=== PATIENT | female | born 1990 | race Caucasian/White ===

== ENCOUNTER 2019-08-23 07:15 | Outpatient (CLI) | payer OTHER, SELFPAY ==
--- NOTE | 2019-08-23 | ECG_ITS ---
Measurements Intervals [place] Rate: 72 P: 32 WI: 118 QRS: 64 QRSD: 74 T: 44 QT: 363 QTc: 399 Interpretive Statements SINUS RHYTHM WITH SINUS ARRHYTHMIA WITH SHORT WI INTERVAL BORDERLINE ECG Electronically Signed On 08-23-2019 8:24:33 [employer] by Watson Schwab D.O.
[2019-08-23 09:27] LABS: Hematocrit 39.1 % (37.0-47.0); Hemoglobin 13.4 g/dL (12.0-15.0); Mean Corpuscular HGB Conc 34.3 g/dl (32-36); Mean Corpuscular Hemoglobin 29.9 pg (26-34); Mean Corpuscular Volume 87.3 fl (80-100); Mean Platelet Volume 10.1 fl (7.4-10.4); Platelet Count Result 205 k/mm3 (150-375); Red Blood Count 4.48 M/mm3 (4.2-5.4); Red Cell Distribution Width 12.8 % (11.5-14.5); White Blood Count 6.7 K/mm3 (4.5-10.0)
[2019-08-23 09:29] LABS: Add Urine Microscopic? NO; Appearance Urine Clear (Clear); Bilirubin Urine Negative (Negative); Blood Urine Negative (Negative); Color Urine Yellow (Yellow); Glucose Urine UA Negative (Negative); Ketones Urine Negative (Negative); Leukocyte Esterase Ur Negative LEU/UL (NEGATIVE); Nitrate Urine Negative (Negative); Protein Urine Negative (Negative); Specific Grav Ur 1.017 (1.001-1.035); Urobilinogen Urine Negative mg/dL (<2.0)
[2019-08-23 09:30] LABS: Alanine Aminotransferase 11 U/L (4-35); Albumin Level 4.1 g/dL (3.5-5.1); Alkaline Phosphatase 54 U/L (38-126); Aspartate Amino Transferase 18 U/L (14-36); Bilirubin,Total 0.4 mg/dL (0.2-1.3); Blood Urea Nitrogen 11 mg/dL (7-17); Calcium 8.9 mg/dL (8.4-10.2); Carbon Dioxide 25 mmol/L (22-30); Chloride 103 mmol/L (98-107); Estimated Glomerular Filt Rate > 60; Glucose 101 mg/dL (65-105); Magnesium 2.1 mg/dL (1.6-2.3); Potassium 3.9 mmol/L (3.4-5.0); Sodium 139 mmol/L (137-145)
[2019-08-25 17:06] LABS: Beta HCG Quantitative < 2.39 mIU/ML
== END 2019-08-23 07:16 | disposition home or self-care (01) ==
LOC: ANHCARD 07:27
PROVIDERS: PCP Emergency Medicine; Visit Provider Obstetrics & Gynecology Gynecology
DX: F50.9 Eating disorder, unspecified (principal)
CPT/HCPCS: 36415; 80053; 81003; 82248; 83735; 84311; 84702; 85027; 93005

== ENCOUNTER 2020-05-28 13:34 | Outpatient (CLI) | payer OTHER, SELFPAY ==
[2020-05-28 14:16] LABS: Basophils Percent Auto 0.1 % (0.2-1.2); Hematocrit 38.8 % (37.0-47.0); Hemoglobin 13.5 g/dL (12.0-15.0); Immature Granulocyte Absolute 0.03 K/mm3 (0.00-0.031); Immature Granulocyte Percent A 0.3 % (0-0.5); Lymphocytes Absolute Auto 3.13 K/mm3 (0.9-3.2); Lymphocytes Percent Auto 32.5 % (18.3-44.2); Mean Corpuscular HGB Conc 34.8 g/dl (32-36); Mean Corpuscular Hemoglobin 30.1 pg (26-34); Mean Corpuscular Volume 86.4 fl (80-100); Mean Platelet Volume 9.9 fl (7.4-10.4); Monocytes Absolute Auto 0.9 K/mm3 (0.1-0.6); Monocytes Percent Auto 8.8 % (2.6-8.5); Neutrophils Absolute Auto 5.6 K/mm3 (1.3-6.7); Neutrophils Percent Auto 58.3 % (45.5-73.1); Platelet Count Result 236 k/mm3 (150-375); Red Blood Count 4.49 M/mm3 (4.2-5.4); Red Cell Distribution Width 13.1 % (11.5-14.5); White Blood Count 9.6 K/mm3 (4.5-10.0)
[2020-05-28 14:23] LABS: Alanine Aminotransferase 10 U/L (4-35); Albumin Level 3.9 g/dL (3.5-5.1); Alkaline Phosphatase 58 U/L (38-126); Anion Gap 8 mmol/L (8-16); Aspartate Amino Transferase 21 U/L (14-36); Bilirubin,Total 0.5 mg/dL (0.2-1.3); Blood Urea Nitrogen 11 mg/dL (7-17); Calcium 9.1 mg/dL (8.4-10.2); Carbon Dioxide 26 mmol/L (22-30); Chloride 102 mmol/L (98-107); Cholesterol 157 mg/dL (0-200); Estimated Glomerular Filt Rate > 60; Glucose 87 mg/dL (65-105); HDL Direct 37 mg/dL; Magnesium 1.9 mg/dL (1.6-2.3); Potassium 3.9 mmol/L (3.4-5.0); Sodium 136 mmol/L (137-145); Triglycerides 55 mg/dL (<150)
[2020-05-28 14:34] LABS: LDL Cholesterol Direct 107 mg/dL
[2020-05-28 15:02] LABS: Vitamin D 25 Hydroxy 26.5 ng/mL
[2020-06-10 15:25] LABS: Reference Lab Test Name Leptin
== END 2020-05-28 13:35 | disposition home or self-care (01) ==
PROVIDERS: Visit Provider Obstetrics & Gynecology Gynecology
DX: F50.9 Eating disorder, unspecified (principal)
CPT/HCPCS: 36415; 80053; 80061; 82306; 82607; 83520; 83735; 84100; 85025; 85027

== ENCOUNTER 2021-05-06 14:20 | Emergency (ER) | payer OTHER, MEDICAID, SELFPAY ==
--- NOTE | ~2021-05-06 | XR_ITS ---
EXAMINATION: XR chest 2V DATE: 05/06/2021 15:06 INDICATION: Palpitations. Dizziness. TECHNIQUE: PA and lateral views of the chest were obtained. COMPARISON: Chest radiograph dated 01/12/2021 FINDINGS: The lungs remain clear with no focal airspace opacities, pulmonary edema, pleural effusion or pneumot horax. The cardiomediastinal silhouette is normal. Cholecystectomy clips in right upper quadrant. Bon es are unremarkable. IMPRESSION: 1. No acute cardiopulmonary disease. Reviewed, dictated and finalized at location A.
--- NOTE | 2021-05-06 14:22 | ECG_ITS ---
Measurements Intervals [place] Rate: 90 P: 31 [place]: 123 QRS: 66 QRSD: 73 T: 12 QT: 345 QTc: 423 Interpretive Statements SINUS RHYTHM POSSIBLE LEFT ATRIAL ENLARGEMENT LOW VOLTAGE- PRECORDIAL LEADS BORDERLINE ST-T WAVE ABNORMALITY- ANT/INF LEADS BORDERLINE ECG Electronically Signed On 05-06-2021 14:27:28 CDT by Watson Schwab D.O.
[2021-05-06 14:28] VITALS: BP 127/82; PULSE 91; RESP 16; TEMP 36.2; O2SAT 100
[2021-05-06 14:51] LABS: Basophils Percent Auto 0.2 % (0.2-1.2); Eosinophils Percent Auto 0.1 % (0-4.4); Hematocrit 37.8 % (37.0-47.0); Hemoglobin 13.2 g/dL (12.0-15.0); Immature Granulocyte Absolute 0.02 K/mm3 (0.00-0.031); Immature Granulocyte Percent A 0.2 % (0-0.5); Lymphocytes Absolute Auto 2.69 K/mm3 (0.9-3.2); Lymphocytes Percent Auto 33.3 % (18.3-44.2); Mean Corpuscular HGB Conc 34.9 g/dl (32-36); Mean Corpuscular Hemoglobin 30.1 pg (26-34); Mean Corpuscular Volume 86.1 fl (80-100); Mean Platelet Volume 10.1 fl (7.4-10.4); Monocytes Absolute Auto 0.9 K/mm3 (0.1-0.6); Monocytes Percent Auto 10.9 % (2.6-8.5); Neutrophils Absolute Auto 4.5 K/mm3 (1.3-6.7); Neutrophils Percent Auto 55.3 % (45.5-73.1); Platelet Count Result 231 k/mm3 (150-375); Red Blood Count 4.39 M/mm3 (4.2-5.4); Red Cell Distribution Width 13.2 % (11.5-14.5); White Blood Count 8.1 K/mm3 (4.5-10.0)
[2021-05-06 15:28] LABS: Anion Gap 6 mmol/L (8-16); Blood Urea Nitrogen 8 mg/dL (7-17); Calcium 8.8 mg/dL (8.4-10.2); Carbon Dioxide 27 mmol/L (22-30); Chloride 105 mmol/L (98-107); Estimated CRCL calculation 138 ml/min; Estimated Glomerular Filt Rate > 60; Glucose 94 mg/dL (65-110); Potassium 3.6 mmol/L (3.4-5.0); Sodium 138 mmol/L (137-145)
[2021-05-06 15:38] LABS: Troponin I < 0.012 ng/mL (0.000-0.034)
[2021-05-06 15:54] LABS: Partial Thromboplastin Time 31.7 SECONDS (22.3-36.8)
--- NOTE | 2021-05-06 16:20 | ED.ARRPALP ---
HPI - Arrhythmia/Palpitations General Chief Complaint: Arrhythmia/Palpitations Stated Complaint: DIZZINESS,HEART PALPATATIONS Time Seen by Provider: 05/06/21 15:57 Source: patient History of Present Illness HPI narrative: Patient presents with palpitations and dizziness. Patient ports intermittent symptoms for the past 3 weeks she contacted her primary care physician was referred to the ER for evaluation. Symptoms are worse today but on arrival to ER she is feeling much better. She denies palpitations at this time. Her symptoms are not associated with chest pain or shortness of breath she denies recent nausea vomiting diarrhea or fevers. Related Data Home Medications Medication Instructions Recorded Confirmed cholecalciferol (vitamin D3) 1,250 See Rx Instructions .ROUTE .COMPLEX 07/01/19 mcg (50,000 unit) tablet cholecalciferol (vitamin D3) 50 2,000 unit PO DAILY 07/01/19 mcg (2,000 unit) tablet escitalopram oxalate 20 mg tablet 20 mg PO DAILY 07/01/19 vitamin no.49-iron-FA See Rx Instructions PO .COMPLEX 07/01/19 6.75 mg iron-200 mcg tablet selenium sulfide 2.5 % lotion See Rx Instructions .ROUTE .COMPLEX 07/01/19 trazodone 100 mg tablet 100 mg PO DAILY tablet 07/02/19 Allergies Allergy/AdvReac Type Severity Reaction Status Date / Time sodium chloride Allergy Severe sodium Verified 05/06/21 15:57 chloride for inhalation - can't breathe Review of Systems Review of Systems: CONSTITUTIONAL: Denies fever, chills, or sweats. EYES: Denies visual changes, redness, or discharge. ENT: Denies rhinorrhea, congestion, sore throat, or otalgia. CARDIOVASCULAR: Denies chest pain, palpitations, or edema. RESPIRATORY: Denies cough or dyspnea. GASTROINTESTINAL: Denies abdominal pain, nausea, vomiting, or diarrhea. GENITOURINARY: Denies dysuria or hematuria. SKIN: Denies rash or itching. MUSCULOSKELETAL: Denies back pain, joint pain, or myalgia. NEUROLOGIC: Denies headache, numbness, or weakness. PSYCHIATRIC: Denies anxiety or depression. All systems reviewed & are unremarkable except as noted in HPI and below PMFSH Family History Family History Mother Family history of thyroid disease Family history of hypercholesterolemia Depression Family history of migraine headaches Hypertension Sibling Family history of hypercholesterolemia Hypertension Father Family history of cardiovascular disease Other Carcinoma of colon Diabetes mellitus Family history of elevated blood lipids Family history of malignant neoplasm Family history of malignant neoplasm of ovary Social History Social History Smoking status: Current every day smoker Alcohol intake: current Exam Narrative: GENERAL: Well-appearing, well-nourished, and in no acute distress. HEAD: Normocephalic, atraumatic. EYES: PERRLA and EOMI. ENT: Nares clear, no rhinorrhea or epistaxis. Mucous membranes moist. NECK: Supple. No masses. No JVD CHEST: Clear to auscultation. No respiratory distress. No wheezes rales or rhonchi HEART: Regular rate and rhythm. No murmur heard. Normal peripheral pulses. ABDOMEN: Soft, nontender, nondistended, normal active bowel sounds. EXTREMITIES: Normal range of motion. No edema. SKIN: Warm, dry, no rash. NEURO: No focal deficits. Alert and oriented x3. PSYCH: Normal mood and affect. Course Reevaluation(s) Reevaluation #1: Results and plan reviewed with patient. Patient comfortable with outpatient plan. She has follow-up with her primary care doctor next week Date: 05/06/21 Time: 16:22 Vital Signs Vital signs: Vital Signs Temperature 36.2 C L 05/06/21 14:28 Pulse Rate 91 05/06/21 14:28 Respiratory Rate 16 05/06/21 14:28 Blood Pressure 127/82 05/06/21 14:28 Pulse Oximetry 100 05/06/21 14:28 Temperature 36.2 C L 05/06/21 14:28 Pulse Rate
[2021-05-06 18:04] VITALS: BP 107/68; PULSE 76; RESP 18; O2SAT 100
== END 2021-05-06 18:08 | disposition home or self-care (01) ==
PROVIDERS: Emergency Medicine; Emergency Provider Emergency Medicine
DX: R42 Dizziness and giddiness (principal); R00.2 Palpitations; F17.200 Nicotine dependence, unspecified, uncomplicated; R94.31 Abnormal electrocardiogram [ECG] [EKG]
CPT/HCPCS: 36415; 71046; 80048; 84443; 84484; 85025; 85610; 85730; 93005; 99284

== ENCOUNTER 2021-06-02 11:27 | Outpatient (CLI) | payer OTHER, MEDICAID, SELFPAY ==
--- NOTE | 2021-06-22 17:42 | WPDSLEEPSTUD ---
Sleep Study Date of Study: 06/02/21 <Kylee Duong DO - Last Filed: 06/22/21 18:07> Ordering Provider: Abel MitchellMD <Kylee Duong DO - Last Filed: 06/22/21 18:07> Interpreting Physician: Kylee Duong DO <Kylee Duong, DO - Last Filed: 06/22/21 18:07> Sleep Study Type: Split Polysomnogram <Kylee Duong DO - Last Filed: 06/22/21 18:07> Height: 1.68 m <Kylee Duong DO - Last Filed: 06/22/21 18:07> Weight: 99.79 kg <Kylee Duong DO - Last Filed: 06/22/21 18:07> Body Mass Index: 35.5 <Kylee Duong DO - Last Filed: 06/22/21 18:07> Neck Circumference (inches): 15 <Kylee Duong DO - Last Filed: 06/22/21 18:07> [place]: 11 <Kylee Duong DO - Last Filed: 06/22/21 18:07> Reason for Sleep Study Unrefreshing sleep, daytime hypersomnia <Kylee Duong DO - Last Filed: 06/22/21 18:07> Sleep History The patient is a 31 y/o female with anxiety, depression, PTSD, and history of anorexia nervosa that had a sleep study ordered by her psychiatrist for unrefreshing sleep and daytime hypersomnia. The patient denies awakening from sleep short of breath. She occasionally awakens at night with heartburn, belching or cough. She constantly snores loud enough that others complain. He frequently has trouble sleeping when she has a cold. She rarely wakes up gasping for air throughout the night. She denies having breathing problems at night observed by others. She denies sweating excessively at night. She occasionally has heart palpitations or irregular heartbeats during the night. She occasionally falls asleep during the day but never while driving. She occasionally has trouble at work due to sleepiness. She denies sleep paralysis, cataplexy and hypnagogic / hypnopompic hallucinations. She frequently has nightmares. She constantly has thoughts racing through her mind. She constantly feels sad, depressed and anxious. She denies noticing parts of her body jerk. She rarely kicks during the night. She rarely experiences crawling and aching feelings in her legs as well as leg pain during the night. She rarely grinds her teeth during sleep and awakens with jaw pain in the morning. She is frequently bothered by pain during the day but is rarely awakened by pain during the night. She constantly wakes up feeling stiff in the morning. She goes to bed at 10:00 p.m. on both weekdays and weekends. On the days that she worked, she can fall asleep within 30 minutes. Otherwise it will take her between 1-2 hours. She wakes up between 1 and 3 times per night. When she awakens, she will adjust her position, use the restroom and lay there ruminating. It takes her between 5 and 30 minutes to fall back asleep. She wakes up at 5:00 a.m. on weekdays and 6:00 a.m. on the weekends. He typically gets between 6 and 8 hours of sleep per night. She will lay in bed for 15 minutes after awakening in the morning. She currently lives with her 3 children. Her work does require split shifts the rotating shifts. She does not consume any caffeinated beverages within 2 hours of bedtime. He does not engage in physical exercise before bedtime. She will read before falling asleep. She does not take naps in the afternoon or the evening. She currently smokes half a pack of cigarettes per day. She does consume caffeinated beverages during the day. She denies alcohol recreational drug use. <Kylee Duong DO - Last Filed: 06/22/21 18:07> [facility], [facility] Family History Family History: Family History Mother Family history of thyroid disease Family history of hypercholesterolemia Depression Family history of migraine headaches Hypertension Sibling Family history of hypercholesterolemia Hypertension Father Family history of cardiovascular disease Other Carcinoma of co
[2021-06-22 17:54] VITALS: BMI 35.5
== END 2021-06-03 07:32 | disposition home or self-care (01) ==
LOC: ANHCSM 11:27
PROVIDERS: Visit Provider Psychiatry & Neurology Psychiatry
DX: G47.33 Obstructive sleep apnea (adult) (pediatric) (principal)
CPT/HCPCS: 95811

== ENCOUNTER 2022-05-20 15:57 | Emergency (ER) | payer OTHER, SELFPAY ==
[2022-05-20] VITALS (8 sets, daily range): BP systolic 100–123; BP diastolic 62–85; PULSE 79–94; RESP 14–22; TEMP 36.9; O2SAT 96–100
--- NOTE | ~2022-05-20 | XR_ITS ---
EXAMINATION: XR chest 2V Exam Date/Time: 05/20/2022 17:20 CDT HISTORY: syncope, SEIZURE LIKE ACTIVITY TODAY, HX OF ARRYTHMIA Comparison: 05/06/2021. RESULT: Lines, tubes, and devices: Cholecystectomy clips. Lungs and pleura: Clear. Cardiomediastinal silhouette: Stable. Other: No acute osseous or upper abdominal finding. IMPRESSION: No acute cardiopulmonary process. Reviewed, dictated and finalized at location K.
--- NOTE | ~2022-05-20 | CT_ITS ---
EXAMINATION: CT brain wo con DATE: 05/20/2022 17:21 INDICATION: seizure like activity . TECHNIQUE: Computed tomography (CT) of the head was performed without intravenous contrast. The mA wa s adjusted according to patient size. Iterative reconstruction technique was employed. The dose-lengt h product was 605.33 mGy-cm. COMPARISON: 02/21/2018 FINDINGS: No acute intracranial hemorrhage or extra-axial fluid collection. No hydrocephalus, mass, or herniation. No acute ischemic infarct. Unremarkable dural venous sinus attenuation. No acute osseous abnormality. The aerated spaces are clear. IMPRESSION: No acute intracranial process. Reviewed, dictated and finalized at location K.
--- NOTE | 2022-05-20 16:19 | ECG_ITS ---
Measurements Intervals [place] Rate: 83 P: 17 [place]: 146 QRS: 56 QRSD: 89 T: 27 QT: 379 QTc: 447 Interpretive Statements SINUS RHYTHM NONSPECIFIC T-WAVE ABNORMALITY COMPARED TO ECG 05/06/2021 14:25:42 NO SIGNIFICANT CHANGE Electronically Signed On 05-22-2022 12:20:03 CDT by Walker James M.D.
[2022-05-20 16:40] LABS: Basophils Absolute Auto 0.1 K/mm3 (0.0-0.1); Basophils Percent Auto 0.5 % (0.2-1.2); Eosinophils Absolute Auto 0.1 K/mm3 (0-0.3); Eosinophils Percent Auto 0.4 % (0-4.4); Hematocrit 39.5 % (37.0-47.0); Hemoglobin 13.6 g/dL (12.0-15.0); Immature Granulocyte Percent A 0.6 % (0-0.5); Lymphocytes Absolute Auto 3.59 K/mm3 (0.9-3.2); Lymphocytes Percent Auto 21.9 % (18.3-44.2); Mean Corpuscular HGB Conc 34.4 g/dl (32-36); Mean Corpuscular Hemoglobin 29.2 pg (26-34); Mean Corpuscular Volume 84.9 fl (80-100); Mean Platelet Volume 10.1 fl (7.4-10.4); Monocytes Absolute Auto 1.1 K/mm3 (0.1-0.6); Neutrophils Absolute Auto 11.4 K/mm3 (1.3-6.7); Neutrophils Percent Auto 69.6 % (45.5-73.1); Platelet Count Result 300 k/mm3 (150-375); Red Blood Count 4.65 M/mm3 (4.2-5.4); Red Cell Distribution Width 13.3 % (11.5-14.5); White Blood Count 16.4 K/mm3 (4.5-10.0)
[2022-05-20 16:50] LABS: Alanine Aminotransferase 21 U/L (6-35); Albumin Level 4.2 g/dL (3.5-5.1); Alkaline Phosphatase 76 U/L (38-126); Anion Gap 10 mmol/L (8-16); Aspartate Amino Transferase 23 U/L (14-36); Bilirubin,Total 0.6 mg/dL (0.2-1.3); Blood Urea Nitrogen 10 mg/dL (7-17); Calcium 8.7 mg/dL (8.4-10.2); Carbon Dioxide 23 mmol/L (22-30); Chloride 106 mmol/L (98-107); Estimated CRCL calculation 120 ml/min; Estimated Glomerular Filt Rate > 60; Glucose 144 mg/dL (65-110); Potassium 3.3 mmol/L (3.4-5.0); Sodium 139 mmol/L (137-145)
[2022-05-20] MEDS: SODIUM CHLORIDE 0.9% IV 1,000 ML 999 ML IV CONT (17:07)
[2022-05-20 17:17] LABS: Appearance Urine Clear (Clear); Bilirubin Urine 2+ (Negative); Blood Urine Trace-intact (Negative); Color Urine Yellow (Yellow); Glucose Urine UA Negative (Negative); Ketones Urine 1+ mg/dL (Negative); Leukocyte Esterase Ur Negative LEU/UL (Negative); Nitrate Urine Negative (Negative); Protein Urine 2+ mg/dL (Negative); Specific Grav Ur >= 1.030 (1.001-1.035); pH Urine 5.5 (5.0-9.0)
[2022-05-20 17:23] LABS: Add Urine Microscopic? YES; Bacteria Urine Trace /hpf; Mucus Urine Moderate /lpf; Squamous Epithelial Cell Urine Many /hpf (Few)
[2022-05-20 17:39] LABS: Barbiturate Screen Urine Negative (Negative); Benzodiazepines Screen Urine Negative (Negative)
[2022-05-20 17:40] LABS: Amphetamine Screen Urine Negative (Negative); Cannabinoid Screen Urine Positive (Negative); Cocaine Screen Urine Negative (Negative); Opiate Screen Urine Negative (Negative); Phencyclidine Screen Urine Negative (Negative)
[2022-05-20 17:43] LABS: Ethanol < 10 mg/dL (<10)
[2022-05-20 18:01] LABS: Methadone Screen Urine Negative (Negative)
--- NOTE | 2022-05-20 19:05 | ED.SYNCOPE ---
HPI - Syncope General Chief Complaint: Syncope Stated Complaint: possible syncopal Time Seen by Provider: 05/20/22 16:05 History of Present Illness HPI narrative: Patient is a 32-year-old female who presents ER after losing consciousness. Patient reports she got up and was walking her living room when she got lightheaded. She sat down by the fireplace to catch her bearings when she stood back up she passed out. Mother witnessed that and reports there was some shaking and she is concerned that she may have had a seizure. No loss of bowel or bladder. No tongue biting. Entire episode lasted approximately 2 minutes and family feels patient was confused when she woke up. Patient reports she has been eating and drinking without issue. Has history of seeing me previously but that was when she had an eating disorder. No recent nausea or vomiting. Has not felt unwell. No palpitations Related Data Home Medications Medication Instructions Recorded Confirmed cholecalciferol (vitamin D3) 1,250 See Rx Instructions .Route .COMPLEX 07/01/19 mcg (50,000 unit) tablet (Dialyvite Vitamin D3 Max) cholecalciferol (vitamin D3) 50 2,000 unit PO DAILY 07/01/19 mcg (2,000 unit) tablet escitalopram oxalate 20 mg tablet 20 mg PO DAILY 07/01/19 vitamin no.49-iron-FA See Rx Instructions PO .COMPLEX 07/01/19 6.75 mg iron-200 mcg tablet (Mini ) selenium sulfide 2.5 % lotion See Rx Instructions .Route .COMPLEX 07/01/19 trazodone 100 mg tablet 100 mg PO DAILY 07/02/19 Allergies Allergy/AdvReac Type Severity Reaction Status Date / Time No Known Allergies Allergy Verified 05/20/22 16:17 Review of Systems Review of Systems: All systems reviewed & are unremarkable except as noted in HPI and below Constitutional: Constitutional: Denies chills, Denies fatigue and Denies fever(s) ENT: Denies nasal congestion and Denies sore throat Cardiovascular: Cardiovascular: Denies chest pain, Denies rapid heart rate and Denies radiating jaw, neck or arm pain Respiratory: Respiratory: Denies cough, Denies dyspnea and Denies wheezing Gastrointestinal: Gastrointestinal: Denies abdominal pain, Denies nausea and Denies vomiting Genitourinary: Genitourinary: Denies dysuria and Denies flank pain [facility] Past Medical History Medical History (Updated 05/20/22 @ 19:17 by Guzman Vaughn MD) Depression NATALIE (obstructive sleep apnea) Surgical History Surgical History (Updated 05/20/22 @ 19:17 by Guzman Vaughn MD) History of cholecystectomy Family History Family History Mother Family history of thyroid disease Family history of hypercholesterolemia Depression Family history of migraine headaches Hypertension Sibling Family history of hypercholesterolemia Hypertension Father Family history of cardiovascular disease Other Carcinoma of colon Diabetes mellitus Family history of elevated blood lipids Family history of malignant neoplasm Family history of malignant neoplasm of ovary Social History Social History Smoking status: Current every day smoker Alcohol intake: current Exam Narrative: GENERAL: Well-appearing, well-nourished, and in no acute distress. HEAD: Normocephalic, atraumatic. EYES: PERRL and EOMI. ENT: Mucous membranes moist. Normal-appearing tongue. NECK: Supple. CHEST: Clear to auscultation. No respiratory distress. HEART: Regular rate and rhythm. Normal peripheral pulses. ABDOMEN: Soft, nontender, nondistended. EXTREMITIES: Normal range of motion. No edema. SKIN: Warm, dry, no rash. NEURO: Alert and oriented x3. PSYCH: Normal mood and affect. Course Course Emergency Course: Patient resting comfortably. Informed of results. Positive orthostatics. Feels better after hydration. Vital Signs Vital signs: Vital Signs Temperature 98.4 F 05/20
== END 2022-05-20 19:22 | disposition home or self-care (01) ==
PROVIDERS: Emergency Provider Emergency Medicine; PCP Nurse Practitioner Family
DX: R55 Syncope and collapse (principal); F17.210 Nicotine dependence, cigarettes, uncomplicated
CPT/HCPCS: 36415; 70450; 71046; 80053; 80307; 81001; 81025; 85025; 93005; 96360; 99284; J7030

== ENCOUNTER 2022-05-23 14:38 | Outpatient (CLI) | payer OTHER, SELFPAY ==
--- NOTE | ~2022-05-23 | DEXA_ITS ---
Bone Density Report Name: ELIOT CARROLL Age: 32 Sex: Female Ethnicity: White Date of : 1990 Indication: postmenopausal; prior fracture; Referring Provider: AWILDA NOWAK Study: Bone densitometry was performed. Exam Date: May 23, 2022 Accession number: [id number] Bone Density: Region BMD T-score Z-score Classification AP Spine(L1-L4) 0.891 -1.4 Femoral Neck (Left) 0.710 -1.1 Total Hip (Left) 0.949 0.1 Femoral Neck (Right) 0.722 -1.0 Total Hip (Right) 0.924 -0.1 Total Hip Mean 0.937 0.0 World Health Organization criteria for BMD impression classify patients as: Normal (T-score at or above -1.0), Osteopenia (T-score between -1.0 and -2.5), or Osteoporosis (T-score at or below -2.5). 10-year Fracture Risk: FRAX not reported because: Prior hip or vertebral fracture Previous Exams: Region Exam Age BMD T-score BMD Change BMD Change Date g/cm2 vs Baseline vs Previous AP Spine (L1-L4) 05/23/2022 32 0.891 0.025 (2.9%)* 0.005 (0.5%) 07/18/2019 29 0.887 0.021 (2.4%) 0.021 (2.4%) 06/09/2017 27 0.866 Total Hip(Left) 05/23/2022 32 0.949 0.081 (9.3%)* 0.089 (10.3%)* 07/18/2019 29 0.861 -0.008 (-0.9%) -0.008 (-0.9%) 06/09/2017 27 0.868 Total Hip(Right) 05/23/2022 32 0.924 0.112 (13.8%)* 0.116 (14.4%)* 07/18/2019 29 0.807 -0.004 (-0.5%) -0.004 (-0.5%) 06/09/2017 27 0.812 *Denotes significance at 95% confidence level, LSC for AP Spine = 0.022 g/cm2, LSC for Total Hip = 0.027 g/cm2 Clinical Information Provided by Patient: Have had a previous hip or vertebral fracture Has had a low trauma fracture Smokes Patient maximum height was 66 No regular weight bearing exercise Does not regularly consume dairy products Drinks caffeinated beverages Onset of menses at age 16 Number of children 3 Impression: The patient has risk factors, including: smoking, previous fracture. No significant bone loss was observed. Discussion: INCREASED RISK OF FRACTURE DUE TO HISTORY OF FRACTURE. The patient's previous fracture puts the patient at high risk of a future fracture. In untreated patients, the risk of osteoporotic fracture increases approximately two-fold for each 1.0 SD decrease in T-score. Low bone density is not the only risk factor for fracture; also consider factors such as patient's age, frailty or poor health, risk of falling, risk
== END 2022-05-23 14:39 | disposition home or self-care (01) ==
PROVIDERS: PCP Nurse Practitioner Family; Visit Provider Obstetrics & Gynecology Gynecology
DX: M85.88 Other specified disorders of bone density and structure, other site (principal)
CPT/HCPCS: 77080

== ENCOUNTER 2022-06-27 13:25 | Outpatient (CLI) | payer OTHER, SELFPAY ==
--- NOTE | 2022-06-30 13:44 | WPDHOLTEREM ---
Holter/Event Monitor Holter/Event Monitor Date of procedure: 06/27/22 Holter/Event Procedure: 48 Hr Holter Monitor Indications: Tachycardia Conclusion: 1. 48 hour holter monitor on 06/27/22. 2. Underlying rhythm is sinus rhythm. HR range 47-152 bpm; average HR 82 bpm. 3. There are 14 premature supraventricular complexes and 1 supraventricular couplet. No supraventricular tachycardia. 4. No premature ventricular complexes. No ventricular tachycardia. 5. No sinoatrial or atrioventricular blocks. No significant pauses greater than 2 seconds. 6. Patient reports symptoms of dizziness/lightheadedness, chest pain, shortness of breath which demonstrate sinus rhythm, HR range 65-118 bpm.
== END 2022-06-27 13:26 | disposition home or self-care (01) ==
PROVIDERS: PCP Nurse Practitioner Family; Visit Provider Nurse Practitioner Family
DX: R00.0 Tachycardia, unspecified (principal)
CPT/HCPCS: 93225; 93226

== ENCOUNTER 2023-02-03 15:12 | Emergency (ER) | payer OTHER, SELFPAY ==
[2023-02-03] VITALS (36 sets, daily range): BP systolic 103–142; BP diastolic 61–89; PULSE 64–102; RESP 12–26; TEMP 36.6; O2SAT 97–100
--- NOTE | 2023-02-03 15:16 | ECG_ITS ---
Measurements Intervals [place] Rate: 96 P: 31 SD: 123 QRS: 61 QRSD: 71 T: 18 QT: 333 QTc: 421 Interpretive Statements SINUS RHYTHM LOW QRS VOLTAGE IN PRECORDIAL LEADS NONSPECIFIC ST & T-WAVE ABNORMALITY- ANTEROLAT/INF LEADS BORDERLINE ECG COMPARED TO ECG 05/20/2022 16:09:47 NO SIGNIFICANT CHANGES Electronically Signed On 02-03-2023 18:25:57 CDT by Watson Schwab D.O.
[2023-02-03 15:42] LABS: Basophils Absolute Auto 0.1 K/mm3 (0.0-0.1); Basophils Percent Auto 0.7 % (0.2-1.2); Eosinophils Absolute Auto 0.1 K/mm3 (0-0.3); Eosinophils Percent Auto 1.4 % (0-4.4); Hematocrit 41.7 % (37.0-47.0); Hemoglobin 14.4 g/dL (12.0-15.0); Immature Granulocyte Absolute 0.04 K/mm3 (0.00-0.031); Immature Granulocyte Percent A 0.5 % (0-0.5); Lymphocytes Absolute Auto 2.85 K/mm3 (0.9-3.2); Lymphocytes Percent Auto 33.1 % (18.3-44.2); Mean Corpuscular HGB Conc 34.5 g/dl (32-36); Mean Corpuscular Volume 83.9 fl (80-100); Mean Platelet Volume 10.1 fl (7.4-10.4); Monocytes Absolute Auto 0.8 K/mm3 (0.1-0.6); Monocytes Percent Auto 8.7 % (2.6-8.5); Neutrophils Absolute Auto 4.8 K/mm3 (1.3-6.7); Neutrophils Percent Auto 55.6 % (45.5-73.1); Platelet Count Result 305 k/mm3 (150-375); Red Blood Count 4.97 M/mm3 (4.2-5.4); Red Cell Distribution Width 13.2 % (11.5-14.5); White Blood Count 8.6 K/mm3 (4.5-10.0)
[2023-02-03 15:53] LABS: Alanine Aminotransferase 21 U/L (6-35); Albumin Level 4.3 g/dL (3.5-5.1); Alkaline Phosphatase 89 U/L (38-126); Anion Gap 7 mmol/L (8-16); Aspartate Amino Transferase 24 U/L (14-36); Bilirubin,Total 0.6 mg/dL (0.2-1.3); Blood Urea Nitrogen 6 mg/dL (7-17); Calcium 9.2 mg/dL (8.4-10.2); Carbon Dioxide 24 mmol/L (22-30); Chloride 106 mmol/L (98-107); Estimated CRCL calculation 116 ml/min; Estimated Glomerular Filt Rate > 60; Glucose 106 mg/dL (65-110); Lipase 58 U/L (23-300); Potassium 3.9 mmol/L (3.4-5.0); Sodium 137 mmol/L (137-145)
[2023-02-03 16:04] LABS: Troponin I < 0.012 ng/mL (0.000-0.034)
[2023-02-03 18:47] LABS: Troponin I < 0.012 ng/mL (0.000-0.034)
--- NOTE | 2023-02-03 19:06 | ED.GENADULT ---
HPI - General Adult General Chief complaint: Arrhythmia/Palpitations Stated complaint: dizzy spells/nausea/palpitations Time Seen by Provider: 02/03/23 18:11 History of Present Illness HPI narrative: 32-year-old female presented to the emergency department for evaluation of worsening dizzy spells and palpitations. Patient states that she was recently diagnosed with POTS. Patient reports today she did have some increased dizziness lightheadedness tinnitus and nausea. Patient denies any associated chest pain falls or injuries. Related Data Home Medications Medication Instructions Recorded Confirmed cholecalciferol (vitamin D3) 1,250 See Rx Instructions .Route .COMPLEX 07/01/19 mcg (50,000 unit) tablet (Dialyvite Vitamin D3 Max) cholecalciferol (vitamin D3) 50 2,000 unit PO DAILY 07/01/19 mcg (2,000 unit) tablet escitalopram oxalate 20 mg tablet 20 mg PO DAILY 07/01/19 vitamin no.49-iron See Rx Instructions PO .COMPLEX 07/01/19 fum-folic acid 6.75 mg iron-200 mcg tablet (Mini ) selenium sulfide 2.5 % lotion See Rx Instructions .Route .COMPLEX 07/01/19 trazodone 100 mg tablet 100 mg PO DAILY 07/02/19 Allergies Allergy/AdvReac Type Severity Reaction Status Date / Time No Known Allergies Allergy Verified 05/20/22 16:17 Review of Systems Review of Systems: All systems reviewed & are unremarkable except as noted in HPI and below PMFSH Past Medical History Medical History (Updated 02/04/23 @ 00:00 by Deonna Nieto) Depression NATALIE (obstructive sleep apnea) Surgical History Surgical History (Updated 05/20/22 @ 19:17 by Guzman Vaughn MD) History of cholecystectomy Family History Family History Mother Family history of thyroid disease Family history of hypercholesterolemia Depression Family history of migraine headaches Hypertension Sibling Family history of hypercholesterolemia Hypertension Father Family history of cardiovascular disease Other Carcinoma of colon Diabetes mellitus Family history of elevated blood lipids Family history of malignant neoplasm Family history of malignant neoplasm of ovary Social History Social History Smoking status: Current every day smoker Alcohol intake: current Exam Narrative: APPEARANCE: Well appearing, no pain, no distress, well-nourished. HEAD: normocephalic, atraumatic. EYES: PERRLA/EOMI, conjunctivae clear. NOSE: Normal no drainage NECK: Supple. No adenopathy, no masses. RESPIRATORY: Airway patent, respirations nonlabored. Clear to auscultation bilaterally, no rales, rhonchi, wheezing. CARDIOVASCULAR: Regular rate and rhythm without murmurs rubs or gallops. ABDOMINAL: Soft, nontender, nondistended, normal bowel sounds MUSCULOSKELETAL: Moves all extremities. Strength/ROM intact, No edema, No calf tenderness. NEURO: Alert. Cranial nerves II through XII intact. Grossly SKIN: Warm, dry. Normal Color PSYCHIATRIC: Normal affect/mood. Course Course Emergency Course: 32-year-old female with history of POTS presented the ED for evaluation of lightheadedness. Patient was also complaining of headaches and this was improved with Toradol. Patient was treated with meclizine and states that this did help with her dizziness sensation. Patient had a normal exam with no evidence of otitis media or fluid in the ears. Patient is afebrile with no leukocytosis and a stable hemoglobin. Patient had a normal CMP and negative serial troponins and a normal TSH. Patient and family were updated on the results of the work-up and patient reports she does feel improved. Patient was encouraged of close follow-up with her primary care physician. Patient was also provided meclizine for vertigo control. Vital Signs Vital signs: Vital Signs Temperature 97.8 F 02/03/23 15:13 Pulse Rate 102 H 02/03/23 15
[2023-02-03] MEDS: KETOROLAC 15 MG/ML VIAL (*BKC) IV PUSH (19:31)
[2023-02-03] MEDS: MECLIZINE HCL 25 MG TABLET PO (19:32)
[2023-02-03] MEDS: SODIUM CHLORIDE 0.9% IV 1,000 ML 999 ML IV CONT (19:32)
--- NOTE | 2023-02-03 19:41 | PC.NURSE ---
pt was asymptomatic with ortho
== END 2023-02-03 22:27 | disposition home or self-care (01) ==
PROVIDERS: Emergency Medicine; Emergency Provider Emergency Medicine; PCP Nurse Practitioner Family
DX: R42 Dizziness and giddiness (principal); R51.9 Headache, unspecified; F17.200 Nicotine dependence, unspecified, uncomplicated
CPT/HCPCS: 36415; 80053; 83690; 83735; 84443; 84484; 85025; 93005; 96361; 96374; 99284; A9270; J1885; J7030

== ENCOUNTER 2023-11-05 14:27 | Emergency (ER) | payer OTHER, MEDICAID, SELFPAY ==
--- NOTE | ~2023-11-05 | XR_ITS ---
EXAMINATION: XR chest 2V DATE: 11/05/2023 15:40 INDICATION: Chest pain. Palpitations. TECHNIQUE: Frontal and lateral views of the chest were obtained. COMPARISON: Chest 2 views 05/20/2022 FINDINGS: There is no pneumonia, pleural effusion, or pneumothorax. The heart size is normal. Surgica l clips in the right upper quadrant are likely from cholecystectomy. IMPRESSION: 1. No acute cardiopulmonary disease. Reviewed, dictated and finalized at location E.
--- NOTE | 2023-11-05 14:57 | ECG_ITS ---
SEE SCANNED COPY FOR CONFIRMED REPORT MTDD
[2023-11-05 15:00] VITALS: BP 120/83; PULSE 90; RESP 18; TEMP 36.3; O2SAT 99
--- NOTE | 2023-11-05 15:01 | ED.ARRPALP ---
HPI - Arrhythmia/Palpitations General Chief Complaint: Arrhythmia/Palpitations <LAINA Stanton Last Filed: 11/05/23 15:06> Stated Complaint: dizziness <LAINA Stanton Last Filed: 11/05/23 15:06> Time Seen by Provider: 11/05/23 14:50 <LAINA Stanton Last Filed: 11/05/23 15:06> Focused HPI: Patient is a 33 y/o female who presents to the ED with c/o dizziness and palpitations. Patient reports having worsening palpitations over the weekend. States she is usually fatigued on weekends after working all week, but this weekend was worse than usual. Denies any aggravating or alleviating factors to palpations. Also c/o intermittent dizziness and shortness of breath over the weekend. Denies any unusual activity. Reported having chest heaviness this morning which prompted her presentation. Denies CP currently. Patient states she is currently being worked up for POTS, has been unofficially diagnosed by her PCP, currently has an 30 day heart event monitor, placed on Sunday. GENERAL: Well-appearing, obese with BMI of 34.9, and in no acute distress. HEAD: Normocephalic, atraumatic. CHEST: Clear to auscultation. ?No respiratory distress. HEART: Regular rate and rhythm.? MSK: No lower extremity edema. No calf tenderness. NEURO: ?Alert and oriented x3. Patient screened in triage and initial orders placed.? ?Additional care and disposition to be based upon?diagnostic testing and treatment. <LAINA Stanton Last Filed: 11/05/23 15:06> History of Present Illness HPI narrative: 33-year-old female with reported history of depression and [place] presents to emergency department for lightheadedness and palpitations. Patient states she has had palpitations and dizziness since she was a teenager. She is currently wearing a 30-day cardiac event monitor ordered by her PCP. States 3 days ago she felt like her heart rate was increasing approximately 40-50 beats per minute when usually they only 35-40 beats per minute. She states the tachycardia can occur while she was sitting down or ambulating. She is reporting associated lightheadedness. States this morning when she woke up she felt a chest pressure that was central and intermittently radiated to her left neck. She reported associated dyspnea. Denies cough, congestion, hemoptysis, lower extremity edema, use of estrogen, recent surgery hospitalization. States that her maternal grandfather had cardiac disease, otherwise denies known family cardiac history. She does endorse that she smokes approximately 6-8 cigarettes per day. Denies alcohol or drug use. Per chart review, patient had a Holter monitor on 06/30/2022 for 48 hours. Results are as followed: Conclusion: 1. 48 hour holter monitor on 06/27/22. 2. Underlying rhythm is sinus rhythm. HR range 47-152 bpm; average HR 82 bpm. 3. There are 14 premature supraventricular complexes and 1 supraventricular couplet. No supraventricular tachycardia. 4. No premature ventricular complexes. No ventricular tachycardia. 5. No sinoatrial or atrioventricular blocks. No significant pauses greater than 2 seconds. 6. Patient reports symptoms of dizziness/lightheadedness, chest pain, shortness of breath which demonstrate sinus rhythm, HR range 65-118 bpm. <Yessi Anderson PA-C - Last Filed: 11/05/23 20:03> Related Data Home Medications: Home Medications Medication Instructions Recorded Confirmed cholecalciferol (vitamin D3) 1,250 See Rx Instructions .Route .COMPLEX 07/01/19 mcg (50,000 unit) tablet (Dialyvite Vitamin D3 Max) cholecalciferol (vitamin D3) 50 2,000 unit PO DAILY 07/01/19 mcg (2,000 unit) tablet escitalopram oxalate 20 mg tablet 20 mg PO DAILY 07/01/19 vitamin no.49-iron See Rx Instructions PO .COMPLEX 07/01/19 fum-folic acid 6.75 mg iron-200 mcg tablet (Mini ) selenium sulfide 2.5 % lotion See Rx Instructions .Route .COMPLEX 07/01/19 trazodone
[2023-11-05 15:24] LABS: Basophils Absolute Auto 0.1 K/mm3 (0.0-0.1); Basophils Percent Auto 0.6 % (0.2-1.2); Eosinophils Absolute Auto 0.1 K/mm3 (0-0.3); Eosinophils Percent Auto 1.5 % (0-4.4); Hematocrit 39.1 % (37.0-47.0); Hemoglobin 13.6 g/dL (12.0-15.0); Immature Granulocyte Absolute 0.02 K/mm3 (0.00-0.031); Immature Granulocyte Percent A 0.3 % (0-0.5); Lymphocytes Absolute Auto 2.19 K/mm3 (0.9-3.2); Lymphocytes Percent Auto 27.5 % (18.3-44.2); Mean Corpuscular HGB Conc 34.8 g/dl (32-36); Mean Corpuscular Hemoglobin 29.6 pg (26-34); Mean Platelet Volume 10.5 fl (7.4-10.4); Monocytes Absolute Auto 0.7 K/mm3 (0.1-0.6); Monocytes Percent Auto 8.3 % (2.6-8.5); Neutrophils Absolute Auto 4.9 K/mm3 (1.3-6.7); Neutrophils Percent Auto 61.8 % (45.5-73.1); Platelet Count Result 269 k/mm3 (150-375); Red Cell Distribution Width 13.4 % (11.5-14.5)
[2023-11-05 15:35] LABS: Prothrombin Time 13.3 Seconds (11.1-14.7)
[2023-11-05 15:36] LABS: Partial Thromboplastin Time 32.1 Seconds (22.3-36.8)
[2023-11-05 15:39] LABS: Alanine Aminotransferase 16 U/L (6-35); Albumin Level 4.5 g/dL (3.5-5.1); Alkaline Phosphatase 69 U/L (38-126); Anion Gap 5 mmol/L (4-12); Aspartate Amino Transferase 19 U/L (14-36); Bilirubin,Total 0.6 mg/dL (0.2-1.3); Blood Urea Nitrogen 7 mg/dL (7-17); Calcium 9.6 mg/dL (8.4-10.2); Carbon Dioxide 24 mmol/L (22-30); Chloride 108 mmol/L (98-107); Estimated CRCL calculation 115 ml/min; Estimated Glomerular Filt Rate > 60; Glucose 98 mg/dL (65-110); Lipase 40 U/L (23-300); Magnesium 2.1 mg/dL (1.6-2.3); Potassium 3.8 mmol/L (3.4-5.0); Sodium 137 mmol/L (137-145)
[2023-11-05 15:45] LABS: D Dimer 0.43 ug/mL (<0.48)
[2023-11-05 15:49] LABS: Troponin I < 0.012 ng/mL (0.000-0.034)
--- NOTE | 2023-11-05 18:28 | ECG_ITS ---
SEE SCANNED COPY FOR CONFIRMED REPORT MTDD
[2023-11-05 18:40] VITALS: BP 126/71; PULSE 76; PULSE 77; RESP 20; O2SAT 100; O2SAT 99
[2023-11-05 18:47] VITALS: BP 113/62; PULSE 72; RESP 17; O2SAT 99
[2023-11-05 19:05] LABS: Troponin I < 0.012 ng/mL (0.000-0.034)
[2023-11-05] MEDS: LACTATED RINGERS 1,000 ML 999 ML IV CONT (19:15)
[2023-11-05 19:16] VITALS: BP 125/75; PULSE 72; RESP 12; O2SAT 100
[2023-11-05 20:26] VITALS: BP 118/73; PULSE 68; RESP 15; TEMP 36.7; O2SAT 100
== END 2023-11-05 20:27 | disposition home or self-care (01) ==
PROVIDERS: Physician Assistant; Emergency Provider Physician Assistant; PCP Nurse Practitioner Family
DX: R42 Dizziness and giddiness (principal); R00.2 Palpitations; G47.33 Obstructive sleep apnea (adult) (pediatric); G90.A Postural orthostatic tachycardia syndrome [POTS]; F32.A Depression, unspecified; Z90.49 Acquired absence of other specified parts of digestive tract; F17.200 Nicotine dependence, unspecified, uncomplicated; R94.31 Abnormal electrocardiogram [ECG] [EKG]
CPT/HCPCS: 36415; 71046; 80053; 81025; 83690; 83735; 84484; 85025; 85380; 85610; 85730; 93005; 96360; 99284; J7120

== ENCOUNTER 2024-10-24 12:07 | Outpatient (CLI) | payer OTHER, SELFPAY ==
--- NOTE | ~2024-10-24 | US_ITS ---
EXAMINATION: US OB <=14 wk fetus w TV DATE: 10/24/2024 12:44 INDICATION: Spotting during first trimester TECHNIQUE: Real-time pelvic ultrasound utilizing both a transvaginal and transabdominal probe was pe rformed. The interpreting radiologist was not present for the study. COMPARISON: None. FINDINGS: The uterus measures 8.9 x 6.2 x 5.3 cm. There is an intrauterine gestational sac with double deciduo us sign but no discernible yolk sac or pole. The mean sac diameter measures 13 mm, which correl ates with an estimated gestational age of 6 weeks and 1 days. Small anechoic to hypoechoic subchorion ic hematoma measuring 2.0 x 1.0 x 0.7 cm. The right ovary measures 2.1 x 1.5 x 2.4 cm. The left ovary measures 2.3 x 1.4 x 1.3 cm. Basilar flow identified in both ovaries on color Doppler. There is no free fluid in the pelvis. IMPRESSION: 1. Single intrauterine gestational sac with no internal yolk sac or pole yet apparent likely du e to early stage of . 2. Gestational age by ultrasound of 6 weeks 1 day(s) +/- 4 day(s) with ultrasound estimated date of delivery (RAMANDEEP) of 06/18/2025. 2. Small subchorionic hematoma. Reviewed, dictated and finalized at location A. IMPRESSION: 1. Single intrauterine gestational sac with no internal yolk sac or pole yet apparent likely due to early stage of . 2. Gestational age by ultrasound of 6 weeks 1 day(s) +/- 4 day(s) with ultraso und estimated date of delivery (RAMANDEEP) of 06/18/2025. 2. Small subchorionic hematoma.
--- OUTSIDE RECORDS SUMMARY | 2024-10-24 12:11 | XMS_ITS | Clinical Summary ---
Author Organization [facility] Address [address] [place] [address] Care Team Providers Care Story Editor Name Role Phone Sameer Aggarwal MD Unavailable Stephanie Villagomez DO Primary Care Provider [phone] Source Comments [facility],non-owned Affiliates and Associated Physician Practices is amultiple site organization consisting of ambulatory clinics and hospital sitesin [place], [place], [place] and [place]. This disclosure is being madepursuant to the Care Everywhere program and may not contain all information available regarding this patient. Last updated 18.[facility] Allergies Active Allergy Reactions Criticality Noted Date Comments Adhesive Sensitivity Rash Medium 02/06/2020 Saline Dizziness,Palpitatio ns,Shortness of Breath,Wheezing High 05/14/2011 Medications * Be aware that medications may not be up to date on this document. Alwaysverify current medications with the patient. Medication Sig Dispensed Refills Start Date End Date Status vitamin D, ergocalciferol, (DRISDOL) 1.25 MG (90992 UT) capsule Take 1 capsule by mouth every 7 days 12 capsule 02/06/2020 Active ARIPiprazole (ABILIFY) 2 MG tablet 01/15/2020 Active desvenlafaxine succinate ER 24hr (PRISTIQ) 100 MG tablet TK 1 T PO QD 01/14/2020 Active guanFACINE (TENEX) 1 MG tablet 01/15/2020 Active hydrOXYzine hcl (ATARAX) 25 MG tablet TK 1 TO 2 TS PO QID PRF ANXIETY 09/27/2019 Active amoxicillin (AMOXIL) 875 MG tablet Take 1 tablet by mouth once daily 03/28/2020 Active zolpidem (AMBIEN) 5 MG tablet Take 1 tablet by mouth once daily 02/19/2020 Active Active Problems Problem Noted Date Diagnosed Date Anxiety disorder 05/16/2017 Abnormal results of thyroid function studies Major depressive disorder, single episode 2016 Family History Medical History Relation Name Comments Hyperlipidemia Maternal Grandfather Hypertension Maternal Grandfather Colitis Mother ischemic Hyperlipidemia Mother Other Mother metabolic syndr ome Relation Name Status Comments Father Alive Maternal Grandfather Alive Maternal Grandmother Alive Mother Alive Paternal Grandfather Alive Paternal Grandmother Social History Tobacco Use Types Packs/Day Years Used Date Smoking Tobacco: Light Smoker Smokeless Tobacco: Never Alcohol Use Standard Drinks/Week Comments No 0 (1 standard drink = 0.6 oz pur e alcohol) PHQ-2 Answer Date Recorded PHQ2 TOTAL SCORE 0 12/24/2020 Sex and Gender Information Value Date Recorded Sex Assigned at Female 09/16/2020 2:24 PM 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/ORDER 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 [employer] ORD[employer] Gender Identity Female 09/16/2020 2:24 PM MANIFEST/ORDER ORGANIZER [employer] ORDERS Sexual Orientation Straight 09/16/2020 2: 24 PM MANIFEST/ORDER [employer]GANIZER [employer] ORDERS Last Filed Vital Signs Vital Sign Reading Time Taken Comments Blood Pressure 110/84 12/24/2020 2:09 PM CDT Pulse 96 12/24/2020 2:09 PM CDT Temperature 36.9 C (98.5 F) 04/15/2020 8:43 AM CDT Respiratory Rate - - Oxygen Saturation 98% 12/24/2020 2:09 PM CDT Inhaled Oxygen Concentration - - Weight 101.7 kg (224 lb 3.2 oz) 12/24/2020 2:09 PM CDT Height 167.6 cm (5' 6 ) 12/24/2020 2:09 PM CDT Body Mass Index 36.19 12/24/2020 2:09 PM CDT Plan of Treatment Health Maintenance Due Date Last Done Comments HEPATITIS C SCREENING 02/03/2007 DTAP/TDAP/TD VACCINES (1 - Tdap) 02/08/2008 HEPATITIS B VACCINE (1 of 3 - 19+ 3-dose series) 02/08/2008 PNEUMOCOCCAL VACCINE (1 of 2 - PCV) 02/08/2008 PAP SMEAR 02/05/2023 02/06/2020 (Done Outside Per Patient) COVID-19 VACCINE ( - 2023-2 5 season) 2024 INFLUENZA VACCINE (#1) 2024 DEPRESSION SCREENING 07/23/2024 ZOSTER VACCINE (1 of 2) 2039 HIV SCREENING Completed 02/06/2020 HIB VACCINE Aged Out No longer eligi ble based on patient's age to complete this topic HPV VACCINE Aged Out No longer eligi ble based on patient's age to complete this topic MENINGOCOCCAL (Group B) VACCINE SHARED DECISION-MAKING Aged Out No longer eligible based on patient's age to complete this topic MENINGOCOCCAL GROUPS A/C/Y/W VACCINE Aged Out No longer eligible based on patient's age to complete this topic Procedures Procedure Name Priority Date/Time Associated Diagnosis Comments HIV-1 HIV-2 ANTIBODY + HIV P24 AG PANEL 02/06/2020 2:50 PM CDT from Last 3 Months or Most Recently Relevant to Health Maintenance Results * HIV-1 HIV-2 ANTIBODY + HIV P24 AG PANEL (02/06/2020 2:50 PM CDT) HIV Screen 4th Generation w Reflex NON-REACT ALDEN NON-REACT ALDEN [facility] Comment: HIV-1 antigen and HIV-1/HIV-2 antibodies were not detected. There is no laboratory evidence of HIV infection. PLEASE NOTE: This information has been disclosed to you from records whose confidentiality may be protected by state law. If your state requires such protection, then the state law prohibits you from making any further disclosure of the information without the specific written consent of the person to whom it pertains, or as otherwise permitted by law. A general authorization for the release of medical or other information is NOT sufficient for this purpose. For additional information please refer to http://education.OneMorePallet.Tradono/faq/VER303 (This link is being provided for informational/ educational purposes only.) The performance of this assay has not been clinically validated in patients less than 2 years old. Test Performed at: [facility] [id number] [place] [address] ASAD ZAPIEN DO,MPH 02/06/2020 2:50 PM CDT 02/06/2020 2:52 PM CDT Stephanie Villagomez DO LAB - CHEMISTRY [facility] [id number] [place] [address] from Last 3 Months or Most Recently Relevant to Health Maintenance Care Teams Story Editor Relationship Specialty Start Date End Date Stephanie Villagomez DO [address] OF [facility] [place] [id number] PCP - General 05/06/21 Sameer Aggarwal MD [address] [facility] [place] [address] Resident - PCP Student Resident 05/06/21
--- OUTSIDE RECORDS SUMMARY | 2024-10-24 12:11 | XMS_ITS | Data Portability ---
Author Organization [place] - [facility], Main Office Address [address] [place] [address] Assessment Encounter Date Assessment Date Assessment LastModified by Organization Details LastModified Time 05/11/2023 05/11/2023 Labs done 01/2023. Seeing cardiology- POTs. Seeing Rheum- EDS Not available 05/11/2023 09:02:07 Plan of Treatment Reminders Order Date Submit Date Provider Last Modified By Organization Details Last Modified Time Details Appointments None recorded. Lab None recorded. Referral bariatric surgery referral - Interested in bariatric procedure for weight loss. 2022 023 [email or web address] Not available 14:09:42 Procedures None recorded. Surgeries None recorded. Imaging None recorded. Medication Orders None recorded. Patient TargetsNo targets recorded. Patient Instructions Encounter Date Encounter Id Patient Instructions Last Modified By Organization Details Last Modified Time 11/29/2022 [id number] FU prn. [email or web address] Not available 11/29 16:18:57 05/11/2023 [id number] FU in 1 year for wellness. Not available 05/11/2023 08:10:55 Reason for Referral Bariatric Surgery Referral f or Obese Interested in bariatric procedure for weight loss. Referring Physician: Britney Colorado, Family Medicine, Encounter Date: 11/29/2022 Results Created Date Observation Date Name Description Value Unit Range Abnormal Flag Note LastModifiedBy Organization Detail LastModifiedTime 02/29/20 22 03/06/2022 HERED .HEMO CHROM ATOSI S, DNA hereditary hemochromato sis commen t Resul ts: c.845 G>A (p.Cy s282T yr) - Not Detec dana c.187 C>G (p.Hi s63As p) - Detec dana, heter ozygo us c.193 A>T (p.Se r65Cy s) - Not Detec dana Not assoc iated with incre ased risk to devel op clini rm sympt oms of Hered itary Hemoc hroma tosis . In sympt omati c indiv idual s, other cause s of iron overl oad shoul d be evalu ated. See Addit ional Infor matio n and Comme nts. . Addit ional Clini rm Infor matio n: Hered itary hemoc hroma tosis (HFE relat ed) is an autos omal reces sive iron stora ge disor hernán. Patie nts may have a dolores ic diagn osis of hered itary hemoc hroma tosis and never show clini rm sympt oms. Clini rm sympt oms typic ally appea r betwe en 40 to 60 years in males and after menop ause in femal es. Signs and sympt oms may inclu de organ damag e, prima rily in the liver , risk for hepat ocell ular carci noma, diabe gaetano, and heart disea se due to iron accum ulati on. Life expec tancy may be decre ased in indiv idual s who devel op cirrh osis. Treat ment for clini peter sympt omati c indiv idual s may inclu de thera peuti c phleb otomy . Liver trans plant may be used to treat end stage liver failu re. For preve ntive care, monit oring for iron overl oad is recom sena d for patie nts who are homoz ygous for c.845 G>A (p.Cy s282T yr) and have yet to exper ience clini rm sympt oms. . Comme nts: The most commo n HFE varia nts assoc iated with hered itary hemoc hroma tosis are c.845 G>A (p.Cy s282T yr), c.187 C>G (p.Hi s63As p), c.193 A>T (p.Se r65Cy s). While patie nts homoz ygous for c.845 G>A (p.Cy s282T yr) are the most likel y to prese nt clini rm sympt oms, less than 10% devel op clini peter signi fican t iron overl oad with tissu e and organ damag e. . Dolores ic couns bogdan is recom sena d to discu ss the poten tial clini rm impli catio ns of posit alden resul ts, as well as recom menda tions for testi ng famil y membe rs. Dolores ic Coord inato rs are avail able for healt h care provi ders to discu ss resul ts at [phone] . Test Detai ls: Three varia nts beryl zed: c.845 G>A (p.Cy s282T yr), commo nly refer red to as C282Y c.187 C>G (p.Hi s63As p), commo nly refer red to as H63D c.193 A>T (p.Se r65Cy s), commo nly refer red to as S65C . Metho ds/Li mitat ions: DNA Beryl sis of the HFE gene (NM_[id number]) was perfo rmed by PCR ampli ficat ion follo wed by restr ictio n enzym e diges tion beryl ses. Resul ts must be combi emile with clini rm infor matio n for the most accur ate inter preta tion. Molec ular- based testi ng is highl y accur ate, but as in any labor atory test, diagn ostic error s may occur . False posit alden or false negat alden resul ts may occur for reaso ns that inclu de dolores ic varia nts, blood trans fusio ns, bone marro w trans plant ation , somat ic or tissu e-spe cific mosai cism, misla beled sampl es, or raul eous repre senta tion of famil y relat ionsh ips. This test was devel oped and its perfo rmanc e jayde cteri stics deter mined by [facility]. It has not been clear ed or appro bre by the Food and Drug Admin istra tion. . Refer ences : Messi BR, Rex PC, Mananl ey KV, Darrius acevedo LW, Ilia acevedo ; Ameri can Assoc iatio n for the Study of Liver Disea ses. Diagn osis and manag ement of hemoc hroma tosis : 2010 pract ice guide line by the Ameri can Assoc iatio n for the Study of Liver Disea ses. Hepat ology . 2010;5 4(1): 328-4 3. doi: 10.10 / p.243 30. PMID: 15467 290; PMCID : PMC31 98466 . Demetrice G, Yang everett P, Emmie combs DW, Azucena r H, Rodger muhammad O, Kezia n S, Mckinley o I, Sara vargas M, Ivon pennington S. EMQN best pract ice guide lines for the molec ular dolores ic diagn osis of hered itary hemoc hroma tosis (HH). Eur J Hum Dolores . 2016 Oct;2 4(4): 479-9 5. doi: 10.10 / hg.20 15.12 8. Epub 2014Jan 27. PMID: 89289 218; PMCID : PMC49 28048 . . Ana Cristina Angela n, PhD, FACMG Tyler Phillips , PhD Alfonso de la cruz, PhD, FAC Ronaldo woods, PhD, [facility] Alli martines, PhD, FACMG ACMG W Garry Deshpande, PhD, FACMG Charmaine Crowley, PhD, [facility] MG Conner vargas, PhD, FACMG Perfo rmed at: [place] - [facility] [address] [facility] , [place] [address] Lab Direc tor: Laurel Andrews [facility] , Phone : [phone] Not Available [facility] (Lab) [address] [place], [address], 03/06/2022 19:08:13 02/29/20 22 02/28/2022 VITAM IN D 25-HY DROXY vd25oh 26.4 NG/mL 30-100 low Vitam in D Statu s: Defic ient: <20 ng/mL Insuf ficie nt: 20-29 ng/mL Suffi cient : 30-10 0 ng/mL Not Available [facility] (Lab) [address] [place], [address], 02/28/2022 22:46:38 02/29/20 22 02/28/2022 FOLAT E, SERUM /PLAS MA folate 10.2 NG/mL 2.76-2 0.0 Not Available [facility] (Lab) [address] [place], [address], 02/28/2022 20:33:17 02/29/20 22 02/28/2022 VITAM IN B12 (BRONSON MAITE ) vb12 264 pg/mL 239-93 1 Not Available [facility] (Lab) [address] [place], [address], 02/28/2022 20:33:14 02/29/20 22 02/28/2022 HEMOG LOBIN A1C HA1C 5.5 % 4.0-6. 0 Diabe gaetano Scree sandy Crite tammi: <5.7% Consi stent with absen ce of diabe gaetano 5.7-6 .4% Consi stent with incre ased risk for diabe gaetano (pred iabet es) >OR=6 .5% Consi stent with diabe gaetano REFER ENCE: Diabe gaetano Care 2016, 39(Kelley ppl.1 ):s13 -s22 Not Available [facility] (Lab) [address] [place], [address], 02/28/2022 20:20:24 02/29/20 22 02/28/2022 TSH thyroid-stim ulating hormone 3.790 uIU/m L 0.465- 4.680 Not Available [facility] (Lab) [address] [place], [address], 02/28/2022 20:02:14 02/29/20 22 02/28/2022 T4 FREE free T4 1.35 NG/dL 0.78-2 .19 Not Available [facility] (Lab) [address] [place], [address], 02/28/2022 19:42:29 02/29/20 22 02/28/2022 IRON/ TIBC PANEL total iron binding capacity 330 mcg/d L 265-47 5 Not Available [facility] (Lab) [address] [place], [address], 02/28/2022 19:30:37 02/29/20 22 02/28/2022 IRON/ TIBC PANEL % transferrin saturation 31 % 20-55 Not Available [facility] (Lab) [address] [place], [address], 02/28/2022 19:30:37 02/29/20 22 02/28/2022 IRON/ TIBC PANEL unsaturated iron bind capacity 229 mcg/d L 126-38 2 Not Available [facility] (Lab) [address] [place], [address], 02/28/2022 19:30:37 02/29/20 22 02/28/2022 IRON/ TIBC PANEL iron 101 mcg/d L 42-175 Not Available [facility] (Lab) [address] [place], [address], 02/28/2022 19:30:37 02/29/20 22 02/28/2022 LIPID PANEL cholesterol 171 mg/dL 140-19 9 NIH JI NSUS RECOM MENDA TION FOR ROSE STERO L: ADULT CHILD LOW RISK: <200 <170 BORDE RLINE : <200- 239 ----- HIGH RISK: >240 >200 Not Available [facility] (Lab) [address] [place], [address], 02/28/2022 19:23:38 02/29/20 22 02/28/2022 LIPID PANEL triglyceride s 137 mg/dL 0-150 NIH JI NSUS REPOR T RECOM MENDA TION FOR TRIGL YCERI DEEPAK: ADULT CHILD LOW RISK: <150 ----- BODER LINE: 150-1 99 ----- HIGH RISK: >200 ----- Not Available [facility] (Lab) [address] [place], [address], 02/28/2022 19:23:38 02/29/20 22 02/28/2022 LIPID PANEL HDL cholesterol 27 mg/dL 40- low Not Available [facility] (Lab) [address] [place], [address], 02/28/2022 19:23:38 02/29/20 22 02/28/2022 LIPID PANEL LDL cholesterol, calculated 117 mg/dL 0-130 NIH JI NSUS REPOR T RECOM MENDA TIONS FOR LDL: ADULT CHILD LOW RISK <130 <110 (OPTI MAL LDL) <100 ----- CECILIO RLINE : 130-1 59 ----- HIGH RISK: >160 >130 A TRIGL YCERI DE RESUL T >400 INVAL IDATE S THE CALCU LATIO N FOR LDL FRACT IONAT ION - THE LDL RESUL T WILL NOT BE REPOR DANA. Not Available [facility] (Lab) [address] [place], [address], 02/28/2022 19:23:38 02/29/20 22 02/28/2022 COMPR EHENS ALDEN METAB OLIC PANEL sodium 139 mmol/ L 137-14 5 Not Available [facility] (Lab) [address] [place], [address], 02/28/2022 19:23:34 02/29/20 22 02/28/2022 COMPR EHENS ALDEN METAB OLIC PANEL potassium 4.0 mmol/ L 3.5-5. 1 Not Available [facility] (Lab) [address] [place], [address], 02/28/2022 19:23:34 02/29/20 22 02/28/2022 COMPR EHENS ALDEN METAB OLIC PANEL chloride 105 mmol/ L 98-107 Not Available [facility] (Lab) [address] [place], [address], 02/28/2022 19:23:34 02/29/20 22 02/28/2022 COMPR EHENS ALDEN METAB OLIC PANEL carbon dioxide 24 mmol/ L 22-30 Not Available [facility] (Lab) [address] [place], [address], 02/28/2022 19:23:34 02/29/20 22 02/28/2022 COMPR EHENS ALDEN METAB OLIC PANEL anion gap 14.0 mmol/ L 14-22 Not Available [facility] (Lab) [address] [place], [address], 02/28/2022 19:23:34 02/29/20 22 02/28/2022 COMPR EHENS ALDEN METAB OLIC PANEL glucose 111 mg/dL 70-99 high Not Available [facility] (Lab) [address] [place], [address], 02/28/2022 19:23:34 02/29/20 22 02/28/2022 COMPR EHENS ALDEN METAB OLIC PANEL BUN 8 mg/dL 8-19 Not Available [facility] (Lab) [address] [place], [address], 02/28/2022 19:23:34 02/29/20 22 02/28/2022 COMPR EHENS ALDEN METAB OLIC PANEL creatinine 0.68 mg/dL 0.66-1 .25 Not Available [facility] (Lab) [address] [place], [address], 02/28/2022 19:23:34 02/29/20 22 02/28/2022 COMPR EHENS ALDEN METAB OLIC PANEL GFR >60 Refer ence Range : [facility] GFR Healt hy Adult : >60 mL/mi n/1.7 3 m2 Chron ic Kidne y Disea se: 15-60 mL/mi n/1.7 3 m2 Kidne y Failu re: <15/m L/min /1.73 m2 www.n iddk. nih.g ov The MDRD study equat ion has not been valid ated in child tracy <18 years of age; pregn ant women ; the elder ly >85 years of age; or in some racia l or ethni c subgr oups, such as Hisadam nics. Outsi de the valid ated stephenie eters , estim ated GFR is less accur ate, requi ring clini rm judgm ent on a case- by-ca se basis . Clini rm inter preta tion for other races and ages must be made by the clini preet. The MDRD study equat ion has not been valid ated for the evalu ation of serum creat inine relat ed to nutri maya l statu s or medic ation usage . For perso ns <18 years of age, a pedia tric GFR calcu lator is avail able on the [facility] websi te: https ://cindy barnes.omar bales.o rg/pr ofess ional s/kdo qi/gf r_cal culat or Not Available [facility] (Lab) [address] [place], [address], 02/28/2022 19:23:34 02/29/20 22 02/28/2022 COMPR EHENS ALDEN METAB OLIC PANEL alkaline phosphatase 72 U/L 38-126 Not Available [facility] (Lab) [address] [place], [address], 02/28/2022 19:23:34 02/29/20 22 02/28/2022 COMPR EHENS ALDEN METAB OLIC PANEL alanine aminotransfe rase 17 U/L 0-35 Not Available [facility] (Lab) [address] [place], [address], 02/28/2022 19:23:34 02/29/20 22 02/28/2022 COMPR EHENS ALDEN METAB OLIC PANEL aspartate aminotransfe rase 25 U/L 15-37 Not Available [facility] (Lab) [address] [place], [address], 02/28/2022 19:23:34 02/29/20 22 02/28/2022 COMPR EHENS ALDEN METAB OLIC PANEL bilirubin, total 0.70 mg/dL 0.20-1 .30 Not Available [facility] (Lab) [address] [place], [address], 02/28/2022 19:23:34 02/29/20 22 02/28/2022 COMPR EHENS ALDEN METAB OLIC PANEL calcium 9.2 mg/dL 8.4-10 .2 Not Available [facility] (Lab) [address] [place], [address], 02/28/2022 19:23:34 02/29/20 22 02/28/2022 COMPR EHENS ALDEN METAB OLIC PANEL total protein 7.1 g/dL 6.3-8. 2 Not Available [facility] (Lab) [address] [place], [address], 02/28/2022 19:23:34 02/29/20 22 02/28/2022 COMPR EHENS ALDEN METAB OLIC PANEL albumin 4.1 g/dL 3.4-5. 0 Not Available [facility] (Lab) [address] [place], [address], 02/28/2022 19:23:34 02/29/20 22 02/28/2022 COMPR EHENS ALDEN METAB OLIC PANEL globulin 3.0 g/dL 2.6-4. 2 Not Available [facility] (Lab) [address] [place], [address], 02/28/2022 19:23:34 02/29/20 22 02/28/2022 COMPR EHENS ALDEN METAB OLIC PANEL A/G ratio 1.4 ratio 1.0-2. 0 Not Available [facility] (Lab) [address] [place], [address], 02/28/2022 19:23:34 02/29/20 22 02/28/2022 CBC/C OMPLE TE BLD COUNT W/DIF F hematocrit 40.6 % 35.7-4 5.7 Not Available [facility] (Lab) [address] [place], [address], 02/28/2022 18:10:18 02/29/20 22 02/28/2022 CBC/C OMPLE TE BLD COUNT W/DIF F white blood cells 8.0 x10'3 /uL 4.2-10 .8 Not Available [facility] (Lab) [address] [place], [address], 02/28/2022 18:10:18 02/29/20 22 02/28/2022 CBC/C OMPLE TE BLD COUNT W/DIF F red blood cells 4.71 x10'6 /uL 3.80-5 .20 Not Available [facility] (Lab) [address] [place], [address], 02/28/2022 18:10:18 02/29/20 22 02/28/2022 CBC/C OMPLE TE BLD COUNT W/DIF F hemoglobin 13.6 g/dL 12.0-1 5.6 Not Available [facility] (Lab) [address] [place], [address], 02/28/2022 18:10:18 02/29/20 22 02/28/2022 CBC/C OMPLE TE BLD COUNT W/DIF F mean red cell volume 86.2 fL 82.0-9 9.0 Not Available [facility] (Lab) [address] [place], [address], 02/28/2022 18:10:18 02/29/20 22 02/28/2022 CBC/C OMPLE TE BLD COUNT W/DIF F mean red cell hemoglobin 28.9 pg 27.0-3 3.0 Not Available [facility] (Lab) [address] [place], [address], 02/28/2022 18:10:18 02/29/20 22 02/28/2022 CBC/C OMPLE TE BLD COUNT W/DIF F mean RBC HGB concentratio n 33.5 g/dL 31.0-3 6.0 Not Available [facility] (Lab) [address] [place], [address], 02/28/2022 18:10:18 02/29/20 22 02/28/2022 CBC/C OMPLE TE BLD COUNT W/DIF F red cell distribution width 13.5 % 11.8-1 5.5 Not Available [facility] (Lab) [address] [place], [address], 02/28/2022 18:10:18 02/29/20 22 02/28/2022 CBC/C OMPLE TE BLD COUNT W/DIF F platelets 279 x10'3 /uL 150-40 0 Not Available [facility] (Lab) [address] [place], [address], 02/28/2022 18:10:18 02/29/20 22 02/28/2022 CBC/C OMPLE TE BLD COUNT W/DIF F mean platelet volume 10.8 fL 9.0-12 .4 Not Available [facility] (Lab) [address] [place], [address], 02/28/2022 18:10:18 02/29/20 22 02/28/2022 CBC/C OMPLE TE BLD COUNT W/DIF F neutrophils 55.3 % 39.0-7 2.0 Not Available [facility] (Lab) [address] [place], [address], 02/28/2022 18:10:18 02/29/20 22 02/28/2022 CBC/C OMPLE TE BLD COUNT W/DIF F lymphocytes 33.3 % 16.0-4 7.0 Not Available [facility] (Lab) [address] [place], [address], 02/28/2022 18:10:18 02/29/20 22 02/28/2022 CBC/C OMPLE TE BLD COUNT W/DIF F monocytes 9.8 % 5.0-12 .0 Not Available [facility] (Lab) [address] [place], [address], 02/28/2022 18:10:18 02/29/20 22 02/28/2022 CBC/C OMPLE TE BLD COUNT W/DIF F eosinophils 0.8 % 1.0-7. 0 low Not Available [facility] (Lab) [address] [place], [address], 02/28/2022 18:10:18 02/29/20 22 02/28/2022 CBC/C OMPLE TE BLD COUNT W/DIF F basophils 0.5 % 0.0-2. 0 Not Available [facility] (Lab) [address] [place], [address], 02/28/2022 18:10:18 02/29/20 22 02/28/2022 CBC/C OMPLE TE BLD COUNT W/DIF F immature granulocytes 0.3 % 0.00-0 .50 Not Available [facility] (Lab) [address] [place], [address], 02/28/2022 18:10:18 02/29/20 22 02/28/2022 CBC/C OMPLE TE BLD COUNT W/DIF F neutrophils, absolute count 4.40 x10'3 /uL 1.5-8. 0 Not Available [facility] (Lab) [address] [place], [address], 02/28/2022 18:10:18 02/29/20 22 02/28/2022 CBC/C OMPLE TE BLD COUNT W/DIF F lymphocytes, absolute count 2.65 x10'3 /uL 1.07-3 .43 Not Available [facility] (Lab) [address] [place], [address], 02/28/2022 18:10:18 02/29/20 22 02/28/2022 CBC/C OMPLE TE BLD COUNT W/DIF F monocytes, absolute count 0.78 x10'3 /uL 0.29-0 .99 Not Available [facility] (Lab) [address] [facility] [place], [address], 02/28/2022 18:10:18 02/29/20 22 02/28/2022 CBC/C OMPLE TE BLD COUNT W/DIF F eosinophils, absolute count 0.06 x10'3 /uL 0.02-0 .53 Not Available [facility] (Lab) [address] [facility] [place], [address], 02/28/2022 18:10:18 02/29/20 22 02/28/2022 CBC/C OMPLE TE BLD COUNT W/DIF F basophils, absolute count 0.04 x10'3 /uL 0.01-0 .08 Not Available [facility] (Lab) [address] [place], [address], 02/28/2022 18:10:18 02/29/20 22 02/28/2022 CBC/C OMPLE TE BLD COUNT W/DIF F immature granulocytes ,absolute 0.02 x10'3 /uL 0.00-0 .05 Not Available [facility] (Lab) [address] [place], [address], 02/28/2022 18:10:18 02/29/20 22 02/28/2022 CBC/C OMPLE TE BLD COUNT W/DIF F nucleated red blood cells 0.0 % -0 Not Available [facility] (Lab) [address] [place], [address], 02/28/2022 18:10:18 02/29/20 22 02/28/2022 CBC/C OMPLE TE BLD COUNT W/DIF F NRBC# 0.00 x10'3 /uL Not Available [facility] (Lab) [address] [place], [address], 02/28/2022 18:10:18 05/16/2005/19/2022 BRANDON/A NTINU CLEAR ANTIB ODIES ,IFA antinuclear antibodies, ifa negati ve Negat alden <1:80 Borde rline 1:80 Posit alden >1:80 ICAP nomjessica gusman re: AC-0 For more infor tati n about Hep-2 cell patte rns use ANApa ttern s.org , the offic iacurtis hermosillo for the Inter natio nal Conse nsus on Antin uclea r Antib kilo (BRANDON) Patte rns (ICAP ). Perfo rmed at: [facility] [address] [place], [place] [id number] [facility] Lab Direc tor: Wood thorne PhD, Phone : [phone] Not Available [facility] (Lab) [address] [place], [address], 05/19/2022 15:09:32 05/16/2005/16/2022 URIC ACID SERUM uric acid 5.4 mg/dL 2.5-6. 2 Not Available [facility] (Lab) [address] [place], [address], 05/16/2022 20:54:22 05/16/2005/16/2022 RHEUM ATOID FACTO R rf <8.6 IU/mL 0.0-11 .9 Not Available [facility] (Lab) [address] [place], [address], 05/16/2022 20:47:38 05/16/2005/16/2022 C REACT ALDEN PROTE IN,UL TRA SENS C-reactive protein 1.27 mg/dL 0.0-0. 5 high Not Available [facility] (Lab) [address] [place], [address], 05/16/2022 20:46:51 05/16/20 22 05/16/2022 SEDIM ENTAT ION RATE erythrocyte sedimentatio n rate 21 mm/HR 0-20 high Not Available [facility] (Lab) [address] [place], [address], 05/16/2022 20:10:45 05/24/20 22 05/23/2022 bone densi ty No observ ation record ed. [id number] [facility], [place], [address], 09/21/2022 01:27:48 07/06/20 22 06/26/2022 tracey r monit or No observ ation record ed. [id number] [place] [address] (Cardiology & Emg) [address] [place] [address] [place] [address], [id number], 09/21/2022 01:27:48 Result Notes Documentation Provider Name and Address Organization Details Recorded Time Drug Screen, 5 Drugs, Urine : MJ Not Available [facility] 09/21/2022 01:27:48 Problems Name Problem SNOMED Code Status Onset Date Resolution Date Notes Provider Name and Address Organization Details Recorded Time Butterfly rash 17715599 Active 2021 Not Available [facility] 3 01:26:19 Tachycardi a 7992945 Active 2021 Not Available [facility] 3 01:26:19 Multiple joint pain 96143528 Active 2021 Not Available [facility] 3 01:26:19 Osteoarthr itis 997478813 Active 2021 Not Available [facility] 3 01:26:19 Family history of fibromyalg ia 6144876954649 02 Active 2021 Not Available [facility] 3 01:26:19 Pain of right knee joint 1772550984026 00 Active 2021 Not Available [facility] 3 01:26:19 Pain of left knee joint 7676708445465 07 Active 2021 Not Available [facility] 3 01:26:19 Swelling of bilateral lower limbs 430210051 Active 2021 Not Available [facility] 3 01:26:20 Hyperglyce adilene 36512532 Active 2021 Not Available [facility] 3 01:26:20 Fatigue 52064739 Active 2021 Not Available [facility] 3 01:26:20 Obese 445670040 Active 2022 Britney [place] NP [address] [facility], [facility] [address], [place], [address] , [facility] 3 16:11:46 Problem Notes None recorded. Procedures Surgical History Date Name Laterality Status Provider Name and Address Organization Details Recorded Time 01/21/20 22 Date of Last Pap Smear completed Britney Reeves RN [place] [email or web address] [facility] 11/29/2022 15:56:44 06/22/20 21 excision of bunion completed Not Available [facility] 09/21/2022 01:25:08 04/22/20 20 Most Recent Bone Density completed Not Available [facility] 09/21/2022 01:25:07 12/22/19 16 cholecystectomy completed Not Available [facility] 09/21/2022 01:25:08 11/21/19 16 section completed Not Available [facility] 09/21/2022 01:25:08 Imaging Results Imaging Date Name Status LastModified by Organiz ation Details LastModified Time 06/26/2022 holter monitor completed [id number] [address] [place] [address] (Cardiology & Emg) [address] [place] [address], [phone], 09/21/2022 01:27:48 05/23/2022 bone density completed [id number] [place] [address], [address], 09/21/2022 01:27:48 Procedure Notes None recorded. Medical Equipment None Reported. Allergies No known drug allergies Medications Name Sig Start Date Stop Date Status Note LastModified by Organization Details LastModified Time azithromyci n 250 mg tablet 11/29 completed Not Available Not Available Not Available hydrocodone 5 mg-acetamin ophen 325 mg tablet TAKE 1 TABLET BY MOUTH EVERY 4 HOURS NEEDED FOR PAIN 02/23 completed Not Available Not Available Not Available prazosin 1 mg capsule TAKE 2 CAPSULE BY MOUTH EVERY AT BEDTIME 02/23 completed Not Available Not Available Not Available metronidazo le 0.75 % (37.5 mg/5 gram) vaginal gel INSERT 1 APPLICATO RFUL VAGINALLY AT BEDTIME FOR 5 DAYS 05/11 completed Not Available Not Available Not Available amoxicillin 500 mg tablet TAKE 1 TABLET BY MOUTH EVERY 6 HOURS UNTIL GONE 11/29 completed Not Available Not Available Not Available zolpidem 5 mg tablet TAKE 1 TABLET BY MOUTH AT BEDTIME NEEDED FOR INSOMNIA 02/23 completed Not Available Not Available Not Available fludrocorti sone 0.1 mg tablet 05/11 completed Not Available Not Available Not Available bupropion HCl XL 150 mg 24 hr tablet, extended release TAKE 1 TABLET BY MOUTH EVERY DAY 02/23 completed Not Available Not Available Not Available escitalopra m 5 mg tablet TAKE 1 TABLET BY MOUTH EVERY DAY 02/23 completed Not Available Not Available Not Available aripiprazol e 2 mg tablet TAKE 1 TABLET BY MOUTH EVERY DAY 02/23 completed Not Available Not Available Not Available desvenlafax ine succinate ER 50 mg tablet,exte nded release 24 hr TAKE 1 TABLET BY MOUTH EVERY DAY WITH DESVENLAF AXINE 25MG FOR TOTAL DAILY DOSE OF 75MG 02/23 completed Not Available Not Available Not Available desvenlafax ine succinate ER 25 mg tablet,exte nded release 24 hr TAKE 1 TABLET BY MOUTH EVERY DAY WITH DESVENLAF AXINE 50MG FOR TOTAL DAILY DOSE OF 75MG 02/23 completed Not Available Not Available Not Available BinaxNOW COVID-19 Ag Self Test kit TEST DIRECTED TODAY 11/29 completed Not Available Not Available Not Available Vitals Date Recorded Body mass index (BMI) Body height Oxygen saturation Oxygen saturation in Arterial blood by Pulse oximetry Heart rate Body temperature Body weight Systolic blood pressure Diastolic blood pressure Provider Name and Address Organization Details Last Updated DateTime 2 38.4 kg/m2 167.64 cm 98 % 98 % 95 /min 98 [degF] 609164. 98 g 100 mm[Hg] 62 mm[Hg] Not Available [facility] 3 01:25:28 Date Recorded Body mass index (BMI) Body height Oxygen saturation Oxygen saturation in Arterial blood by Pulse oximetry Heart rate Body temperature Body weight Systolic blood pressure Diastolic blood pressure Provider Name and Address Organization Details Last Updated DateTime 2 38.5 kg/m2 167.64 cm 98 % 98 % 115 /min 98 [degF] 204683. 78 g 122 mm[Hg] 80 mm[Hg] Not Available [facility] 3 01:25:28 Date Recorded Body mass index (BMI) Body height Oxygen saturation Oxygen saturation in Arterial blood by Pulse oximetry Heart rate Respiratory rate Body temperature Body weight Systolic blood pressure Diastolic blood pressure Provider Name and Address Organization Details Last Updated DateTime 2 36.8 kg/m2 167.64 cm 99 % 99 % 110 /min 16 /min 98.1 [degF] 938579. 06 g 108 mm[Hg] 80 mm[Hg] Not Available [facility] 3 01:25:28 Date Recorded Body height Body mass index (BMI) Body weight Body temperature Heart rate Respiratory rate Oxygen saturation Oxygen saturation in Arterial blood by Pulse oximetry Pain severity - 0-10 verbal numeric rating [Score] - Reported Systolic blood pressure Diastolic blood pressure Provider Name and Address Organization Details Last Updated DateTime 3 167.64 cm 37.4 kg/m2 562270. 29 g 97.7 [degF] 87 /min 16 /min 97 % 97 % 0 140 mm[Hg] 82 mm[Hg] OUSMANE Garcia [facility] 3 15:54:30 Date Recorded Body height Body mass index (BMI) Body weight Body temperature Heart rate Respiratory rate Oxygen saturation Oxygen saturation in Arterial blood by Pulse oximetry Pain severity - 0-10 verbal numeric rating [Score] - Reported Systolic blood pressure Diastolic blood pressure Provider Name and Address Organization Details Last Updated DateTime 3 167.64 cm 36.8 kg/m2 386390. 41 g 96.4 [degF] 90 /min 20 /min 97 % 97 % 0 140 mm[Hg] 84 mm[Hg] OUSMANE Garcia [facility] [employer] 3 08:40:35 Social History Question Answer Notes LastModified by Organizat ion Details LastModified Time Tobacco Smoking Status Current Every Day Smoker Not Available [facility] 09/21/2022 01:24:53 Do You Have An Advance Directive? No Information not available 11/29/2022 What Is Your Level Of Alcohol Consumption? None [id number] Information not available 09/21/2022 Is Blood Transfusion Acceptable In An Emergency? Yes Information not available 11/29/2022 What Is Your Level Of Caffeine Consumption? Moderate [id number] Information not available 09/21/2022 What Is Your Code Status? Full Code Information not available 11/29/2022 In The 14 Days Before Symptom Onset, Have You Had Close Contact With A Laboratory-confir med COVID-19 While That Case Was Ill? No [id number] Information not available 09/21/2022 In The 14 Days Before Symptom Onset, Have You Had Close Contact With A Person Who Is Under Investigation For COVID-19 While That Person Was Ill? No [id number] Information not available 09/21/2022 What Type Of Diet Are You Following? REGULAR [id number].[id number] Information not available 09/21/2022 What Is The Highest Grade Or Level Of School You Have Completed Or The Highest Degree You Have Received? 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 No MIGRATION.[id number] 1679 Information not available 09/21/2022 Do You Use Insect Repellent Routinely? No Information not available 11/29/2022 Where Do You Live? [place] [id number].[id number] Information not available 09/21/2022 Do You Have A Medical Power Of Color Matcher? No Information not available 11/29/2022 How Many Children Do You Have? 3 Information not available 11/29/2022 What Is Your Relationship Status? [id number].[id number] 0386 Information not available 09/21/2022 Do You Use Your Seat Belt Or Car Seat Routinely? Yes [id number].[id number] Information not available 09/21/2022 Do You Have Smoke And Carbon Monoxide Detectors In Your Home? Yes MIGRATION.761341 7354 Information not available 09/21/2022 At What Age Did You Start Smoking Tobacco? 17 Information not available 11/29/2022 Are You Passively Exposed To Smoke? Yes [id number].[id number] Information not available 09/21/2022 Are There Any Smokers In Your House? No MIGRATION.[id number] 6302 Information not available 09/21/2022 How Much Tobacco Do You Smoke? 0.5 PPD Information not available 05/11/2023 Do You Participate In Social Media? Yes MIGRATION.[id number] 9478 Information not available 09/21/2022 Do You Feel Stressed (tense, Restless, Nervous, Or Anxious, Or Unable To Sleep At Night)? [id number] Information not available 11/29/2022 Do You Use Any Illicit Or Recreational Drugs? No MIGRATION.[id number] 4214 Information not available 09/21/2022 Do You Use Sunscreen Routinely? Yes Information not available 11/29/2022 How Many Years Have You Smoked Tobacco? 15 MIGRATION.924023 8065 Information not available 09/21/2022 Have You Recently Traveled Abroad? No MIGRATION.910840 3946 Information not available 09/21/2022 Are You Currently In School? Yes MIGRATION.213037 5702 Information not available 09/21/2022 Sex: Female Functional Status Question Answer Note LastModified by Organizat ion Details LastModified Time What is your exercise level? None [id number] Information not available 09/21/2022 Mental Status None recorded. Family History Relationship Description Onset Age of this Age Resolved Age Notes LastModified by Organization Details LastModified Time Mother Hemochromato sis [id number] Not available 09/21/2022 01:25:09 Mother Hypertensive disorder [id number] Not available 09/21/2022 01:25:09 Mother Diabetes mellitus [id number] Not available 09/21/2022 01:25:09 Mother Fibromyalgia MIGRATION.0 30 [id number] Not available 09/21/2022 01:25:09 Sister Diabetes mellitus [id number] [id number] Not available 09/21/2022 01:25:09 Sister Hyperlipidem ia MIGRATION.[id number] Not available 09/21/2022 01:25:09 Medical History Condition Response Other # 2 Y OTHER # 1 OBESITY Y HEART ARRHYTHMIA Y Gynecological History Statement/Question Response Abnormal Pap N Date of LMP 05/16/2022 STIs/STDs N Dislike of Light during Menstrual Headac he N Do your menstrual headaches get severe N Date of Last Pap 01/20/2022 Current Control Method IUD Most Recent Mammogram Breast Problems none Date of Last Colonoscopy Most Recent Bone Density 04/22/2020 Date of Last Pap Smear 01/20/2022 Discharge none Obstetrics History GPAL:G 3 P 3 0 0 3 Type Value Full Term 3 Living 3 Total 3 Immunizations Vaccine Type Date Status Note Provider Nam e and Address Organization Details Recorded Time COVID-19, mRNA, LNP-S, PF, 100 mcg/0.5mL dose or 50 mcg/0.25mL dose 09/20/2021 completed Not Available [facility] 3 01:27:34 COVID-19, mRNA, LNP-S, PF, 100 mcg/0.5mL dose or 50 mcg/0.25mL dose 08/23/2021 completed Not Available [facility] 3 01:27:34 Past Encounters Encounter ID Performer Location Encounter Start Date Encounter Closed Date Diagnosis/Indication Diagnosis SNOMED-CT Code Diagnosis ICD10 Code Diagnosis Note [id number] [address] [address] 02/23/2022 00:00:00 02/23/2022 16:46:36 [id number] [facility] [address] [address] 02/28/2022 00:00:00 02/28/2022 13:38:[id number] [address] 03/15/2022 00:00:00 03/15/2022 17:52:[id number] [address] 05/16/2022 00:00:00 05/16/2022 16:39:08 [id number] [facility] [address] [place] [id number] 06/02/2022 00:00:00 06/02/2022 12:52:05 [id number] Britney Colorado NP [facility] [address] [address] 11/29/2022 15:31:19 11/29/2022 16:22:25 Obese [id number] E66.9 No injectable s covered. Not able to be on phentermin e due to heart palpitatio ns.Referra l to bariatric surgery requested- pt will call back with location to send referral. Work on low carb, no dairy, no condiment diet. Portion control. 6 smaller meals, vs 1 large meal daily. [id number] Britney Colorado NP [facility] [address] 05/11/2023 08:29:36 05/11/2023 11:55:09 History and physical examination, pre-employment [id number] Z02.1 Encouraged well balanced meals, active lifestyle, and routine vision and dental appts.Form completed for [facility]. Health Concerns Section Related Observation LastModified by Organization Krystyna ross LastModified Time None Recorded Concern Status LastModified by Organization Details LastModified Time None Recorded Advance Directives Directive N: Payers Encounter Date Sequence Insurance Name Policy Number Policy Saenz Covered Member ID Saenz Member ID Guarantor Name 11/29/2022 1 [facility] ON OR AFTER 01/20/21 (MEDICAID REPLACEMENT - HMO) Gretchen Marcano [id number] Gretchen Marcano 05/11/2023 1 [facility] [id number] Gretchen Marcano [id number] Gretchen Marcano Notes Date Note Type Note Provider Name and Address Organization Details Recorded Time 11/29/2022 text/html Here for weight loss discussion. States she was on weight watchers at 7 yo. States she generally eats chicken with fruit and veggie.Using balasmic vinagarette on salads.Drinks mainly water throughout day.1 cup coffee daily, 1 tsp sugar.Doesn't eat much for snacks.Breakfast- coffeeLunch- frozen dinnerCarrots for snack occasionally. Can't have phentermine due to heart palpitations. Britney Colorado NP [address], [place], [address], [employer] 11/29/2022 16:19:40 05/11/2023 text/html Here for employm ent physical, [facility]. No real concerns. 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 Fatigue and pain often. Vision utdDental utd Britney Colorado NP [address], [facility] [address], [place], [address], [employer] 05/11/2023 09:03:05 OBGyn Episode No OBEpisode recorded.
--- OUTSIDE RECORDS SUMMARY | 2024-10-24 12:11 | XMS_ITS | Referral Summary ---
Author Organization [facility] Address [address] [place] [address] Care Team Providers Care Director Of Leadership Development Name Role Phone Camilla Coffman NP Primary Care Provider Le Claros MD Unavailable [phone] Encounters Date Type Department Care Team Description 10/22/2024 2:00 PM CDT Office Visit [facility] Primary Care at [address] [phone] Camilla Coffman NP Annual physical exam (Primary Dx); 8 weeks gestation of 10/21/2024 4:40 PM CDT - 10/21/2024 11:59 PM CDT Hospital Encounter [address] [address] Annual physical exam Discharge Disposition: Discharge to home or self care 10/21/2024 10:45 AM CDT Lab [facility] Outpatient Lab at [address] [phone] POTS (postural orthostatic tachycardia syndrome) (Primary Dx); Annual physical exam 10/17/2024 11:03 AM CDT - 10/17/2024 11:59 PM CDT Hospital Encounter [address] [phone] Annual physical exam Discharge Disposition: Discharge to home or self care 10/17/2024 11:00 AM CDT Lab [facility] Outpatient Lab at [address] [phone] Chronic fatigue (Primary Dx) 10/13/2024 10:15 AM CDT [facility] [id number] [place] [address] [address] [address] Oneal Resendez II, MD Chronic migraine without aura without status migrainosus, not intractable (Primary Dx); Chronic tension-type headache, not intractable 09/23/2024 Orders Only [facility] Primary Care at [address] [phone] Camilla Coffman NP 09/08/2024 Telephone [facility] Cardiology [facility] 8th [place] [address] [place] [address] Kate Ashley MD 08/05/2024 Telephone 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 Do not exceed 30 mg in 24 hours. 9 tablet 01/30/20 025 Active Additional Information Patient not taking.Reported on 10/22/2024 vit 28-trgl-bzaww-dha 27mg iron- 800 mcg-250 mg capsule Take by mouth Active topiramate (TOPAMAX) 25 mg tabletIndications: Essential Tremor,Migraine Prevention Take 1 tablet twice a day of one week then increase to 2 tablets twice a day. 120 tablet 01/30/20 24 025 Discontin ued(Thera py completed ) DULoxetine DR (CYMBALTA) 60 mg capsule Take 1 capsule (60 mg total) by mouth daily 30 capsule 11 07/24/19 025 Discontin ued(Thera py completed ) midodrine (PROAMATINE) 5 mg tabletIndications: Symptomatic Orthostatic Hypotension Take 1 tablet (5 mg total) by mouth 3 (three) times a day 90 tablet 1 07/24/19 25 025 Discontin ued(Thera py completed ) dilTIAZem SR (CARDIZEM SR) 60 mg 12 hr capsule Take 1 capsule (60 mg total) by mouth daily 30 capsule 3 07/24/19 25 025 Discontin ued(Thera py completed ) Active Problems Problem Noted Date Diagnosed Date Annual physical exam 01/19/2024 Assessment & Plan (01/19/2024 10:31 AM CDT): -Recommended: Healthy diet. Avoiding junk food/fast food. -30 minutes of exercise most days of the week. Increase to 45 minutes for weight loss. Health Maintenance reviewed - recommended tdap, pneumococcal vaccine, declined at this time. 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 Will refer to [facility] cardiology. For now will keep her on midodrine and diltiazem. Assessment & Plan (04/28/2024 7:33 AM CDT): -will increase midodrine to 5mg three times a day. After 2 weeks of increasing midodrine, then add diltiazem sr 60mg once daily to decrease heart rate and maintain blood pressure. F/u 3 months Assessment & Plan (01/19/2024 10:32 AM CDT): Trial midodrine 2.5mg tid. Refer to physical therapy. Refer to neurology. Assessment & Plan (11/06/2023 9:20 AM CDT): I would like to try propranolol 10 mg b.i.d. for indication of POTS. A higher dose would be indicated for migraine prophylaxis but I would like to start the lower dose to see how she tolerates it. She has a follow-up with me and with Cardiology in December. She can call or contact me in the interim if there are problems with the medications. Assessment & Plan (10/22/2023 8:51 PM CDT): Referral to neurologist of patient's request. Smoker 10/18/2023 Assessment & Plan (10/18/2023 2:33 PM CDT): 8 cigarettes/day NATALIE on CPAP 10/18/2023 Assessment & Plan (10/18/2023 2:34 PM CDT): Wears cpap Chronic fatigue 10/18/2023 Assessment & Plan (10/22/2023 8:49 PM CDT): Chronic, not controlled. Has had multiple workups in the past. Will ask for previous records. Labs as ordered. Class 2 severe obesity due t o excess calories with serious comorbidity and body mass index (BMI) of 35.0 to 35.9 in adult 10/18/2023 Assessment & Plan (10/22/2023 8:50 PM CDT): BMI Follow-up includes: nutrition counseling and exercise counseling. Osteoarthritis 03/15/2022 Anxiety disorder 05/16/2017 Assessment & Plan (04/28/2024 7:34 AM CDT): Hydroxyzine 25mg 1-2 tablets at bedtime for sleep. Major depressive disorder, single episode 2016 Overview (07/24/2024): Prozac - facial spasms Zoloft: felt weird Paxmarisa: worked for maybe 3 weeks. Citalopram: celexa: suicidal thoughts Lexapro: 6 months, thought it stopped working. 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 She believes duloxetine worked for a little while. Will re-try duloxetine 30mg daily, increasing to 60mg daily. Will have her f/u in 3 months for recheck Assessment & Plan (11/06/2023 9:21 AM CDT): PHQ score of 8. Patient is seeing therapist weekly. She is tried multiple medications in the past. She denies that she has at a point where she would like to try another medication. She feels she is doing okay right now. Assessment & Plan (10/22/2023 8:47 PM CDT): Admits to depression. States she has been on multiple antidepressants in the past and they would only work a few months. Has seen psychiatry in the past, but is not seeing anyone currently Resolved Problems Problem Noted Date Diagnosed Date Resolved Date Sprain of fifth toe of right foot 02/25/2018 01/18/2024 Immunizations Immunization Administration Dates Next Due Influenza, Unspecified 04/23/2024(Deferr ed: Patient Refused),10/18/2023(Deferred: Patient Refused),07/23/2022(Deferred: Patient Refused) Moderna SARS-CoV-2 Monovalen t Vaccination (12+ YRS) 09/20/2021,08/23/2021 Social History Tobacco Use Types Packs/Day Years Used Date Smoking Tobacco: Every Day Cigarettes Smokeless Tobacco: Never PHQ-2 Answer Date Recorded PHQ-2 Total Score (If total score is 3 or more points, staff should administer the PHQ-9) 0 10/22/2024 PHQ-9 Answer Date Recorded PHQ-9 Total Score 8 11/06/2023 Comments No Sex and Gender Information Value Date Recorded Sex Assigned at Not on file Legal Sex Female 10:32 PM CDT Gender Identity Not on file Sexual Orientation Not on file Last Filed Vital Signs Vital Sign Reading Time Taken Comments Blood Pressure 114/72 10/22/2024 2:06 PM CDT Pulse 83 10/22/2024 2:06 PM CDT Temperature 36.5 C (97.7 F) 10/22/2024 2:06 PM CDT Respiratory Rate 18 10/22/2024 2:06 PM CDT Oxygen Saturation 99% 10/22/2024 2:06 PM CDT Inhaled Oxygen Concentration - - Weight 102.3 kg (225 lb 9.6 oz) 10/22/2024 2:06 PM CDT Height 170.2 cm (5' 7 ) 10/22/2024 2:06 PM CDT Body Mass Index 35.33 10/22/2024 2:06 PM CDT Plan of Treatment Not on file Procedures Procedure Name Priority Date/Time Associated Diagnosis Comments DIFFERENTIAL AUTO Routine 10/21/2024 12: 00 PM CDT Annual physical exam CBC WITH AUTO DIFFERENTIAL Routine 10/21/2024 12:00 PM CDT Annual physical exam EGFR Routine 10/17/2024 11:03 AM CDT Annual physical exam THYROID FUNCTION CASCADE Routine 10/17/2024 11:03 AM CDT Annual physical exam LIPID PANEL Routine 10/17/2024 11:03 AM CDT Annual physical exam COMPREHENSIVE METABOLIC PANEL Routine 10/17/2024 11:03 AM CDT Annual physical exam HEMOGLOBIN A1C Routine 10/17/2024 11:03 AM CDT Annual physical exam HEPATITIS C ANTIBODY Routine 10/19/2023 11:14 AM CDT Encounter for hepatitis C screening test for low risk patient from Last 3 Months or Most Recently Relevant to Health Maintenance Results * Differential, auto (10/21/2024 12:00 PM CDT) Neutrophil abs 3.98 1.50 - 6.50 K/cumm Imm gran abs 0.01 0.00 - 0.10 K/cumm [facility] Lymphocyte abs 1.99 0.80 - 3.30 K/cumm [facility] Monocyte abs 0.66 0.20 - 0.80 K/cumm [facility] Eosinophil abs 0.11 0.00 - 0.50 K/cumm [facility] Basophil abs 0.04 0.00 - 0.10 K/cumm [facility] Neutrophil pct 58.7 % [facility] Comment: Interpretive Data Percent cell count reference ranges are not reported, since discordance with absolute values may lead to misinterpretation of CBC data. Current Interpretive Data was last revised on 2017. Imm gran pct 0.1 % [facility] Comment: Interpretive Data Percent cell count reference ranges are not reported, since discordance with absolute values may lead to misinterpretation of CBC data. Current Interpretive Data was last revised on 2017. Lymphocyte pct 29.3 % [facility] Comment: Interpretive Data Percent cell count reference ranges are not reported, since discordance with absolute values may lead to misinterpretation of CBC data. Current Interpretive Data was last revised on 2017. Monocyte pct 9.7 % [facility] Comment: Interpretive Data Percent cell count reference ranges are not reported, since discordance with absolute values may lead to misinterpretation of CBC data. Current Interpretive Data was last revised on 2017. Eosinophil pct 1.6 % [facility] Comment: Interpretive Data Percent cell count reference ranges are not reported, since discordance with absolute values may lead to misinterpretation of CBC data. Current Interpretive Data was last revised on 2017. Basophil pct 0.6 % [facility] Comment: Interpretive Data Percent cell count reference ranges are not reported, since discordance with absolute values may lead to misinterpretation of CBC data. Current Interpretive Data was last revised on 2017. Blood 10/21/2024 12:0 0 PM CDT 10/21/2024 6:41 PM CDT Camilla Coffman NP LAB BLOOD ORDERABLES Final Re sult Performing Organization Address City/[facility]/ZIP Co de Phone Number CARLOS WOO [address] [place] [address] * CBC with auto differential (10/21/2024 12:00 PM CDT) Pathologist [facility] WBC 6.79 3.80 - 9.90 K/cumm Hgb 13.9 11.9 - 15.5 g/dL [facility] Hct 42.8 35.6 - 45.5 % [facility] Plt 294 150 - 400 K/cumm [facility] MPV 10.7 9.1 - 12.3 fL [facility] RBC 4.68 3.90 - 5.20 M/cumm [facility] MCV 91.5 81.3 - 96.4 fL [facility] MCH 29.7 27.1 - 33.3 pg [facility] MCHC 32.5 32.3 - 35.7 g/dL [facility] RDW CV 13.6 11.1 - 14.9 % [facility] RDW SD 45.6 35.7 - 48.1 fL [facility] NRBC abs 0.00 0.00 - 0.01 K/cumm [facility] Blood 10/21/2024 12:0 0 PM CDT 10/21/2024 6:41 PM CDT Camilla Coffman NP LAB BLOOD ORDERABLES Final Re sult Performing Organization Address City/[facility] Co de Phone Number CARLOS WOO [address] [place] [address] * eGFR (10/17/2024 11:03 AM CDT) Pathologist [facility] eGFR >90 >=60 mL/min/1. 73 m2 Comment: Interpretive Data Reference Interval Normal >/= 90 mL/min/1.73m2 Mildly decreased* 60 - 89 mL/min/1.73m2 Mildly to moderately decreased 45 - 59 mL/min/1.73m2 Moderately to severely decreased 30 - 44 mL/min/1.73m2 Severely decreased 15 - 29 mL/min/1.73m2 Kidney Failure < 15 mL/min/1.73m2 *Relative to young adult level Estimated glomerular filtration rate is determined by the 2020 CKD-EPI equation recommended by the National Kidney Foundation (A Unifying Approach to GFR Estimation: Recommendations of the NKF-ASK Task Force on Reassessing the Inclusion of Race in Diagnosing Kidney Disease, JASN 2020). The CKD-EPI equation should not be used for patients with unstable renal function and has not been validated in children and those over 70. Current interpretive data was last reviewed 2021. Blood 10/17/2024 11:0 3 AM CDT 10/20/2024 12:05 PM CDT Camilla Coffman NP LAB BLOOD ORDERABLES Final Re sult Performing Organization Address City/[facility] Co de Phone Number CARLOS WOO [phone] [facility] [place], [place] [phone] * Thyroid Function [place] (10/17/2024 11:03 AM CDT) TSH 1.84 0.30 - 4.20 mcIUnit/mL Blood 10/17/2024 11:0 3 AM CDT 10/20/2024 12:05 PM CDT Camilla Coffman NP LAB BLOOD ORDERABLES Final Re sult Performing Organization Address [facility] Co de Phone Number CARLOS WOO [address] [facility] [place] [address] * Hemoglobin A1c (10/17/2024 11:03 AM CDT) Hgb A1C 5.5 4.0 - 5.6 % Estimated Average Glucose 111 mg/dL CARLOS WOO Comment: The ADA recommends reporting an estimated Average Glucose (eAG) with all Hemoglobin A1c results using the equation derived from a study of 507 normal and diabetic adults. Minority populations were underrepresented and children were not included. (Diabetes Care 31:1506-7434, 2008). The eAG is not equivalent to a fasting glucose. Blood 10/17/2024 11:0 3 AM CDT 10/20/2024 12:05 PM CDT us Camilla Coffman NP LAB BLOOD ORDERABLES Final Re sult [facility] WOO [address] [place] [address] * (ABNORMAL) Lipid panel (10/17/2024 11:03 AM CDT) Cholesterol 176 30 - 199 mg/dL Comment: Interpretive Data Ages < or = 19 years Acceptable: <170 mg/dL Borderline high: 170-199 mg/dL High: >or= 200 mg/dL Ages > or = 20 years Desirable: <200 mg/dL Borderline high: 200-239 mg/dL High: >or= 240 mg/dL Literature References: 1. Expert Panel on Integrated Guidelines for Cardiovascular Health and Risk Reduction in Children and Adolescents. Pediatrics 2011;128:S213 2. NCEP Expert Panel. Circulation 2004;110:227 Current Interpretive Data was last revised on 2018. Triglycerides 84 <=149 mg/dL CARLOS WOO Comment: Interpretive Data Ages < or = 9 years Acceptable: <75 mg/dL Borderline high: 75-99 mg/dL High: >or= 100 mg/dL Ages 10 to 20 years Acceptable: <90 mg/dL Borderline high: 90-129 mg/dL High: >or= 130 mg/dL Ages > or = 20 years Desirable: <150 mg/dL Borderline high: 150-199 mg/dL High: 200-499 mg/dL Very high: >or= 499 mg/dL Literature References: 1. Expert Panel on Integrated Guidelines for Cardiovascular Health and Risk Reduction in Children and Adolescents. Pediatrics 2011;128:S213 2. NCEP Expert Panel. Circulation 2004;110:227 Current Interpretive Data was last revised on 2018. HDL 34(L) >=40 mg/dL CARLOS WOO Comment: Interpretive Data Ages < or = 19 years Acceptable: >45 mg/dL Borderline low: 40-45 mg/dL Low: <40 mg/dL Ages > or = 20 years Desirable: >or= 60 mg/dL Low: <40 mg/dL Literature References: 1. Expert Panel on Integrated Guidelines for Cardiovascular Health and Risk Reduction in Children and Adolescents. Pediatrics 2011;128:S213 2. NCEP Expert Panel. Circulation 2004;110:227 Current Interpretive Data was last revised on 2018. LDL, calculated 126 <=129 mg/dL CARLOS WOO Comment: Interpretive Data Ages < or = 19 years Acceptable: <110 mg/dL Borderline high: 110-129 mg/dL High: >or= 130 mg/dL Ages > or = 20 years Optimal: <100 mg/dL Near optimal: 100-129 mg/dL Borderline high: 130-159 mg/dL High: >160 mg/dL Calculated using the Maxim LDL-C estimating equation. This equation was implemented on 2024. Prior to this date LDL-C was estimated using the Friedewald equation. Literature References: 1. Expert Panel on Integrated Guidelines for Cardiovascular Health and Risk Reduction in Children and Adolescents. Pediatrics 2011;128:S213 2. NCEP Expert Panel. Circulation 2004;110:227 3. Maxim Castillo et al. GINETTE Cardiol. 2019November 20;5(5):540-548. doi: 10.1001/jamacardio.2020.0013 Current Interpretive Data was last revised on 2024. Non-HDL Cholesterol 142 mg/dL CARLOS WOO Comment: Interpretive Data Ages < or = 19 years Acceptable: <120 mg/dL Borderline high: 120-144 mg/dL High: >145 mg/dL Ages > or = 20 years When triglycerides are >200 mg/dL, Non-HDL cholesterol is a secondary target of therapy with treatment goals that are 30 mg/dL greater than the LDL cholesterol target. Literature References: 1. Expert Panel on Integrated Guidelines for Cardiovascular Health and Risk Reduction in Children and Adolescents. Pediatrics 2011;128:S213 2. NCEP Expert Panel. Circulation 2004;110:227 Current Interpretive Data was last revised on 2018. Chol/HDL ratio 5 CARLOS WOO Blood 10/17/2024 11:0 3 AM CDT 10/20/2024 12:05 PM CDT Camilla Coffman NP LAB BLOOD ORDERABLES Final Re sult [facility] WOO [id number] [place] [address] * (ABNORMAL) Comprehensive metabolic panel (10/17/2024 11:03 AM CDT) Sodium 138 135 - 145 mmol/L Potassium, pl 5.2(H) 3.3 - 4.9 mmol/L [facility] Comment:Hemolysis present. R esults may be affected. Chloride 105 97 - 110 mmol/L [facility] CO2 19(L) 22 - 32 mmol/L [facility] Anion gap 14 2 - 15 mmol/L [facility] BUN 7 6 - 25 mg/dL [facility] Creatinine 0.70 0.60 - 1.10 mg/dL [facility] Glucose 86 70 - 199 mg/dL [facility] Comment: Interpretive Data Fasting glucose >/= 126 mg/dl is diagnostic for diabetes. Fasting is defined as no caloric intake for at least 8 hours. Fasting glucose between 100 mg/dl to 125 mg/dl is diagnostic of prediabetes. In a patient with classic symptoms of hyperglycemia or hyperglycemic crisis, a random glucose >/= 200 mg/dl is diagnostic for diabetes. In the absence of unequivocal hyperglycemia, results should be confirmed by repeat testing. The classification and Diagnosis of Diabetes Diabetes Care 2021; 46: S19-S40. Current interpretive data was last revised 2022. Calcium 9.3 8.5 - 10.3 mg/dL [facility] Bilirubin, total 0.4 0.1 - 1.2 mg/dL [facility] Protein, pl 7.0 6.5 - 8.5 g/dL [facility] Albumin 3.9 3.5 - 5.0 g/dL [facility] Alk phos 73 40 - 130 Units/L [facility] ALT 26 7 - 45 Units/L [facility] AST 45 10 - 45 Units/L [facility] Comment:Hemolysis present. R esults may be affected. Blood 10/17/2024 11:0 3 AM CDT 10/20/2024 12:05 PM CDT Camilla Coffman NP LAB BLOOD ORDERABLES Final Re sult [place] WOO [address] [place] [address] * Hepatitis C antibody Blood (10/19/2023 11:14 AM CDT) Hep C Ab Nonreactive Nonreactive Comment: Interpretive Data Nonreactive: Antibodies to HCV not detected. Does NOT exclude the possibility of recent exposure to HCV. Equivocal: Equivocal for HCV antibodies. Supplemental molecular testing will be automatically performed to determine infection status in accordance with current CDC screening recommendations. Reactive: Positive for HCV antibodies. This may represent current or past HCV infection. Supplemental molecular testing will be automatically performed to determine current infection status in accordance with current CDC screening recommendations. Interpretive data was last revised on 2019. Blood 10/19/2023 11:1 4 AM CDT 10/19/2023 3:19 PM CDT Camilla Coffman NP LAB MICROBIOLOGY - GENERAL OR DERABLES Final Result Performing Organization Address City/State/ZIP Co ut Phone Number CARLOS [phone] [place] [address] from Last 3 Months or Most Recently Relevant to Health Maintenance Insurance [facility] Care Teams Director Of Leadership Development Relationship Specialty Start Date End Date Camilla Coffman NP PCP - General Family Medicine 10/18/23 Le Claros MD 2022 [address] [address] Referring Physician Gynecology 10/22/24
--- OUTSIDE RECORDS SUMMARY | 2024-10-24 12:11 | XMS_ITS | Clinical Summary ---
Author Organization [facility] Address [address] [place] [address] Care Team Providers Care Community Development Aide Name Role Phone Camilla Coffman NP Primary Care Provider [phone] Le Claros MD Unavailable [phone] Allergies Active Allergy Reactions Criticality Noted Date Comments Adhesive Rash Medium 02/06/2020 Honey-Hydrocolloid Dressing Nausea & Vomiting Low 0 10/20/2022 Medications rizatriptan CHEMICAL TREATMENT OPERATOR (MAXALT-CHEMICAL TREATMENT OPERATOR) 10 mg disintegrating tabletIndications: Migraine Take 1 tablet (10 mg total) by mouth once as needed for migraine May repeat in 2 hours if unresolved. Do not exceed 30 mg in 24 hours. 9 tablet 01/30/20 24 025 Active Additional Information Patient not taking.Reported on 10/22/2024 vit 80-hfnk-fbzlx-dha 27mg iron- 800 mcg-250 mg capsule Take by mouth Active topiramate (TOPAMAX) 25 mg tabletIndications: Essential Tremor,Migraine Prevention Take 1 tablet twice a day of one week then increase to 2 tablets twice a day. 120 tablet 5 01/30/20 24 025 Discontin ued(Thera py completed ) DULoxetine DR (CYMBALTA) 60 mg capsule Take 1 capsule (60 mg total) by mouth daily 30 capsule 11 07/24/19 25 025 Discontin ued(Thera py completed ) midodrine [...] fludrocortisone Assessment & Plan (07/28/2024 9:13 PM SENIOR MEDIA BUYER): Symptoms are stable, remain debilitating for her. Will refer to [facility] cardiology. For now will keep her [...] Prozac - facial spasms Zoloft: felt weird Paxil: worked for maybe 3 weeks. Citalopram: celexa: suicidal thoughts Lexapro: 6 months, thought it stopped working. Duloxetine: worked for a little while Venlafaxine: remembers the name Ellen: doesn't recall trying it Trintellix: no Luvox: Abilify: was added on, seemed to work better, and then wasn't Vraylor: Radha: no Assessment & Plan (07/28/2024 9:12 PM SENIOR MEDIA BUYER): Did a review of previous medications patient [...] fifth toe of right foot 02/25/2018 01/18/2024 Encounters Date Type Department Care Team Description 10/22/2024 2:00 PM CDT Office Visit [facility] Primary Care at [address] [address] Camilla Coffman NP Annual physical exam (Primary Dx); 8 weeks gestation of 10/21/2024 4:40 PM CDT - 10/21/2024 11:59 PM CDT Hospital Encounter [address] [address] Annual physical exam Discharge Disposition: Discharge to home or self care 10/21/2024 10:45 AM CDT Lab [facility] Outpatient Lab at [address] [phone] POTS (postural orthostatic tachycardia syndrome) (Primary Dx); Annual physical exam 10/17/2024 11:03 AM CDT - 10/17/2024 11:59 PM CDT Hospital Encounter [address] [address] Annual physical exam Discharge Disposition: Discharge to home or self care 10/17/2024 11:00 AM CDT Lab [facility] Outpatient Lab at [address] [address] Chronic fatigue (Primary Dx) 10/13/2024 10:15 AM CDT Office Visit [facility] [address] [place] [phone] Oneal Resendez II, MD Chronic migraine without aura without status migrainosus, not intractable (Primary Dx); Chronic tension-type headache, not intractable 09/23/2024 Orders Only [facility] Primary Care at [address] [address] Camilla Coffman NP 09/08/2024 Telephone [facility] [address] [facility] Advanced Medicine 8th [place] [address] [place] [phone] Kate Ashley MD 08/05/2024 Telephone [facility] [address] [facility] [address] [facility] 8th [place] [address] [place] [phone] Zenia Forbes from Last 3 Months Immunizations Immunization Administration Dates Next Due Influenza, Unspecified 04/23/2024(Deferr ed: Patient Refused),10/18/2023(Deferred: Patient Refused),07/23/2022(Deferred: Patient Refused) Moderna SARS-CoV-2 Monovalen t Vaccination (12+ YRS) 09/20/2021,08/23/2021 Surgical History Surgery Date Site/Laterality Comments CHOLECYSTECTOMY 2016 SECTION 07/23/2015 - 07/22/2016 BUNIONECTOMY 07/23/2020 - 07/22/2021 Medical History Medical History Date Comments Osteopenia Anorexia nervosa with bulimia Depression Osteoarthritis Anxiety Sleep apnea Migraines Family History Medical History Relation Name Comments Asthma Daughter 1 Brinley Morrow Asthma Daughter 2 Lilmaryamn Krys Alcohol abuse Father Reji Suttongren Asthma Half-Sister 1 prediabetes Half-Sister 1 Early Maternal Grandfather Hai Wilkins Hypertension Maternal Grandfather Hai Wilkins Obesity Maternal Grandfather Hai Wilkins Arthritis Maternal Grandmother Yaquelin Bird Cancer Maternal Grandmother Yaquelin Bird Obesity Maternal Grandmother Yaquelin Bird Allergy (severe) Mother Genia Goodman Anemia Mother Genia Goodman Anxiety disorder Mother Genia Goodman Arthritis Mother Genia Goodman Asthma Mother Genia Goodman COPD Mother Genia Goodman Cancer Mother Genia Goodman Depression Mother Genia Goodman Hearing loss Mother Genia Goodman Hypertension Mother Genia Goodman Miscarriages / Stillbirths Mother Genia Goodman Osteoarthritis Mother Genia Goodman Rheum arthritis Mother Genia Goodman Stroke Mother Genia Goodman carrier of hemachromotosis Mother Genia Goodman Cancer Mother's Sister Idania Carty Obesity Mother's Sister Idania Carty Cancer Paternal Grandmother Diane [place] Asthma Sister eCe Goodman Depression Sister Cee Goodman Obesity Sister Cee Goodman Relation Name Status Comments Daughter 1 Kyle Marcano Alive Daughter 2 Ry Marcano Alive Father Reji [place] Half-Sister 1 Alive Half-Sister 2 Alive Half-Sister 3 Alive Maternal Grandfather Hai Wilkins Alive Maternal Grandmother Yaquelin Bird Alive Mother Genia Goodman Mother's Sister Idania Carty Alive Paternal Grandmother Diane Iyerhlgren Alive Sister Cee Goodman Alive Social History Tobacco Use Types Packs/Day Years [...] on file Sexual Orientation Not on file Obstetrics History Last Filed Vital Signs Vital Sign Reading [...] 10/22/2024 2:06 PM CDT Plan of Treatment Health Maintenance Due Date Last Done Comments Cervical Cancer Screening 1989 DTaP/Tdap/Td Vaccine (1 - Tdap) 02/08/2000 Varicella Vaccines (1 of 2 - 13+ 2-dose series) 2002 Hepatitis B Screening 2007 Pneumococcal vaccine <65 (1 of 2 - PCV) 02/08/2008 Covid-19 Vaccine ( season) 2024 09/20/2021, 08/23/2021, 10/09/2020, Additional history exists Regular Well Visit/Exam 18-64 01/17/2025 01/18/2024 Influenza Vaccine (Season Ended) 2025 Depression Screening 10/22/2025 10/22/2024, 04/23/2024, 01/18/2024, Additional history exists Hepatitis C Screening Completed 10/19/2023 HPV Vaccines Aged Out No longer eligi ble based [...] gran abs 0.01 0.00 - 0.10 K/cumm [facility] Lymphocyte abs 1.99 0.80 - 3.30 K/cumm [facility] Monocyte abs 0.66 0.20 - 0.80 K/cumm [facility] Eosinophil abs 0.11 0.00 - 0.50 K/cumm [facility] Basophil abs 0.04 0.00 - 0.10 K/cumm [facility] Neutrophil pct 58.7 % [facility] Comment: Interpretive Data Percent cell count reference ranges are not reported, since discordance with absolute values may lead to misinterpretation of CBC data. Current Interpretive Data was last revised on 2017. Imm gran pct 0.1 % [facility] Comment: Interpretive Data Percent cell count reference ranges are not reported, since discordance with absolute values may lead to misinterpretation of CBC data. Current Interpretive Data was last revised on 2017. Lymphocyte pct 29.3 % [facility] Comment: Interpretive Data Percent cell count reference ranges are not reported, since discordance with absolute values may lead to misinterpretation of CBC data. Current Interpretive Data was last revised on 2017. Monocyte pct 9.7 % [facility] Comment: Interpretive Data Percent cell count reference ranges are not reported, since discordance with absolute values may lead to misinterpretation of CBC data. Current Interpretive Data was last revised on 2017. Eosinophil pct 1.6 % [facility] Comment: Interpretive Data Percent cell count reference ranges are not reported, since discordance with absolute values may lead to misinterpretation of CBC data. Current Interpretive Data was last revised on 2017. Basophil pct 0.6 % [facility] Comment: Interpretive Data Percent cell count reference ranges are not reported, since discordance with absolute values may lead to misinterpretation of CBC data. Current Interpretive Data was last revised on 2017. Blood 10/21/2024 12:0 0 PM CDT 10/21/2024 6:41 PM CDT Camilla Coffman NP LAB BLOOD ORDERABLES Final Re sult Performing Organization Address City/[facility]/ZIP Co de Phone Number CARLOS [address] [employer] [place], [place] [id number] * CBC with auto differential (10/21/2024 12:00 PM CDT) WBC 6.79 3.80 - 9.90 K/cumm Hgb 13.9 11.9 - 15.5 g/dL [facility] Hct 42.8 35.6 - 45.5 % [facility] Plt 294 150 - 400 K/cumm [facility] MPV 10.7 9.1 - 12.3 fL [facility] RBC 4.68 3.90 - 5.20 M/cumm [facility] MCV 91.5 81.3 - 96.4 fL [facility] MCH 29.7 27.1 - 33.3 pg [facility] MCHC 32.5 32.3 - 35.7 g/dL [facility] RDW CV 13.6 11.1 - 14.9 % [facility] CH RDW SD 45.6 35.7 - 48.1 fL [facility] NRBC abs 0.00 0.00 - 0.01 K/cumm [facility] Blood 10/21/2024 12:0 0 PM CDT 10/21/2024 6:41 PM CDT Camilla Coffman NP LAB BLOOD ORDERABLES Final Re sult Performing Organization Address City/[facility]/ZIP Co de Phone Number CARLOS WOO [address] [address] [facility] [employer] [place], [place] [phone] * eGFR (10/17/2024 11:03 AM CDT) eGFR >90 >=60 mL/min/1. 73 m2 Comment: [...] ORDERABLES Final Re sult Performing Organization Address City/[facility] Co de Phone Number CARLOS [phone] [employer] [place] [address] * Thyroid Function [place] (10/17/2024 11:03 AM CDT) TSH 1.84 0.30 - 4.20 mcIUnit/mL Blood 10/17/2024 11:0 3 AM CDT 10/20/2024 12:05 PM CDT Camilla Coffman NP LAB BLOOD ORDERABLES Final Re sult CARLOS [id number] [address] [facility] [place] [address] * Hemoglobin A1c (10/17/2024 11:03 AM CDT) Hgb A1C 5.5 4.0 - 5.6 % Estimated Average Glucose 111 mg/dL CARLOS WOO Comment: The ADA recommends reporting an estimated Average Glucose (eAG) with all Hemoglobin A1c results using the equation derived from a study of 507 normal and diabetic adults. Minority populations were underrepresented and children were not included. (Diabetes Care 31:5387-1559, 2008). The eAG is not equivalent to a fasting glucose. Blood 10/17/2024 11:0 3 AM CDT 10/20/2024 12:05 PM CDT Camilla Coffman NP LAB BLOOD ORDERABLES Final Re sult CARLOS [address] [facility] [place], [place] [phone] * (ABNORMAL) Lipid panel (10/17/2024 11:03 AM [...] revised on 2018. Chol/HDL ratio 5 CARLOS Blood 10/17/2024 11:0 3 AM CDT 10/20/2024 12:05 PM CDT Camilla Coffman NP LAB [place]LOOD [place] [address] [address] [facility] [place] [address] * (ABNORMAL) Comprehensive metabolic panel (10/17/2024 11:03 [...] ORDERABLES Final Re sult Performing Organization Address [facility] Co de Phone Number CARLOS WOO [address] [address] Department [place] [address] * Hepatitis C antibody Blood (10/19/2023 11:14 [...] OR DERABLES Final Result Performing Organization Address [facility] Co de Phone Number CARLOS WOO [address] Department [place] [address] from Last 3 Months or Most Recently Relevant to Health Maintenance Insurance [facility] Care Teams Community Development Aide Relationship Specialty Start Date End Date Camilla Coffman NP PCP - General Family Medicine 10/18/23 Le Claros MD [address] [address] Referring Physician Gynecology 10/22/24
== END 2024-10-24 12:08 | disposition home or self-care (01) ==
PROVIDERS: PCP Nurse Practitioner Family; Visit Provider Obstetrics & Gynecology Gynecology
DX: O26.851 Spotting complicating pregnancy, first trimester (principal); Z3A.01 Less than 8 weeks gestation of pregnancy; O46.90 Antepartum hemorrhage, unspecified, unspecified trimester
CPT/HCPCS: 76801; 76817

== ENCOUNTER 2024-10-29 16:14 | Emergency (ER) | payer OTHER, SELFPAY ==
[2024-10-29] VITALS (8 sets, daily range): BP systolic 113–134; BP diastolic 70–89; PULSE 78–115; RESP 14–16; TEMP 36.6–37.1; O2SAT 100
--- NOTE | ~2024-10-29 | US_ITS ---
FIRST TRIMESTER ULTRASOUND 10/29/2024 18:00 CDT Ordering provider: Avis Armstrong APRN History: . vaginal bleeding, abdominal cramping . Comparison: October 24, 2024 FINDINGS: INTRAUTERINE GESTATIONAL SAC: Echogenicity area seen in the endometrium with vascularity involving the lower segment with slightly dilated cervix and with fluid which may indicate missed with retained products versus aborti on in progress. Early also cannot be excluded. Clinical correlation and follow-up advised. YOLK SAC: Not seen. POLE: Not seen. UTERUS: The uterus measures 11.1x 5x 5.3 in length which is within normal limits. No myometrial joe s. FREE FLUID: None. OVARIES: Normal in size with no definite abnormality.. ADNEXAL MASSES: None. IMPRESSION: Mixed echogenicity vascular area in the uterine cavity involving the lower segment with slightly dila dana cervix containing fluid. Differential include missed with retained products versus abort ion in progress versus early . Clinical correlation and follow-up advised. Reviewed, dictated and finalized at location A. IMPRESSION: Mixed echogenicity vascular area in the uterine cavity involving the lower segm ent with slightly dilated cervix containing fluid. Differential include missed with retained products versus in progress versus early pregna ncy. Clinical correlation and follow-up advised.
--- OUTSIDE RECORDS SUMMARY | 2024-10-29 17:06 | XMS_ITS | Encounter Summary ---
Author Organization [facility] Address [address] [place] [address] Care Team Providers Care Truck Sales Manager Name Role Phone Camilla Coffman NP Primary Care Provider [phone] Le Claros MD Unavailable [phone] Reason for Visit * Reason Onset Date Comments Additional Services Or Orders 10/27/2024 Encounter Details Date Type Department Care Team (Late st Contact Info) Description 10/27/2024 Telephone [facility] Primary Care at [address] [address] Camilla Coffman NP [address] [place] [address] [address] [place] [address] Additional Services Or Orders Social History Tobacco Use Types Packs/Day Years Used Date Smoking Tobacco: Every Day Cigarettes Smokeless Tobacco: Never PHQ-2 Answer Date Recorded PHQ-2 Total Score (If total score is 3 or more points, staff should administer the PHQ-9) 0 10/22/2024 PHQ-9 Answer Date Recorded PHQ-9 Total Score 8 11/06/2023 Comments Yes Sex and Gender Information Value Date Recorded Sex Assigned at Not on file Legal Sex Female 10:32 PM CDT Gender Identity Not on file Sexual Orientation Not on file documented as of this encounter Miscellaneous Notes * Telephone Encounter - Jayne Aguayo MA - 10/28/2024 4:59 PM CDT Faxed over to [place] with [facility] * Telephone Encounter - Camilla Coffman NP - 10/27/2024 3:02 PM CDT signed * Telephone Encounter - Jayne Aguayo MA - 10/27/2024 2:45 PM CDT Form on your desk * Telephone Encounter - Le Molina - 10/27/2024 11:17 AM CDT Additional Services or Orders Type of Service Requested:Equipment Reason for Request (e.g. condition/symptom, date of COVID exposure if applicable): Sleep apnea Details Regarding Additional Services (e.g. type of home health, type of equipment, type of test, etc.): Sleep Apnea Machine Supplies Where will services be performed? (if outside of the practice, facility name, address, phone/fax offacility): [facility] [phone] Additional Comments: [facility] is asking for an order for sleep apnea machine supplies for this patient, mask, filters, etc. [facility] is also faxing a request for the supplies to the office as well. Does message need to be routed? Yes-Action Needed documented in this encounter Plan of Treatment Not on file documented as of this encounter Visit Diagnoses Not on filedocumented in this encounter Care Teams Truck Sales Manager Relationship Specialty Start Date End Date Camilla Coffman NP PCP - General Family Medicine 10/18/23 Le Claros MD [address] [address] Referring Physician Gynecology 10/22/24 documented as of this encounter
--- OUTSIDE RECORDS SUMMARY | 2024-10-29 17:06 | XMS_ITS | Data Portability ---
Author Organization [place] - [facility] Main Office Address [address] [place] [address] Assessment Encounter Date Assessment Date Assessment LastModified [...] bariatric procedure for weight loss. 2022 023 Not available 14:09:42 Procedures None recorded. Surgeries None recorded. Imaging None recorded. Medication Orders None recorded. Patient TargetsNo targets recorded. Patient Instructions Encounter Date Encounter Id Patient Instructions Last Modified By Organization Details Last Modified Time 11/29/2022 [id number] FU prn. [email or web address] Not available 11/29 16:18:57 05/11/2023 [id number] FU in 1 year for wellness. Not [...] ders to discu ss resul ts at [phone] ([phone] ). . Test Detai ls: Three varia nts beryl zed: c.845 G>A (p.Cy s282T yr), commo nly refer red to as C282Y c.187 C>G (p.Hi s63As p), commo nly refer red to as H63D c.193 A>T (p.Se r65Cy s), commo nly refer red to as S65C . Metho ds/Li mitat ions: DNA Beryl sis of the HFE gene ([id number]) was perfo rmed by PCR ampli [...] 3. doi: 10.10 / p.243 30. PMID: 70519 290; PMCID : PMC31 96218 . Demetrice G, Yang everett P, Emmie [...] hg.20 15.12 8. Epub 2014Jan 27. PMID: 95745 218; PMCID : PMC49 87855 . . Ana Cristina Angela n, PhD, FACMG Tyler Phillips , PhD Alfonso de la cruz, PhD, FAC Ronaldo woods, PhD, [facility] [place] Alli martines, PhD, FACMG ACMG W Garry Deshpande, PhD, FACMG Charmaine Crowley, PhD, [facility] MG Conner vargas, PhD, FACMG Perfo rmed at: [facility] [address] [facility] , [place] [address] Lab Direc tor: [facility] , Phone : [phone] Not Available [facility] (Lab) [address] [place], [address], 03/06/2022 19:08:13 02/29/20 22 02/28/2022 VITAM IN D 25-HY DROXY vd25oh 26.4 NG/mL 30-100 low Vitam in D Statu s: Defic ient: <20 ng/mL Insuf ficie nt: 20-29 ng/mL Suffi cient : 30-10 0 ng/mL Not Available [facility] (Lab) [address] [place], [address], 02/28/2022 22:46:38 02/29/20 22 02/28/2022 FOLAT E, SERUM /PLAS MA folate 10.2 NG/mL 2.76-2 0.0 Not Available [facility] (Lab) [address] [place], [address], 02/28/2022 20:33:17 02/29/20 22 02/28/2022 VITAM IN B12 (BRONSON MAITE ) vb12 264 pg/mL 239-93 1 Not Available [facility] (Lab) [address] [place], [address], 02/28/2022 20:33:14 02/29/20 22 02/28/2022 HEMOG LOBIN A1C HA1C 5.5 % 4.0-6. 0 Diabe gaetano Scree sandy Crite tammi: <5.7% Consi stent with absen ce of diabe gaetano 5.7-6 .4% Consi stent with incre ased risk for diabe gaetano (pred iabet es) >OR=6 .5% Consi stent with diabe gaetano REFER ENCE: Diabe gaetano Care 2016, 39(Kelley ppl.1 ):s13 -s22 Not Available [facility] (Lab) [address] [place], [address], 02/28/2022 20:20:24 02/29/20 22 02/28/2022 TSH thyroid-stim ulating hormone 3.790 uIU/m L 0.465- 4.680 Not Available [facility] (Lab) [address] [place], [address], 02/28/2022 20:02:14 02/29/20 22 02/28/2022 T4 FREE free T4 1.35 NG/dL 0.78-2 .19 Not Available [facility] (Lab) [address] [place], [address], 02/28/2022 19:42:29 02/29/20 22 02/28/2022 IRON/ TIBC PANEL total iron binding capacity 330 mcg/d L 265-47 5 Not Available [facility] (Lab) [address] [place], [address], 02/28/2022 19:30:37 02/29/20 22 02/28/2022 IRON/ TIBC PANEL % transferrin saturation 31 % 20-55 Not Available [facility] (Lab) [address] [place], [address], 02/28/2022 19:30:37 02/29/20 22 02/28/2022 IRON/ TIBC PANEL unsaturated iron bind capacity 229 mcg/d L 126-38 2 Not Available [facility] (Lab) [address] [place], [address], 02/28/2022 19:30:37 02/29/20 22 02/28/2022 IRON/ TIBC PANEL iron 101 mcg/d L 42-175 Not Available [facility] (Lab) [address] [place], [address], 02/28/2022 19:30:37 02/29/20 22 02/28/2022 LIPID PANEL cholesterol 171 mg/dL 140-19 9 NIH JI NSUS RECOM MENDA TION FOR ROSE STERO L: ADULT CHILD LOW RISK: <200 <170 BORDE RLINE : <200- 239 ----- HIGH RISK: >240 >200 Not Available [facility] (Lab) [address] [place], [address], 02/28/2022 19:23:38 02/29/20 22 02/28/2022 LIPID PANEL triglyceride s 137 mg/dL 0-150 NIH JI NSUS REPOR T RECOM MENDA TION FOR TRIGL YCERI DEEPAK: ADULT CHILD LOW RISK: <150 ----- BODER LINE: 150-1 99 ----- HIGH RISK: >200 ----- Not Available [facility] (Lab) [address] [place], [address], 02/28/2022 19:23:38 02/29/20 22 02/28/2022 LIPID PANEL HDL cholesterol 27 mg/dL 40- low Not Available [facility] (Lab) [address] [place], [address], 02/28/2022 19:23:38 02/29/20 22 02/28/2022 LIPID PANEL [...] WILL NOT BE REPOR DANA. Not Available [facility] (Lab) [address] [place], [address], 02/28/2022 19:23:38 02/29/20 22 02/28/2022 COMPR EHENS ALDEN METAB OLIC PANEL sodium 139 mmol/ L 137-14 5 Not Available [facility] (Lab) [address] [place], [address], 02/28/2022 19:23:34 02/29/20 22 02/28/2022 COMPR EHENS ALDEN METAB OLIC PANEL potassium 4.0 mmol/ L 3.5-5. 1 Not Available [facility] (Lab) [address] [place], [address], 02/28/2022 19:23:34 02/29/20 22 02/28/2022 COMPR EHENS ALDEN METAB OLIC PANEL chloride 105 mmol/ L 98-107 Not Available [facility] (Lab) [address] [place], [address], 02/28/2022 19:23:34 02/29/20 22 02/28/2022 COMPR EHENS ALDEN METAB OLIC PANEL carbon dioxide 24 mmol/ L 22-30 Not Available [facility] (Lab) [address] [place], [address], 02/28/2022 19:23:34 02/29/20 22 02/28/2022 COMPR EHENS ALDEN METAB OLIC PANEL anion gap 14.0 mmol/ L 14-22 Not Available [facility] (Lab) [address] [place], [address], 02/28/2022 19:23:34 02/29/20 22 02/28/2022 COMPR EHENS ALDEN METAB OLIC PANEL glucose 111 mg/dL 70-99 high Not Available [facility] (Lab) [address] [place], [address], 02/28/2022 19:23:34 02/29/20 22 02/28/2022 COMPR EHENS ALDEN METAB OLIC PANEL BUN 8 mg/dL 8-19 Not Available [facility] (Lab) [address] [place], [address], 02/28/2022 19:23:34 02/29/20 22 02/28/2022 COMPR EHENS ALDEN METAB OLIC PANEL creatinine 0.68 mg/dL 0.66-1 .25 Not Available [facility] (Lab) [address] [place], [address], 02/28/2022 19:23:34 02/29/20 22 02/28/2022 COMPR EHENS ALDEN METAB OLIC PANEL GFR >60 Refer ence Range : [place] ge GFR Healt hy Adult : >60 [...] calcu lator is avail able on the [facility] websi te: [email or web address] :[email or web address] [email or web address] rg/pr ofess ional s/kdo qi/gf r_cal culat or Not Available [facility] (Lab) [address] [place], [address], 02/28/2022 19:23:34 02/29/20 22 02/28/2022 COMPR EHENS ALDEN METAB OLIC PANEL alkaline phosphatase 72 U/L 38-126 Not Available [facility] (Lab) [address] [place], [address], 02/28/2022 19:23:34 02/29/20 22 02/28/2022 COMPR EHENS ALDEN METAB OLIC PANEL alanine aminotransfe rase 17 U/L 0-35 Not Available [facility] (Lab) [address] [place], [address], 02/28/2022 19:23:34 02/29/20 22 02/28/2022 COMPR EHENS ALDEN METAB OLIC PANEL aspartate aminotransfe rase 25 U/L 15-37 Not Available [facility] (Lab) [address] [place], [address], 02/28/2022 19:23:34 02/29/20 22 02/28/2022 COMPR EHENS ALDEN METAB OLIC PANEL bilirubin, total 0.70 mg/dL 0.20-1 .30 Not Available [facility] (Lab) [address] [place], [address], 02/28/2022 19:23:34 02/29/20 22 02/28/2022 COMPR EHENS ALDEN METAB OLIC PANEL calcium 9.2 mg/dL 8.4-10 .2 Not Available [facility] (Lab) [address] [place], [address], 02/28/2022 19:23:34 02/29/20 22 02/28/2022 COMPR EHENS ALDEN METAB OLIC PANEL total protein 7.1 g/dL 6.3-8. 2 Not Available [facility] (Lab) [address] [place], [address], 02/28/2022 19:23:34 02/29/20 22 02/28/2022 COMPR EHENS ALDEN METAB OLIC PANEL albumin 4.1 g/dL 3.4-5. 0 Not Available [facility] (Lab) [address] [place], [address], 02/28/2022 19:23:34 02/29/20 22 02/28/2022 COMPR EHENS ALDEN METAB OLIC PANEL globulin 3.0 g/dL 2.6-4. 2 Not Available [facility] (Lab) [address] [place], [address], 02/28/2022 19:23:34 02/29/20 22 02/28/2022 COMPR EHENS ALDEN METAB OLIC PANEL A/G ratio 1.4 ratio 1.0-2. 0 Not Available [facility] (Lab) [address] [place], [address], 02/28/2022 19:23:34 02/29/20 22 02/28/2022 CBC/C OMPLE TE BLD COUNT W/DIF F hematocrit 40.6 % 35.7-4 5.7 Not Available [facility] (Lab) [address] [place], [address], 02/28/2022 18:10:18 02/29/20 22 02/28/2022 CBC/C OMPLE TE BLD COUNT W/DIF F white blood cells 8.0 x10'3 /uL 4.2-10 .8 Not Available [facility] (Lab) [address] [place], [address], 02/28/2022 18:10:18 02/29/20 22 02/28/2022 CBC/C OMPLE TE BLD COUNT W/DIF F red blood cells 4.71 x10'6 /uL 3.80-5 .20 Not Available [facility] (Lab) [address] [place], [address], 02/28/2022 18:10:18 02/29/20 22 02/28/2022 CBC/C OMPLE TE BLD COUNT W/DIF F hemoglobin 13.6 g/dL 12.0-1 5.6 Not Available [facility] (Lab) [address] [place], [address], 02/28/2022 18:10:18 02/29/20 22 02/28/2022 CBC/C OMPLE TE BLD COUNT W/DIF F mean red cell volume 86.2 fL 82.0-9 9.0 Not Available [facility] (Lab) [address] [place], [address], 02/28/2022 18:10:18 02/29/20 22 02/28/2022 CBC/C OMPLE TE BLD COUNT W/DIF F mean red cell hemoglobin 28.9 pg 27.0-3 3.0 Not Available [facility] (Lab) [address] [place], [address], 02/28/2022 18:10:18 02/29/20 22 02/28/2022 CBC/C OMPLE TE BLD COUNT W/DIF F mean RBC HGB concentratio n 33.5 g/dL 31.0-3 6.0 Not Available [facility] (Lab) [address] [place], [address], 02/28/2022 18:10:18 02/29/20 22 02/28/2022 CBC/C OMPLE TE BLD COUNT W/DIF F red cell distribution width 13.5 % 11.8-1 5.5 Not Available [facility] (Lab) [address] [place], [address], 02/28/2022 18:10:18 02/29/20 22 02/28/2022 CBC/C OMPLE TE BLD COUNT W/DIF F platelets 279 x10'3 /uL 150-40 0 Not Available [facility] (Lab) [address] [place], [address], 02/28/2022 18:10:18 02/29/20 22 02/28/2022 CBC/C OMPLE TE BLD COUNT W/DIF F mean platelet volume 10.8 fL 9.0-12 .4 Not Available [facility] (Lab) [address] [place], [address], 02/28/2022 18:10:18 02/29/20 22 02/28/2022 CBC/C OMPLE TE BLD COUNT W/DIF F neutrophils 55.3 % 39.0-7 2.0 Not Available [facility] (Lab) [address] [place], [address], 02/28/2022 18:10:18 02/29/20 22 02/28/2022 CBC/C OMPLE TE BLD COUNT W/DIF F lymphocytes 33.3 % 16.0-4 7.0 Not Available [facility] (Lab) [address] [place], [address], 02/28/2022 18:10:18 02/29/20 22 02/28/2022 CBC/C OMPLE TE BLD COUNT W/DIF F monocytes 9.8 % 5.0-12 .0 Not Available [facility] (Lab) [address] [place], [address], 02/28/2022 18:10:18 02/29/20 22 02/28/2022 CBC/C OMPLE TE BLD COUNT W/DIF F eosinophils 0.8 % 1.0-7. 0 low Not Available [facility] (Lab) [address] [place], [address], 02/28/2022 18:10:18 02/29/20 22 02/28/2022 CBC/C OMPLE TE BLD COUNT W/DIF F basophils 0.5 % 0.0-2. 0 Not Available [facility] (Lab) [address] [place], [address], 02/28/2022 18:10:18 02/29/20 22 02/28/2022 CBC/C OMPLE TE BLD COUNT W/DIF F immature granulocytes 0.3 % 0.00-0 .50 Not Available [facility] (Lab) [address] [place], [address], 02/28/2022 18:10:18 02/29/20 22 02/28/2022 CBC/C OMPLE TE BLD COUNT W/DIF F neutrophils, absolute count 4.40 x10'3 /uL 1.5-8. 0 Not Available [facility] (Lab) [address] [place], [address], 02/28/2022 18:10:18 02/29/20 22 02/28/2022 CBC/C OMPLE TE BLD COUNT W/DIF F lymphocytes, absolute count 2.65 x10'3 /uL 1.07-3 .43 Not Available [facility] (Lab) [address] [place], [address], 02/28/2022 18:10:18 02/29/20 22 02/28/2022 CBC/C OMPLE TE BLD COUNT W/DIF F monocytes, absolute count 0.78 x10'3 /uL 0.29-0 .99 Not Available [facility] (Lab) [address] [place], [address], 02/28/2022 18:10:18 02/29/20 22 02/28/2022 CBC/C OMPLE TE BLD COUNT W/DIF F eosinophils, absolute count 0.06 x10'3 /uL 0.02-0 .53 Not Available [facility] (Lab) [address] [place], [address], 02/28/2022 18:10:18 02/29/20 22 02/28/2022 CBC/C OMPLE TE BLD COUNT W/DIF F basophils, absolute count 0.04 x10'3 /uL 0.01-0 .08 Not Available [facility] (Lab) [address] [place], [address], 02/28/2022 18:10:18 02/29/20 22 02/28/2022 CBC/C OMPLE TE BLD COUNT W/DIF F immature granulocytes ,absolute 0.02 x10'3 /uL 0.00-0 .05 Not Available [facility] (Lab) [address] [place], [address], 02/28/2022 18:10:18 02/29/20 22 02/28/2022 CBC/C OMPLE TE BLD COUNT W/DIF F nucleated red blood cells 0.0 % -0 Not Available [facility] (Lab) [address] [place], [address], 02/28/2022 18:10:18 02/29/20 22 02/28/2022 CBC/C OMPLE TE BLD COUNT W/DIF F NRBC# 0.00 x10'3 /uL Not Available [facility] (Lab) [address] [place], [address], 02/28/2022 18:10:18 05/16/2005/19/2022 BRANDON/A NTINU CLEAR ANTIB [...] Patte rns (ICAP ). Perfo rmed at: [facility] [address] [place], [place] [address] [facility] Lab Direc tor: Wood thorne PhD, Phone : [phone] Not Available [facility] (Lab) [address] [place], [address], 05/19/2022 15:09:32 05/16/2005/16/2022 URIC ACID SERUM uric acid 5.4 mg/dL 2.5-6. 2 Not Available [facility] (Lab) [address] [place], [address], 05/16/2022 20:54:22 05/16/2005/16/2022 RHEUM ATOID FACTO R rf <8.6 IU/mL 0.0-11 .9 Not Available [facility] (Lab) [address] [place], [address], 05/16/2022 20:47:38 05/16/2005/16/2022 C REACT ALDEN PROTE IN,UL TRA SENS C-reactive protein 1.27 mg/dL 0.0-0. 5 high Not Available [facility] (Lab) [address] [place], [address], 05/16/2022 20:46:51 05/16/20 22 05/16/2022 SEDIM ENTAT ION RATE erythrocyte sedimentatio n rate 21 mm/HR 0-20 high Not Available [facility] (Lab) [address] [place], [address], 05/16/2022 20:10:45 05/24/20 22 05/23/2022 bone densi ty No observ ation record ed. [id number] [facility] [place], [address], 09/21/2022 01:27:48 07/06/20 22 06/26/2022 tracey r monit or No observ ation record ed. [id number] [place] [address] (Cardiology & Emg) [address] [place] [address] [place] [address], [phone], 09/21/2022 01:27:48 Result Notes Documentation Provider Name and Address Organization Details Recorded Time Drug Screen, 5 Drugs, Urine : MJ Not Available [facility] 09/21/2022 01:27:48 Problems Name Problem SNOMED Code Status Onset Date Resolution Date Notes Provider Name and Address Organization Details Recorded Time Butterfly rash 41105185 Active 2021 Not Available [facility] 01:26:19 Tachycardi a 1062386 Active 2021 Not Available [facility] 3 01:26:19 Multiple joint pain 47485065 Active 2021 Not Available [facility] 3 01:26:19 Osteoarthr itis 169743883 Active 2021 Not Available [facility] 3 01:26:19 Family history of fibromyalg ia 4691012418243 02 Active 2021 Not Available [facility] 3 01:26:19 Pain of right knee joint 8945153040434 00 Active 2021 Not Available [facility] 3 01:26:19 Pain of left knee joint 9232602299448 07 Active 2021 Not Available [facility] 3 01:26:19 Swelling of bilateral lower limbs 605571934 Active 2021 Not Available [facility] 3 01:26:20 Hyperglyce adilene 10953106 Active 2021 Not Available [facility] 3 01:26:20 Fatigue 36012961 Active 2021 Not Available [facility] 3 01:26:20 Obese 581478962 Active 2022 Britney Colorado NP [address], [facility] [address], [place], [address] , [facility] 3 16:11:46 Problem Notes None recorded. Procedures Surgical History Date Name Laterality Status Provider Name and Address Organization Details Recorded Time 01/21/20 22 Date of Last Pap Smear completed Britney Reeves RN [place] [address] [facility] 11/29/2022 15:56:44 06/22/20 21 excision of bunion completed Not Available [facility] 09/21/2022 01:25:08 04/22/20 20 Most Recent Bone Density completed Not Available [facility] 09/21/2022 01:25:07 12/22/19 16 cholecystectomy completed Not Available [facility] 09/21/2022 01:25:08 11/21/19 16 section completed Not Available [facility] 09/21/2022 01:25:08 Imaging Results Imaging Date Name Status LastModified by Organiz ation Details LastModified Time 06/26/2022 holter monitor completed [id number] [address] [place] [address] (Cardiology & Emg) [address] [place] [address], [phone], 09/21/2022 01:27:48 05/23/2022 bone density completed [id number] [place] [address], [address], 09/21/2022 01:27:48 Procedure Notes None recorded. Medical [...] % 98 % 95 /min 98 [degF] 252741. 98 g 100 mm[Hg] 62 mm[Hg] Not Available [facility] 3 01:25:28 Date Recorded Body mass index (BMI) Body height Oxygen saturation Oxygen saturation in Arterial blood by Pulse oximetry Heart rate Body temperature Body weight Systolic blood pressure Diastolic blood pressure Provider Name and Address Organization Details Last Updated DateTime 2 38.5 kg/m2 167.64 cm 98 % 98 % 115 /min 98 [degF] 525148. 78 g 122 mm[Hg] 80 mm[Hg] Not Available [facility] 3 01:25:28 Date Recorded Body mass index (BMI) Body height Oxygen saturation Oxygen saturation in Arterial blood by Pulse oximetry Heart rate Respiratory rate Body temperature Body weight Systolic blood pressure Diastolic blood pressure Provider Name and Address Organization Details Last Updated DateTime 2 36.8 kg/m2 167.64 cm 99 % 99 % 110 /min 16 /min 98.1 [degF] 578522. 06 g 108 mm[Hg] 80 mm[Hg] Not Available [facility] 3 01:25:28 Date Recorded Body height Body mass index (BMI) Body weight Body temperature Heart rate Respiratory rate Oxygen saturation Oxygen saturation in Arterial blood by Pulse oximetry Pain severity - 0-10 verbal numeric rating [Score] - Reported Systolic blood pressure Diastolic blood pressure Provider Name and Address Organization Details Last Updated DateTime 3 167.64 cm 37.4 kg/m2 118186. 29 g 97.7 [degF] 87 /min 16 /min 97 % 97 % 0 140 mm[Hg] 82 mm[Hg] OUSMANE [facility] 3 15:54:30 Date Recorded Body height Body mass index (BMI) Body weight Body temperature Heart rate Respiratory rate Oxygen saturation Oxygen saturation in Arterial blood by Pulse oximetry Pain severity - 0-10 verbal numeric rating [Score] - Reported Systolic blood pressure Diastolic blood pressure Provider Name and Address Organization Details Last Updated DateTime 3 167.64 cm 36.8 kg/m2 751684. 41 g 96.4 [degF] 90 /min 20 /min 97 % 97 % 0 140 mm[Hg] 84 mm[Hg] OUSMANE Garcia [facility] 3 08:40:35 Social History Question Answer Notes LastModified by Organizat ion Details LastModified Time Tobacco Smoking Status Current Every Day Smoker Not Available [facility] 09/21/2022 01:24:53 Do You Have An Advance Directive? No Information not available 11/29/2022 What Is Your Level Of Alcohol Consumption? None [id number] Information not available 09/21/2022 Is Blood Transfusion Acceptable In An Emergency? Yes Information not available 11/29/2022 What Is Your Level Of Caffeine Consumption? Moderate [id number] Information not available 09/21/2022 What Is Your Code Status? Full Code Information not available 11/29/2022 In The 14 Days Before Symptom Onset, Have You Had Close Contact With A Laboratory-confir med COVID-19 While That Case Was Ill? No [id number] Information not available 09/21/2022 In The 14 Days Before Symptom Onset, Have You Had Close Contact With A Person Who Is Under Investigation For COVID-19 While That Person Was Ill? No [id number] Information not available 09/21/2022 What Type Of Diet Are You Following? REGULAR [id number] Information not available 09/21/2022 What Is The Highest Grade Or Level Of School You Have Completed Or The Highest Degree You Have Received? 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 No [id number] 1809 Information not available 09/21/2022 Do You Use Insect Repellent Routinely? No Information not available 11/29/2022 Where Do You Live? [place] [id number] Information not available 09/21/2022 Do You Have A Medical Power Of Outcomes Specialist? No Information not available 11/29/2022 How Many Children Do You Have? 3 Information not available 11/29/2022 What Is Your Relationship Status? [id number] Information not available 09/21/2022 Do You Use Your Seat Belt Or Car Seat Routinely? Yes [id number] Information not available 09/21/2022 Do You Have Smoke And Carbon Monoxide Detectors In Your Home? Yes [id number].357689 5595 Information not available 09/21/2022 At What Age Did You Start Smoking Tobacco? 17 Information not available 11/29/2022 Are You Passively Exposed To Smoke? Yes [id number] 9437 Information not available 09/21/2022 Are There Any Smokers In Your House? No [id number] 9345 Information not available 09/21/2022 How Much Tobacco Do You Smoke? 0.5 PPD Information not available 05/11/2023 Do You Participate In Social Media? Yes [id number].[id number] 1502 Information not available 09/21/2022 Do You Feel Stressed (tense, Restless, Nervous, Or Anxious, Or Unable To Sleep At Night)? [id number] Information not available 11/29/2022 Do You Use Any Illicit Or Recreational Drugs? No MIGRATION.[id number] 0506 Information not available 09/21/2022 Do You Use Sunscreen Routinely? Yes Information not available 11/29/2022 How Many Years Have You Smoked Tobacco? 15 [id number].[id number] 2714 Information not available 09/21/2022 Have You Recently Traveled Abroad? No [id number].[id number] 1785 Information not available 09/21/2022 Are You Currently In School? Yes [id number].[id number] 4103 Information not available 09/21/2022 Sex: Female Functional Status Question Answer Note LastModified by Organizat ion Details LastModified Time What is your exercise level? None [id number] Information not available 09/21/2022 Mental Status None recorded. Family History Relationship Description Onset Age of this Age Resolved Age Notes LastModified by Organization Details LastModified Time Mother Hemochromato sis [id number] Not available 09/21/2022 01:25:09 Mother Hypertensive disorder [id number] Not available 09/21/2022 01:25:09 Mother Diabetes mellitus [id number] Not available 09/21/2022 01:25:09 Mother Fibromyalgia MIGRATION.0 30 [id number] Not available 09/21/2022 01:25:09 Sister Diabetes mellitus [id number] [id number] Not available 09/21/2022 01:25:09 Sister Hyperlipidem ia [id number] [id number] Not available 09/21/2022 01:25:09 Medical History Condition [...] 50 mcg/0.25mL dose 09/20/2021 completed Not Available [facility] 3 01:27:34 COVID-19, mRNA, LNP-S, PF, 100 mcg/0.5mL dose or 50 mcg/0.25mL dose 08/23/2021 completed Not Available [facility] 3 01:27:34 Past Encounters Encounter ID Performer Location Encounter Start Date Encounter Closed Date Diagnosis/Indication Diagnosis SNOMED-CT Code Diagnosis ICD10 Code Diagnosis Note [id number] [address] [address] 02/23/2022 00:00:00 02/23/2022 16:46:36 [id number] [facility] [address] [address] 02/28/2022 00:00:00 02/28/2022 13:38:[id number] [address] 03/15/2022 00:00:00 03/15/2022 17:52:[id number] [address] 05/16/2022 00:00:00 05/16/2022 16:39:08 [id number] [facility] [address] [place] [id number] 06/02/2022 00:00:00 06/02/2022 12:52:05 [id number] Britney Colorado NP [facility] [address] [address] 11/29/2022 15:31:19 11/29/2022 16:22:25 Obese [id number] E66.9 No injectable s covered. Not able to be on phentermin e due to heart palpitatio ns.Referra l to bariatric surgery requested- pt will call back with location to send referral. Work on low carb, no dairy, no condiment diet. Portion control. 6 smaller meals, vs 1 large meal daily. [id number] Britney Colorado NP [facility]_[address] [address] 05/11/2023 08:29:36 05/11/2023 11:55:09 History and physical examination, pre-employment [id number] Z02.1 Encouraged well balanced meals, active lifestyle, and routine vision and dental appts.Form completed for [facility]. Health Concerns Section Related Observation LastModified by Organization Krystyna ross LastModified Time None Recorded Concern Status LastModified by Organization Details LastModified Time None Recorded Advance Directives Directive N: Payers Encounter Date Sequence Insurance Name Policy Number Policy Saenz Covered Member ID Saenz Member ID Guarantor Name 11/29/2022 1 [facility] ON OR AFTER 01/20/21 (MEDICAID REPLACEMENT - HMO) Gretchen Marcano [id number] Gretchen Marcano 05/11/2023 1 [facility] [id number] Gretchen Marcano [id number] Gretchen Marcano Notes Date Note Type Note [...] Colorado NP [address], [address], [place], [address], [employer] 11/29/2022 16:19:40 05/11/2023 text/html Here for employm ent physical, [facility]. No real concerns. 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 Fatigue and pain often. Vision utdDental utd Britney Colorado NP [address], [facility] [address], [place], [address], [employer] 05/11/2023 09:03:05 OBGyn Episode No OBEpisode recorded.
--- OUTSIDE RECORDS SUMMARY | 2024-10-29 17:06 | XMS_ITS | Clinical Summary ---
Author Organization [facility] Address [address] [place] [address] Care Team Providers Care Conference Center Coordinator Name Role Phone Camilla Coffman NP Primary Care Provider [phone] Le Claros MD Unavailable [phone] Allergies Active Allergy Reactions Criticality Noted Date Comments Adhesive Rash Medium 02/06/2020 Honey-Hydrocolloid Dressing Nausea & Vomiting Low 0 10/20/2022 Medications rizatriptan REPAIRER MAINTENANCE BUILDING (MAXALT-REPAIRER MAINTENANCE BUILDING) 10 mg disintegrating tabletIndications: Migraine Take 1 tablet (10 mg total) by mouth once as needed for migraine May repeat in 2 hours if unresolved. Do not exceed 30 mg in 24 hours. 9 tablet 5 01/30/20 24 025 Active Additional Information Patient not taking.Reported on 10/22/2024 vit 31-ygru-ygbzt-dha 27mg iron- 800 mcg-250 mg capsule Take [...] Annual physical exam 01/19/2024 Assessment & Plan (10/26/2024 11:01 AM CDT): -Recommended: Healthy diet. Avoiding junk food/fast food. -30 minutes of exercise most days of the week. Increase to 45 minutes for weight loss. Health Maintenance reviewed - up to date - care follow up per GLAZE CARRIER. -Influenza vaccine every year Recommend: - Topic Date Due DTaP/Tdap/Td Vaccine (1 - Tdap) Never done Varicella Vaccines (1 of 2 - 13+ 2-dose series) Never done Pneumococcal vaccine <65 (1 of 2 - PCV) Never done -F/u in 1 year for Annual PE or sooner if needed Assessment & Plan (01/19/2024 10:31 AM CDT): [...] fludrocortisone Assessment & Plan (07/28/2024 9:13 PM INSTRUMENT ADJUSTER): Symptoms are stable, remain debilitating for her. Will refer to [facility] cardiology. For now will keep her on [...] a little while Venlafaxine: remembers the name Pristiq: doesn't recall trying it Trintellix: no Luvox: Abilify: was added on, seemed to work better, and then wasn't Vraylor: Latuda: no Assessment & Plan (07/28/2024 9:12 PM INSTRUMENT ADJUSTER): Did a review of previous medications patient [...] past, but is not seeing anyone currently Comments Yes Resolved Problems Problem Noted Date Diagnosed Date Resolved Date Sprain of fifth toe of right foot 02/25/2018 01/18/2024 Encounters Date Type Department Care Team Description 10/27/2024 Telephone [facility] Primary Care at [address] [address] Camilla Coffman NP Additional Services Or Orders 10/22/2024 2:00 PM CDT Office Visit [facility] Primary Care at [address] [address] Camilla Coffman NP Annual physical exam (Primary Dx); 8 weeks gestation of 10/21/2024 4:40 PM CDT - 10/21/2024 11:59 PM CDT Hospital Encounter [address] [address] Annual physical exam Discharge Disposition: Discharge to home or self care 10/21/2024 10:45 AM CDT Lab [facility] Outpatient Lab at [address] [address] POTS (postural orthostatic tachycardia syndrome) (Primary Dx); Annual physical exam 10/17/2024 11:03 AM CDT - 10/17/2024 11:59 PM CDT Hospital Encounter [address] [address] Annual physical exam Discharge Disposition: Discharge to home or self care 10/17/2024 11:00 AM CDT Lab [facility] Outpatient Lab at [address] [address] Chronic fatigue (Primary Dx) 10/13/2024 10:15 AM CDT Office Visit [facility] [id number] [place] [address] [address] [place] [address] Oneal Resendez II, MD Chronic migraine without aura without status migrainosus, not intractable (Primary Dx); Chronic tension-type headache, not intractable 09/23/2024 Orders Only [facility] Primary Care at [address] [address] Camilla Coffman NP 09/08/2024 Telephone [facility] Cardiology [address] [place] [address] 8th [place] [address] [place] [address] Kate Ashley MD 08/05/2024 Telephone [facility] Cardiology [address] [facility] 8th [place] [address] [place] [address] Zenia Forbes from Last 3 Months Immunizations [...] History Relation Name Comments Asthma Daughter 1 Kyle Marcano Asthma Daughter 2 Ry Marcano Alcohol abuse Father Reji Jang Asthma Half-Sister 1 prediabetes Half-Sister 1 Early [...] Sister Idania Carty Cancer Paternal Grandmother Diane Iyerhlgren Asthma Sister Cee Goodman Depression Sister Cee Goodman Obesity Sister Cee Goodman Relation Name Status Comments Daughter 1 Kyle Marcano Alive Daughter 2 Ry Marcano Alive Father Reji Suttongren Half-Sister 1 Alive Half-Sister 2 Alive Half-Sister 3 Alive Maternal Grandfather Hai Wilkins Alive Maternal Grandmother Yaquelin Marge Alive Mother Genia Goodman Mother's Sister Idania Carty Alive Paternal Grandmother Diane Jang Alive Sister Cee Goodman Alive Social History [...] Sexual Orientation Not on file Obstetrics History Para Term AB IAB SAB Ectopic Multiple Livin g Live Births 1 Date Outcome GA Total Labor Labor/2nd/3rd Weight Sex Type Anes PTL Fadia A1 A5 Name Clin Current Last Filed Vital Signs Vital Sign Reading [...] 2024 09/20/2021, 08/23/2021, 10/09/2020, Additional history exists Influenza Vaccine (Season Ended) 2025 Depression Screening 10/22/2025 10/22/2024, 04/23/2024, 01/18/2024, Additional history exists Regular Well Visit/Exam 18-64 10/22/2025 10/22/2024, 01/18/2024 Hepatitis C Screening Completed 10/19/2023 HPV Vaccines [...] abs 1.99 0.80 - 3.30 K/cumm [facility] Monocyte abs 0.66 0.20 - 0.80 K/cumm [facility] Eosinophil abs 0.11 0.00 - 0.50 K/cumm [facility] Basophil abs 0.04 0.00 - 0.10 K/cumm [facility] Neutrophil pct 58.7 % [facility] Comment: Interpretive Data Percent cell count reference ranges are not reported, since discordance with absolute values may lead to misinterpretation of CBC data. Current Interpretive Data was last revised on 2017. Imm gran pct 0.1 % [facility] Comment: Interpretive Data Percent cell count reference ranges are not reported, since discordance with absolute values may lead to misinterpretation of CBC data. Current Interpretive Data was last revised on 2017. Lymphocyte pct 29.3 % [facility] Comment: Interpretive Data Percent cell count reference ranges are not reported, since discordance with absolute values may lead to misinterpretation of CBC data. Current Interpretive Data was last revised on 2017. Monocyte pct 9.7 % [facility] Comment: Interpretive Data Percent cell count reference ranges are not reported, since discordance with absolute values may lead to misinterpretation of CBC data. Current Interpretive Data was last revised on 2017. Eosinophil pct 1.6 % [facility] Comment: Interpretive Data Percent cell count reference ranges are not reported, since discordance with absolute values may lead to misinterpretation of CBC data. Current Interpretive Data was last revised on 2017. Basophil pct 0.6 % [facility] Comment: Interpretive Data Percent cell count reference ranges are not reported, since discordance with absolute values may lead to misinterpretation of CBC data. Current Interpretive Data was last revised on 2017. Blood 10/21/2024 12:0 0 PM CDT 10/21/2024 6:41 PM CDT Camilla Coffman NP LAB BLOOD ORDERABLES Final Re sult [facility] [address] [place] [address] * CBC with auto differential (10/21/2024 12:00 PM CDT) WBC 6.79 3.80 - 9.90 K/cumm Hgb 13.9 11.9 - 15.5 g/dL [facility] Hct 42.8 35.6 - 45.5 % [facility] Plt 294 150 - 400 K/cumm [facility] MPV 10.7 9.1 - 12.3 fL [facility] RBC 4.68 3.90 - 5.20 M/cumm [facility] MCV 91.5 81.3 - 96.4 fL [facility] MCH 29.7 27.1 - 33.3 pg [facility] MCHC 32.5 32.3 - 35.7 g/dL [facility] RDW CV 13.6 11.1 - 14.9 % [facility] WOO RDW SD 45.6 35.7 - 48.1 fL [facility] NRBC abs 0.00 0.00 - 0.01 K/cumm [facility] Blood 10/21/2024 12:0 0 PM CDT 10/21/2024 6:41 PM CDT Camilla Coffman NP LAB BLOOD ORDERABLES Final Re sult Performing Organization Address City/State[facility] Co de Phone Number [facility] WOO [address] [address] [place] [address] * eGFR (10/17/2024 11:03 AM CDT) eGFR [...] of Race in Diagnosing Kidney Disease, JASN 202). The CKD-EPI equation should not be used for patients with unstable renal function and has not been validated in children and those over 70. Current interpretive data was last reviewed 2021. Blood 10/17/2024 11:0 3 AM CDT 10/20/2024 12:05 PM CDT us Camilla Coffman NP LAB BLOOD ORDERABLES Final Re sult Performing Organization Address City/State/[facility] Co de Phone Number [facility] WOO [address] [address] [place] [address] * Thyroid Function [place] (10/17/2024 11:03 AM CDT) [facility] TSH 1.84 0.30 - 4.20 mcIUnit/mL Blood 10/17/2024 11:0 3 AM CDT 10/20/2024 12:05 PM CDT Camilla Coffman NP LAB BLOOD ORDERABLES Final Re sult Performing Organization Address [facility] de Phone Number [facility] WOO [address] [address] [facility] [place] [address] * Hemoglobin A1c (10/17/2024 11:03 AM CDT) [facility] Hgb A1C 5.5 4.0 - 5.6 % Estimated Average Glucose 111 mg/dL [facility] Comment: The ADA recommends reporting an estimated Average Glucose (eAG) with all Hemoglobin A1c results using the equation derived from a study of 507 normal and diabetic adults. Minority populations were underrepresented and children were not included. (Diabetes Care 31:9340-5753, 2008). The eAG is not equivalent to a fasting glucose. Blood 10/17/2024 11:0 3 AM CDT 10/20/2024 12:05 PM CDT Camilla Coffman NP LAB BLOOD ORDERABLES Final Re sul Performing Organization Address [facility] Co de Phone Number CARLOS WOO [address] [address] [place] [address] * (ABNORMAL) Lipid panel (10/17/2024 11:03 AM CDT) [facility] Cholesterol 176 30 - 199 mg/dL Comment: [...] on 2018. Triglycerides 84 <=149 mg/dL [facility] Comment: Interpretive Data Ages < or = [...] on 2018. HDL 34(L) >=40 mg/dL [facility] Comment: Interpretive Data Ages < or = [...] 2018. LDL, calculated 126 <=129 mg/dL [facility] Comment: Interpretive Data Ages < or = 19 years Acceptable: <110 mg/dL Borderline high: 110-129 mg/dL High: >or= 130 mg/dL Ages > or = 20 years Optimal: <100 mg/dL Near optimal: 100-129 mg/dL Borderline high: 130-159 mg/dL High: >160 mg/dL Calculated using the Pan LDL-C estimating equation. This equation was implemented on 2024. Prior to this date LDL-C was estimated using the Friedewald equation. Literature References: 1. Expert Panel on Integrated Guidelines for Cardiovascular Health and Risk Reduction in Children and Adolescents. Pediatrics 2011;128:S213 2. NCEP Expert Panel. Circulation 2004;110:227 3. Maxim M et al. GINETTE Cardiol. 2019November 20;5(5):540-548. doi: 10.1001/jamacardio.2020.0013 Current Interpretive Data was last revised on 2024. Non-HDL Cholesterol 142 mg/dL [facility] Comment: Interpretive Data Ages < or = [...] last revised on 2018. Chol/HDL ratio 5 [facility] Blood 10/17/2024 11:0 3 AM CDT 10/20/2024 12:05 PM CDT Camilla Coffman NP LAB BLOOD ORDERABLES Final Re sult [facility] [address] [address] Department [place] [address] * (ABNORMAL) Comprehensive metabolic panel (10/17/2024 11:03 [...] BLOOD ORDERABLES Final Re sult [facility] [address] [address] Department of Laboratories [place] [phone] * Hepatitis C antibody Blood (10/19/2023 11:14 [...] MICROBIOLOGY - GENERAL [place] [address] [address] [place] [address] from Last 3 Months or Most Recently Relevant to Health Maintenance Insurance [facility] Member Subscriber Plan / Payer (Ef fective 2024-Present) Name:Gretchen Marcano Relation to Subscriber:Self Name:Gretchen Marcano Payer ID:[id number] (NAIC) Group ID:Not on file Type:MEDICAID RISK OTHER Address: ATTN: CLAIMS DEPT [address] [facility] [place] [address] Care Teams Conference Center Coordinator Relationship Specialty Start Date End Date Camilla Coffman NP PCP - General Family Medicine 10/18/23 Le Claros MD [address] [address] Referring Physician Gynecology 10/22/24
--- OUTSIDE RECORDS SUMMARY | 2024-10-29 17:06 | XMS_ITS | Referral Summary ---
Author Organization [facility] Address [address] [place] [address] Care Team Providers Care Jar Capper Name Role Phone Camilla Coffman NP Primary Care Provider [phone] Le Claros MD Unavailable [phone] Encounters Date Type Department Care Team Description 10/27/2024 Telephone [facility] Primary Care at [address] [address] Camilla Coffman NP Additional Services Or Orders 10/22/2024 2:00 PM CDT Office Visit [facility] Primary Care at [address] [address] Camilla Coffman NP Annual physical exam (Primary Dx); 8 weeks gestation of 10/21/2024 4:40 PM CDT - 10/21/2024 11:59 PM CDT Hospital Encounter [address] [address] Annual physical exam Discharge Disposition: Discharge to home or self care 10/21/2024 10:45 AM CDT Lab [facility] Outpatient Lab at [address] [address] POTS (postural orthostatic tachycardia syndrome) (Primary Dx); Annual physical exam 10/17/2024 11:03 AM CDT - 10/17/2024 11:59 PM CDT Hospital Encounter [address] [phone] Annual physical exam Discharge Disposition: Discharge to home or self care 10/17/2024 11:00 AM CDT Lab [facility] Outpatient Lab at [address] [address] Chronic fatigue (Primary Dx) 10/13/2024 10:15 AM CDT Office Visit [facility] [address] [phone] Oneal Resendez II, MD Chronic migraine without aura without status migrainosus, not intractable (Primary Dx); Chronic tension-type headache, not intractable 09/23/2024 Orders Only [facility] Primary Care at [address] [phone] Camilla Coffman NP 09/08/2024 Telephone [facility] Cardiology [facility] 8th [place] [address] [place] [address] Kate Ashley MD 08/05/2024 Telephone [facility] Cardiology [facility] 8th [place] [address] [place] [address] Zenia Forbes from Last 3 Months Allergies Active Allergy Reactions Criticality Noted Date Comments Adhesive Rash Medium 02/06/2020 Honey-Hydrocolloid Dressing Nausea & Vomiting Low 0 10/20/2022 Medications rizatriptan PROJECTION CAMERA OPERATOR (MAXALT-PROJECTION CAMERA OPERATOR) 10 mg disintegrating tabletIndications: Migraine Take 1 tablet (10 mg total) by mouth once as needed for migraine May repeat in 2 hours if unresolved. Do not exceed 30 mg in 24 hours. 9 tablet 5 01/30/20 24 025 Active Additional Information Patient not taking.Reported on 10/22/2024 vit 97-jioj-ccdjg-dha 27mg iron- 800 mcg-250 mg capsule Take [...] to date - care follow up per SHRIMP TRAWLER. -Influenza vaccine every year Recommend: - Topic [...] fludrocortisone Assessment & Plan (07/28/2024 9:13 PM DIRECTOR VETERINARY): Symptoms are stable, remain debilitating for her. Will refer to [facility] cardiology. For now will keep [...] no Assessment & Plan (07/28/2024 9:12 PM DIRECTOR VETERINARY): Did a review of previous medications patient [...] abs 0.04 0.00 - 0.10 K/cumm [facility]ER Neutrophil pct 58.7 % [facility] Comment: Interpretive Data Percent cell count reference ranges are not reported, since discordance with absolute values may lead to misinterpretation of CBC data. Current Interpretive Data was last revised on 2017. Imm gran pct 0.1 % [facility] Comment: Interpretive Data Percent cell count reference ranges are not reported, since discordance with absolute values may lead to misinterpretation of CBC data. Current Interpretive Data was last revised on 2017. Lymphocyte pct 29.3 % [facility] Comment: Interpretive Data Percent cell count reference ranges are not reported, since discordance with absolute values may lead to misinterpretation of CBC data. Current Interpretive Data was last revised on 2017. Monocyte pct 9.7 % [facility] Comment: Interpretive Data Percent cell count reference ranges are not reported, since discordance with absolute values may lead to misinterpretation of CBC data. Current Interpretive Data was last revised on 2017. Eosinophil pct 1.6 % [facility] Comment: Interpretive Data Percent cell count reference ranges are not reported, since discordance with absolute values may lead to misinterpretation of CBC data. Current Interpretive Data was last revised on 2017. Basophil pct 0.6 % [facility] Comment: Interpretive Data Percent cell count reference ranges are not reported, since discordance with absolute values may lead to misinterpretation of CBC data. Current Interpretive Data was last revised on 2017. Blood 10/21/2024 12:0 0 PM CDT 10/21/2024 6:41 PM CDT Camilla Coffman NP LAB BLOOD ORDERABLES Final Re sult [facility] [address] Department [place] [address] * CBC with auto differential (10/21/2024 12:00 PM CDT) WBC 6.79 3.80 - 9.90 K/cumm Hgb 13.9 11.9 - 15.5 g/dL [facility] Hct 42.8 35.6 - 45.5 % [facility] Plt 294 150 - 400 K/cumm [facility] MPV 10.7 9.1 - 12.3 fL [facility] RBC 4.68 3.90 - 5.20 M/cumm [facility] MCV 91.5 81.3 - 96.4 fL [facility] MCH 29.7 27.1 - 33.3 pg [facility] MCHC 32.5 32.3 - 35.7 g/dL [facility] RDW CV 13.6 11.1 - 14.9 % [facility] RDW SD 45.6 35.7 - 48.1 fL [facility] NRBC abs 0.00 0.00 - 0.01 K/cumm [facility] Blood 10/21/2024 12:0 0 PM CDT 10/21/2024 6:41 PM CDT Camilla Coffman NP LAB BLOOD ORDERABLES Final Re sult Performing Organization Address City/[facility] Co de Phone Number CARLOS WOO [address] [place] [place] [address] * eGFR (10/17/2024 11:03 AM CDT) eGFR [...] CDT 10/20/2024 12:05 PM CDT Camilla Coffman SCRAP DROP CRANE OPERATOR LAB BLOOD ORDERABLES Final Re sult Performing Organization Address City/[facility]/ZIP Co de Phone Number CARLOS WOO [address] [address] Department [place] [address] * Thyroid Function [employer] (10/17/2024 11:03 AM CDT) TSH 1.84 0.30 - 4.20 mcIUnit/mL Blood 10/17/2024 11:0 3 AM CDT 10/20/2024 12:05 PM CDT Camilla Coffman NP LAB BLOOD ORDERABLES Final Re sult Performing Organization Address [facility] Co de Phone Number CARLOS WOO [address] [address] [place] [address] * Hemoglobin A1c (10/17/2024 11:03 AM CDT) Hgb A1C 5.5 4.0 - 5.6 % Estimated Average Glucose 111 mg/dL [facility] Comment: The ADA recommends reporting an estimated Average Glucose (eAG) with all Hemoglobin A1c results using the equation derived from a study of 507 normal and diabetic adults. Minority populations were underrepresented and children were not included. (Diabetes Care 31:8262-9770, 2008). The eAG is not equivalent to a fasting glucose. Blood 10/17/2024 11:0 3 AM CDT 10/20/2024 12:05 PM CDT Camilla Coffman NP LAB BLOOD ORDERABLES Final Re sult Performing Organization Address [facility] de Phone Number CARLOS WOO [address] [address] [place] [address] * (ABNORMAL) Lipid panel (10/17/2024 11:03 AM [...] NCEP Expert Panel. Circulation 2004;110:227 3. Maxim Hilario al. GINETTE Cardiol. 2020 November 20;5(5):540-548. doi: 10.1001/jamacardio.2020.0013 Current Interpretive Data was last revised on 2024. Non-HDL Cholesterol 142 mg/dL [facility] Comment: Interpretive Data Ages < [...] revised on 2018. Chol/HDL ratio 5 [facility] Blood 10/17/2024 11:0 3 AM CDT 10/20/2024 12:05 PM CDT Camilla Coffman NP LAB BLOOD ORDERABLES Final Re sult [facility] [address] [address] Department [place] [address] * (ABNORMAL) Comprehensive metabolic panel (10/17/2024 11:03 AM CDT) Sodium 138 135 - 145 mmol/L Potassium, pl 5.2(H) 3.3 - 4.9 mmol/L [facility] Comment:Hemolysis present. R esults may be affected. Chloride 105 97 - 110 mmol/L [facility] CO2 19(L) 22 - 32 mmol/L [facility] Anion gap 14 2 - 15 mmol/L [facility] BUN 7 6 - 25 mg/dL [facility] Creatinine 0.70 0.60 - 1.10 mg/dL [facility] Glucose 86 70 - 199 mg/dL [facility] Comment: Interpretive Data Fasting glucose >/= 126 [...] ORDERABLES Final Re sult Performing Organization Address [facility] Co de Phone Number CARLOS WOO [address] [address] [place] [address] * Hepatitis C antibody Blood (10/19/2023 11:14 [...] OR DERABLES Final Result Performing Organization Address City/[facility]/ZIP Co de Phone Number CARLOS WOO [address] [address] [place] [address] from Last 3 Months or Most Recently Relevant to Health Maintenance Insurance [facility] Care Teams Jar Capper Relationship Specialty Start Date End Date Camilla Coffman NP PCP - General Family Medicine 10/18/23 Le Claros MD [address] [address] Referring Physician Gynecology 10/22/24
--- OUTSIDE RECORDS SUMMARY | 2024-10-29 17:06 | XMS_ITS | Clinical Summary ---
Author Organization [facility] Address [address] [place] [address] Care Team Providers Care Binder Sorter Name Role Phone Sameer Aggarwal MD Unavailable Stephanie Villagomez DO Primary Care Provider [phone] Source Comments [facility],non-owned Affiliates and Associated Physician Practices is amultiple site organization consisting of ambulatory clinics and hospital sitesin [place], [place], [place] and [place]. This disclosure is being madepursuant to the Care Everywhere program and may not contain all information available regarding this patient. Last updated 18.[facility] Allergies Active Allergy Reactions Criticality Noted Date Comments Adhesive Sensitivity Rash Medium 02/06/2020 Saline Dizziness,Palpitatio ns,Shortness of Breath,Wheezing High 05/14/2011 Medications * Be aware that medications may not be up to date on this document. Alwaysverify current medications with the patient. Medication Sig Dispensed Refills Start Date End Date Status vitamin D, ergocalciferol, (DRISDOL) 1.25 MG (07302 UT) capsule Take 1 capsule by mouth [...] Sex Assigned at Female 09/16/2020 2:24 PM RETAIL CONSULTANT Gender Identity Female 09/16/2020 2:24 PM RETAIL CONSULTANT Sexual Orientation Straight 09/16/2020 2: 24 PM RETAIL CONSULTANT Last Filed Vital Signs Vital Sign Reading [...] VACCINE ( - 2023-2 5 season) 2024 DEPRESSION SCREENING 07/23/2024 INFLUENZA VACCINE (Season Ended) 2025 ZOSTER VACCINE (1 of 2) 2039 HIV [...] purpose. For additional information please refer to http://education.ThirdSpaceLearning.LIKECHARITY/faq/LLU411 (This link is being provided for informational/ educational purposes only.) The performance of this assay has not been clinically validated in patients less than 2 years old. Test Performed at: [employer] [address] [place] [address] ASAD ZAPIEN DO,MPH 02/06/2020 2:50 PM CDT 02/06/2020 2:52 PM CDT Stephaine Villagomez DO LAB - CHEMISTRY SARAI [address] [place] [address] from Last 3 Months or Most Recently Relevant to Health Maintenance Care Teams Binder Sorter Relationship Specialty Start Date End Date Stephanie Villagomez DO [address] OF [facility] [place] [id number] PCP - General 05/06/21 Sameer Aggarwal MD [address] [facility] [place] [address] Resident - PCP Student Resident 05/06/21
--- NOTE | 2024-10-29 18:01 | ED_ITS ---
HPI - General Chief complaint: Vaginal Bleeding Stated complaint: vag bleed Time Seen by Provider: 10/29/24 17:55 Focused HPI: Patient is a 34-year-old female who presents to the ER with vaginal bleeding and abdominal cramping. She reports she is approximately 6 weeks . Her last period was August 23, 2024. She reports she thought she passed all products of conception yesterday, but then today the cramping and heavy vaginal bleeding came back. Patient reports she 1st started bleeding approximately 9 days ago. She also endorses dizziness, shakiness, and right flank pain. Patient denies any recent fevers, chest pain, shortness of breath, lower extremity pain GENERAL: Well-appearing, well-nourished, and in no acute distress. HEAD: Normocephalic, atraumatic. CHEST: Clear to auscultation. ?No respiratory distress. HEART: Regular rate and rhythm.? NEURO: ?Alert and oriented x3. Patient screened in triage and initial orders placed.? ?Additional care and disposition to be based upon?diagnostic testing and treatment. Related Data Home Medications ?Medication ?Instructions ?Recorded ?Confirmed ?Last Taken ?Type cholecalciferol (vitamin D3) 1,250 See Rx Instructions .Route .COMPLEX 07/01/19 Unknown History mcg (50,000 unit) tablet (Dialyvite Vitamin D3 Max) cholecalciferol (vitamin D3) 50 2,000 unit PO DAILY 07/01/19 Unknown History mcg (2,000 unit) tablet escitalopram oxalate 20 mg tablet 20 mg PO DAILY 07/01/19 Unknown History vitamin no.49-iron See Rx Instructions PO .COMPLEX 07/01/19 Unknown History fum-folic acid 6.75 mg iron-200 mcg tablet (Mini ) selenium sulfide 2.5 % lotion See Rx Instructions .Route .COMPLEX 07/01/19 Unknown History trazodone 100 mg tablet 100 mg PO DAILY 07/02/19 Unknown History Allergies Allergy/AdvReac Type Severity Reaction Status Date / Time No Known Allergies Allergy Verified 05/20/22 16:17 PMFSH Past Medical History Medical History POTS (postural orthostatic tachycardia syndrome) NATALIE (obstructive sleep apnea) Depression Surgical History Surgical History History of cholecystectomy Family History Family History Mother Family history of thyroid disease Family history of hypercholesterolemia Depression Family history of migraine headaches Hypertension Sibling Family history of hypercholesterolemia Hypertension Father Family history of cardiovascular disease Other Carcinoma of colon Diabetes mellitus Family history of elevated blood lipids Family history of malignant neoplasm Family history of malignant neoplasm of ovary Social History Social History Smoking status: Current every day smoker Alcohol intake: current Course Vital Signs Vital signs: Vital Signs Temperature 36.6 C 10/29/24 16:16 Pulse Rate 107 H 10/29/24 16:16 Respiratory Rate 16 10/29/24 16:16 Blood Pressure 127/80 10/29/24 16:16 Pulse Oximetry 100 10/29/24 16:16 Oxygen Delivery Room Air 10/29/24 16:16 Temperature 37.1 C 10/29/24 19:30 Pulse Rate 78 10/29/24 23:59 Respiratory Rate 15 10/29/24 23:59 Blood Pressure 113/70 10/29/24 23:59 Pulse Oximetry 100 10/29/24 23:59 Oxygen Delivery Room Air 10/29/24 19:30 MDM - OB/Uterine Contractions Lab Data 10/29/24 19:06 10/29/24 19:06 Labs: Lab Results 10/29/24 10/29/24 Range/Units 19:06 20:21 WBC 11.1 H (4.5-10.0) K/mm3 RBC 3.82 L (4.2-5.4) M/mm3 Hgb 11.2 L (12.0-15.0) g/dL Hct 33.3 L (37.0-47.0) % MCV 87.2 (80-100) fl MCH 29.3 (26-34) pg MCHC 33.6 (32-36) g/dl RDW 13.2 (11.5-14.5) % Plt Count 284 (150-375) k/mm3 MPV 10.0 (7.4-10.4) fl Immature Gran % (Auto) 0.5 (0-0.5) % Neut % (Auto) 71.2 (45.5-73.1) % Lymph % (Auto) 19.7 (18.3-44.2) % [place] % (Auto) 7.8 (2.6-8.5) % Eos % (Auto) 0.3 (0-4.4) % Baso % (Auto) 0.5 (0.2-1.2) % Lymph # (Auto) 2.19 (0.9-3.2) K/mm3 [place] # (Auto) 0.9 H (0.1-0.6) K/mm3 Eos # (Auto) 0.0 (0-0.3) K/mm3 Baso # (Auto) 0.1 (0.0-0.1) K/mm3 Abs Immat Gran (auto) 0.06 H (0.00-0.031) K/mm3 Absolute Neuts (auto) 7.9 H (1.3-6.7) K/mm3 Absolute Nucleated RBC 0.000 (0.0-0.012) K/mm3 Nucleated RBC % 0.0 (0.0-0.2) % PT 14.5 (11.1-14.7) Seconds INR 1.1 APTT 32.7 (22.3-36.8) Seconds Sodium 137 (137-145) mmol/L Potassium 3.8 (3.4-5.0) mmol/L Chloride 104 (98-107) mmol/L Carbon Dioxide 22 (22-30) mmol/L Anion Gap 11 (4-12) mmol/L BUN 11 (7-17) mg/dL Creatinine 0.70 (0.7-1.0) mg/dL Estim Creat Clear Calc 115 ml/min Estimated GFR > 60 (59 - ) Glucose 101 (65-110) mg/dL Calcium 8.9 (8.4-10.2) mg/dL Total Bilirubin 0.6 (0.2-1.3) mg/dL AST 25 (14-36) U/L ALT 24 (6-35) U/L Alkaline Phosphatase 71 (38-126) U/L Total Protein 7.0 (6.3-8.2) g/dL Albumin 4.1 (3.5-5.1) g/dL Beta HCG, Quant 7256.60 mIU/ML Urine Color Cee (Yellow) Urine Appearance Cloudy H (Clear) Urine pH 5.5 (5.0-9.0) Ur Specific [place] 1.035 (1.001-1.035) Urine Protein 2+ H (Negative) mg/dL Urine Glucose (UA) Negative (Negative) mg/dL Urine Ketones 2+ H (Negative) mg/dL Ur Blood (Man) 3+ H (Negative) Urine Nitrate Negative (Negative) Urine Bilirubin 1+ H (Negative) Urine Urobilinogen 1.0 (<2.0) mg/dL Add Ur Microanalysis Reviewed Leukocyte Esterase Rfl 1+ H (Negative) NICK/UL Urine RBC >100 H (0-2) /hpf Urine WBC 0-5 (0-3) /hpf Ur Squamous Epith Cells Occasional (Few) /hpf Urine Bacteria None seen /hpf Urine Casts 0-2 Blood Type O Positive Antibody Screen Negative Screen TNP Baby's Blood Type Not Reportable Baby's KIMMY Not Reportable Doses of RhIg Required 0 Discharge Plan Discharge Clinical Impression: Incomplete Patient Disposition: Home Condition: Stable Instructions: Antibiotic Form, Miscarriage (ED) Additional Instructions: Your evaluated in the emergency department for vaginal bleeding in . Your presentation is consistent with a miscarriage. Her beta hCG today is 7256.6. Please get this checked again with your OBGYN in 48 hours to ensure it is down trending. Return to the emergency department if your saturating over 1 pad or tampon per hour, you develop increasing lightheadedness or loss of consciousness, fever of 100.4 or greater, or other concerning symptoms. You can take Tylenol and ibuprofen as directed [id number] for cramping and pain. Patient Language: Danish Prescriptions: No Action Dialyvite Vitamin D3 Max 50,000 unit tablet See Rx Instructions .ROUTE .COMPLEX Rx Instructions: take one tablet oral route 2 times a week ; escitalopram oxalate 20 mg tablet 20 mg PO DAILY Mini 6.75 mg iron- 200 mcg tablet See Rx Instructions PO .COMPLEX Rx Instructions: take one tablet by oral route daily in morning PO ; cholecalciferol (vitamin D3) 2,000 unit tablet 2,000 unit PO DAILY selenium sulfide 2.5 % lotion See Rx Instructions .ROUTE .COMPLEX Rx Instructions: apply by topical route to the affected areas on the back 3 times daily for 1 week; leave on 15 mmins. then rinse off ; trazodone 100 mg tablet 100 mg PO DAILY meclizine 25 mg tablet 25 mg PO BID PRN (Reason: dizziness) Qty: 20 0RF naproxen 500 mg tablet 500 mg PO BID Qty: 20 0RF Follow-up/Referrals: Le Claros MD [Physician] - Chevak,MADELINE Landis [Primary Care Provider] -
--- OUTSIDE RECORDS SUMMARY | 2024-10-29 19:08 | XMS_ITS | Clinical Summary ---
Author Organization [facility] Address [address] [place] [address] Care Team Providers Care Parts Technician Name Role Phone Sameer Aggarwal MD Unavailable Stephanie Villagomez DO Primary Care Provider [phone] Source Comments [facility],non-owned Affiliates and Associated Physician Practices is amultiple site organization consisting of ambulatory clinics and hospital sitesin [place], [place], [place] and [place]. This disclosure is being madepursuant to the Care Everywhere program and may not contain all information available regarding this patient. Last updated 18.[facility] Allergies Active Allergy Reactions Criticality Noted Date Comments Adhesive Sensitivity Rash Medium 02/06/2020 Saline Dizziness,Palpitatio ns,Shortness of Breath,Wheezing High 05/14/2011 Medications * Be aware that medications may not be up to date on this document. Alwaysverify current medications with the patient. Medication Sig Dispensed Refills Start Date End Date Status vitamin D, ergocalciferol, (DRISDOL) 1.25 MG (57239 UT) capsule Take 1 capsule by mouth [...] Sex Assigned at Female 09/16/2020 2:24 PM PAINTER HELPER SIGN Gender Identity Female 09/16/2020 2:24 PM PAINTER HELPER SIGN Sexual Orientation Straight 09/16/2020 2: 24 PM PAINTER HELPER SIGN Last Filed Vital Signs Vital Sign Reading [...] purpose. For additional information please refer to http://education.Dashride.[employer] Music Network/faq/MGK721 (This link is being provided for informational/ educational purposes only.) The performance of this assay has not been clinically validated in patients less than 2 years old. Test Performed at: [employer] [address] [place] [address] ASAD ZAPIEN DO,MPH 02/06/2020 2:50 PM CDT 02/06/2020 2:52 PM CDT Stephanie Villagomez DO LAB - CHEMISTRY SARAI [address] [address] [place] [address] from Last 3 Months or Most Recently Relevant to Health Maintenance Care Teams Parts Technician Relationship Specialty Start Date End Date Stephanie Villagomez DO [address] OF [facility] [place] [id number] PCP - General 05/06/21 Sameer Aggarwal MD [address] [facility] [place] [address] Resident - PCP Student Resident 05/06/21
--- OUTSIDE RECORDS SUMMARY | 2024-10-29 19:08 | XMS_ITS | Clinical Summary ---
Author Organization [facility] Address [address] [place] [address] Care Team Providers Care Licensed Appraiser Name Role Phone Camilla Coffman NP Primary Care Provider [phone] Le Claros MD Unavailable [phone] Allergies Active Allergy Reactions Criticality Noted Date Comments Adhesive Rash Medium 02/06/2020 Honey-Hydrocolloid Dressing Nausea & Vomiting Low 0 10/20/2022 Medications rizatriptan TRAVELING PHLEBOTOMIST (MAXALT-TRAVELING PHLEBOTOMIST) 10 mg disintegrating tabletIndications: Migraine Take 1 tablet (10 mg total) by mouth once as needed for migraine May repeat in 2 hours if unresolved. Do not exceed 30 mg in 24 hours. 9 tablet 5 01/30/20 24 025 Active Additional Information Patient not taking.Reported on 10/22/2024 vit 06-wxxk-rfnmj-dha 27mg iron- 800 mcg-250 mg capsule Take [...] to date - care follow up per DECAY CONTROL OPERATOR. -Influenza vaccine every year Recommend: - Topic [...] fludrocortisone Assessment & Plan (07/28/2024 9:13 PM CERTIFIED ETHICAL HACKER): Symptoms are stable, remain debilitating for her. Will refer to [facility] cardiology. For now will keep her on [...] no Assessment & Plan (07/28/2024 9:12 PM CERTIFIED ETHICAL HACKER): Did a review of previous medications patient [...] Type Department Care Team Description 10/27/2024 Telephone [facility] Primary Care at [address] [address] Camilla Coffman NP Additional Services Or Orders 10/22/2024 2:00 PM CDT Office Visit [facility] Primary Care at [address] [address] Camilla Coffman NP Annual physical exam (Primary Dx); 8 weeks gestation of 10/21/2024 4:40 PM CDT - 10/21/2024 11:59 PM CDT Hospital Encounter [address] [address] Annual physical exam Discharge Disposition: Discharge to home or self care 10/21/2024 10:45 AM CDT Lab [facility] Outpatient Lab at [address] [address] POTS (postural orthostatic tachycardia syndrome) (Primary Dx); Annual physical exam 10/17/2024 11:03 AM CDT - 10/17/2024 11:59 PM CDT Hospital Encounter [address] [address] Annual physical exam Discharge Disposition: Discharge to home or self care 10/17/2024 11:00 AM CDT Lab [facility] Outpatient Lab at [address] [address] Chronic fatigue (Primary Dx) 10/13/2024 10:15 AM CDT Office Visit [facility] [id number] [place] [address] [address] [place] [address] Oneal Resendez II, MD Chronic migraine without aura without status migrainosus, not intractable (Primary Dx); Chronic tension-type headache, not intractable 09/23/2024 Orders Only [facility] Primary Care at [address] [address] Camilla Coffman NP 09/08/2024 Telephone [facility] [address] [place] [address] 8th [place] [address] [place] [address] Kate Ashley MD 08/05/2024 Telephone [facility] [address] [facility] 8th [place] [address] [place] [address] Zenia Forbes from Last 3 [...] on 2017. Imm gran pct 0.1 % [facility] Comment: Interpretive Data Percent cell count reference ranges are not reported, since discordance with absolute values may lead to misinterpretation of CBC data. Current Interpretive Data was last revised on 2017. Lymphocyte pct 29.3 % [facility] Comment: Interpretive Data Percent cell count reference ranges are not reported, since discordance with absolute values may lead to misinterpretation of CBC data. Current Interpretive Data was last revised on 2017. Monocyte pct 9.7 % [facility] Comment: Interpretive Data Percent cell count reference ranges are not reported, since discordance with absolute values may lead to misinterpretation of CBC data. Current Interpretive Data was last revised on 2017. Eosinophil pct 1.6 % [facility] Comment: Interpretive Data Percent cell count reference ranges are not reported, since discordance with absolute values may lead to misinterpretation of CBC data. Current Interpretive Data was last revised on 2017. Basophil pct 0.6 % [facility] Comment: Interpretive Data Percent cell count reference ranges are not reported, since discordance with absolute values may lead to misinterpretation of CBC data. Current Interpretive Data was last revised on 2017. Blood 10/21/2024 12:0 0 PM CDT 10/21/2024 6:41 PM CDT Camilla Coffman NP LAB BLOOD ORDERABLES Final Re sult [facility] [address] Department [place] [address] * CBC with auto differential (10/21/2024 12:00 PM CDT) WBC 6.79 3.80 - 9.90 K/cumm Hgb 13.9 11.9 - 15.5 g/dL [facility] Hct 42.8 35.6 - 45.5 % [facility] Plt 294 150 - 400 K/cumm [facility] MPV 10.7 9.1 - 12.3 fL [facility] RBC 4.68 3.90 - 5.20 M/cumm [facility] MCV 91.5 81.3 - 96.4 fL [facility] MCH 29.7 27.1 - 33.3 pg [facility] MCHC 32.5 32.3 - 35.7 g/dL [facility] RDW CV 13.6 11.1 - 14.9 % [facility] RDW SD 45.6 35.7 - 48.1 fL [facility] NRBC abs 0.00 0.00 - 0.01 K/cumm [facility] Blood 10/21/2024 12:0 0 PM CDT 10/21/2024 6:41 PM CDT Camilla Coffman NP LAB BLOOD ORDERABLES Final Re sult Performing Organization Address City/State/[facility] Co de Phone Number [facility] [address] Department [place] [address] * eGFR (10/17/2024 11:03 AM CDT) eGFR [...] ORDERABLES Final Re sult Performing Organization Address City/State/[facility] Co de Phone Number [facility] [address] [place] [address] * Thyroid Function Trigg (10/17/2024 11:03 AM CDT) [facility] TSH 1.84 0.30 - 4.20 mcIUnit/mL Blood 10/17/2024 11:0 3 AM CDT 10/20/2024 12:05 PM CDT Camilla Coffman NP LAB BLOOD ORDERABLES Final Re sult Performing Organization Address [facility] de Phone Number [facility] [address] [facility] [place] [address] * Hemoglobin A1c (10/17/2024 11:03 AM CDT) [facility] Hgb A1C 5.5 4.0 - 5.6 % Estimated Average Glucose 111 mg/dL [facility] Comment: The ADA recommends reporting an estimated Average Glucose (eAG) with all Hemoglobin A1c results using the equation derived from a study of 507 normal and diabetic adults. Minority populations were underrepresented and children were not included. (Diabetes Care 31:7578-2075, 2008). The eAG is not equivalent to a fasting glucose. Blood 10/17/2024 11:0 3 AM CDT 10/20/2024 12:05 PM CDT Camilla Coffman NP LAB BLOOD ORDERABLES Final Re sul Performing Organization Address [facility] Co de Phone Number [facility] [address] [place] [address] * (ABNORMAL) Lipid panel (10/17/2024 11:03 AM CDT) [facility] Cholesterol 176 30 - 199 mg/dL Comment: [...] LAB BLOOD ORDERABLES Final Re sult [facility] [address] Department [place] [address] * (ABNORMAL) Comprehensive metabolic panel (10/17/2024 11:03 [...] BLOOD ORDERABLES Final Re sult [facility] [address] Department of Laboratories [place] [id number] * Hepatitis C antibody Blood (10/19/2023 11:14 [...] GENERAL [place] [address] [address] Department [place] [address] from Last 3 Months or Most Recently Relevant to Health Maintenance Insurance [facility] Member Subscriber Plan / Payer (Ef fective 2024-Present) Name:Gretchen Marcano Relation to Subscriber:Self Name:Gretchen Marcano Payer ID:[id number] (NAIC) Group ID:Not on file Type:MEDICAID RISK OTHER Address: ATTN: CLAIMS DEPT [address] [facility] [place] [id number] Care Teams Licensed Appraiser Relationship Specialty Start Date End Date Camilla Coffman NP PCP - General Family Medicine 10/18/23 Le Claros MD [address] [address] Referring Physician Gynecology 10/22/24
--- OUTSIDE RECORDS SUMMARY | 2024-10-29 19:08 | XMS_ITS | Referral Summary ---
Author Organization [facility] Address [address] [place] [address] Care Team Providers Care Shift Stacker Name Role Phone Camilla Coffman NP Primary Care Provider [phone] Le Claros MD Unavailable [phone] Encounters Date Type Department Care Team Description 10/27/2024 Telephone [facility] Primary Care at [address] [address] Camilla Coffman NP Additional Services Or Orders 10/22/2024 2:00 PM CDT Office Visit [facility] Primary Care at [address] [address] Camilla Coffman NP Annual physical exam (Primary Dx); 8 weeks gestation of 10/21/2024 4:40 PM CDT - 10/21/2024 11:59 PM CDT Hospital Encounter [address] [address] Annual physical exam Discharge Disposition: Discharge to home or self care 10/21/2024 10:45 AM CDT Lab [facility] Outpatient Lab at [address] [address] POTS (postural orthostatic tachycardia syndrome) (Primary Dx); Annual physical exam 10/17/2024 11:03 AM CDT - 10/17/2024 11:59 PM CDT Hospital Encounter [address] [phone] Annual physical exam Discharge Disposition: Discharge to home or self care 10/17/2024 11:00 AM CDT Lab [facility] Medical [facility] Outpatient Lab at [address] [address] Chronic fatigue (Primary Dx) 10/13/2024 10:15 AM CDT Office Visit [facility] [address] [phone] Oneal Resendez II, MD Chronic migraine without aura without status migrainosus, not intractable (Primary Dx); Chronic tension-type headache, not intractable 09/23/2024 Orders Only [facility] Primary Care at [address] [phone] Camilla Coffman NP 09/08/2024 Telephone [facility] Cardiology [facility] 8th [place] [address] [place] [phone] Kate Ashley MD 08/05/2024 Telephone [facility] Cardiology [facility] 8th [place] [address] [place] [phone] Zenia Forbes from Last 3 Months Allergies Active Allergy Reactions Criticality Noted Date Comments Adhesive Rash Medium 02/06/2020 Honey-Hydrocolloid Dressing Nausea & Vomiting Low 0 10/20/2022 Medications rizatriptan SOUND CUTTER (MAXALT-SOUND CUTTER) 10 mg disintegrating tabletIndications: Migraine Take 1 tablet (10 mg total) by mouth once as needed for migraine May repeat in 2 hours if unresolved. Do not exceed 30 mg in 24 hours. 9 tablet 5 01/30/20 24 025 Active Additional Information Patient not taking.Reported on 10/22/2024 vit 23-qtje-jbwdl-dha 27mg iron- 800 mcg-250 mg capsule Take [...] to date - care follow up per COOKY PACKER. -Influenza vaccine every year Recommend: - Topic [...] fludrocortisone Assessment & Plan (07/28/2024 9:13 PM REFRIGERATOR GLAZIER): Symptoms are stable, remain debilitating for her. Will refer to [facility] cardiology. For now will keep [...] no Assessment & Plan (07/28/2024 9:12 PM REFRIGERATOR GLAZIER): Did a review of previous medications patient [...] 0.10 K/cumm CERNER Neutrophil pct 58.7 % [facility] Comment: Interpretive Data Percent cell count reference ranges are not reported, since discordance with absolute values may lead to misinterpretation of CBC data. Current Interpretive Data was last revised on 2017. Imm gran pct 0.1 % [facility] Comment: Interpretive Data Percent cell count reference ranges are not reported, since discordance with absolute values may lead to misinterpretation of CBC data. Current Interpretive Data was last revised on 2017. Lymphocyte pct 29.3 % [facility] Comment: Interpretive Data Percent cell count reference ranges are not reported, since discordance with absolute values may lead to misinterpretation of CBC data. Current Interpretive Data was last revised on 2017. Monocyte pct 9.7 % [facility] Comment: Interpretive Data Percent cell count reference ranges are not reported, since discordance with absolute values may lead to misinterpretation of CBC data. Current Interpretive Data was last revised on 2017. Eosinophil pct 1.6 % [facility] Comment: Interpretive Data Percent cell count reference ranges are not reported, since discordance with absolute values may lead to misinterpretation of CBC data. Current Interpretive Data was last revised on 2017. Basophil pct 0.6 % [facility] Comment: Interpretive Data Percent cell count reference ranges are not reported, since discordance with absolute values may lead to misinterpretation of CBC data. Current Interpretive Data was last revised on 2017. Blood 10/21/2024 12:0 0 PM CDT 10/21/2024 6:41 PM CDT Camilla Coffman NP LAB BLOOD ORDERABLES Final Re sult [facility] [address] Department [place] [address] * CBC with auto differential (10/21/2024 12:00 PM CDT) WBC 6.79 3.80 - 9.90 K/cumm Hgb 13.9 11.9 - 15.5 g/dL [facility] Hct 42.8 35.6 - 45.5 % [facility] Plt 294 150 - 400 K/cumm [facility] MPV 10.7 9.1 - 12.3 fL [facility] RBC 4.68 3.90 - 5.20 M/cumm [facility] MCV 91.5 81.3 - 96.4 fL [facility] MCH 29.7 27.1 - 33.3 pg [facility] MCHC 32.5 32.3 - 35.7 g/dL [facility] RDW CV 13.6 11.1 - 14.9 % [facility] RDW SD 45.6 35.7 - 48.1 fL [facility] NRBC abs 0.00 0.00 - 0.01 K/cumm [facility] Blood 10/21/2024 12:0 0 PM CDT 10/21/2024 6:41 PM CDT Camilla Coffman NP LAB BLOOD ORDERABLES Final Re sult Performing Organization Address City/[facility] Co de Phone Number CARLOS WOO [address] [address] [employer] [address] * eGFR (10/17/2024 11:03 AM CDT) eGFR [...] CDT 10/20/2024 12:05 PM CDT Camilla Coffman CONSERVATION ENGINEER LAB BLOOD ORDERABLES Final Re sult Performing Organization Address City/[facility]/ZIP Co de Phone Number CARLOS WOO [address] [place] [address] * Thyroid Function [place] (10/17/2024 11:03 AM CDT) TSH 1.84 0.30 - 4.20 mcIUnit/mL Blood 10/17/2024 11:0 3 AM CDT 10/20/2024 12:05 PM CDT Camilla Coffman NP LAB BLOOD ORDERABLES Final Re sult Performing Organization Address [facility] Co de Phone Number CARLOS WOO [address] [place] [address] * Hemoglobin A1c (10/17/2024 11:03 AM CDT) Hgb A1C 5.5 4.0 - 5.6 % Estimated Average Glucose 111 mg/dL CARLOS WOO Comment: The ADA recommends reporting an estimated Average Glucose (eAG) with all Hemoglobin A1c results using the equation derived from a study of 507 normal and diabetic adults. Minority populations were underrepresented and children were not included. (Diabetes Care 31:3951-1810, 2008). The eAG is not equivalent to a fasting glucose. Blood 10/17/2024 11:0 3 AM CDT 10/20/2024 12:05 PM CDT Camilla Coffman NP LAB BLOOD ORDERABLES Final Re sult Performing Organization Address [facility] de Phone Number CARLOS WOO [address] [place] [address] * (ABNORMAL) Lipid panel (10/17/2024 11:03 AM [...] NP LAB BLOOD ORDERABLES Final Re sult [facility] [address] [address] Department [place] [address] * (ABNORMAL) Comprehensive metabolic panel (10/17/2024 11:03 AM CDT) Sodium 138 135 - 145 mmol/L Potassium, pl 5.2(H) 3.3 - 4.9 mmol/L [facility] Comment:Hemolysis present. R esults may be affected. Chloride 105 97 - 110 mmol/L [facility] CO2 19(L) 22 - 32 mmol/L [facility] Anion gap 14 2 - 15 mmol/L [facility] BUN 7 6 - 25 mg/dL [facility] Creatinine 0.70 0.60 - 1.10 mg/dL [facility] Glucose 86 70 - 199 mg/dL [facility] Comment: Interpretive Data Fasting glucose >/= 126 [...] ORDERABLES Final Re sult Performing Organization Address [facility] Co de Phone Number CARLOS WOO [address] [employer] [place] [address] * Hepatitis C antibody Blood [...] OR DERABLES Final Result Performing Organization Address City/[facility]/ZIP Co de Phone Number CARLOS WOO [address] [address] [employer] [place] [address] from Last 3 Months or Most Recently Relevant to Health Maintenance Insurance [facility] Care Teams Shift Stacker Relationship Specialty Start Date End Date Camilla Coffman NP PCP - General Family Medicine 10/18/23 Le Claros MD [address] [address] Referring Physician Gynecology 10/22/24
--- OUTSIDE RECORDS SUMMARY | 2024-10-29 19:08 | XMS_ITS | Encounter Summary ---
Author Organization [facility] Address [address] [place] [address] Care Team Providers Care Hand Lacer Name Role Phone Camilla Coffman NP Primary Care Provider [phone] Le Claros MD Unavailable [phone] Reason for Visit * Reason Onset Date Comments Additional Services Or Orders 10/27/2024 Encounter Details Date Type Department Care Team (Late st Contact Info) Description 10/27/2024 Telephone [facility] Medical Group Primary Care at [address] [address] Camilla Coffman NP [address] [place] [address] [address] [place] [address] Additional Services Or Orders Social [...] 10/28/2024 4:59 PM CDT Faxed over to [place] with [facility] * Telephone Encounter - Camilla [...] the practice, facility name, address, phone/fax offacility): [facility] [phone] Additional Comments: Torsten is asking for an [...] on filedocumented in this encounter Care Teams Hand Lacer Relationship Specialty Start Date End Date Camilla Coffman NP PCP - General Family Medicine 10/18/23 Le Claros MD [address] [address] Referring Physician Gynecology 10/22/24 documented as of this encounter
[2024-10-29 19:12] LABS: Basophils Absolute Auto 0.1 K/mm3 (0.0-0.1); Basophils Percent Auto 0.5 % (0.2-1.2); Eosinophils Percent Auto 0.3 % (0-4.4); Hematocrit 33.3 % (37.0-47.0); Hemoglobin 11.2 g/dL (12.0-15.0); Immature Granulocyte Absolute 0.06 K/mm3 (0.00-0.031); Immature Granulocyte Percent A 0.5 % (0-0.5); Lymphocytes Absolute Auto 2.19 K/mm3 (0.9-3.2); Lymphocytes Percent Auto 19.7 % (18.3-44.2); Mean Corpuscular HGB Conc 33.6 g/dl (32-36); Mean Corpuscular Hemoglobin 29.3 pg (26-34); Mean Corpuscular Volume 87.2 fl (80-100); Monocytes Absolute Auto 0.9 K/mm3 (0.1-0.6); Monocytes Percent Auto 7.8 % (2.6-8.5); Neutrophils Absolute Auto 7.9 K/mm3 (1.3-6.7); Neutrophils Percent Auto 71.2 % (45.5-73.1); Platelet Count Result 284 k/mm3 (150-375); Red Blood Count 3.82 M/mm3 (4.2-5.4); Red Cell Distribution Width 13.2 % (11.5-14.5); White Blood Count 11.1 K/mm3 (4.5-10.0)
[2024-10-29 19:24] LABS: INR 1.1; Prothrombin Time 14.5 Seconds (11.1-14.7)
[2024-10-29 19:25] LABS: Alanine Aminotransferase 24 U/L (6-35); Albumin Level 4.1 g/dL (3.5-5.1); Alkaline Phosphatase 71 U/L (38-126); Anion Gap 11 mmol/L (4-12); Aspartate Amino Transferase 25 U/L (14-36); Bilirubin,Total 0.6 mg/dL (0.2-1.3); Blood Urea Nitrogen 11 mg/dL (7-17); Calcium 8.9 mg/dL (8.4-10.2); Carbon Dioxide 22 mmol/L (22-30); Chloride 104 mmol/L (98-107); Estimated CRCL calculation 115 ml/min; Estimated Glomerular Filt Rate > 60; Glucose 101 mg/dL (65-110); Partial Thromboplastin Time 32.7 Seconds (22.3-36.8); Potassium 3.8 mmol/L (3.4-5.0); Sodium 137 mmol/L (137-145)
--- NOTE | 2024-10-29 19:54 | ECG_ITS ---
Test Date: 2024-10-29 20:31:34 Measurements Intervals [place] Rate: 83 P: 34 AL: 124 QRS: 35 QRSD: 72 T: 24 QT: 357 QTc: 421 Interpretive Statements SINUS RHYTHM MODERATE T-WAVE ABNORMALITY, CONSIDER ANTERIOR ISCHEMIA BASELINE ARTIFACT- I, II, III, AVR, AVL, AVF, V1-V2, V4 ABNORMAL ECG No previous ECG available for comparison Electronically Signed On 10-30-2024 05:41:10 CDT by Watson Schwab D.O.
--- NOTE | 2024-10-29 19:54 | ED.FEMALEGU ---
HPI - Female Genitourinary General Chief complaint: Vaginal Bleeding Stated complaint: vag bleed Time Seen by Provider: 10/29/24 17:55 History of Present Illness HPI Narrative: 34-year-old female with history of POTS, NATALIE, anemia, currently approximately 6 weeks presents emergency department with concerns for miscarriage. Patient states she started having vaginal bleeding about 10 days ago. Yesterday she had increase in bleeding and states she passed several large clots and tissue. She saw her OBGYN, Dr. Claros, yesterday. She states she had a beta HCG on Sunday that was 13,000 and on Sunday that was 9,000. Around 12:00 p.m. today the patient states she had increased amount of bleeding. She was having to change a large pad every hour for 3 hours, then had to change her pad twice in the past 5 hours. She is reporting lower abdominal cramping. Denies known fever, dysuria. She contacted Dr. Mendez office and was advised to come to the ED to the amount of bleeding. She is endorsing lightheadedness. LMP 08/23/2024. She is . Denies vaginal discharge or concern for STDs. Related Data Home Medications ?Medication ?Instructions ?Recorded ?Confirmed ?Last Taken ?Type cholecalciferol (vitamin D3) 1,250 See Rx Instructions .Route .COMPLEX 07/01/19 Unknown History mcg (50,000 unit) tablet (Dialyvite Vitamin D3 Max) cholecalciferol (vitamin D3) 50 2,000 unit PO DAILY 07/01/19 Unknown History mcg (2,000 unit) tablet escitalopram oxalate 20 mg tablet 20 mg PO DAILY 07/01/19 Unknown History vitamin no.49-iron See Rx Instructions PO .COMPLEX 07/01/19 Unknown History fum-folic acid 6.75 mg iron-200 mcg tablet (Mini ) selenium sulfide 2.5 % lotion See Rx Instructions .Route .COMPLEX 07/01/19 Unknown History trazodone 100 mg tablet 100 mg PO DAILY 07/02/19 Unknown History Allergies Allergy/AdvReac Type Severity Reaction Status Date / Time No Known Allergies Allergy Verified 05/20/22 16:17 Review of Systems Review of Systems: All systems reviewed & are unremarkable except as noted in HPI and below PMFSH Past Medical History Medical History POTS (postural orthostatic tachycardia syndrome) NATALIE (obstructive sleep apnea) Depression Surgical History Surgical History History of cholecystectomy Family History Family History Mother Family history of thyroid disease Family history of hypercholesterolemia Depression Family history of migraine headaches Hypertension Sibling Family history of hypercholesterolemia Hypertension Father Family history of cardiovascular disease Other Carcinoma of colon Diabetes mellitus Family history of elevated blood lipids Family history of malignant neoplasm Family history of malignant neoplasm of ovary Social History Social History Smoking status: Current every day smoker Alcohol intake: current Exam Narrative: GENERAL: Well-appearing, well-nourished, and in no acute distress. HEAD: Normocephalic, atraumatic. EYES: EOMI. ENT: Nares clear, no rhinorrhea or epistaxis. Mucous membranes moist. NECK: Supple. CHEST: Clear to auscultation. No respiratory distress. HEART: Regular rate and rhythm. No murmur heard. Normal peripheral pulses. ABDOMEN: Soft, nontender, nondistended, normal active bowel sounds. No rebound, guarding rigidity. No CVA tenderness : Normal external genitalia. Moderate amount of blood in vaginal vault with moderate sized clots that were extracted. The cervical os open. No significant adnexal masses or tenderness EXTREMITIES: Normal range of motion. No edema. SKIN: Warm, dry, no rash. NEURO: No focal deficits. Alert and oriented x3 Course Vital Signs Vital signs: Vital Signs Temperature 97.8 F 10/29/24 16:16 Pulse Rate 107 H 10/29/24 16:16 Respiratory Rate 16 10/29/24 16:16 Blood Pressure 127/80 10/29/24 16:16 Pulse Oximetry 100 10/29/24 16:16 Oxygen Delivery Room Air 10/29/24 16:16 Temperature 98.8 F 10/29/24 19:30 Pulse Rate 115 H 10/29/24 22:48 Respiratory Rate 16 10/29/24 22:44 Blood Pressure 125/73 10/29/24 22:48 Pulse Oximetry 100 10/29/24 22:44 Oxygen Delivery Room Air 10/29/24 19:30 MDM - Female Genitourinary MDM Narrative Medical decision making narrative: 34-year-old female who is , currently 6 weeks presents to the emergency department with concerns for miscarriage. Patient has had down trending hCG use for the past 5 days, beta hCG 5 days ago was 13,000, 2 days ago was 9000. Triage vitals with tachycardia 107 which has since resolved. Patient is afebrile and nontoxic appearing. Exam significant for the above. Lab work with leukocytosis of 11.1 and hemoglobin of 11.2. Per chart review hemoglobin was 13.6 1 year ago. Chemistries are unremarkable. UA with 2+ ketonuria, 1+ leuk esterase, no wbc's or bacteria. No symptoms of UTI. Beta hCG today is 7256.6. Coags are normal. EKG shows normal sinus rhythm with rate of 83 ppm, normal CO interval, normal QRS duration, normal QTC, no ischemic changes. Pelvic ultrasound shows mixed echogenicity vascular area in the uterine cavity involving the lower segment was slightly dilated cervix containing fluid. Differential includes missed with retained products versus in progress versus early . Patient updated on results. She received Tylenol and IV fluids with some improvement but remained lightheaded. She was given another L of fluids with improvement. Heart rate is improved. She feels safe to be discharged home. Her bleeding has improved while in the ED and she has not had to change her pad in several hours while monitored in the ED. I advised her to follow-up with her OBGYN, discussed repeat beta-hCG in 48 hours, expected management and return precautions. She is agreeable with the plan verbalized understanding. Discharged in stable condition. Lab Data 10/29/24 19:06 10/29/24 19:06 Labs: Lab Results 10/29/24 10/29/24 Range/Units 19:06 20:21 WBC 11.1 H (4.5-10.0) K/mm3 RBC 3.82 L (4.2-5.4) M/mm3 Hgb 11.2 L (12.0-15.0) g/dL Hct 33.3 L (37.0-47.0) % MCV 87.2 (80-100) fl MCH 29.3 (26-34) pg MCHC 33.6 (32-36) g/dl RDW 13.2 (11.5-14.5) % Plt Count 284 (150-375) k/mm3 MPV 10.0 (7.4-10.4) fl Immature Gran % (Auto) 0.5 (0-0.5) % Neut % (Auto) 71.2 (45.5-73.1) % Lymph % (Auto) 19.7 (18.3-44.2) % [place] % (Auto) 7.8 (2.6-8.5) % Eos % (Auto) 0.3 (0-4.4) % Baso % (Auto) 0.5 (0.2-1.2) % Lymph # (Auto) 2.19 (0.9-3.2) K/mm3 [place] # (Auto) 0.9 H (0.1-0.6) K/mm3 Eos # (Auto) 0.0 (0-0.3) K/mm3 Baso # (Auto) 0.1 (0.0-0.1) K/mm3 Abs Immat Gran (auto) 0.06 H (0.00-0.031) K/mm3 Absolute Neuts (auto) 7.9 H (1.3-6.7) K/mm3 Absolute Nucleated RBC 0.000 (0.0-0.012) K/mm3 Nucleated RBC % 0.0 (0.0-0.2) % PT 14.5 (11.1-14.7) Seconds INR 1.1 APTT 32.7 (22.3-36.8) Seconds Sodium 137 (137-145) mmol/L Potassium 3.8 (3.4-5.0) mmol/L Chloride 104 (98-107) mmol/L Carbon Dioxide 22 (22-30) mmol/L Anion Gap 11 (4-12) mmol/L BUN 11 (7-17) mg/dL Creatinine 0.70 (0.7-1.0) mg/dL Estim Creat Clear Calc 115 ml/min Estimated GFR > 60 (59 - ) Glucose 101 (65-110) mg/dL Calcium 8.9 (8.4-10.2) mg/dL Total Bilirubin 0.6 (0.2-1.3) mg/dL AST 25 (14-36) U/L ALT 24 (6-35) U/L Alkaline Phosphatase 71 (38-126) U/L Total Protein 7.0 (6.3-8.2) g/dL Albumin 4.1 (3.5-5.1) g/dL Beta HCG, Quant 7256.60 mIU/ML Urine Color Cee (Yellow) Urine Appearance Cloudy H (Clear) Urine pH 5.5 (5.0-9.0) Ur Specific [place] 1.035 (1.001-1.035) Urine Protein 2+ H (Negative) mg/dL Urine Glucose (UA) Negative (Negative) mg/dL Urine Ketones 2+ H (Negative) mg/dL Ur Blood (Man) 3+ H (Negative) Urine Nitrate Negative (Negative) Urine Bilirubin 1+ H (Negative) Urine Urobilinogen 1.0 (<2.0) mg/dL Add Ur Microanalysis Reviewed Leukocyte Esterase Rfl 1+ H (Negative) NICK/UL Urine RBC >100 H (0-2) /hpf Urine WBC 0-5 (0-3) /hpf Ur Squamous Epith Cells Occasional (Few) /hpf Urine Bacteria None seen /hpf Urine Casts 0-2 Blood Type O Positive Antibody Screen Negative Screen TNP Baby's Blood Type Not Reportable Baby's KIMMY Not Reportable Doses of RhIg Required 0 Discharge Plan Discharge Clinical Impression: Incomplete Patient Disposition: Home Condition: Stable Instructions: Antibiotic Form, Miscarriage (ED) Additional Instructions: Your evaluated in the emergency department for vaginal bleeding in . Your presentation is consistent with a miscarriage. Her beta hCG today is 7256.6. Please get this checked again with your OBGYN in 48 hours to ensure it is down trending. Return to the emergency department if your saturating over 1 pad or tampon per hour, you develop increasing lightheadedness or loss of consciousness, fever of 100.4 or greater, or other concerning symptoms. You can take Tylenol and ibuprofen as directed [id number] for cramping and pain. Patient Language: Cuban Prescriptions: No Action Dialyvite Vitamin D3 Max 50,000 unit tablet See Rx Instructions .ROUTE .COMPLEX Rx Instructions: take one tablet oral route 2 times a week ; escitalopram oxalate 20 mg tablet 20 mg PO DAILY Mini 6.75 mg iron- 200 mcg tablet See Rx Instructions PO .COMPLEX Rx Instructions: take one tablet by oral route daily in morning PO ; cholecalciferol (vitamin D3) 2,000 unit tablet 2,000 unit PO DAILY selenium sulfide 2.5 % lotion See Rx Instructions .ROUTE .COMPLEX Rx Instructions: apply by topical route to the affected areas on the back 3 times daily for 1 week; leave on 15 mmins. then rinse off ; trazodone 100 mg tablet 100 mg PO DAILY meclizine 25 mg tablet 25 mg PO BID PRN (Reason: dizziness) Qty: 20 0RF naproxen 500 mg tablet 500 mg PO BID Qty: 20 0RF Follow-up/Referrals: Le Claros MD [Physician] - [place],MADELINE Landis [Primary Care Provider] -
[2024-10-29] MEDS: SODIUM CHLORIDE 0.9% IV 1,000 ML 999 ML IV CONT ×2 (20:17→23:11)
[2024-10-29] MEDS: ACETAMINOPHEN 500 MG TABLET 1000 MG PO (20:18)
[2024-10-29 20:55] LABS: Bacteria Urine None Seen /hpf; Need Manual Microscopic Reviewed; Non Pathogenic Casts 0-2; RBC Urine >100 /hpf (0-2); Squamous Epithelial Cell Urine Occasional /hpf (Few); WBC Urine 0-5 /hpf (0-3)
[2024-10-29 20:57] LABS: Add Urine Microscopic? YES; Appearance Urine Cloudy (Clear); Bilirubin Urine 1+ (Negative); Blood Urine 3+ (Negative); Color Urine Amber (Yellow); Glucose Urine UA Negative (Negative); Ketones Urine 2+ mg/dL (Negative); Leukocyte Esterase Ur 1+ LEU/UL (Negative); Nitrate Urine Negative (Negative); Protein Urine 2+ mg/dL (Negative); Specific Grav Ur 1.035 (1.001-1.035); pH Urine 5.5 (5.0-9.0)
== END 2024-10-30 00:06 | disposition home or self-care (01) ==
PROVIDERS: Registered Nurse; Emergency Provider Physician Assistant; PCP Nurse Practitioner Family
DX: O03.4 Incomplete spontaneous abortion without complication (principal); G47.30 Sleep apnea, unspecified; F32.A Depression, unspecified
CPT/HCPCS: 36415; 76801; 80053; 81001; 84702; 85025; 85461; 85610; 85730; 86850; 86900; 86901; 87086; 93005; 96360; 96361; 99284; A9270; J7030

== ENCOUNTER 2024-11-05 01:42 | Emergency (ER) | payer OTHER, SELFPAY ==
--- OUTSIDE RECORDS SUMMARY | 2024-11-05 01:43 | XMS_ITS | Encounter Summary ---
Author Organization [facility] Address [address] [place] [address] Phone Care Team Providers Care Hostel Manager Name Role Phone Camilla Coffman NP Primary Care Provider [phone] Le Claros MD Unavailable [phone] Encounter Details Date Type Department Care Team (Late st Contact Info) Description 10/31/2024 Results Follow-Up [facility] Cardiology [address] [facility] 8th [place] [address] [place] [phone] Kate Ashley MD [address] [facility] [address] [place] [address] Social History Tobacco Use Types Packs/Day Years [...] on file documented as of this encounter Plan of Treatment Not on file documented as of this encounter Visit Diagnoses Not on filedocumented in this encounter Care Teams Hostel Manager Relationship Specialty Start Date End Date Camilla Coffman NP PCP - General Family Medicine 10/18/23 Le Claros MD [address] [address] Referring Physician Gynecology 10/22/24 documented as of this encounter
--- OUTSIDE RECORDS SUMMARY | 2024-11-05 01:43 | XMS_ITS | Clinical Summary ---
Author Organization [facility] Address [address] [place] [address] Care Team Providers Care [employer]er Name Role Phone Sameer Aggarwal MD Unavailable Stephanie Villagomez DO Primary Care Provider [phone] Source Comments [facility],non-owned Affiliates and Associated Physician Practices is amultiple site organization consisting of ambulatory clinics and hospital sitesin [place], [place], [place] and [place]. This disclosure is being madepursuant to the Care Everywhere program and may not contain all information available regarding this patient. Last updated 18.[facility] Allergies Active Allergy Reactions Criticality Noted Date Comments Adhesive Sensitivity Rash Medium 02/06/2020 Saline Dizziness,Palpitatio ns,Shortness of Breath,Wheezing High 05/14/2011 Medications * Be aware that medications may not be up to date on this document. Alwaysverify current medications with the patient. vitamin D, ergocalciferol, (DRISDOL) 1.25 MG (99489 UT) capsule Take 1 capsule by mouth every 7 days 12 capsule 02/06/2020 Active ARIPiprazole (ABILIFY) 2 MG tablet 01/15/2020 Active desvenlafaxine succinate ER 24hr (PRISTIQ) 100 MG tablet TK 1 T PO QD 01/14/2020 Ac tive guanFACINE (TENEX) 1 MG tablet 01/15/2020 Active [...] Date Recorded PHQ2 TOTAL SCORE 0 12/24/2020 Comments Unknown Sex and Gender Information Value Date Recorded Sex Assigned at Female 09/16/2020 2:24 PM PAYROLL REPRESENTATIVE Legal Sex Female 5:19 PM PAYROLL REPRESENTATIVE Gender Identity Female 09/16/2020 2:24 PM PAYROLL REPRESENTATIVE Sexual Orientation Straight 09/16/2020 2: 24 PM PAYROLL REPRESENTATIVE Last Filed Vital Signs Vital Sign Reading [...] purpose. For additional information please refer to http://education.Trusight.Sequent/faq/YTT917 (This link is being provided for informational/ educational purposes only.) The performance of this assay has not been clinically validated in patients less than 2 years old. Test Performed at: [facility] [id number] [facility] [address] ASAD ZAPIEN DO,MPH 02/06/2020 2:50 PM CDT 02/06/2020 2:52 PM CDT us Stephanie Villagomez DO LAB - CHEMISTRY ORDERABLES Elena acevedo Result [facility] [id number] [address] from Last 3 Months or Most Recently Relevant to Health Maintenance Insurance MEDICAID - OUT OF STATE Care Teams [employer] Ironer Relationship Specialty Start Date End Date Stephanie Villagomez DO [address] [facility] [place] [id number] PCP - General 05/06/21 Sameer Aggarwal MD [address] [facility] [place] [place] [id number] Resident - PCP Student Resident 05/06/21
--- OUTSIDE RECORDS SUMMARY | 2024-11-05 01:43 | XMS_ITS | Data Portability ---
Author Organization [place] [facility] [employer], Main Office Address [address] [place] [address] Assessment Encounter Date Assessment Date Assessment LastModified [...] bariatric procedure for weight loss. 2022 023 [email or web address] Not available 14:09:42 Procedures None recorded. Surgeries None recorded. Imaging None recorded. Medication Orders None recorded. Patient TargetsNo targets recorded. Patient Instructions Encounter Date Encounter Id Patient Instructions Last Modified By Organization Details Last Modified Time 11/29/2022 [id number] FU prn. [email or web address] Not available 11/29 16:18:57 05/11/2023 [id number] FU in 1 year for wellness. Not [...] ders to discu ss resul ts at [phone] ([phone] ). . Test Detai ls: Three varia nts beryl zed: c.845 G>A (p.Cy s282T yr), commo nly refer red to as C282Y c.187 C>G (p.Hi s63As p), commo nly refer red to as H63D c.193 A>T (p.Se r65Cy s), commo nly refer red to as S65C . Metho ds/Li mitat ions: DNA Beryl sis of the HFE gene ([id number]) was perfo rmed by PCR ampli [...] tion. . Refer ences : Messi BR, Rxe PC, Mananl ey KV, Darrius acevedo LW, [...] 3. doi: 10.10 / p.243 30. PMID: 28437 290; PMCID : PMC31 04720 . Demetrice G, Yang everett P, Emmie [...] hg.20 15.12 8. Epub 2014Jan 27. PMID: 09003 218; PMCID : PMC49 98614 . . Ana Cristina Angela n, PhD, FACMG Tyler Phillips , PhD Alfonso de la cruz, PhD, FAC Ronaldo woods, PhD, FACAMG [facility] Alli martines, PhD, FACMG ACMG W Garry Deshpande, PhD, FACMG Charmaine Crowley, PhD, FACMG MG Conner vargas, PhD, FACMG Perfo rmed at: [facility] [address] [facility] [place] , [place] [address] Lab Direc tor: [facility], located [facility] , Phone : [phone] Not Available [facility] (Lab) [address] [place], [address], 03/06/2022 19:08:13 02/29/20 22 02/28/2022 VITAM IN D 25-HY DROXY vd25oh 26.4 NG/mL 30-100 low Vitam in D Statu s: Defic ient: <20 ng/mL Insuf ficie nt: 20-29 ng/mL Suffi cient : 30-10 0 ng/mL Not Available [facility] (Lab) [address] [place], [address], 02/28/2022 22:46:38 02/29/20 22 02/28/2022 FOLAT E, SERUM /PLAS MA folate 10.2 NG/mL 2.76-2 0.0 Not Available [facility] (Lab) [address] [place], [address], 02/28/2022 20:33:17 02/29/20 22 02/28/2022 VITAM IN B12 (BRONSON MAITE ) vb12 264 pg/mL 239-93 1 Not Available [facility] (Lab) [address] [place], [address], 02/28/2022 20:33:14 02/29/20 22 02/28/2022 HEMOG LOBIN A1C HA1C 5.5 % 4.0-6. 0 Diabe gaetano Scree sandy Crite tammi: <5.7% Consi stent with absen ce of diabe gaetano 5.7-6 .4% Consi stent with incre ased risk for diabe gaetano (pred iabet es) >OR=6 .5% Consi stent with diabe gaetano REFER ENCE: Diabe gaetano Care 2016, 39(Kelley ppl.1 ):s13 -s22 Not Available [facility] (Lab) [address] [place], [address], 02/28/2022 20:20:24 02/29/20 22 02/28/2022 TSH thyroid-stim ulating hormone 3.790 uIU/m L 0.465- 4.680 Not Available [facility] (Lab) [address] [place], [address], 02/28/2022 20:02:14 02/29/20 22 02/28/2022 T4 FREE free T4 1.35 NG/dL 0.78-2 .19 Not Available [facility] (Lab) [address] [place], [address], 02/28/2022 19:42:29 02/29/20 22 02/28/2022 IRON/ TIBC PANEL total iron binding capacity 330 mcg/d L 265-47 5 Not Available [facility] (Lab) [address] [place], [address], 02/28/2022 19:30:37 02/29/20 22 02/28/2022 IRON/ TIBC PANEL % transferrin saturation 31 % 20-55 Not Available [facility] (Lab) [address] [place], [address], 02/28/2022 19:30:37 02/29/20 22 02/28/2022 IRON/ TIBC PANEL unsaturated iron bind capacity 229 mcg/d L 126-38 2 Not Available [facility] (Lab) [address] [place], [address], 02/28/2022 19:30:37 02/29/20 22 02/28/2022 IRON/ TIBC PANEL iron 101 mcg/d L 42-175 Not Available [facility] (Lab) [address] [place], [address], 02/28/2022 19:30:37 02/29/20 22 02/28/2022 LIPID PANEL cholesterol 171 mg/dL 140-19 9 NIH JI NSUS RECOM MENDA TION FOR ROSE STERO L: ADULT CHILD LOW RISK: <200 <170 BORDE RLINE : <200- 239 ----- HIGH RISK: >240 >200 Not Available [facility] (Lab) [address] [place], [address], 02/28/2022 19:23:38 02/29/20 22 02/28/2022 LIPID PANEL triglyceride s 137 mg/dL 0-150 NIH JI NSUS REPOR T RECOM MENDA TION FOR TRIGL YCERI DEEPAK: ADULT CHILD LOW RISK: <150 ----- BODER LINE: 150-1 99 ----- HIGH RISK: >200 ----- Not Available [facility] (Lab) [address] [place], [address], 02/28/2022 19:23:38 02/29/20 22 02/28/2022 LIPID PANEL HDL cholesterol 27 mg/dL 40- low Not Available [facility] (Lab) [address] [place], [address], 02/28/2022 19:23:38 02/29/20 22 02/28/2022 LIPID PANEL [...] WILL NOT BE REPOR DANA. Not Available [facility] (Lab) [address] [place], [address], 02/28/2022 19:23:38 02/29/20 22 02/28/2022 COMPR EHENS ALDEN METAB OLIC PANEL sodium 139 mmol/ L 137-14 5 Not Available [facility] (Lab) [address] [place], [address], 02/28/2022 19:23:34 02/29/20 22 02/28/2022 COMPR EHENS ALDEN METAB OLIC PANEL potassium 4.0 mmol/ L 3.5-5. 1 Not Available [facility] (Lab) [address] [place], [address], 02/28/2022 19:23:34 02/29/20 22 02/28/2022 COMPR EHENS ALDEN METAB OLIC PANEL chloride 105 mmol/ L 98-107 Not Available [facility] (Lab) [address] [place], [address], 02/28/2022 19:23:34 02/29/20 22 02/28/2022 COMPR EHENS ALDEN METAB OLIC PANEL carbon dioxide 24 mmol/ L 22-30 Not Available [facility] (Lab) [address] [place], [address], 02/28/2022 19:23:34 02/29/20 22 02/28/2022 COMPR EHENS ALDEN METAB OLIC PANEL anion gap 14.0 mmol/ L 14-22 Not Available [facility] (Lab) [address] [place], [address], 02/28/2022 19:23:34 02/29/20 22 02/28/2022 COMPR EHENS ALDEN METAB OLIC PANEL glucose 111 mg/dL 70-99 high Not Available [facility] (Lab) [address] [place], [address], 02/28/2022 19:23:34 02/29/20 22 02/28/2022 COMPR EHENS ALDEN METAB OLIC PANEL BUN 8 mg/dL 8-19 Not Available [facility] (Lab) [address] [place], [address], 02/28/2022 19:23:34 02/29/20 22 02/28/2022 COMPR EHENS ALDEN METAB OLIC PANEL creatinine 0.68 mg/dL 0.66-1 .25 Not Available [facility] (Lab) [address] [place], [address], 02/28/2022 19:23:34 02/29/20 22 02/28/2022 COMPR EHENS ALDEN METAB OLIC PANEL GFR >60 Refer ence Range : [place] ge GFR Healt hy Adult : >60 [...] calcu lator is avail able on the [facility] websi te: [email or web address] :[email or web address] ional s/kdo qi/gf r_cal culat or Not Available [facility] (Lab) [address] [place], [address], 02/28/2022 19:23:34 02/29/20 22 02/28/2022 COMPR EHENS ALDEN METAB OLIC PANEL alkaline phosphatase 72 U/L 38-126 Not Available [facility] (Lab) [address] [place], [address], 02/28/2022 19:23:34 02/29/20 22 02/28/2022 COMPR EHENS ALDEN METAB OLIC PANEL alanine aminotransfe rase 17 U/L 0-35 Not Available [facility] (Lab) [address] [place], [address], 02/28/2022 19:23:34 02/29/20 22 02/28/2022 COMPR EHENS ALDEN METAB OLIC PANEL aspartate aminotransfe rase 25 U/L 15-37 Not Available [facility] (Lab) [address] [place], [address], 02/28/2022 19:23:34 02/29/20 22 02/28/2022 COMPR EHENS ALDEN METAB OLIC PANEL bilirubin, total 0.70 mg/dL 0.20-1 .30 Not Available [facility] (Lab) [address] [place], [address], 02/28/2022 19:23:34 02/29/20 22 02/28/2022 COMPR EHENS ALDEN METAB OLIC PANEL calcium 9.2 mg/dL 8.4-10 .2 Not Available [facility] (Lab) [address] [place], [address], 02/28/2022 19:23:34 02/29/20 22 02/28/2022 COMPR EHENS ALDEN METAB OLIC PANEL total protein 7.1 g/dL 6.3-8. 2 Not Available [facility] (Lab) [address] [place], [address], 02/28/2022 19:23:34 02/29/20 22 02/28/2022 COMPR EHENS ALDEN METAB OLIC PANEL albumin 4.1 g/dL 3.4-5. 0 Not Available [facility] (Lab) [address] [place], [address], 02/28/2022 19:23:34 02/29/20 22 02/28/2022 COMPR EHENS ALDEN METAB OLIC PANEL globulin 3.0 g/dL 2.6-4. 2 Not Available [facility] (Lab) [address] [place], [address], 02/28/2022 19:23:34 02/29/20 22 02/28/2022 COMPR EHENS ALDEN METAB OLIC PANEL A/G ratio 1.4 ratio 1.0-2. 0 Not Available [facility] (Lab) [address] [place], [address], 02/28/2022 19:23:34 02/29/20 22 02/28/2022 CBC/C OMPLE TE BLD COUNT W/DIF F hematocrit 40.6 % 35.7-4 5.7 Not Available [facility] (Lab) [address] [place], [address], 02/28/2022 18:10:18 02/29/20 22 02/28/2022 CBC/C OMPLE TE BLD COUNT W/DIF F white blood cells 8.0 x10'3 /uL 4.2-10 .8 Not Available [facility] (Lab) [address] [place], [address], 02/28/2022 18:10:18 02/29/20 22 02/28/2022 CBC/C OMPLE TE BLD COUNT W/DIF F red blood cells 4.71 x10'6 /uL 3.80-5 .20 Not Available [facility] (Lab) [address] [place], [address], 02/28/2022 18:10:18 02/29/20 22 02/28/2022 CBC/C OMPLE TE BLD COUNT W/DIF F hemoglobin 13.6 g/dL 12.0-1 5.6 Not Available [facility] (Lab) [address] [place], [address], 02/28/2022 18:10:18 02/29/20 22 02/28/2022 CBC/C OMPLE TE BLD COUNT W/DIF F mean red cell volume 86.2 fL 82.0-9 9.0 Not Available [facility] (Lab) [address] [place], [address], 02/28/2022 18:10:18 02/29/20 22 02/28/2022 CBC/C OMPLE TE BLD COUNT W/DIF F mean red cell hemoglobin 28.9 pg 27.0-3 3.0 Not Available [facility] (Lab) [address] [place], [address], 02/28/2022 18:10:18 02/29/20 22 02/28/2022 CBC/C OMPLE TE BLD COUNT W/DIF F mean RBC HGB concentratio n 33.5 g/dL 31.0-3 6.0 Not Available [facility] (Lab) [address] [place], [address], 02/28/2022 18:10:18 02/29/20 22 02/28/2022 CBC/C OMPLE TE BLD COUNT W/DIF F red cell distribution width 13.5 % 11.8-1 5.5 Not Available [facility] (Lab) [address] [place], [address], 02/28/2022 18:10:18 02/29/20 22 02/28/2022 CBC/C OMPLE TE BLD COUNT W/DIF F platelets 279 x10'3 /uL 150-40 0 Not Available [facility] (Lab) [address] [place], [address], 02/28/2022 18:10:18 02/29/20 22 02/28/2022 CBC/C OMPLE TE BLD COUNT W/DIF F mean platelet volume 10.8 fL 9.0-12 .4 Not Available [facility] (Lab) [address] [place], [address], 02/28/2022 18:10:18 02/29/20 22 02/28/2022 CBC/C OMPLE TE BLD COUNT W/DIF F neutrophils 55.3 % 39.0-7 2.0 Not Available [facility] (Lab) [address] [place], [address], 02/28/2022 18:10:18 02/29/20 22 02/28/2022 CBC/C OMPLE TE BLD COUNT W/DIF F lymphocytes 33.3 % 16.0-4 7.0 Not Available [facility] (Lab) [address] [place], [address], 02/28/2022 18:10:18 02/29/20 22 02/28/2022 CBC/C OMPLE TE BLD COUNT W/DIF F monocytes 9.8 % 5.0-12 .0 Not Available [facility] (Lab) [address] [place], [address], 02/28/2022 18:10:18 02/29/20 22 02/28/2022 CBC/C OMPLE TE BLD COUNT W/DIF F eosinophils 0.8 % 1.0-7. 0 low Not Available [facility] (Lab) [address] [place], [address], 02/28/2022 18:10:18 02/29/20 22 02/28/2022 CBC/C OMPLE TE BLD COUNT W/DIF F basophils 0.5 % 0.0-2. 0 Not Available [facility] (Lab) [address] [place], [address], 02/28/2022 18:10:18 02/29/20 22 02/28/2022 CBC/C OMPLE TE BLD COUNT W/DIF F immature granulocytes 0.3 % 0.00-0 .50 Not Available [facility] (Lab) [address] [place], [address], 02/28/2022 18:10:18 02/29/20 22 02/28/2022 CBC/C OMPLE TE BLD COUNT W/DIF F neutrophils, absolute count 4.40 x10'3 /uL 1.5-8. 0 Not Available [facility] (Lab) [address] [place], [address], 02/28/2022 18:10:18 02/29/20 22 02/28/2022 CBC/C OMPLE TE BLD COUNT W/DIF F lymphocytes, absolute count 2.65 x10'3 /uL 1.07-3 .43 Not Available [facility] (Lab) [address] [place], [address], 02/28/2022 18:10:18 02/29/20 22 02/28/2022 CBC/C OMPLE TE BLD COUNT W/DIF F monocytes, absolute count 0.78 x10'3 /uL 0.29-0 .99 Not Available [facility] (Lab) [address] [place], [address], 02/28/2022 18:10:18 02/29/20 22 02/28/2022 CBC/C OMPLE TE BLD COUNT W/DIF F eosinophils, absolute count 0.06 x10'3 /uL 0.02-0 .53 Not Available [facility] (Lab) [address] [place], [address], 02/28/2022 18:10:18 02/29/20 22 02/28/2022 CBC/C OMPLE TE BLD COUNT W/DIF F basophils, absolute count 0.04 x10'3 /uL 0.01-0 .08 Not Available [facility] (Lab) [address] [place], [address], 02/28/2022 18:10:18 02/29/20 22 02/28/2022 CBC/C OMPLE TE BLD COUNT W/DIF F immature granulocytes ,absolute 0.02 x10'3 /uL 0.00-0 .05 Not Available [facility] (Lab) [address] [place], [address], 02/28/2022 18:10:18 02/29/20 22 02/28/2022 CBC/C OMPLE TE BLD COUNT W/DIF F nucleated red blood cells 0.0 % -0 Not Available [facility] (Lab) [address] [place], [address], 02/28/2022 18:10:18 02/29/20 22 02/28/2022 CBC/C OMPLE TE BLD COUNT W/DIF F NRBC# 0.00 x10'3 /uL Not Available [facility] (Lab) [address] [place], [address], 02/28/2022 18:10:18 05/16/2005/19/2022 BRANDON/A NTINU CLEAR ANTIB [...] Patte rns (ICAP ). [facility]fo rmed at: [facility] [address] [place], [place] [id number] [facility] Lab Direc tor: Wood thorne PhD, Phone : [phone] Not Available [facility] (Lab) [address] [place], [address], 05/19/2022 15:09:32 05/16/2005/16/2022 URIC ACID SERUM uric acid 5.4 mg/dL 2.5-6. 2 Not Available [facility] (Lab) [address] [place], [address], 05/16/2022 20:54:22 05/16/2005/16/2022 RHEUM ATOID FACTO R rf <8.6 IU/mL 0.0-11 .9 Not Available [facility] (Lab) [address] [place], [address], 05/16/2022 20:47:38 05/16/2005/16/2022 C REACT ALDEN PROTE IN,UL TRA SENS C-reactive protein 1.27 mg/dL 0.0-0. 5 high Not Available [facility] (Lab) [address] [place], [address], 05/16/2022 20:46:51 05/16/20 22 05/16/2022 SEDIM ENTAT ION RATE erythrocyte sedimentatio n rate 21 mm/HR 0-20 high Not Available [facility] (Lab) [address] [place], [address], 05/16/2022 20:10:45 05/24/20 22 05/23/2022 bone densi ty No observ ation record ed. [id number] [facility], [place], [address], 09/21/2022 01:27:48 07/06/20 22 06/26/2022 tracey r monit or No observ ation record ed. [id number] [place] [address] (Cardiology & Emg) [address] [place] [address] [place] [address], [id number], 09/21/2022 01:27:48 Result Notes Documentation Provider Name and Address Organization Details Recorded Time Drug Screen, 5 Drugs, Urine : MJ Not Available [facility] 09/21/2022 01:27:48 Problems Name Problem SNOMED Code Status Onset Date Resolution Date Notes Provider Name and Address Organization Details Recorded Time Butterfly rash 07606066 Active 2021 [facility] Available [facility] 3 01:26:19 Tachycardi a 4553147 Active 2021 Not Available [facility] 3 01:26:19 Multiple joint pain 12570917 Active 2021 Not Available [facility] 3 01:26:19 Osteoarthr itis 544037419 Active 2021 Not Available [facility] 3 01:26:19 Family history of fibromyalg ia 3748765979102 02 Active 2021 Not Available [facility] 3 01:26:19 Pain of right knee joint 1680029429094 00 Active 2021 Not Available [facility] 3 01:26:19 Pain of left knee joint 8125620298831 07 Active 2021 Not Available [facility] 3 01:26:19 Swelling of bilateral lower limbs 199340195 Active 2021 Not Available [facility] 3 01:26:20 Hyperglyce adilene 92787315 Active 2021 Not Available [facility] 3 01:26:20 Fatigue 59045615 Active 2021 Not Available [facility] 3 01:26:20 Obese 920840904 Active 2022 Britney [place] NP [address] [facility] [address], [place], [address] , [facility] 3 16:11:46 Problem Notes None recorded. Procedures Surgical History Date Name Laterality Status Provider Name and Address Organization Details Recorded Time 01/21/20 22 Date of Last Pap Smear completed Britney Reeves RN [place] [employer] [facility] [employer] 11/29/2022 15:56:44 06/22/20 21 excision of bunion completed Not Available [facility] 09/21/2022 01:25:08 04/22/20 20 Most Recent Bone Density completed Not Available [facility] 09/21/2022 01:25:07 12/22/19 16 cholecystectomy completed Not Available [facility] 09/21/2022 01:25:08 11/21/19 16 section completed Not Available [facility] 09/21/2022 01:25:08 Imaging Results Imaging Date Name Status LastModified by Organiz ation Details LastModified Time 06/26/2022 holter monitor completed [id number] [address] [place] [address] (Cardiology & Emg) [address] [place] [address], [phone], 09/21/2022 01:27:48 05/23/2022 bone density completed [id number] [place] [address], [address], 09/21/2022 01:27:48 Procedure Notes None recorded. Medical [...] % 98 % 95 /min 98 [degF] 605546. 98 g 100 mm[Hg] 62 mm[Hg] Not Available [facility] 3 01:25:28 Date Recorded Body mass index (BMI) Body height Oxygen saturation Oxygen saturation in Arterial blood by Pulse oximetry Heart rate Body temperature Body weight Systolic blood pressure Diastolic blood pressure Provider Name and Address Organization Details Last Updated DateTime 2 38.5 kg/m2 167.64 cm 98 % 98 % 115 /min 98 [degF] 989842. 78 g 122 mm[Hg] 80 mm[Hg] Not Available [facility] 3 01:25:28 Date Recorded Body mass index (BMI) Body height Oxygen saturation Oxygen saturation in Arterial blood by Pulse oximetry Heart rate Respiratory rate Body temperature Body weight Systolic blood pressure Diastolic blood pressure Provider Name and Address Organization Details Last Updated DateTime 2 36.8 kg/m2 167.64 cm 99 % 99 % 110 /min 16 /min 98.1 [degF] 113423. 06 g 108 mm[Hg] 80 mm[Hg] Not Available [facility] 3 01:25:28 Date Recorded Body height Body mass index (BMI) Body weight Body temperature Heart rate Respiratory rate Oxygen saturation Oxygen saturation in Arterial blood by Pulse oximetry Pain severity - 0-10 verbal numeric rating [Score] - Reported Systolic blood pressure Diastolic blood pressure Provider Name and Address Organization Details Last Updated DateTime 3 167.64 cm 37.4 kg/m2 165084. 29 g 97.7 [degF] 87 /min 16 /min 97 % 97 % 0 140 mm[Hg] 82 mm[Hg] OUSMANE Garcia Sherly [employer] [facility] 3 15:54:30 Date Recorded Body height Body mass index (BMI) Body weight Body temperature Heart rate Respiratory rate Oxygen saturation Oxygen saturation in Arterial blood by Pulse oximetry Pain severity - 0-10 verbal numeric rating [Score] - Reported Systolic blood pressure Diastolic blood pressure Provider Name and Address Organization Details Last Updated DateTime 3 167.64 cm 36.8 kg/m2 265238. 41 g 96.4 [degF] 90 /min 20 /min 97 % 97 % 0 140 mm[Hg] 84 mm[Hg] OUSMANE Garcia Sherly [employer] 3 08:40:35 Social History Question Answer Notes LastModified by Organizat ion Details LastModified Time Tobacco Smoking Status Current Every Day Smoker Not Available [facility] 09/21/2022 01:24:53 Do You Have An Advance Directive? No Information not available 11/29/2022 What Is Your Level Of Alcohol Consumption? None [id number] Information not available 09/21/2022 Is Blood Transfusion Acceptable In An Emergency? Yes Information not available 11/29/2022 What Is Your Level Of Caffeine Consumption? Moderate [id number] Information not available 09/21/2022 What Is Your Code Status? Full Code Information not available 11/29/2022 In The 14 Days Before Symptom Onset, Have You Had Close Contact With A Laboratory-confir med COVID-19 While That Case Was Ill? No [id number] Information not available 09/21/2022 In The 14 Days Before Symptom Onset, Have You Had Close Contact With A Person Who Is Under Investigation For COVID-19 While That Person Was Ill? No [id number] Information not available 09/21/2022 What Type Of Diet Are You Following? REGULAR [id number] Information not available 09/21/2022 What Is The Highest Grade Or Level Of School You Have Completed Or The Highest Degree You Have Received? 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 No [id number] Information not available 09/21/2022 Do You Use Insect Repellent Routinely? No Information not available 11/29/2022 Where Do You Live? [place] [id number] 6183 Information not available 09/21/2022 Do You Have A Medical Power Of Pct? No Information not available 11/29/2022 How Many Children Do You Have? 3 Information not available 11/29/2022 What Is Your Relationship Status? [id number] 8415 Information not available 09/21/2022 Do You Use Your Seat Belt Or Car Seat Routinely? Yes [id number] 2658 Information not available 09/21/2022 Do You Have Smoke And Carbon Monoxide Detectors In Your Home? Yes [id number].[id number] 9114 Information not available 09/21/2022 At What Age Did You Start Smoking Tobacco? 17 Information not available 11/29/2022 Are You Passively Exposed To Smoke? Yes [id number] Information not available 09/21/2022 Are There Any Smokers In Your House? No [id number].765425 4999 Information not available 09/21/2022 How Much Tobacco Do You Smoke? 0.5 PPD Information not available 05/11/2023 Do You Participate In Social Media? Yes [id number] 1238 Information not available 09/21/2022 Do You Feel Stressed (tense, Restless, Nervous, Or Anxious, Or Unable To Sleep At Night)? IS5036-6 Information not available 11/29/2022 Do You Use Any Illicit Or Recreational Drugs? No [id number].[id number] 2395 Information not available 09/21/2022 Do You Use Sunscreen Routinely? Yes Information not available 11/29/2022 How Many Years Have You Smoked Tobacco? 15 [id number].[id number] 7855 Information not available 09/21/2022 Have You Recently Traveled Abroad? No [id number].[id number] 8412 Information not available 09/21/2022 Are You Currently In School? Yes [id number].[id number] 9196 Information not available 09/21/2022 Sex: Female Functional Status Question Answer Note LastModified by Organizat ion Details LastModified Time What is your exercise level? None [id number] Information not available 09/21/2022 Mental Status None recorded. Family History Relationship Description Onset Age of this Age Resolved Age Notes LastModified by Organization Details LastModified Time Mother Hemochromato sis [id number] Not available 09/21/2022 01:25:09 Mother Hypertensive disorder [id number] Not available 09/21/2022 01:25:09 Mother Diabetes mellitus [id number] Not available 09/21/2022 01:25:09 Mother Fibromyalgia MIGRATION.0 30 [id number] Not available 09/21/2022 01:25:09 Sister Diabetes mellitus [id number] [id number] Not available 09/21/2022 01:25:09 Sister Hyperlipidem ia [id number] [id number] Not available 09/21/2022 01:25:09 Medical History Condition Response OTHER # 1 HEART ARRHYTHMIA Y Other # 2 Y OBESITY Y Gynecological History Statement/Question Response Abnormal Pap [...] 50 mcg/0.25mL dose 09/20/2021 completed Not Available [facility] [facility] 3 01:27:34 COVID-19, mRNA, LNP-S, PF, 100 mcg/0.5mL dose or 50 mcg/0.25mL dose 08/23/2021 completed Not Available [facility] 01:[facility] Past Encounters Encounter ID Performer Location Encounter Start Date Encounter Closed Date Diagnosis/Indication Diagnosis SNOMED-CT Code Diagnosis ICD10 Code Diagnosis Note [id number] [address] [address] 02/23/2022 00:00:00 02/23/2022 16:46:[id number] [address] 1 02/28/2022 00:00:00 02/28/2022 13:38:[id number] [address] 1 03/15/2022 00:00:00 03/15/2022 17:52:[id number] [address] 1 05/16/2022 00:00:00 05/16/2022 16:39:08 [id number] [facility] Philippe [address] [place] [address] 1 06/02/2022 00:00:00 06/02/2022 12:52:05 [id number] Britney Colorado NP [facility]G [address] [address] 11/29/2022 15:31:19 11/29/2022 16:22:25 Obese [id number] E66.9 No injectable s covered. Not able to be on phentermin e due to heart palpitatio ns.Referra l to bariatric surgery requested- pt will call back with location to send referral. Work on low carb, no dairy, no condiment diet. Portion control. 6 smaller meals, vs 1 large meal daily. [id number] Britney Colorado NP [facility]_[address] [address] 05/11/2023 08:29:36 05/11/2023 11:55:09 History and physical examination, pre-employment [id number] Z02.1 Encouraged well balanced meals, active lifestyle, and routine vision and dental appts.Form completed for [facility]. Health Concerns Section Related Observation LastModified by Organization Krystyna ross LastModified Time None Recorded Concern Status LastModified by Organization Details LastModified Time None Recorded Advance Directives Directive N: Payers Encounter Date Sequence Insurance Name Policy Number Policy Saenz Covered Member ID Saenz Member ID Guarantor Name 11/29/2022 1 [facility] ON OR AFTER 01/20/21 (MEDICAID REPLACEMENT - HMO) Gretchen Marcano [id number] Gretchen Marcano 05/11/2023 1 [facility] [id number] Gretchen Marcano [id number] Gretchen Marcano Notes Date Note Type Note [...] palpitations. Britney Colorado NP [address], [facility] [address], [place], [address], [facility] 11/29/2022 16:19:40 05/11/2023 text/html Here for employm ent physical, [facility]. No real concerns. 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 Fatigue and pain often. Vision utdDental utd Britney Colorado NP [address], [facility] [address], [place], [address], [facility] 05/11/2023 09:03:05 OBGyn Episode No OBEpisode recorded.
--- OUTSIDE RECORDS SUMMARY | 2024-11-05 01:43 | XMS_ITS | Clinical Summary ---
Author Organization [facility] Address [address] [place] [address] Care Team Providers Care Bench Worker Hollow Handle Name Role Phone Camilla Coffman NP Primary Care Provider [phone] Le Claros MD Unavailable [phone] Allergies Active Allergy Reactions Criticality Noted Date Comments Adhesive Rash Medium 02/06/2020 Honey-Hydrocolloid Dressing Nausea & Vomiting Low 0 10/20/2022 Medications rizatriptan SHUCKER (MAXALT-SHUCKER) 10 mg disintegrating tabletIndications: Migraine Take 1 tablet (10 mg total) by mouth once as needed for migraine May repeat in 2 hours if unresolved. Do not exceed 30 mg in 24 hours. 9 tablet 01/30/20 24 025 Active Additional Information Patient not taking.Reported on 10/31/2024 vit 41-sasq-tkmvj-dha 27mg iron- 800 mcg-250 mg capsule Take by mouth Active topiramate (TOPAMAX) 25 mg tabletIndications: Essential Tremor,Migraine Prevention Take 1 tablet twice a day of one week then increase to 2 tablets twice a day. 120 tablet 01/30/20 24 025 Discontin ued(Thera py completed ) DULoxetine DR (CYMBALTA) 60 mg capsule Take 1 capsule (60 mg total) by mouth daily 30 capsule 07/24/19 25 025 Discontin ued(Thera py completed [...] to date - care follow up per [employer] SERVICE TECHNICIAN. -Influenza vaccine every year Recommend: - Topic [...] fludrocortisone Assessment & Plan (07/28/2024 9:13 PM CASING MATERIAL WEIGHER): Symptoms are stable, remain debilitating for her. Will refer to [facility] cardiology. For now will keep her on [...] no Assessment & Plan (07/28/2024 9:12 PM CASING MATERIAL WEIGHER): Did a review of previous medications patient [...] Encounters Date Type Department Care Team Description 10/31/2024 8:00 AM CDT Office Visit [facility] Cardiology [address] [facility] 8th [place] [address] [place] [address] Kate Ashley MD Postural dizziness with presyncope (Primary Dx); POTS (postural orthostatic tachycardia syndrome); Palpitations 10/31/2024 Results Follow-Up [facility] [address] [facility] 8th [place] [address] [place] [address] Kate Ashley MD 10/30/2024 Orders Only [facility] Primary Care at [address] [address] ProviderShimon MD 10/27/2024 Telephone [facility] Primary Care at [address] [phone] Camilla Coffman NP Additional Services Or Orders; Medical Records Request 10/22/2024 2:00 PM CDT Office Visit [facility] Primary Care at [address] [phone] Camilla Coffman NP Annual physical exam (Primary Dx); 8 weeks gestation of 10/21/2024 4:40 PM CDT - 10/21/2024 11:59 PM CDT Hospital Encounter [address] [address] Annual physical exam Discharge Disposition: Discharge to home or self care 10/21/2024 10:45 AM CDT Lab [facility] Outpatient Lab at [address] [phone] POTS (postural orthostatic tachycardia syndrome) (Primary Dx); Annual physical exam 10/17/2024 11:03 AM CDT - 10/17/2024 11:59 PM CDT Hospital Encounter [address] [address] Annual physical exam Discharge Disposition: Discharge to home or self care 10/17/2024 11:00 AM CDT Lab [facility] Outpatient Lab at [address] [phone] Chronic fatigue (Primary Dx) 10/13/2024 10:15 AM CDT Office Visit [facility] [address] [facility] [address] [place] [address] Oneal Resendez II, MD Chronic migraine without aura without status migrainosus, not intractable (Primary Dx); Chronic tension-type headache, not intractable 09/23/2024 Orders Only [facility] Primary Care at [address] [address] Camilla Coffman NP 09/08/2024 Telephone [facility] [address] [facility] 8th [place] [address] [place] [address] Kate Ashley MD from Last 3 Months Immunizations Immunization Administration [...] prediabetes Half-Sister 1 Early Maternal Grandfather Hai Claudette Hypertension Maternal Grandfather Hai Claudette Obesity Maternal Grandfather Hai Wilkins Arthritis Maternal Grandmother Yaquelin Marge Cancer Maternal Grandmother Yaquelin Marge Obesity Maternal Grandmother Yaquelin Marge Allergy (severe) Mother Genia Goodman Anemia Mother [...] Sister Idania Carty Cancer Paternal Grandmother Diane Jang Asthma Sister Cee Goodman Depression Sister Cee Goodman Obesity Sister Cee Goodmna Relation Name Status Comments Daughter 1 Kyle Marcano Alive Daughter 2 Ry Marcano Alive Father Reji Jang Half-Sister 1 Alive Half-Sister 2 Alive Half-Sister [...] Sign Reading Time Taken Comments Blood Pressure 125/86 10/31/2024 7:59 AM CDT Pulse 109 10/31/2024 7:59 AM CDT Temperature 36.5 C (97.7 F) 10/22/2024 2:06 PM CDT Respiratory Rate 18 10/22/2024 2:06 PM CDT Oxygen Saturation 100% 10/31/2024 7:59 AM CDT Inhaled Oxygen Concentration - - Weight 103 kg (227 lb) 10/31/2024 7:59 AM CDT Height 170.2 cm (5' 7 ) 10/31/2024 7:59 AM CDT Body Mass Index 35.55 10/31/2024 7:59 AM CDT Plan of Treatment Health Maintenance Due [...] Procedure Name Priority Date/Time Associated Diagnosis Comments ECG 12-LEAD Routine 10/31/2024 8:09 AM CDT POTS (postural orthostatic tachycardia syndrome) US OB HEART WITH US FOLLOW UP (C) Schedule Routine, Read Routine (OP Routine) 10/30/2024 2:58 PM CDT DIFFERENTIAL AUTO Routine 10/21/2024 12: 00 PM [...] Recently Relevant to Health Maintenance Results * ECG 12 lead (10/31/2024 8:09 AM CDT) Kate Ashley MD ECG ORDERABLES Edited Result - Final * US OB Heart with US Follow up (C) (10/30/2024 2:58 PM CDT) Anatomical Region Laterality Modality Body N/A Ultrasound us Historical Provider IMG OB US PROCEDURES Elena l Result * Differential, auto (10/21/2024 12:00 PM CDT) [...] C[facility]ER CH Neutrophil pct 58.7 % CERNER Comment: Interpretive Data Percent cell count reference ranges are not reported, since discordance with absolute values may lead to misinterpretation of CBC data. Current Interpretive Data was last revised on 2017. Imm gran pct 0.1 % CERNER Comment: Interpretive Data Percent cell count reference ranges are not reported, since discordance with absolute values may lead to misinterpretation of CBC data. Current Interpretive Data was last revised on 2017. Lymphocyte pct 29.3 % CERNER Comment: Interpretive Data Percent cell count reference ranges are not reported, since discordance with absolute values may lead to misinterpretation of CBC data. Current Interpretive Data was last revised on 2017. Monocyte pct 9.7 % CERNER Comment: Interpretive Data Percent cell count reference ranges are not reported, since discordance with absolute values may lead to misinterpretation of CBC data. Current Interpretive Data was last revised on 2017. Eosinophil pct 1.6 % CERNER Comment: Interpretive Data Percent cell count reference ranges are not reported, since discordance with absolute values may lead to misinterpretation of CBC data. Current Interpretive Data was last revised on 2017. Basophil pct 0.6 % [facility] Comment: Interpretive Data Percent cell count reference ranges are not reported, since discordance with absolute values may lead to misinterpretation of CBC data. Current Interpretive Data was last revised on 2017. Blood 10/21/2024 12:0 0 PM CDT 10/21/2024 6:41 PM CDT Caimlla Coffman NP LAB BLOOD ORDERABLES Final Re sult Performing Organization Address City/[facility]/ZIP Co de Phone Number CARLOS WOO [address] [address] [facility] [place] [address] * CBC with auto differential (10/21/2024 12:00 PM CDT) WBC 6.79 3.80 - 9.90 K/cumm Hgb 13.9 11.9 - 15.5 g/dL [facility] Hct 42.8 35.6 - 45.5 % [facility] Plt 294 150 - 400 K/cumm [facility] MPV 10.7 9.1 - 12.3 fL [facility] RBC 4.68 3.90 - 5.20 M/cumm [facility] MCV 91.5 81.3 - 96.4 fL [facility] MCH 29.7 27.1 - 33.3 pg [facility] MCHC 32.5 32.3 - 35.7 g/dL [facility] RDW CV 13.6 11.1 - 14.9 % [facility] RDW SD 45.6 35.7 - 48.1 fL [facility] NRBC abs 0.00 0.00 - 0.01 K/cumm [facility] Blood 10/21/2024 12:0 0 PM CDT 10/21/2024 6:41 PM CDT Camilla Coffman NP LAB BLOOD ORDERABLES Final Re sult CARLOS WOO [address] [address] [place] [address] * eGFR (10/17/2024 11:03 AM CDT) eGFR [...] ORDERABLES Final Re sult Performing Organization Address [facility] Co de Phone Number CARLOS [address] [address] [facility] [place] [place] [address] * Thyroid Function [place] (10/17/2024 11:03 AM CDT) TSH 1.84 0.30 - 4.20 mcIUnit/mL Blood 10/17/2024 11:0 3 AM CDT 10/20/2024 12:05 PM CDT Camilla Coffman NP LAB BLOOD ORDERABLES Final Re sult CARLOS [address] [address] [facility] [place] [address] * Hemoglobin A1c (10/17/2024 11:03 AM CDT) Hgb A1C 5.5 4.0 - 5.6 % Estimated Average Glucose 111 mg/dL CARLOS WOO Comment: The ADA recommends reporting an estimated Average Glucose (eAG) with all Hemoglobin A1c results using the equation derived from a study of 507 normal and diabetic adults. Minority populations were underrepresented and children were not included. (Diabetes Care 31:4890-2403, 2008). The eAG is not equivalent to a fasting glucose. Blood 10/17/2024 11:0 3 AM CDT 10/20/2024 12:05 PM CDT Camilla Coffman NP LAB BLOOD ORDERABLES Final Re sult CARLOS [address] [address] Department [place] [address] * (ABNORMAL) Lipid panel (10/17/2024 11:03 AM [...] 3. Maxim Castillo et al. GINETTE Cardiol. 2020 November 20;5(5):540-548. doi: [...] [place]LO[place] [address] Department [place] [address] * (ABNORMAL) Comprehensive metabolic panel (10/17/2024 11:03 [...] classification and Diagnosis of Diabetes Diabetes Care 202; 46: S19-S40. Current interpretive data was last [...] ORDERABLES Final Re sult Performing Organization Address [facility] de Phone Number CARLOS [address] [address] [place] [address] * Hepatitis C antibody Blood [...] OR DERABLES Final Result Performing Organization Address [facility] Co de Phone Number CARLOS WOO [address] [address] [place] [address] from Last 3 Months or Most Recently Relevant to Health Maintenance Insurance [facility] Care Teams Bench Worker Hollow Handle Relationship Specialty Start Date End Date Camilla Coffman NP PCP - General Family Medicine 10/18/23 Le Claros MD [address] [address] Referring Physician Gynecology 10/22/24
--- OUTSIDE RECORDS SUMMARY | 2024-11-05 01:44 | XMS_ITS | Referral Summary ---
Author Organization [facility] Address [address] [place] [address] Care Team Providers Care Survey Researcher Name Role Phone Camilla Coffman NP Primary Care Provider [phone] Le Claros MD Unavailable [phone] Encounters Date Type Department Care Team Description 10/31/2024 Results Follow-Up [facility] Cardiology [address] [facility] 8th [place] [address] [place] [address] Kate Ashley MD 10/31/2024 8:00 AM CDT Office Visit [facility] Cardiology [address] [facility] 8th [place] [address] [place] [address] Kate Ashley MD Postural dizziness with presyncope (Primary Dx); POTS (postural orthostatic tachycardia syndrome); Palpitations 10/30/2024 Orders Only [facility] Primary Care at [address] [address] ProviderShimon MD 10/27/2024 Telephone [facility] Primary Care at [address] [address] Camilla Coffman NP Additional Services Or Orders; Medical Records Request 10/22/2024 2:00 PM CDT Office Visit [facility] Primary Care at [address] [address] Camilla Coffman NP Annual physical exam (Primary Dx); 8 weeks gestation of 10/21/2024 4:40 PM CDT - 10/21/2024 11:59 PM CDT Hospital Encounter [address] [address] Annual physical exam Discharge Disposition: Discharge to home or self care 10/21/2024 10:45 AM CDT Lab [facility] Outpatient Lab at [address] [address] POTS (postural orthostatic tachycardia syndrome) (Primary Dx); Annual physical exam 10/17/2024 11:03 AM CDT - 10/17/2024 11:59 PM CDT Hospital Encounter [address] [address] Annual physical exam Discharge Disposition: Discharge to home or self care 10/17/2024 11:00 AM CDT Lab [facility] Outpatient Lab at [address] [address] Chronic fatigue (Primary Dx) 10/13/2024 10:15 AM CDT Office Visit [facility] [address] [phone] Oneal Resendez II, MD Chronic migraine without aura without status migrainosus, not intractable (Primary Dx); Chronic tension-type headache, not intractable 09/23/2024 Orders Only [facility] Primary Care at [address] [address] Camilla Coffman NP 09/08/2024 Telephone [facility] Cardiology [address] [place] [address] 8th [place] [address] [place] [phone] Kate Ashley MD from Last 3 Months Allergies Active Allergy Reactions Criticality Noted Date Comments Adhesive Rash Medium 02/06/2020 Honey-Hydrocolloid Dressing Nausea & Vomiting Low 0 10/20/2022 Medications rizatriptan PROGRAM CONTROL ANALYST (MAXALT-PROGRAM CONTROL ANALYST) 10 mg disintegrating tabletIndications: Migraine Take 1 tablet (10 mg total) by mouth once as needed for migraine May repeat in 2 hours if unresolved. Do not exceed 30 mg in 24 hours. 9 tablet 5 01/30/20 24 025 Active Additional Information Patient not taking.Reported on 10/31/2024 vit 85-swcp-yjadi-dha 27mg iron- 800 mcg-250 mg capsule Take [...] to date - care follow up per HAND SPRING REPAIRER. -Influenza vaccine every year Recommend: - Topic [...] fludrocortisone Assessment & Plan (07/28/2024 9:13 PM HEEL BUFFER): Symptoms are stable, remain debilitating for her. Will refer to [facility] cardiology. For now will keep her on [...] no Assessment & Plan (07/28/2024 9:12 PM HEEL BUFFER): Did a review of previous medications patient [...] 10/31/2024 7:59 AM CDT Plan of Treatment Not on file [...] Anatomical Region Laterality Modality Body N/A Ultrasound Historical Provider MD ROGER OB US PROCEDURES Elena l Result * [...] revised on 2017. Basophil pct 0.6 % CERNER Comment: Interpretive Data Percent cell count reference ranges are not reported, since discordance with absolute values may lead to misinterpretation of CBC data. Current Interpretive Data was last revised on 2017. Blood 10/21/2024 12:0 0 PM CDT 10/21/2024 6:41 PM CDT Camilla Coffman INSTRUCTION ASSISTANT PRINCIPAL LAB BLOOD ORDERABLES Final Re sult Performing Organization Address City/[facility] Co de Phone Number CARLOS WOO [address] [address] [facility] [employer] [place], [place] [id number] * CBC with auto differential (10/21/2024 12:00 PM CDT) WBC 6.79 3.80 - 9.90 K/cumm Hgb 13.9 11.9 - 15.5 g/dL [facility] Hct 42.8 35.6 - 45.5 % [facility] Plt 294 150 - 400 K/cumm [facility] MPV 10.7 9.1 - 12.3 fL [facility] CH RBC 4.68 3.90 - 5.20 M/cumm [facility] CH MCV 91.5 81.3 - 96.4 fL [facility] MCH 29.7 27.1 - 33.3 pg [facility] MCHC 32.5 32.3 - 35.7 g/dL [facility] RDW CV 13.6 11.1 - 14.9 % [facility] RDW SD 45.6 35.7 - 48.1 fL [facility] CH NRBC abs 0.00 0.00 - 0.01 K/cumm [facility] CH Blood 10/21/2024 12:0 0 PM CDT 10/21/2024 6:41 PM CDT Camilla Coffman INSTRUCTION ASSISTANT PRINCIPAL LAB BLOOD ORDERABLES Final Re sult Performing Organization Address [facility] Co de Phone Number CARLOS WOO [address] [address] Department of [employer] [place], [place] [phone] * eGFR (10/17/2024 11:03 AM CDT) Pathologist [facility] eGFR >90 >=60 mL/min/1. 73 m2 Comment: [...] ORDERABLES Final Re sult Performing Organization Address [facility] Co de Phone Number CARLOS WOO [address] [place] [address] * Thyroid Function [place] (10/17/2024 11:03 AM CDT) TSH 1.84 0.30 - 4.20 mcIUnit/mL Blood 10/17/2024 11:0 3 AM CDT 10/20/2024 12:05 PM CDT Camilla Coffman NP LAB BLOOD ORDERABLES Final Re sult Performing Organization Address [facility] Co de Phone Number CARLOS WOO [address] [address] Department [place] [address] * Hemoglobin A1c (10/17/2024 11:03 AM CDT) Hgb A1C 5.5 4.0 - 5.6 % Estimated Average Glucose 111 mg/dL CARLOS WOO Comment: The ADA recommends reporting an estimated Average Glucose (eAG) with all Hemoglobin A1c results using the equation derived from a study of 507 normal and diabetic adults. Minority populations were underrepresented and children were not included. (Diabetes Care 31:1953-2534, 2008). The eAG is not equivalent to a fasting glucose. Blood 10/17/2024 11:0 3 AM CDT 10/20/2024 12:05 PM CDT Camilla Coffman NP LAB BLOOD ORDERABLES Final Re sult CARLOS [address] [address] Department [place] [address] * (ABNORMAL) Lipid panel (10/17/2024 11:03 AM [...] 2004;110:227 3. Maxim Hilario al. GINETTE Cardiol. 2019November 20;5(5):540-548. doi: 10.1001/jamacardio.2020.0013 [...] AM CDT 10/20/2024 12:05 PM CDT Camilla A. Coffman INSTRUCTION ASSISTANT PRINCIPAL LAB BLOOD ORDERABLES Final Re sult [facility] [address] Department [place] [address] * (ABNORMAL) Comprehensive metabolic panel (10/17/2024 11:03 [...] CDT 10/20/2024 12:05 PM CDT Camilla Coffman INSTRUCTION ASSISTANT PRINCIPAL LAB BLOOD ORDERABLES Final Re sult Performing Organization Address [facility] [place] [address] [address] Department [place] [address] * Hepatitis C antibody Blood (10/19/2023 11:14 [...] OR DERABLES Final Result Performing Organization Address [facility] [place] Number [place] [address] [address] Department [place] [address] from Last 3 Months or Most Recently Relevant to Health Maintenance Insurance [facility] Care Teams Survey Researcher Relationship Specialty Start Date End Date Camilla Coffman NP PCP - General Family Medicine 10/18/23 Le Claros MD [address] [address] Referring Physician Gynecology 10/22/24
[2024-11-05 01:48] VITALS: BP 129/94; PULSE 97; RESP 18; TEMP 36.8; O2SAT 98
[2024-11-05 02:01] VITALS: BP 115/85; O2SAT 98
[2024-11-05 02:06] LABS: Basophils Absolute Auto 0.1 K/mm3 (0.0-0.1); Basophils Percent Auto 0.7 % (0.2-1.2); Eosinophils Absolute Auto 0.2 K/mm3 (0-0.3); Hematocrit 30.2 % (37.0-47.0); Hemoglobin 9.9 g/dL (12.0-15.0); Immature Granulocyte Absolute 0.03 K/mm3 (0.00-0.031); Immature Granulocyte Percent A 0.3 % (0-0.5); Lymphocytes Absolute Auto 3.44 K/mm3 (0.9-3.2); Lymphocytes Percent Auto 37.4 % (18.3-44.2); Mean Corpuscular HGB Conc 32.8 g/dl (32-36); Mean Corpuscular Hemoglobin 29.1 pg (26-34); Mean Corpuscular Volume 88.8 fl (80-100); Mean Platelet Volume 9.9 fl (7.4-10.4); Monocytes Absolute Auto 0.7 K/mm3 (0.1-0.6); Monocytes Percent Auto 7.5 % (2.6-8.5); Neutrophils Absolute Auto 4.8 K/mm3 (1.3-6.7); Neutrophils Percent Auto 52.1 % (45.5-73.1); Platelet Count Result 332 k/mm3 (150-375); Red Cell Distribution Width 13.8 % (11.5-14.5); White Blood Count 9.2 K/mm3 (4.5-10.0)
--- OUTSIDE RECORDS SUMMARY | 2024-11-05 02:08 | XMS_ITS | Clinical Summary ---
Author Organization [facility] Address [address] [place] [address] Care Team Providers Care Registered Phlebotomist Part Time Name Role Phone Camilla Coffman NP Primary Care Provider [phone] eL Claros MD Unavailable Allergies Active Allergy Reactions Criticality Noted Date Comments Adhesive Rash Medium 02/06/2020 Honey-Hydrocolloid Dressing Nausea & Vomiting Low 0 10/20/2022 Medications rizatriptan I&C TECH (MAXALT-I&C TECH) 10 mg disintegrating tabletIndications: Migraine Take 1 tablet (10 mg total) by mouth once as needed for migraine May repeat in 2 hours if unresolved. Do not exceed 30 mg in 24 hours. 9 tablet 01/30/20 24 025 Active Additional Information Patient not taking.Reported on 10/31/2024 vit 99-idhd-osgdc-dha 27mg iron- 800 mcg-250 mg capsule Take [...] to date - care follow up per TAKE UP SUPERVISOR. -Influenza vaccine every year Recommend: - Topic [...] fludrocortisone Assessment & Plan (07/28/2024 9:13 PM DIESEL ENGINE MECHANIC APPRENTICE): Symptoms are stable, remain debilitating for her. Will refer to [facility] cardiology. For now will keep [...] no Assessment & Plan (07/28/2024 9:12 PM DIESEL ENGINE MECHANIC APPRENTICE): Did a review of previous medications patient [...] Description 10/31/2024 8:00 AM CDT Office Visit [facility] Cardiology [address] 8th [place] [address] [place] [address] Kate Ashley MD Postural dizziness with presyncope (Primary Dx); POTS (postural orthostatic tachycardia syndrome); Palpitations 10/31/2024 Results Follow-Up [facility] Cardiology [address]th [place] [address] [place] [address] Kate Ashley MD 10/30/2024 Orders Only [facility] Primary Care at [address] [address] ProviderShimon MD 10/27/2024 Telephone [facility] Medical [facility] Primary Care at [address] [phone] Camilla Coffman NP Additional Services Or Orders; Medical Records Request 10/22/2024 2:00 PM CDT Office Visit [facility] Medical [facility] Primary Care at [address] [phone] Camilla Coffman NP Annual physical exam (Primary Dx); 8 weeks gestation of 10/21/2024 4:40 PM CDT - 10/21/2024 11:59 PM CDT Hospital Encounter [address] [address] Annual physical exam Discharge Disposition: Discharge to home or self care 10/21/2024 10:45 AM CDT Lab [facility] Medical Group Outpatient Lab at [address] [phone] POTS (postural orthostatic tachycardia syndrome) (Primary Dx); Annual physical exam 10/17/2024 11:03 AM CDT - 10/17/2024 11:59 PM CDT Hospital Encounter [address] [address] Annual physical exam Discharge Disposition: Discharge to home or self care 10/17/2024 11:00 AM CDT Lab [facility] Medical [facility] Outpatient Lab at [address] [phone] Chronic fatigue (Primary Dx) 10/13/2024 10:15 AM CDT Office Visit [facility] [address] [place] [address] Oneal Resendez II, MD Chronic migraine without aura without status migrainosus, not intractable (Primary Dx); Chronic tension-type headache, not intractable 09/23/2024 Orders Only [facility] Primary Care at [address] [address] Camilla Coffman NP 09/08/2024 Telephone [facility] Cardiology [address] 8th [place] [address] [place] [address] Kate Ashley MD from Last [...] Stillbirths Mother Genia Goodman Osteoarthritis Mother Genia oGodman Rheum arthritis Mother Genia Goodman Stroke Mother [...] revised on 2017. Basophil pct 0.6 % [facility] Comment: Interpretive Data Percent cell count reference ranges are not reported, since discordance with absolute values may lead to misinterpretation of CBC data. Current Interpretive Data was last revised on 2017. Blood 10/21/2024 12:0 0 PM CDT 10/21/2024 6:41 PM CDT Camilla Coffman NP LAB BLOOD ORDERABLES Final Re sult Performing Organization Address City/[facility] [address] [facility]/ZIP Co de Phone Number CARLOS WOO [address] [address] [facility] [place] [employer] [place] [address] * CBC with auto differential (10/21/2024 12:00 PM CDT) WBC 6.79 3.80 - 9.90 K/cumm Hgb 13.9 11.9 - 15.5 g/dL [facility] Hct 42.8 35.6 - 45.5 % [facility] Plt 294 150 - 400 K/cumm [facility] MPV 10.7 9.1 - 12.3 fL [facility] RBC 4.68 3.90 - 5.20 M/cumm [facility] MCV 91.5 81.3 - 96.4 fL [facility] MCH 29.7 27.1 - 33.3 pg [facility] MCHC 32.5 32.3 - 35.7 g/dL [facility] RDW CV 13.6 11.1 - 14.9 % [facility] RDW SD 45.6 35.7 - 48.1 fL [facility] NRBC abs 0.00 0.00 - 0.01 K/cumm [facility] Blood 10/21/2024 12:0 0 PM CDT 10/21/2024 6:41 PM CDT Camilla Coffman NP LAB BLOOD ORDERABLES Final Re sult CARLOS WOO [address] [address] Department [place] [employer] [place] [address] * eGFR (10/17/2024 11:03 AM CDT) eGFR [...] ORDERABLES Final Re sult Performing Organization Address [facility] [address] [facility] Co de Phone Number CARLOS [address] [address] [facility] [employer] [place] [address] * Thyroid Function [place] (10/17/2024 11:03 AM CDT) TSH 1.84 0.30 - 4.20 mcIUnit/mL Blood 10/17/2024 11:0 3 AM CDT 10/20/2024 12:05 PM CDT Camilla Coffman NP LAB BLOOD ORDERABLES Final Re sult CARLOS [address] [address] [facility] [employer] [place] [address] * Hemoglobin A1c (10/17/2024 11:03 AM CDT) Hgb A1C 5.5 4.0 - 5.6 % Estimated Average Glucose 111 mg/dL CARLOS WOO Comment: The ADA recommends reporting an estimated Average Glucose (eAG) with all Hemoglobin A1c results using the equation derived from a study of 507 normal and diabetic adults. Minority populations were underrepresented and children were not included. (Diabetes Care 31:5899-8722, 2008). The eAG is not equivalent to a fasting glucose. Blood 10/17/2024 11:0 3 AM CDT 10/20/2024 12:05 PM CDT Camilla Coffman NP LAB BLOOD ORDERABLES Final Re sult CARLOS [address] [address] [place] [address] * (ABNORMAL) Lipid panel (10/17/2024 11:03 AM [...] [place]LOOD [place] [address] [place] [address] * (ABNORMAL) Comprehensive metabolic panel [...] ORDERABLES Final Re sult Performing Organization Address [facility] de Phone Number CARLOS [address] [address] [place] [employer] [place] [address] * Hepatitis C antibody Blood [...] OR DERABLES Final Result Performing Organization Address [facility] [address]/[facility] Co de Phone Number CARLOS WOO [address] [address] [place] [place] [address] from Last 3 Months or Most Recently Relevant to Health Maintenance Insurance [facility] Care Teams Registered Phlebotomist Part Time Relationship Specialty Start Date End Date Camilla Coffman NP PCP - General Family Medicine 10/18/23 Le Claros MD [address] [address] Referring Physician Gynecology 10/22/24
--- OUTSIDE RECORDS SUMMARY | 2024-11-05 02:08 | XMS_ITS | Referral Summary ---
Author Organization [facility] Address [address] [place] [address] Care Team Providers Care Stabilizing Machine Operator Name Role Phone Camilla Coffman NP Primary Care Provider [phone] Le Claros MD Unavailable [phone] Encounters Date Type Department Care Team Description 10/31/2024 Results Follow-Up [facility] Cardiology [address] 8th [place] [address] [place] [address] Kate Ashley MD 10/31/2024 8:00 AM CDT Office Visit [facility] Cardiology [address] [facility] 8th [place] [address] [place] [address] Kate Ashley MD Postural dizziness with presyncope (Primary Dx); POTS (postural orthostatic tachycardia syndrome); Palpitations 10/30/2024 Orders Only [facility] Medical Group Primary Care at [address] [address] ProviderShimon MD 10/27/2024 Telephone [facility] Medical Group Primary Care at [address] [address] Camilla Coffman NP Additional Services Or Orders; Medical Records Request 10/22/2024 2:00 PM CDT Office Visit [facility] Medical Group Primary Care at [address] [address] Camilla Coffman NP Annual physical exam (Primary Dx); 8 weeks gestation of 10/21/2024 4:40 PM CDT - 10/21/2024 11:59 PM CDT Hospital Encounter [address] [address] Annual physical exam Discharge Disposition: Discharge to home or self care 10/21/2024 10:45 AM CDT Lab [facility] Medical Group Outpatient Lab at [address] [address] POTS (postural orthostatic tachycardia syndrome) (Primary Dx); Annual physical exam 10/17/2024 11:03 AM CDT - 10/17/2024 11:59 PM CDT Hospital Encounter [address] [address] Annual physical exam Discharge Disposition: Discharge to home or self care 10/17/2024 11:00 AM CDT Lab [facility] Outpatient Lab at [address] [address] Chronic fatigue (Primary Dx) 10/13/2024 10:15 AM CDT Office Visit [facility] [address], [place] [phone] Oneal Resendez II, MD Chronic migraine without aura without status migrainosus, not intractable (Primary Dx); Chronic tension-type headache, not intractable 09/23/2024 Orders Only [facility] Medical Group Primary Care at [address] [address] Camilla Coffman NP 09/08/2024 Telephone [facility] Cardiology [address] [place] [address] 8th [place] [address] [place] [phone] Kate Ashley MD from Last 3 Months Allergies Active Allergy Reactions Criticality Noted Date Comments Adhesive Rash Medium 02/06/2020 Honey-Hydrocolloid Dressing Nausea & Vomiting Low 0 10/20/2022 Medications rizatriptan COVERAGE ANALYST (MAXALT-COVERAGE ANALYST) 10 mg disintegrating tabletIndications: Migraine Take 1 tablet (10 mg total) by mouth once as needed for migraine May repeat in 2 hours if unresolved. Do not exceed 30 mg in 24 hours. 9 tablet 5 01/30/20 24 025 Active Additional Information Patient not taking.Reported on 10/31/2024 vit 32-rciq-erars-dha 27mg iron- 800 mcg-250 mg capsule Take [...] to date - care follow up per [facility] GOLD ATTENDANT. -Influenza vaccine every year Recommend: - Topic [...] fludrocortisone Assessment & Plan (07/28/2024 9:13 PM RN INTERNAL MEDICINE): Symptoms are stable, remain debilitating for her. Will refer to [facility] cardiology. For now will keep [...] no Assessment & Plan (07/28/2024 9:12 PM RN INTERNAL MEDICINE): Did a review of previous medications patient [...] CDT 10/21/2024 6:41 PM CDT Camilla Coffman HELMINTHOLOGY TEACHER LAB BLOOD ORDERABLES Final Re sult Performing Organization Address City/[facility] Co de Phone Number CARLOS WOO [address] [address] [facility] [employer] [place], [place] [id number] * CBC with auto differential (10/21/2024 12:00 PM CDT) WBC 6.79 3.80 - 9.90 K/cumm Hgb 13.9 11.9 - 15.5 g/dL [facility] Hct 42.8 35.6 - 45.5 % [facility] Plt 294 150 - 400 K/cumm [facility] MPV 10.7 9.1 - 12.3 fL [facility] RBC 4.68 3.90 - 5.20 M/cumm [facility] MCV 91.5 81.3 - 96.4 fL [facility] MCH 29.7 27.1 - 33.3 pg [facility] MCHC 32.5 32.3 - 35.7 g/dL [facility] RDW CV 13.6 11.1 - 14.9 % [facility] RDW SD 45.6 35.7 - 48.1 fL [facility] CH NRBC abs 0.00 0.00 - 0.01 K/cumm [facility] CH Blood 10/21/2024 12:0 0 PM CDT 10/21/2024 6:41 PM CDT Camilla Coffman HELMINTHOLOGY TEACHER LAB BLOOD ORDERABLES Final Re sult Performing Organization Address [facility] Co de Phone Number CARLOS WOO [address] Department of [employer] [place], [place] [id number] * eGFR (10/17/2024 11:03 AM CDT) Pathologist [facility] eGFR >90 >=60 mL/min/1. 73 m2 Comment: [...] ORDERABLES Final Re sult Performing Organization Address [facility] Co de Phone Number CARLOS WOO [address] [address] [place] [address] * Thyroid Function [place] (10/17/2024 11:03 AM CDT) TSH 1.84 0.30 - 4.20 mcIUnit/mL Blood 10/17/2024 11:0 3 AM CDT 10/20/2024 12:05 PM CDT Camilla Coffman NP LAB BLOOD ORDERABLES Final Re sult Performing Organization Address [facility] Co de Phone Number CARLOS WOO [address] [address] [place] [address] * Hemoglobin A1c (10/17/2024 11:03 AM CDT) Hgb A1C 5.5 4.0 - 5.6 % Estimated Average Glucose 111 mg/dL CARLOS WOO Comment: The ADA recommends reporting an estimated Average Glucose (eAG) with all Hemoglobin A1c results using the equation derived from a study of 507 normal and diabetic adults. Minority populations were underrepresented and children were not included. (Diabetes Care 31:2510-2131, 2008). The eAG is not equivalent to a fasting glucose. Blood 10/17/2024 11:0 3 AM CDT 10/20/2024 12:05 PM CDT Camilla Coffman NP LAB BLOOD ORDERABLES Final Re sult CARLOS [address] [address] [place] [address] * (ABNORMAL) Lipid panel (10/17/2024 11:03 AM [...] 10/20/2024 12:05 PM CDT Camilla A. Coffman HELMINTHOLOGY TEACHER LAB BLOOD ORDERABLES Final Re sult [facility] [address] Department [place] [address] * (ABNORMAL) Comprehensive metabolic panel (10/17/2024 11:03 [...] CDT 10/20/2024 12:05 PM CDT Camilla Coffman HELMINTHOLOGY TEACHER LAB BLOOD ORDERABLES Final Re sult Performing Organization Address [facility] [place] Number [place] [address] [address] Department [place] [address] * Hepatitis C antibody Blood (10/19/2023 11:14 [...] OR DERABLES Final Result Performing Organization Address [facility] [place] Number [place] [address] [address] Department [place] [address] from Last 3 Months or Most Recently Relevant to Health Maintenance Insurance [facility] Care Teams Stabilizing Machine Operator Relationship Specialty Start Date End Date Camilla Coffman NP PCP - General Family Medicine 10/18/23 Le Claros MD [address] [address] Referring Physician Gynecology 10/22/24
--- OUTSIDE RECORDS SUMMARY | 2024-11-05 02:08 | XMS_ITS | Clinical Summary ---
Author Organization [facility] Address [address] [facility] [place] [address] Care Team Providers Care Enrollment Processor Name Role Phone Sameer Aggarwal MD Unavailable Stephanie Villagomez DO Primary Care Provider [phone] Source Comments [facility],non-owned Affiliates and Associated Physician Practices is amultiple site organization consisting of ambulatory clinics and hospital sitesin [place], [place], [place] and [place]. This disclosure is being madepursuant to the Care Everywhere program and may not contain all information available regarding this patient. Last updated 18.[facility] Allergies Active Allergy Reactions Criticality Noted Date Comments Adhesive Sensitivity Rash Medium 02/06/2020 Saline Dizziness,Palpitatio ns,Shortness of Breath,Wheezing High 05/14/2011 Medications * Be aware that medications may not be up to date on this document. Alwaysverify current medications with the patient. vitamin D, ergocalciferol, (DRISDOL) 1.25 MG (83654 UT) capsule Take 1 capsule by mouth [...] Sex Assigned at Female 09/16/2020 2:24 PM THERMAL CUTTING TRACER MACHINE OPERATOR Legal Sex Female 5:19 PM THERMAL CUTTING TRACER MACHINE OPERATOR Gender Identity Female 09/16/2020 2:24 PM THERMAL CUTTING TRACER MACHINE OPERATOR Sexual Orientation Straight 09/16/2020 2: 24 PM THERMAL CUTTING TRACER MACHINE OPERATOR Last Filed Vital Signs Vital Sign Reading [...] purpose. For additional information please refer to http://education.Instamour.Easiaid/faq/PAU549 (This link is being provided for informational/ educational purposes only.) The performance of this assay has not been clinically validated in patients less than 2 years old. Test Performed at: [facility] [address] [address] [place] [address] ASAD ZAPIEN DO,MPH 02/06/2020 2:50 PM CDT 02/06/2020 2:52 PM CDT us Stephanie Villagomez DO LAB - CHEMISTRY ORDERABLES Elena acevedo Result [facility] [id number] [place] [address] from Last 3 Months or Most Recently Relevant to Health Maintenance Insurance MEDICAID - OUT OF STATE Care Teams Enrollment Processor Relationship Specialty Start Date End Date Stephanie Villagomez DO [address] OF [facility] [place] [phone] PCP - General 05/06/21 Sameer Aggarwal MD [address] [facility] [place] [phone] Resident - PCP Student Resident 05/06/21
--- OUTSIDE RECORDS SUMMARY | 2024-11-05 02:08 | XMS_ITS | Encounter Summary ---
Author Organization [facility] Address [address] [place] [address] Phone Care Team Providers Care Cost Estimator Name Role Phone Camilla Coffman NP Primary Care Provider [phone] Le Claros MD Unavailable [phone] Encounter Details Date Type Department Care Team (Late st Contact Info) Description 10/31/2024 Results Follow-Up [facility] Cardiology [address] [facility] 8th [place] [address] [place] [address] Kate Ashley MD [address] [facility] [address] [place] [address] Social History Tobacco Use Types Packs/Day Years [...] on filedocumented in this encounter Care Teams Cost Estimator Relationship Specialty Start Date End Date Camilla Coffman NP PCP - General Family Medicine 10/18/23 Le Claros MD [address] [address] Referring Physician Gynecology 10/22/24 documented as of this encounter
[2024-11-05 02:15] LABS: Alanine Aminotransferase 39 U/L (6-35); Albumin Level 4.3 g/dL (3.5-5.1); Alkaline Phosphatase 78 U/L (38-126); Anion Gap 11 mmol/L (4-12); Aspartate Amino Transferase 31 U/L (14-36); Bilirubin,Total 0.3 mg/dL (0.2-1.3); Blood Urea Nitrogen 10 mg/dL (7-17); Calcium 9.3 mg/dL (8.4-10.2); Carbon Dioxide 21 mmol/L (22-30); Chloride 106 mmol/L (98-107); Estimated CRCL calculation 117 ml/min; Estimated Glomerular Filt Rate > 60; Glucose 119 mg/dL (65-110); Potassium 3.6 mmol/L (3.4-5.0); Sodium 138 mmol/L (137-145)
--- NOTE | 2024-11-05 02:15 | ED_ITS ---
HPI - Female Genitourinary General Chief complaint: Vaginal Bleeding Stated complaint: vaginal bleeding Time Seen by Provider: 11/05/24 01:57 History of Present Illness HPI Narrative: Patient is a 34-year-old female who presents the emergency department this evening complaining of vaginal bleeding which charted at 10:30 p.m.. Patient states that last week on October 29 she was seen our facility for a miscarriage. At that time her beta-hCG was 7000. Patient states that at that time she did pass large amounts of a tissue including a sac. Since then, patient has been having light vaginal bleeding throughout the past week until last night with the bleeding increase. Patient states that she has gone through 2 pads every hour for the past 3 hours. Admits to mild cramping. Since her last ED visit, patient has seen her doctor and had a repeat beta-hCG which was noted to be in the for thousands. Currently denies any additional symptoms or concerns at this time. Related Data Home Medications ?Medication ?Instructions ?Recorded ?Confirmed ?Last Taken ?Type cholecalciferol (vitamin D3) 1,250 See Rx Instructions .Route .COMPLEX 07/01/19 Unknown History mcg (50,000 unit) tablet (Dialyvite Vitamin D3 Max) cholecalciferol (vitamin D3) 50 2,000 unit PO DAILY 07/01/19 Unknown History mcg (2,000 unit) tablet escitalopram oxalate 20 mg tablet 20 mg PO DAILY 07/01/19 Unknown History vitamin no.49-iron See Rx Instructions PO .COMPLEX 07/01/19 Unknown History fum-folic acid 6.75 mg iron-200 mcg tablet (Mini ) selenium sulfide 2.5 % lotion See Rx Instructions .Route .COMPLEX 07/01/19 Unknown History trazodone 100 mg tablet 100 mg PO DAILY 07/02/19 Unknown History Allergies Allergy/AdvReac Type Severity Reaction Status Date / Time No Known Allergies Allergy Verified 11/05/24 01:54 Review of Systems 2 Review of Systems: All systems are reviewed and are negative unless stated otherwise in the HPI. [facility] Past Medical History Medical History POTS (postural orthostatic tachycardia syndrome) NATALIE (obstructive sleep apnea) Depression Surgical History Surgical History History of cholecystectomy Family History Family History Mother Family history of thyroid disease Family history of hypercholesterolemia Depression Family history of migraine headaches Hypertension Sibling Family history of hypercholesterolemia Hypertension Father Family history of cardiovascular disease Other Carcinoma of colon Diabetes mellitus Family history of elevated blood lipids Family history of malignant neoplasm Family history of malignant neoplasm of ovary Social History Social History Smoking status: Current every day smoker Alcohol intake: current Exam 2 Narrative: General: Alert, awake, afebrile, in no acute distress. HEENT: PERRL, no rhinorrhea, no post nasal drip, oropharynx clear. Neck: Trachea midline, no JVD, no lymphadenopathy. Cardiovascular: Regular rate and rhythm, no murmurs, rubs or gallops, no peripheral edema. Respiratory: Clear to auscultation bilaterally, no tachypnea, no wheezing, no rhonchi, no rubs, no respiratory distress. Abdomen: Soft, nontender, nondistended, no rebound, no guarding, no peritoneal signs. Pelvic: Exam was performed with the presence of female nurse grocery carrier revealing small amount of blood in the vaginal canal, there is a moderate size blood clot/ tissue trying to pass through the cervix. Musculoskeletal: No joint swelling or deformity, normal muscle tone. Skin: No rashes or petechia, no signs of infection. Psychiatric: Alert and oriented, normal behavior and judgment for situation. Neurological: Alert and oriented to person, place, and time. Follows all commands. No focal deficits, speech is clear and fluent. Course Vital Signs Vital signs: Vital Signs Temperature 98.3 F 11/05/24 01:48 Pulse Rate 97 11/05/24 01:48 Respiratory Rate 18 11/05/24 01:48 Blood Pressure 129/94 H 11/05/24 01:48 Pulse Oximetry 98 11/05/24 01:48 Oxygen Delivery Room Air 11/05/24 01:48 Temperature 98.3 F 11/05/24 01:48 Pulse Rate 97 11/05/24 01:48 Respiratory Rate 18 11/05/24 01:48 Blood Pressure 115/85 11/05/24 02:01 Pulse Oximetry 98 11/05/24 02:01 Oxygen Delivery Room Air 11/05/24 01:48 MDM - Female Genitourinary MDM Narrative Medical decision making narrative: The patient was evaluated by myself in the emergency department. History is obtained from patient who is an independent historian and physical exam was performed. External medical records were reviewed at this time. IV was established and pertinent tests were ordered. Laboratory results obtained revealing a hemoglobin of 9.9. Patient's last documented hemoglobin from a October 29 of this month was 11.2. Patient's blood type is O positive. Differential diagnosis considerations include threatened miscarriage, incomplete miscarriage, retained products of conception. Based on patient's clinical presentation, vital signs, physical examination including pelvic examination, I do not feel as though an emergent D & C is indicated at this time. This was discussed with the patient at bedside who is in agreement. While in the emergency department, patient soaked through one pad in 1 hour. Comorbidities impacting this visit include none. I have evaluated and discussed social determinants of health with the patient that could potentially impact subsequent diagnosis and treatment plans. On repeat assessment of the patient, reevaluation revealed that the patient is doing well and is in no acute distress. Patient symptoms have improved since she arrived to our emergency department. Repeat vital signs were all reviewed and noted to be stable. Differential diagnosis and treatment plan were discussed with the patient at bedside. Patient agrees with discussion and after shared medical decision making agrees with discharge. All questions were answered to the patient's satisfaction. Patient will follow up with her OBGYN Dr. Claros within the next 2 days. She was scheduled for pelvic ultrasound to be performed at this morning at 7:30 a.m. to evaluate for retained products of conception. Patient was also instructed return to the emergency department immediately if she starts to stroke greater than 2 pads per hour, starts to feel dizzy or lightheaded. Patient was provided with strict return precautions and instructed to return to the emergency department if any new or worsening symptoms develop. The patient was discharged in stable condition. Lab Data 11/05/24 01:59 11/05/24 01:59 Labs: Lab Results 11/05/24 Range/Units 01:59 WBC 9.2 (4.5-10.0) K/mm3 RBC 3.40 L (4.2-5.4) M/mm3 Hgb 9.9 L (12.0-15.0) g/dL Hct 30.2 L (37.0-47.0) % MCV 88.8 (80-100) fl MCH 29.1 (26-34) pg MCHC 32.8 (32-36) g/dl RDW 13.8 (11.5-14.5) % Plt Count 332 (150-375) k/mm3 MPV 9.9 (7.4-10.4) fl Immature Gran % (Auto) 0.3 (0-0.5) % Neut % (Auto) 52.1 (45.5-73.1) % Lymph % (Auto) 37.4 (18.3-44.2) % [place] % (Auto) 7.5 (2.6-8.5) % Eos % (Auto) 2.0 (0-4.4) % Baso % (Auto) 0.7 (0.2-1.2) % Lymph # (Auto) 3.44 H (0.9-3.2) K/mm3 [place] # (Auto) 0.7 H (0.1-0.6) K/mm3 Eos # (Auto) 0.2 (0-0.3) K/mm3 Baso # (Auto) 0.1 (0.0-0.1) K/mm3 Abs Immat Gran (auto) 0.03 (0.00-0.031) K/mm3 Absolute Neuts (auto) 4.8 (1.3-6.7) K/mm3 Absolute Nucleated RBC 0.000 (0.0-0.012) K/mm3 Nucleated RBC % 0.0 (0.0-0.2) % Sodium 138 (137-145) mmol/L Potassium 3.6 (3.4-5.0) mmol/L Chloride 106 (98-107) mmol/L Carbon Dioxide 21 L (22-30) mmol/L Anion Gap 11 (4-12) mmol/L BUN 10 (7-17) mg/dL Creatinine 0.69 L (0.7-1.0) mg/dL Estim Creat Clear Calc 117 ml/min Estimated GFR > 60 (59 - ) Glucose 119 H (65-110) mg/dL Calcium 9.3 (8.4-10.2) mg/dL Total Bilirubin 0.3 (0.2-1.3) mg/dL AST 31 (14-36) U/L ALT 39 H (6-35) U/L Alkaline Phosphatase 78 (38-126) U/L Total Protein 7.0 (6.3-8.2) g/dL Albumin 4.3 (3.5-5.1) g/dL Beta HCG, Quant 2509.20 mIU/ML Discharge Plan Discharge Clinical Impression: Incomplete miscarriage Patient Disposition: Home Condition: Improved Instructions: Antibiotic Form, Miscarriage (ED) Additional Instructions: Please return back to the hospital at 7:30 a.m. for your scheduled pelvic ultrasound to evaluate for retained products of conception. Your beta hCG today was noted to be 2500. You will need to follow-up with your OBGYN within the next 24-48 hours. Return to the emergency department if you are having heavy vaginal bleeding and soaking through more than pads per hour, if you feel any dizziness or lightheadedness. Patient Language: [place] Prescriptions: No Action Dialyvite Vitamin D3 Max 50,000 unit tablet See Rx Instructions .ROUTE .COMPLEX Rx Instructions: take one tablet oral route 2 times a week ; escitalopram oxalate 20 mg tablet 20 mg PO DAILY Mini 6.75 mg iron- 200 mcg tablet See Rx Instructions PO .COMPLEX Rx Instructions: take one tablet by oral route daily in morning PO ; cholecalciferol (vitamin D3) 2,000 unit tablet 2,000 unit PO DAILY selenium sulfide 2.5 % lotion See Rx Instructions .ROUTE .COMPLEX Rx Instructions: apply by topical route to the affected areas on the back 3 times daily for 1 week; leave on 15 mmins. then rinse off ; trazodone 100 mg tablet 100 mg PO DAILY meclizine 25 mg tablet 25 mg PO BID PRN (Reason: dizziness) Qty: 20 0RF naproxen 500 mg tablet 500 mg PO BID Qty: 20 0RF Other Ambulatory Orders: US pelvic complete w TV (Routine) Timeframe: 20241105 Location: Determined by Patient Ordered By: Chele Pelaez Follow-up/Referrals: Le Claros MD [Physician] - 2 Days Coffman,MADELINE Landis [Primary Care Provider] - Time of Disposition: 02:44
== END 2024-11-05 02:56 | disposition home or self-care (01) ==
PROVIDERS: Emergency Provider Emergency Medicine; PCP Nurse Practitioner Family
DX: O03.4 Incomplete spontaneous abortion without complication (principal); F17.210 Nicotine dependence, cigarettes, uncomplicated; G47.30 Sleep apnea, unspecified; F32.A Depression, unspecified
CPT/HCPCS: 36415; 80053; 84702; 85025; 99284

== ENCOUNTER 2024-11-05 08:08 | Outpatient (CLI) | payer OTHER, SELFPAY ==
--- NOTE | ~2024-11-05 | US_ITS ---
EXAMINATION: US pelvic complete w TV DATE: 11/05/2024 09:06 INDICATION: Incomplete spontaneous without complication. TECHNIQUE: Multiple transabdominal and endovaginal sonographic images of the pelvis were obtained. COMPARISON: 10/24/2024 and 11/08/2024 FINDINGS: The uterus measures 10.4 x 5.4 x 6.3 cm. The endometrial complex measures 8 mm in thickness at the f undus. 1 cm anechoic cystic lesion with irregular margins centered within a 4.7 x 3.7 x 4.1 cm echoge barbra mass within the lower uterine segment and endocervical canal. There are foci of echogenic gas at the periphery of the mass which demonstrates no internal vascular flow on color Doppler. Appearance m ost suggestive of the gestational sac and surrounding products of conception in the setting of a pers istent in progress. No evident yolk sac or pole within the cystic region. The right an d left ovaries are not visualized. There is no free fluid in the pelvis. IMPRESSION: 1. 4.7 cm centrally cystic mass within the endocervical canal and endometrial canal of the lower uter ine segment consistent with a likely gestational sac and surrounding product of conception in the set ting of missed versus persistent in progress. Reviewed, dictated and finalized at location A. IMPRESSION: 1. 4.7 cm centrally cystic mass within the endocervical canal and endometrial c anal of the lower uterine segment consistent with a likely gestational sac and surrounding product of conception in the setting of missed versus pers istent in progress.
--- OUTSIDE RECORDS SUMMARY | 2024-11-05 08:18 | XMS_ITS | Encounter Summary ---
Author Organization [facility] Address [address] [place] [address] Phone Care Team Providers Care Cigar Inspector Name Role Phone Camilla Coffman NP Primary Care Provider [phone] Le Claros MD Unavailable [phone] Encounter Details Date Type Department Care Team (Late st Contact Info) Description 10/31/2024 Results Follow-Up [facility] Cardiology [address] [facility] 8th [place] [address] [place] [phone] Kate Ashley MD [address] [place] [address] Social History Tobacco Use Types Packs/Day Years [...] on filedocumented in this encounter Care Teams Cigar Inspector Relationship Specialty Start Date End Date Camilla Coffman NP PCP - General Family Medicine 10/18/23 Le Claros MD [address] [address] Referring Physician Gynecology 10/22/24 documented as of this encounter
--- OUTSIDE RECORDS SUMMARY | 2024-11-05 08:19 | XMS_ITS | Clinical Summary ---
Author Organization [facility] Address [address] [place] [address] Care Team Providers Care White Shoe Ragger Name Role Phone Sameer Aggarwal MD Unavailable Stephanie Villagomez DO Primary Care Provider [phone] Source Comments [facility],non-owned Affiliates and Associated Physician Practices is amultiple site organization consisting of ambulatory clinics and hospital sitesin [place], [place], [place] and [place]. This disclosure is being madepursuant to the Care Everywhere program and may not contain all information available regarding this patient. Last updated 18.[facility] Allergies Active Allergy Reactions Criticality Noted Date Comments Adhesive Sensitivity Rash Medium 02/06/2020 Saline Dizziness,Palpitatio ns,Shortness of Breath,Wheezing High 05/14/2011 Medications * Be aware that medications may not be up to date on this document. Alwaysverify current medications with the patient. vitamin D, ergocalciferol, (DRISDOL) 1.25 MG (47842 UT) capsule Take 1 capsule by mouth [...] Sex Assigned at Female 09/16/2020 2:24 PM PRINCIPAL SYSTEMS ARCHITECT Legal Sex Female 5:19 PM PRINCIPAL SYSTEMS ARCHITECT Gender Identity Female 09/16/2020 2:24 PM PRINCIPAL SYSTEMS ARCHITECT Sexual Orientation Straight 09/16/2020 2: 24 PM PRINCIPAL SYSTEMS ARCHITECT Last Filed Vital Signs Vital Sign Reading Time Taken Comments Blood Pressure 110/84 12/24/2020 2:09 PM CDT Pulse 96 12/24/2020 2:09 PM CDT Temperature 36.9 C (98.5 F) 04/15/2020 8:43 AM CDT Respiratory Rate - - Oxygen Saturation 98% 12/24/2020 2:09 PM CDT Inhaled Oxygen Concentration - - Weight 101.7 kg (224 lb 3.2 oz) 12/24/2020 2:09 PM CDT Height 167.6 cm (5' 6) 12/24/2020 2:09 PM CDT Body Mass Index [...] purpose. For additional information please refer to http://education.[employer].TextPayMe/faq/DMT271 (This link is being provided for informational/ educational purposes only.) The performance of this assay has not been clinically validated in patients less than 2 years old. Test Performed at: [facility] [employer] [address] [address] [facility] [place] [address] ASAD ZAPIEN DO,MPH 02/06/2020 2:50 PM CDT 02/06/2020 2:52 PM CDT us Stepahnie Villagomez DO LAB - CHEMISTRY ORDERABLES Elena acevedo Result [facility] [address] [place] [address] from Last 3 Months or Most Recently Relevant to Health Maintenance Insurance MEDICAID - OUT OF STATE Care Teams White Shoe Ragger Relationship Specialty Start Date End Date Stephanie Villagomez DO [address] OF [facility] [place] [id number] PCP - General 05/06/21 Sameer Aggarwal MD [address] [facility] [place] [phone] Resident - PCP Student Resident 05/06/21
--- OUTSIDE RECORDS SUMMARY | 2024-11-05 08:19 | XMS_ITS | Clinical Summary ---
Author Organization [facility] Address [address] [place] [address] Care Team Providers Care Interior Design Professional Name Role Phone Camilla Coffman NP Primary Care Provider [phone] Le Claros MD Unavailable [phone] Allergies Active Allergy Reactions Criticality Noted Date Comments Adhesive Rash Medium 02/06/2020 Honey-Hydrocolloid Dressing Nausea & Vomiting Low 0 10/20/2022 Medications rizatriptan PROTEIN SPECIALIST (MAXALT-PROTEIN SPECIALIST) 10 mg disintegrating tabletIndications: Migraine Take 1 tablet (10 mg total) by mouth once as needed for migraine May repeat in 2 hours if unresolved. Do not exceed 30 mg in 24 hours. 9 tablet 01/30/20 24 025 Active Additional Information Patient not taking.Reported on 10/31/2024 vit 65-qgdc-fektb-dha 27mg iron- 800 mcg-250 mg capsule Take [...] to date - care follow up per SHELL MOLDER. 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 Will refer to [facility] cardiology. 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 8th [place] [address] [place] [address] Kate Ashley MD Postural dizziness with presyncope (Primary Dx); POTS (postural orthostatic tachycardia syndrome); Palpitations 10/31/2024 Results Follow-Up [facility] Cardiology [address] [facility] 8th [place] [address] [place] [address] Kate Ashley MD 10/30/2024 Orders Only [facility] Primary Care at [address] [address] ProviderShimon MD 10/27/2024 Telephone [facility] Medical [facility] Primary Care at [address] [phone] Camilla Coffman NP Additional Services Or Orders; Medical Records Request 10/22/2024 2:00 PM CDT Office Visit [facility] Medical [facility] Primary Care at [address] [phone] Camilla Coffman NP Annual physical exam (Primary Dx); 8 weeks gestation of 10/21/2024 4:40 PM CDT - 10/21/2024 11:59 PM CDT Hospital Encounter [address] [address] Annual physical exam Discharge Disposition: Discharge to home or self care 10/21/2024 10:45 AM CDT Lab [facility] Outpatient Lab at [address] [phone] POTS (postural orthostatic tachycardia syndrome) (Primary Dx); Annual physical exam 10/17/2024 11:03 AM CDT - 10/17/2024 11:59 PM CDT Hospital Encounter [address] [address] Annual physical exam Discharge Disposition: Discharge to home or self care 10/17/2024 11:00 AM CDT Lab [facility] Medical [facility] Outpatient Lab at [address] [phone] Chronic fatigue (Primary Dx) 10/13/2024 10:15 AM CDT Office Visit [facility] [address] [facility] [address] [place] [address] Oneal Resendez II, MD Chronic migraine without aura without status migrainosus, not intractable (Primary Dx); Chronic tension-type headache, not intractable 09/23/2024 Orders Only [facility] Primary Care at [address] [phone] Camilla Coffman NP 09/08/2024 Telephone [facility] Cardiology [address] [facility] 8th [place] [address] [place] [address] Kate Ashley MD from Last [...] 7:59 AM CDT Height 170.2 cm (5' 7) 10/31/2024 7:59 AM CDT Body Mass Index [...] revised on 2017. Basophil pct 0.6 % [facility] Comment: Interpretive Data Percent cell count reference ranges are not reported, since discordance with absolute values may lead to misinterpretation of CBC data. Current Interpretive Data was last revised on 2017. Blood 10/21/2024 12:0 0 PM CDT 10/21/2024 6:41 PM CDT Camilla Coffman NP LAB BLOOD ORDERABLES Final Re sult Performing Organization Address City/[facility]/ZIP Co de Phone Number [facility] [address] [facility] [employer] [place] [address] * CBC with auto differential (10/21/2024 12:00 PM CDT) WBC 6.79 3.80 - 9.90 K/cumm Hgb 13.9 11.9 - 15.5 g/dL [facility] Hct 42.8 35.6 - 45.5 % [facility] Plt 294 150 - 400 K/cumm [facility] MPV 10.7 9.1 - 12.3 fL [facility] RBC 4.68 3.90 - 5.20 M/cumm [facility] MCV 91.5 81.3 - 96.4 fL [facility] MCH 29.7 27.1 - 33.3 pg [facility] MCHC 32.5 32.3 - 35.7 g/dL [facility] RDW CV 13.6 11.1 - 14.9 % [facility] RDW SD 45.6 35.7 - 48.1 fL [facility] NRBC abs 0.00 0.00 - 0.01 K/cumm [facility] Blood 10/21/2024 12:0 0 PM CDT 10/21/2024 6:41 PM CDT Camilla Coffman NP LAB BLOOD ORDERABLES Final Re sult [facility] [address] [place] [address] * eGFR (10/17/2024 11:03 AM CDT) eGFR [...] ORDERABLES Final Re sult Performing Organization Address [facility] Co de Phone Number CARLOS [address] [facility] [place] [address] * Thyroid Function I[place] (10/17/2024 11:03 AM CDT) TSH 1.84 0.30 - 4.20 mcIUnit/mL Blood 10/17/2024 11:0 3 AM CDT 10/20/2024 12:05 PM CDT Camilla Coffman NP LAB BLOOD ORDERABLES Final Re sult [facility] [address] [facility] [place] [address] * Hemoglobin A1c (10/17/2024 11:03 AM CDT) Hgb A1C 5.5 4.0 - 5.6 % Estimated Average Glucose 111 mg/dL [facility] Comment: The ADA recommends reporting an estimated Average Glucose (eAG) with all Hemoglobin A1c results using the equation derived from a study of 507 normal and diabetic adults. Minority populations were underrepresented and children were not included. (Diabetes Care 31:5822-2268, 2008). The eAG is not equivalent to a fasting glucose. Blood 10/17/2024 11:0 3 AM CDT 10/20/2024 12:05 PM CDT Camilla Coffman NP LAB BLOOD ORDERABLES Final Re sult [facility] [address] Department [place] [address] * (ABNORMAL) Lipid panel (10/17/2024 11:03 AM [...] BLOOD [place] [address] [place] [address] * (ABNORMAL) Comprehensive metabolic panel [...] ORDERABLES Final Re sult Performing Organization Address [facility] de Phone Number CARLOS [address] [place] [address] * Hepatitis C antibody Blood [...] OR DERABLES Final Result Performing Organization Address [facility] Co de Phone Number CARLOS WOO [address] [place] [place] [address] from Last 3 Months or Most Recently Relevant to Health Maintenance Insurance [facility] Care Teams Interior Design Professional Relationship Specialty Start Date End Date Camilla Coffman NP PCP - General Family Medicine 10/18/23 Le Claros MD [address] [address] Referring Physician Gynecology 10/22/24
--- OUTSIDE RECORDS SUMMARY | 2024-11-05 08:19 | XMS_ITS | Referral Summary ---
Author Organization [facility] Address [address] [place] [address] Care Team Providers Care Partition Assembly Machine Operator Name Role Phone Camilla Coffman NP Primary Care Provider [phone] Le Claros MD Unavailable [phone] Encounters Date Type Department Care Team Description 10/31/2024 Results Follow-Up [facility] Cardiology [address] [facility] [facility] Medicine 8th [place] [address] [place] [address] Kate Ashley MD 10/31/2024 8:00 AM CDT Office Visit [facility] Cardiology [address] [facility] 8th [place] [address] [place] [address] Kate Ashley MD Postural dizziness with presyncope (Primary Dx); POTS (postural orthostatic tachycardia syndrome); Palpitations 10/30/2024 Orders Only [facility] Medical Group Primary Care at [address] [address] ProviderShimon MD 10/27/2024 Telephone [facility] Primary Care at [address] [address] Camilla Coffman NP Additional Services Or Orders; Medical Records Request 10/22/2024 2:00 PM CDT Office Visit [facility] Primary Care at [address] [address] Camilla Coffman NP Annual physical exam (Primary Dx); 8 weeks gestation of 10/21/2024 4:40 PM CDT - 10/21/2024 11:59 PM CDT Hospital Encounter [address] [address] Annual physical exam Discharge Disposition: Discharge to home or self care 10/21/2024 10:45 AM CDT Lab [facility] Outpatient Lab at [address] [address] POTS (postural orthostatic tachycardia syndrome) (Primary Dx); Annual physical exam 10/17/2024 11:03 AM CDT - 10/17/2024 11:59 PM CDT Hospital Encounter [address] [address] Annual physical exam Discharge Disposition: Discharge to home or self care 10/17/2024 11:00 AM CDT Lab [facility] Medical [facility] Outpatient Lab at [address] [address] Chronic fatigue (Primary Dx) 10/13/2024 10:15 AM CDT Office Visit [facility] [address], [place] [phone] Oneal Resendez II, MD Chronic migraine without aura without status migrainosus, not intractable (Primary Dx); Chronic tension-type headache, not intractable 09/23/2024 Orders Only [facility] Primary Care at [address] [address] Camilla Coffman NP 09/08/2024 Telephone [facility] Cardiology [address] [place] [address] 8th [place] [address] [place] [phone] Kate Ashley MD from Last 3 Months Allergies Active Allergy Reactions Criticality Noted Date Comments Adhesive Rash Medium 02/06/2020 Honey-Hydrocolloid Dressing Nausea & Vomiting Low 0 10/20/2022 Medications rizatriptan AUDIOLOGIST (MAXALT-AUDIOLOGIST) 10 mg disintegrating tabletIndications: Migraine Take 1 tablet (10 mg total) by mouth once as needed for migraine May repeat in 2 hours if unresolved. Do not exceed 30 mg in 24 hours. 9 tablet 5 01/30/20 24 025 Active Additional Information Patient not taking.Reported on 10/31/2024 vit 17-ejjo-rxhlz-dha 27mg iron- 800 mcg-250 mg capsule Take [...] to date - care follow up per [employer]. 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 Will refer to [facility] cardiology. For now will keep [...] no Assessment & Plan (07/28/2024 9:12 PM CUSTOM TAILOR): Did a review of previous medications patient [...] CDT 10/21/2024 6:41 PM CDT Camilla Coffman MARINE ENGINE MACHINIST LAB BLOOD ORDERABLES Final Re sult Performing Organization Address City/[facility] Co de Phone Number CARLOS WOO [address] [address] [facility] [place], [place] [id number] * CBC with auto differential (10/21/2024 12:00 PM CDT) WBC 6.79 3.80 - 9.90 K/cumm Hgb 13.9 11.9 - 15.5 g/dL [facility] Hct 42.8 35.6 - 45.5 % [facility] Plt 294 150 - 400 K/cumm [facility] MPV 10.7 9.1 - 12.3 fL [facility] RBC 4.68 3.90 - 5.20 M/cumm [facility] MCV 91.5 81.3 - 96.4 fL [facility] MCH 29.7 27.1 - 33.3 pg [facility] MCHC 32.5 32.3 - 35.7 g/dL [facility] RDW CV 13.6 11.1 - 14.9 % [facility] RDW SD 45.6 35.7 - 48.1 fL [facility] NRBC abs 0.00 0.00 - 0.01 K/cumm [facility] Blood 10/21/2024 12:0 0 PM CDT 10/21/2024 6:41 PM CDT Camilla Coffman MARINE ENGINE MACHINIST LAB BLOOD ORDERABLES Final Re sult Performing Organization Address [facility] Co de Phone Number CARLOS WOO [address] [address] Department of [place], [place] [phone] * eGFR (10/17/2024 11:03 AM CDT) Pathologist [facility] eGFR >90 >=60 mL/min/1. 73 m2 Comment: [...] Final Re sult Performing Organization Address [facility] Co de Phone Number CARLOS WOO [address] [place] [address] * Thyroid Function [place] (10/17/2024 11:03 AM CDT) TSH 1.84 0.30 - 4.20 mcIUnit/mL Blood 10/17/2024 11:0 3 AM CDT 10/20/2024 12:05 PM CDT Camilla Coffman NP LAB BLOOD ORDERABLES Final Re sult Performing Organization Address [facility] Co de Phone Number CARLOS WOO [address] [address] [place] [address] * Hemoglobin A1c (10/17/2024 11:03 AM CDT) Hgb A1C 5.5 4.0 - 5.6 % Estimated Average Glucose 111 mg/dL CARLOS WOO Comment: The ADA recommends reporting an estimated Average Glucose (eAG) with all Hemoglobin A1c results using the equation derived from a study of 507 normal and diabetic adults. Minority populations were underrepresented and children were not included. (Diabetes Care 31:0894-5215, 2008). The eAG is not equivalent to a fasting glucose. Blood 10/17/2024 11:0 3 AM CDT 10/20/2024 12:05 PM CDT Camilla Coffman NP LAB BLOOD ORDERABLES Final Re sult CARLOS [phone] [address] [place] [address] * (ABNORMAL) Lipid panel (10/17/2024 11:03 AM [...] revised on 2018. Triglycerides 84 <=149 mg/dL CARLSO WOO Comment: Interpretive Data Ages < or [...] 10/20/2024 12:05 PM CDT Camilla A. Coffman MARINE ENGINE MACHINIST LAB BLOOD ORDERABLES Final Re sult [facility] [address] [place] [address] * (ABNORMAL) Comprehensive metabolic panel (10/17/2024 11:03 [...] CDT 10/20/2024 12:05 PM CDT Camilla Coffman MARINE ENGINE MACHINIST LAB BLOOD ORDERABLES Final Re sult Performing Organization Address [facility] [place] [address] [address] Department [place] [address] * Hepatitis C antibody Blood (10/19/2023 11:14 [...] OR DERABLES Final Result Performing Organization Address [facility] [place] Number [place] [address] [address] [place] [address] from Last 3 Months or Most Recently Relevant to Health Maintenance Insurance [facility] Care Teams Partition Assembly Machine Operator Relationship Specialty Start Date End Date Camilla Coffman NP PCP - General Family Medicine 10/18/23 Le Claros MD [address] [address] Referring Physician Gynecology 10/22/24
--- OUTSIDE RECORDS SUMMARY | 2024-11-05 11:48 | XMS_ITS | Clinical Summary ---
Author Organization [facility] Address [address] [place] [address] Care Team Providers Care Manager Of Learning Name Role Phone Camilla Coffman NP Primary Care Provider [phone] Le Claros MD Unavailable [phone] Allergies Active Allergy Reactions Criticality Noted Date Comments Adhesive Rash Medium 02/06/2020 Honey-Hydrocolloid Dressing Nausea & Vomiting Low 0 10/20/2022 Medications rizatriptan DESK OFFICER (MAXALT-DESK OFFICER) 10 mg disintegrating tabletIndications: Migraine Take 1 tablet (10 mg total) by mouth once as needed for migraine May repeat in 2 hours if unresolved. Do not exceed 30 mg in 24 hours. 9 tablet 01/30/20 24 025 Active Additional Information Patient not taking.Reported on 10/31/2024 vit 94-wbtb-mhfft-dha 27mg iron- 800 mcg-250 mg capsule Take [...] to date - care follow up per [employer]. -Influenza vaccine every year Recommend: - Topic [...] fludrocortisone Assessment & Plan (07/28/2024 9:13 PM GREEN MARKETER): Symptoms are stable, remain debilitating for her. Will refer to [facility] cardiology. For now will [...] no Assessment & Plan (07/28/2024 9:12 PM GREEN MARKETER): Did a review of previous medications patient [...] Description 10/31/2024 8:00 AM CDT Office Visit [facility] Cardiology [address] [facility] 8th [place] [address] [place] [address] Kate Ashley MD Postural dizziness with presyncope (Primary Dx); POTS (postural orthostatic tachycardia syndrome); Palpitations 10/31/2024 Results Follow-Up [facility] Cardiology [address] [facility] 8th [place] [address] [place] [address] Kate Ashley MD 10/30/2024 Orders Only [facility] Primary Care at [address] [address] ProviderShimon MD 10/27/2024 Telephone [facility] Medical [facility] Primary Care at [address] [phone] Camilla Coffman NP Additional Services Or Orders; Medical Records Request 10/22/2024 2:00 PM CDT Office Visit [facility] Medical [facility] Primary Care at [address] [phone] Camilla Coffman NP Annual physical exam (Primary Dx); 8 weeks gestation of 10/21/2024 4:40 PM CDT - 10/21/2024 11:59 PM CDT Hospital Encounter [address] [address] Annual physical exam Discharge Disposition: Discharge to home or self care 10/21/2024 10:45 AM CDT Lab [facility] Outpatient Lab at [address] [phone] POTS (postural orthostatic tachycardia syndrome) (Primary Dx); Annual physical exam 10/17/2024 11:03 AM CDT - 10/17/2024 11:59 PM CDT Hospital Encounter [address] [address] Annual physical exam Discharge Disposition: Discharge to home or self care 10/17/2024 11:00 AM CDT Lab [facility] Medical [facility] Outpatient Lab at [address] [phone] Chronic fatigue (Primary Dx) 10/13/2024 10:15 AM CDT Office Visit [facility] [address] [facility] [address] [place] [address] Oneal Resendez II, MD Chronic migraine without aura without status migrainosus, not intractable (Primary Dx); Chronic tension-type headache, not intractable 09/23/2024 Orders Only [facility] Primary Care at [address] [address] Camilla Coffman NP 09/08/2024 Telephone [facility] Cardiology [address] [facility] 8th [place] [address] [place] [address] Kate Ashley MD from Last [...] Basophil pct 0.6 % [facility] Comment: Interpretive Data Percent cell count reference ranges are not reported, since discordance with absolute values may lead to misinterpretation of CBC data. Current Interpretive Data was last revised on 2017. Blood 10/21/2024 12:0 0 PM CDT 10/21/2024 6:41 PM CDT Camilla Coffman NP LAB BLOOD ORDERABLES Final Re sult Performing Organization Address City/[facility]/ZIP Co de Phone Number CARLOS WOO [address] [address] [facility] [place] [address] * CBC with auto differential (10/21/2024 12:00 PM CDT) WBC 6.79 3.80 - 9.90 K/cumm Hgb 13.9 11.9 - 15.5 g/dL [facility] Hct 42.8 35.6 - 45.5 % [facility] Plt 294 150 - 400 K/cumm [facility] MPV 10.7 9.1 - 12.3 fL [facility] RBC 4.68 3.90 - 5.20 M/cumm [facility] MCV 91.5 81.3 - 96.4 fL [facility] MCH 29.7 27.1 - 33.3 pg [facility] MCHC 32.5 32.3 - 35.7 g/dL [facility] RDW CV 13.6 11.1 - 14.9 % [facility] RDW SD 45.6 35.7 - 48.1 fL [facility] NRBC abs 0.00 0.00 - 0.01 K/cumm [facility] Blood 10/21/2024 12:0 0 PM CDT 10/21/2024 6:41 PM CDT Camilla Coffman NP LAB BLOOD ORDERABLES Final Re sult CARLOS WOO [address] [address] Department [place] [address] * eGFR (10/17/2024 11:03 AM CDT) eGFR [...] ORDERABLES Final Re sult Performing Organization Address [facility] Co de Phone Number CARLOS [address] [address] [facility] [place] [address] * Thyroid Function [place] (10/17/2024 11:03 AM CDT) TSH 1.84 0.30 - 4.20 mcIUnit/mL Blood 10/17/2024 11:0 3 AM CDT 10/20/2024 12:05 PM CDT Camilla Coffman NP LAB BLOOD ORDERABLES Final Re sult CARLOS [address] [address] [facility] [place] [address] * Hemoglobin A1c (10/17/2024 11:03 AM CDT) Hgb A1C 5.5 4.0 - 5.6 % Estimated Average Glucose 111 mg/dL CARLOS WOO Comment: The ADA recommends reporting an estimated Average Glucose (eAG) with all Hemoglobin A1c results using the equation derived from a study of 507 normal and diabetic adults. Minority populations were underrepresented and children were not included. (Diabetes Care 31:8057-1417, 2008). The eAG is not equivalent to a fasting glucose. Blood 10/17/2024 11:0 3 AM CDT 10/20/2024 12:05 PM CDT Camilla Coffman NP LAB BLOOD ORDERABLES Final Re sult CARLOS [address] [address] Department [place] [address] * (ABNORMAL) Lipid panel (10/17/2024 11:03 AM [...] [place]LOOD [place] [address] Department [place] [address] * (ABNORMAL) Comprehensive metabolic panel [...] ORDERABLES Final Re sult Performing Organization Address [facility] de Phone Number CARLOS [address] [address] [place] [address] * Hepatitis C antibody Blood [...] OR DERABLES Final Result Performing Organization Address [facility] Co de Phone Number CARLOS WOO [address] [address] [place] [address] from Last 3 Months or Most Recently Relevant to Health Maintenance Insurance [facility] Care Teams Manager Of Learning Relationship Specialty Start Date End Date Camilla Coffman NP PCP - General Family Medicine 10/18/23 Le Claros MD [address] [address] Referring Physician Gynecology 10/22/24
--- OUTSIDE RECORDS SUMMARY | 2024-11-05 11:48 | XMS_ITS | Clinical Summary ---
Author Organization [facility] Address [address] [place] [address] Care Team Providers Care Customer Service Analyst Name Role Phone Sameer Aggarwal MD Unavailable Stephanie Villagomez DO Primary Care Provider [phone] Source Comments [facility],non-owned Affiliates and Associated Physician Practices is amultiple site organization consisting of ambulatory clinics and hospital sitesin [place], [place], [place] and [place]. This disclosure is being madepursuant to the Care Everywhere program and may not contain all information available regarding this patient. Last updated 18.[facility] Allergies Active Allergy Reactions Criticality Noted Date Comments Adhesive Sensitivity Rash Medium 02/06/2020 Saline Dizziness,Palpitatio ns,Shortness of Breath,Wheezing High 05/14/2011 Medications * Be aware that medications may not be up to date on this document. Alwaysverify current medications with the patient. vitamin D, ergocalciferol, (DRISDOL) 1.25 MG (02807 UT) capsule Take 1 capsule by mouth [...] Sex Assigned at Female 09/16/2020 2:24 PM MATERIAL SPREADER Legal Sex Female 5:19 PM MATERIAL SPREADER Gender Identity Female 09/16/2020 2:24 PM MATERIAL SPREADER Sexual Orientation Straight 09/16/2020 2: 24 PM MATERIAL SPREADER Last Filed Vital Signs Vital Sign Reading [...] purpose. For additional information please refer to http://education.[employer].VNG/faq/LOH992 (This link is being provided for informational/ educational purposes only.) The performance of this assay has not been clinically validated in patients less than 2 years old. Test Performed at: [facility] [id number] [address] [facility] [place] [address] ASAD ZAPIEN DO,MPH 02/06/2020 2:50 PM CDT 02/06/2020 2:52 PM CDT us Stephanie Villagomez DO LAB - CHEMISTRY ORDERABLES Elena acevedo Result [facility] [address] [place] [address] from Last 3 Months or Most Recently Relevant to Health Maintenance Insurance MEDICAID - OUT OF STATE Care Teams Customer Service Analyst Relationship Specialty Start Date End Date Stephanie Villagomez DO [address] OF [facility] [place] [id number] PCP - General 05/06/21 Sameer Aggarwal MD [address] [facility] [place] [place] [phone] Resident - PCP Student Resident 05/06/21
--- OUTSIDE RECORDS SUMMARY | 2024-11-05 11:48 | XMS_ITS | Referral Summary ---
Author Organization [facility] Address [address] [place] [address] Care Team Providers Care New Car Driver Name Role Phone Camilla Coffman NP Primary Care Provider [phone] Le Claros MD Unavailable [phone] Encounters Date Type Department Care Team Description 10/31/2024 Results Follow-Up [facility] Cardiology [address] [facility] Medicine 8th [place] [address] [place] [address] Kate Ashley MD 10/31/2024 8:00 AM CDT Office Visit [facility] Cardiology [address] [facility] 8th [place] [address] [place] [address] Kate Ashley MD Postural dizziness with presyncope (Primary Dx); POTS (postural orthostatic tachycardia syndrome); Palpitations 10/30/2024 Orders Only [facility] Primary Care at [address] [address] ProviderShimon MD 10/27/2024 Telephone [facility] Primary Care at [address] [address] Camilla Coffman NP Additional Services Or Orders; Medical Records Request 10/22/2024 2:00 PM CDT Office Visit [facility] Primary Care at [address] [address] Camilla Coffman NP Annual physical exam (Primary Dx); 8 weeks gestation of 10/21/2024 4:40 PM CDT - 10/21/2024 11:59 PM CDT Hospital Encounter [address] [address] Annual physical exam Discharge Disposition: Discharge to home or self care 10/21/2024 10:45 AM CDT Lab [facility] Outpatient Lab at [address] [address] POTS (postural orthostatic tachycardia syndrome) (Primary Dx); Annual physical exam 10/17/2024 11:03 AM CDT - 10/17/2024 11:59 PM CDT Hospital Encounter [address] [address] Annual physical exam Discharge Disposition: Discharge to home or self care 10/17/2024 11:00 AM CDT Lab [facility] Outpatient Lab at [address] [address] Chronic fatigue (Primary Dx) 10/13/2024 10:15 AM CDT Office Visit [facility] [address], [place] [address] Oneal Resendez II, MD Chronic migraine without aura without status migrainosus, not intractable (Primary Dx); Chronic tension-type headache, not intractable 09/23/2024 Orders Only [facility] Primary Care at [address] [address] Camilla Coffman NP 09/08/2024 Telephone [facility] Cardiology [address] [place] [address] 8th [address] [place] [phone] Kate Ashley MD from Last 3 Months Allergies Active Allergy Reactions Criticality Noted Date Comments Adhesive Rash Medium 02/06/2020 Honey-Hydrocolloid Dressing Nausea & Vomiting Low 0 10/20/2022 Medications rizatriptan CHEMIST INORGANIC (MAXALT-CHEMIST INORGANIC) 10 mg disintegrating tabletIndications: Migraine Take 1 tablet (10 mg total) by mouth once as needed for migraine May repeat in 2 hours if unresolved. Do not exceed 30 mg in 24 hours. 9 tablet 5 01/30/20 24 025 Active Additional Information Patient not taking.Reported on 10/31/2024 vit 75-jxcp-qqavq-dha 27mg iron- 800 mcg-250 mg capsule Take [...] to date - care follow up per CRATING AND MOVING ESTIMATOR. -Influenza vaccine every year Recommend: - Topic [...] fludrocortisone Assessment & Plan (07/28/2024 9:13 PM POSITION CLASSIFICATION MANAGER): Symptoms are stable, remain debilitating for her. Will refer to [facility] cardiology. For now will keep her [...] no Assessment & Plan (07/28/2024 9:12 PM POSITION CLASSIFICATION MANAGER): Did a review of previous medications patient [...] CDT 10/21/2024 6:41 PM CDT Camilla Coffman PATIENT PORTAL CONCIERGE LAB BLOOD ORDERABLES Final Re sult Performing Organization Address City/[facility] Co de Phone Number CARLOS WOO [address] [address] [facility] [place], [place] [phone] * CBC with auto differential (10/21/2024 12:00 PM CDT) WBC 6.79 3.80 - 9.90 K/cumm Hgb 13.9 11.9 - 15.5 g/dL CERNER CH Hct 42.8 35.6 - 45.5 % [facility] Plt 294 150 - 400 K/cumm [facility] MPV 10.7 9.1 - 12.3 fL [facility] CH RBC 4.68 3.90 - 5.20 M/cumm [facility] CH MCV 91.5 81.3 - 96.4 fL [facility] MCH 29.7 27.1 - 33.3 pg [facility] MCHC 32.5 32.3 - 35.7 g/dL [facility] CH RDW CV 13.6 11.1 - 14.9 % [facility] RDW SD 45.6 35.7 - 48.1 fL [facility] CH NRBC abs 0.00 0.00 - 0.01 K/cumm [facility] CH Blood 10/21/2024 12:0 0 PM CDT 10/21/2024 6:41 PM CDT Camilla Coffman PATIENT PORTAL CONCIERGE LAB BLOOD ORDERABLES Final Re sult Performing Organization Address [facility] Co de Phone Number CARLOS WOO [address] [address] Department of [place], [place] [id number] * eGFR (10/17/2024 11:03 AM CDT) Pathologist [facility] eGFR >90 >=60 mL/min/1. 73 m2 Comment: [...] ORDERABLES Final Re sult Performing Organization Address [facility] Co de Phone Number CARLOS WOO [address] [place] [address] * Thyroid Function Camas (10/17/2024 11:03 AM CDT) TSH 1.84 0.30 - 4.20 mcIUnit/mL Blood 10/17/2024 11:0 3 AM CDT 10/20/2024 12:05 PM CDT Camilla Coffman NP LAB BLOOD ORDERABLES Final Re sult Performing Organization Address [facility] Co de Phone Number CARLOS WOO [address] [place] [address] * Hemoglobin A1c (10/17/2024 11:03 AM CDT) Hgb A1C 5.5 4.0 - 5.6 % Estimated Average Glucose 111 mg/dL CARLOS WOO Comment: The ADA recommends reporting an estimated Average Glucose (eAG) with all Hemoglobin A1c results using the equation derived from a study of 507 normal and diabetic adults. Minority populations were underrepresented and children were not included. (Diabetes Care 31:2207-7306, 2008). The eAG is not equivalent to a fasting glucose. Blood 10/17/2024 11:0 3 AM CDT 10/20/2024 12:05 PM CDT Camilla Coffman NP LAB BLOOD ORDERABLES Final Re sult CARLOS [address] [place] [address] * (ABNORMAL) Lipid panel (10/17/2024 11:03 AM [...] 10/20/2024 12:05 PM CDT Camilla A. Coffman PATIENT PORTAL CONCIERGE LAB BLOOD ORDERABLES Final Re sult [facility] [address] [place] [address] * (ABNORMAL) Comprehensive metabolic panel (10/17/2024 11:03 [...] CDT 10/20/2024 12:05 PM CDT Camilla Coffman PATIENT PORTAL CONCIERGE LAB BLOOD ORDERABLES Final Re sult Performing Organization Address [facility] [place] [address] [address] Department [place] [address] * Hepatitis C antibody Blood (10/19/2023 11:14 [...] OR DERABLES Final Result Performing Organization Address [facility] [place] Number [place] [address] [address] [place] [address] from Last 3 Months or Most Recently Relevant to Health Maintenance Insurance [facility] Care Teams New Car Driver Relationship Specialty Start Date End Date Camilla Coffman NP PCP - General Family Medicine 10/18/23 Le Claros MD [address] [address] Referring Physician Gynecology 10/22/24
--- OUTSIDE RECORDS SUMMARY | 2024-11-05 11:48 | XMS_ITS | Encounter Summary ---
Author Organization [facility] Address [address] [place] [address] Phone Care Team Providers Care Kindergarten Paraprofessional Name Role Phone Camilla Coffman NP Primary Care Provider [phone] Le Claros MD Unavailable [phone] Encounter Details Date Type Department Care Team (Late st Contact Info) Description 10/31/2024 Results Follow-Up [facility] Cardiology [address] [facility] 8th [place] [address] [place] [phone] Kate Ashley MD [address] [facility] [address] [place] [address] Social History Tobacco Use Types Packs/Day Years [...] on filedocumented in this encounter Care Teams Kindergarten Paraprofessional Relationship Specialty Start Date End Date Camilla Coffman NP PCP - General Family Medicine 10/18/23 Le Claros MD [address] [address] Referring Physician Gynecology 10/22/24 documented as of this encounter
--- OUTSIDE RECORDS SUMMARY | 2025-01-22 07:44 | XMS_ITS | Data Portability ---
Author Organization [facility], Main Office Address [address] [place] [address] Assessment Encounter Date Assessment Date Assessment LastModified [...] bariatric procedure for weight loss. 2022 023 [email or web address] Not available 14:09:42 Procedures None recorded. Surgeries None recorded. Imaging None recorded. Medication Orders None recorded. Patient TargetsNo targets recorded. Patient Instructions Encounter Date Encounter Id Patient Instructions Last Modified By Organization Details Last Modified Time 11/29/2022 [id number] FU prn. [email or web address] Not available 11/29 16:18:57 05/11/2023 [id number] FU in 1 year for wellness. Not [...] G>A (p.Cy s282T yr) - Not Detec shankar c.187 C>G (p.Hi s63As p) - Detec shankar, heter ozygo us c.193 A>T (p.Se r65Cy s) - Not Detec shankar Not assoc iated with incre ased risk [...] ders to discu ss resul ts at [phone] [phone] ([phone] ). . Test Detai ls: Three varia nts beryl zed: c.845 G>A (p.Cy s282T yr), commo nly refer red to as C282Y c.187 C>G (p.Hi s63As p), commo nly refer red to as H63D c.193 A>T (p.Se r65Cy s), commo nly refer red to as S65C . Metho ds/Li mitat ions: DNA Beryl sis of the HFE gene ([id number]) was perfo rmed by PCR ampli [...] e jayde cteri stics deter mined by [employer] rp. It has not been clear ed or appro bre by the Food and Drug Admin istra tion. . Refer ences : Messi BR, Rex PC, Koalvinal ey KV, Darrius acevedo LW, Ilia acevedo ; Ameri can Assoc iatio n for the Study of Liver Disea ses. Diagn osis and manag ement of hemoc hroma tosis : 2010 pract ice guide line by the Ameri can Assoc iatio n for the Study of Liver Disea ses. Hepat ology . 2010; 4(1): 328-4 3. doi: 10.10 /gianni p.243 30. PMID: 23266 290; PMCID : PMC31 61989 . Demetrice G, Yang ot P, Emmie combs DW, Azucena r H, Rodger muhammad O, Kezia n S, Mckinley o I, Sara vargas M, Ivon pennington S. EMQN best pract ice guide lines for the molec ular dolores ic diagn osis of hered itary hemoc hroma tosis (HH). Eur J Hum Dolores . 2016 Oct;2 4(4): 479-9 5. doi: 10.10 / hg.20 15.12 8. Epub 2014 8. PMID: 94744 218; PMCID : PMC49 19844 . . Ana Cristina pichardo, PhD, FACMG Tyler Phillips , PhD Alfonso de la cruz, PhD, FAC Ronaldo woods, PhD, [facility] Alli martines, PhD, FACMG ACMG W Garry Deshpande, PhD, FACMG Charmaine Crowley, PhD, FACMG MG Conner vargas, PhD, FACMG Perfo rmed at: [facility] [address] [facility] , [place] [address] Lab Direc tor: Laurel Andrews [facility] , Phone : [phone] Not Available [facility] (Lab) [address] [place], [address], 03/06/2022 19:08:13 02/29/20 22 02/28/2022 VITAM IN D 25-HY DROXY vd25oh 26.4 NG/mL 30-100 low Vitam in D Statu s: Defic ient: <20 ng/mL Insuf ficie nt: 20-29 ng/mL Suffi cient : 30-10 0 ng/mL Not Available [facility] (Lab) [address] [place], [address], 02/28/2022 22:46:38 02/29/20 22 02/28/2022 FOLAT E, SERUM /PLAS MA folate 10.2 NG/mL 2.76-2 0.0 Not Available [facility] (Lab) [address] [place], [address], 02/28/2022 20:33:17 02/29/20 22 02/28/2022 VITAM IN B12 (BRONSON MAITE ) vb12 264 pg/mL 239-93 1 Not Available [facility] (Lab) [address] [place], [address], 02/28/2022 20:33:14 02/29/20 22 02/28/2022 HEMOG LOBIN A1C HA1C 5.5 % 4.0-6. 0 Diabe gaetano Scree sandy Crite tammi: <5.7% Consi stent with absen ce of diabe gaetano 5.7-6 .4% Consi stent with incre ased risk for diabe gaetano (pred iabet es) >OR=6 .5% Consi stent with diabe gaetano REFER ENCE: Diabe gaetano Care 2016, 39(Kelley ppl.1 ):s13 -s22 Not Available [facility] (Lab) [address] [place], [address], 02/28/2022 20:20:24 02/29/20 22 02/28/2022 TSH thyroid-stim ulating hormone 3.790 uIU/m L 0.465- 4.680 Not Available [facility] (Lab) [address] [place], [address], 02/28/2022 20:02:14 02/29/20 22 02/28/2022 T4 FREE free T4 1.35 NG/dL 0.78-2 .19 Not Available [facility] (Lab) [address] [place], [address], 02/28/2022 19:42:29 02/29/20 22 02/28/2022 IRON/ TIBC PANEL total iron binding capacity 330 mcg/d L 265-47 5 Not Available [facility] (Lab) [address] [place], [address], 02/28/2022 19:30:37 02/29/20 22 02/28/2022 IRON/ TIBC PANEL % transferrin saturation 31 % 20-55 Not Available [facility] (Lab) [address] [place], [address], 02/28/2022 19:30:37 02/29/20 22 02/28/2022 IRON/ TIBC PANEL unsaturated iron bind capacity 229 mcg/d L 126-38 2 Not Available [facility] (Lab) [address] [place], [address], 02/28/2022 19:30:37 02/29/20 22 02/28/2022 IRON/ TIBC PANEL iron 101 mcg/d L 42-175 Not Available [facility] (Lab) [address] [place], [address], 02/28/2022 19:30:37 02/29/20 22 02/28/2022 LIPID PANEL cholesterol 171 mg/dL 140-19 9 NIH JI NSUS RECOM MENDA TION FOR ROSE STERO L: ADULT CHILD LOW RISK: <200 <170 BORDE RLINE : <200- 239 ----- HIGH RISK: >240 >200 Not Available [facility] (Lab) [address] [place], [address], 02/28/2022 19:23:38 02/29/20 22 02/28/2022 LIPID PANEL triglyceride s 137 mg/dL 0-150 NIH JI NSUS REPOR T RECOM MENDA TION FOR TRIGL YCERI DEEPAK: ADULT CHILD LOW RISK: <150 ----- BODER LINE: 150-1 99 ----- HIGH RISK: >200 ----- Not Available [facility] (Lab) [address] [place], [address], 02/28/2022 19:23:38 02/29/20 22 02/28/2022 LIPID PANEL HDL cholesterol 27 mg/dL 40- low Not Available [facility] (Lab) [address] [place], [address], 02/28/2022 19:23:38 02/29/20 22 02/28/2022 LIPID PANEL LDL cholesterol, calculated 117 mg/dL 0-130 NIH JI NSUS REPOR T RECOM MENDA TIONS FOR LDL: ADULT CHILD LOW RISK <130 <110 (OPTI MAL LDL) <100 ----- BORDE RLINE : 130-1 59 ----- HIGH RISK: >160 >130 A TRIGL YCERI DE RESUL T >400 INVAL IDATE S THE CALCU LATIO N FOR LDL FRACT IONAT ION - THE LDL RESUL T WILL NOT BE REPOR SHANKAR. Not Available [facility] (Lab) [address] [place], [address], 02/28/2022 19:23:38 02/29/20 22 02/28/2022 COMPR EHENS ALDEN METAB OLIC PANEL sodium 139 mmol/ L 137-14 5 Not Available [facility] (Lab) [address] [place], [address], 02/28/2022 19:23:34 02/29/20 22 02/28/2022 COMPR EHENS ALDEN METAB OLIC PANEL potassium 4.0 mmol/ L 3.5-5. 1 Not Available [facility] (Lab) [address] [place], [address], 02/28/2022 19:23:34 02/29/20 22 02/28/2022 COMPR EHENS ALDEN METAB OLIC PANEL chloride 105 mmol/ L 98-107 Not Available [facility] (Lab) [address] [place], [address], 02/28/2022 19:23:34 02/29/20 22 02/28/2022 COMPR EHENS ALDEN METAB OLIC PANEL carbon dioxide 24 mmol/ L 22-30 Not Available [facility] (Lab) [address] [place], [address], 02/28/2022 19:23:34 02/29/20 22 02/28/2022 COMPR EHENS ALDEN METAB OLIC PANEL anion gap 14.0 mmol/ L 14-22 Not Available [facility] (Lab) [address] [place], [address], 02/28/2022 19:23:34 02/29/20 22 02/28/2022 COMPR EHENS ALDEN METAB OLIC PANEL glucose 111 mg/dL 70-99 high Not Available [facility] (Lab) [address] [place], [address], 02/28/2022 19:23:34 02/29/20 22 02/28/2022 COMPR EHENS ALDEN METAB OLIC PANEL BUN 8 mg/dL 8-19 Not Available [facility] (Lab) [address] [place], [address], 02/28/2022 19:23:34 02/29/20 22 02/28/2022 COMPR EHENS ALDEN METAB OLIC PANEL creatinine 0.68 mg/dL 0.66-1 .25 Not Available [facility] (Lab) [address] [place], [address], 02/28/2022 19:23:34 02/29/20 22 02/28/2022 COMPR EHENS ALDEN METAB OLIC PANEL GFR >60 Refer ence Range : [place] ge GFR Healt hy Adult : >60 [...] calcu lator is avail able on the [facility] websi te: [email or web address] :[email or web address] rg/[email or web address] ional [email or web address] [email or web address]/gf r_cal culat or Not Available [facility] (Lab) [address] [place], [address], 02/28/2022 19:23:34 02/29/20 22 02/28/2022 COMPR EHENS ALDEN METAB OLIC PANEL alkaline phosphatase 72 U/L 38-126 Not Available [facility] (Lab) [address] [place], [address], 02/28/2022 19:23:34 02/29/20 22 02/28/2022 COMPR EHENS ALDEN METAB OLIC PANEL alanine aminotransfe rase 17 U/L 0-35 Not Available [facility] (Lab) [address] [place], [address], 02/28/2022 19:23:34 02/29/20 22 02/28/2022 COMPR EHENS ALDEN METAB OLIC PANEL aspartate aminotransfe rase 25 U/L 15-37 Not Available [facility] (Lab) [address] [place], [address], 02/28/2022 19:23:34 02/29/20 22 02/28/2022 COMPR EHENS ALDEN METAB OLIC PANEL bilirubin, total 0.70 mg/dL 0.20-1 .30 Not Available [facility] (Lab) [address] [place], [address], 02/28/2022 19:23:34 02/29/20 22 02/28/2022 COMPR EHENS ALDEN METAB OLIC PANEL calcium 9.2 mg/dL 8.4-10 .2 Not Available [facility] (Lab) [address] [place], [address], 02/28/2022 19:23:34 02/29/20 22 02/28/2022 COMPR EHENS ALDEN METAB OLIC PANEL total protein 7.1 g/dL 6.3-8. 2 Not Available [facility] (Lab) [address] [place], [address], 02/28/2022 19:23:34 02/29/20 22 02/28/2022 COMPR EHENS ALDEN METAB OLIC PANEL albumin 4.1 g/dL 3.4-5. 0 Not Available [facility] (Lab) [address] [place], [address], 02/28/2022 19:23:34 02/29/20 22 02/28/2022 COMPR EHENS ALDEN METAB OLIC PANEL globulin 3.0 g/dL 2.6-4. 2 Not Available [facility] (Lab) [address] [place], [address], 02/28/2022 19:23:34 02/29/20 22 02/28/2022 COMPR EHENS ALDEN METAB OLIC PANEL A/G ratio 1.4 ratio 1.0-2. 0 Not Available [facility] (Lab) [address] [place], [address], 02/28/2022 19:23:34 02/29/20 22 02/28/2022 CBC/C OMPLE TE BLD COUNT W/DIF F hematocrit 40.6 % 35.7-4 5.7 Not Available [facility] (Lab) [address] [place], [address], 02/28/2022 18:10:18 02/29/20 22 02/28/2022 CBC/C OMPLE TE BLD COUNT W/DIF F white blood cells 8.0 x10'3 /uL 4.2-10 .8 Not Available [facility] (Lab) [address] [place], [address], 02/28/2022 18:10:18 02/29/20 22 02/28/2022 CBC/C OMPLE TE BLD COUNT W/DIF F red blood cells 4.71 x10'6 /uL 3.80-5 .20 Not Available [facility] (Lab) [address] [place], [address], 02/28/2022 18:10:18 02/29/20 22 02/28/2022 CBC/C OMPLE TE BLD COUNT W/DIF F hemoglobin 13.6 g/dL 12.0-1 5.6 Not Available [facility] (Lab) [address] [place], [address], 02/28/2022 18:10:18 02/29/20 22 02/28/2022 CBC/C OMPLE TE BLD COUNT W/DIF F mean red cell volume 86.2 fL 82.0-9 9.0 Not Available [facility] (Lab) [address] [place], [address], 02/28/2022 18:10:18 02/29/20 22 02/28/2022 CBC/C OMPLE TE BLD COUNT W/DIF F mean red cell hemoglobin 28.9 pg 27.0-3 3.0 Not Available [facility] (Lab) [address] [place], [address], 02/28/2022 18:10:18 02/29/20 22 02/28/2022 CBC/C OMPLE TE BLD COUNT W/DIF F mean RBC HGB concentratio n 33.5 g/dL 31.0-3 6.0 Not Available [facility] (Lab) [address] [place], [address], 02/28/2022 18:10:18 02/29/20 22 02/28/2022 CBC/C OMPLE TE BLD COUNT W/DIF F red cell distribution width 13.5 % 11.8-1 5.5 Not Available [facility] (Lab) [address] [place], [address], 02/28/2022 18:10:18 02/29/20 22 02/28/2022 CBC/C OMPLE TE BLD COUNT W/DIF F platelets 279 x10'3 /uL 150-40 0 Not Available [facility] (Lab) [address] [place], [address], 02/28/2022 18:10:18 02/29/20 22 02/28/2022 CBC/C OMPLE TE BLD COUNT W/DIF F mean platelet volume 10.8 fL 9.0-12 .4 Not Available [facility] (Lab) [address] [place], [address], 02/28/2022 18:10:18 02/29/20 22 02/28/2022 CBC/C OMPLE TE BLD COUNT W/DIF F neutrophils 55.3 % 39.0-7 2.0 Not Available [facility] (Lab) [address] [place], [address], 02/28/2022 18:10:18 02/29/20 22 02/28/2022 CBC/C OMPLE TE BLD COUNT W/DIF F lymphocytes 33.3 % 16.0-4 7.0 Not Available [facility] (Lab) [address] [place], [address], 02/28/2022 18:10:18 02/29/20 22 02/28/2022 CBC/C OMPLE TE BLD COUNT W/DIF F monocytes 9.8 % 5.0-12 .0 Not Available [facility] (Lab) [address] [place], [address], 02/28/2022 18:10:18 02/29/20 22 02/28/2022 CBC/C OMPLE TE BLD COUNT W/DIF F eosinophils 0.8 % 1.0-7. 0 low Not Available [facility] (Lab) [address] [place], [address], 02/28/2022 18:10:18 02/29/20 22 02/28/2022 CBC/C OMPLE TE BLD COUNT W/DIF F basophils 0.5 % 0.0-2. 0 Not Available [facility] (Lab) [address] [place], [address], 02/28/2022 18:10:18 02/29/20 22 02/28/2022 CBC/C OMPLE TE BLD COUNT W/DIF F immature granulocytes 0.3 % 0.00-0 .50 Not Available [facility] (Lab) [address] [place], [address], 02/28/2022 18:10:18 02/29/20 22 02/28/2022 CBC/C OMPLE TE BLD COUNT W/DIF F neutrophils, absolute count 4.40 x10'3 /uL 1.5-8. 0 Not Available [facility] (Lab) [address] [place], [address], 02/28/2022 18:10:18 02/29/20 22 02/28/2022 CBC/C OMPLE TE BLD COUNT W/DIF F lymphocytes, absolute count 2.65 x10'3 /uL 1.07-3 .43 Not Available [facility] (Lab) [address] [place], [address], 02/28/2022 18:10:18 02/29/20 22 02/28/2022 CBC/C OMPLE TE BLD COUNT W/DIF F monocytes, absolute count 0.78 x10'3 /uL 0.29-0 .99 Not Available [facility] (Lab) [address] [place], [address], 02/28/2022 18:10:18 02/29/20 22 02/28/2022 CBC/C OMPLE TE BLD COUNT W/DIF F eosinophils, absolute count 0.06 x10'3 /uL 0.02-0 .53 Not Available [facility] (Lab) [address] [place], [address], 02/28/2022 18:10:18 02/29/20 22 02/28/2022 CBC/C OMPLE TE BLD COUNT W/DIF F basophils, absolute count 0.04 x10'3 /uL 0.01-0 .08 Not Available [facility] (Lab) [address] [place], [address], 02/28/2022 18:10:18 02/29/20 22 02/28/2022 CBC/C OMPLE TE BLD COUNT W/DIF F immature granulocytes ,absolute 0.02 x10'3 /uL 0.00-0 .05 Not Available [facility] (Lab) [address] [place], [address], 02/28/2022 18:10:18 02/29/20 22 02/28/2022 CBC/C OMPLE TE BLD COUNT W/DIF F nucleated red blood cells 0.0 % -0 Not Available [facility] (Lab) [address] [place], [address], 02/28/2022 18:10:18 02/29/20 22 02/28/2022 CBC/C OMPLE TE BLD COUNT W/DIF F NRBC# 0.00 x10'3 /uL Not Available [facility] (Lab) [address] [place], [address], 02/28/2022 18:10:18 05/16/20 22 05/19/2022 BRANDON/A NTINU CLEAR ANTIB ODIES ,IFA antinuclear antibodies, ifa negati ve Negat alden <1:80 Borde rline 1:80 Posit alden >1:80 ICAP nomen uzma re: AC-0 For more infor matio n about Hep-2 cell patte rns use ANApa ttern s.org , the offic ial michaela te for the Inter natio nal Conse nsus on Antin uclea r Antib kilo (BRANDON) Patte rns (ICAP ). Perfo rmed at: [address], [place] [address] Lab Direc tor: Wood thorne PhD, Phone : [phone] Not Available [facility] (Lab) [address] [place], [address], 05/19/2022 15:09:32 05/16/20 22 05/16/2022 URIC ACID SERUM uric acid 5.4 mg/dL 2.5-6. 2 Not Available [facility] (Lab) [address] [place], [address], 05/16/2022 20:54:22 05/16/20 22 05/16/2022 RHEUM ATOID FACTO R rf <8.6 IU/mL 0.0-11 .9 Not Available [facility] (Lab) [address] [place], [address], 05/16/2022 20:47:38 05/16/20 22 05/16/2022 C REACT ALDEN PROTE IN,UL TRA SENS C-reactive protein 1.27 mg/dL 0.0-0. 5 high Not Available [facility] (Lab) [address] [place], [address], 05/16/2022 20:46:51 05/16/20 22 05/16/2022 SEDIM ENTAT ION RATE erythrocyte sedimentatio n rate 21 mm/HR 0-20 high Not Available [facility] (Lab) [address] [place], [address], 05/16/2022 20:10:45 05/24/20 22 05/23/2022 bone densi ty No observ ation record ed. [id number] [place] [address], [address], 09/21/2022 01:27:48 07/06/20 22 06/26/2022 tracey r monit or No observ ation record ed. [id number] [place] [address] (Cardiology & Emg) [address] [place] [address] [place] [address], [id number], 09/21/2022 01:27:48 Result Notes Documentation Provider Name and Address Organization Details Recorded Time Drug Screen, 5 Drugs, Urine : MJ Not Available [facility] 09/21/2022 01:27:48 Problems Name Problem SNOMED Code Status Onset Date Resolution Date Notes Provider Name and Address Organization Details Recorded Time Butterfly rash 05907731 Active 2021 Not Available [facility] 3 01:26:19 Tachycardi a 4197480 Active 2021 [facility] Available [facility] 3 01:26:19 Pain of multiple joints 34068392 Active 2021 Not Available [facility] 3 01:26:19 Osteoarthr itis 748006246 Active 2021 [facility] 3 01:26:19 Family history of fibromyalg ia 9446158249615 02 Active 2021 Not Available [facility] 3 01:26:19 Pain of right knee joint 1483047495769 00 Active 2021 Not Available [facility] 3 01:26:19 Pain of left knee joint 6795545428615 07 Active 2021 Not Available [facility] 3 01:26:19 Swelling of bilateral lower limbs 313259839 Active 2021 Not Available [facility] 3 01:26:20 Hyperglyce adilene 36995280 Active 2021 Not Available [facility] 3 01:26:20 Fatigue 89852968 Active 2021 Not Available [facility] 3 01:26:20 Obese 734619292 Active 2022 Britney Colorado NP [address] [facility], [facility] [address], [place], [address] , [facility] 3 16:11:46 Problem Notes None recorded. Procedures Surgical History Date Name Laterality Status Provider Name and Address Organization Details Recorded Time 01/21/20 22 Date of Last Pap Smear completed Britney Reeves RN [facility] 11/29/2022 15:56:44 06/22/20 21 excision of bunion completed Not Available [facility] 09/21/2022 01:25:08 04/22/20 20 Most Recent Bone Density completed Not Available [facility] 09/21/2022 01:25:07 12/22/19 16 cholecystectomy completed Not Available [facility] 09/21/2022 01:25:08 11/21/19 16 section completed Not Available [facility] 09/21/2022 01:25:08 Imaging Results None recorded. Procedure Notes None recorded. Medical Equipment None [...] Available Not Available Vitals Date Recorded Body height Body mass index (BMI) Body weight Body temperature Heart rate Respiratory rate Oxygen saturation Oxygen saturation in Arterial blood by Pulse oximetry Systolic And Diastolic Provider Name and Address Organization Details Last Updated DateTime 3 167.64 cm 37.4 kg/m2 691209. 29 g 97.7 [degF] 87 /min 16 /min 97 % 97 % 140/82 mm[Hg] Britney Reeves RN [place] - [facility] [employer] [facility] 3 15:54:30 Date Recorded Body mass index (BMI) Body height Oxygen saturation Oxygen saturation in Arterial blood by Pulse oximetry Heart rate Body temperature Body weight Systolic And Diastolic Provider Name and Address Organization Details Last Updated DateTime 2 38.4 kg/m2 167.64 cm 98 % 98 % 95 /min 98 [degF] 321824. 98 g 100/62 mm[Hg] Not Available [facility] 3 01:25:28 Date Recorded Body height Body mass index (BMI) Body weight Body temperature Heart rate Respiratory rate Oxygen saturation Oxygen saturation in Arterial blood by Pulse oximetry Systolic And Diastolic Provider Name and Address Organization Details Last Updated DateTime 3 167.64 cm 36.8 kg/m2 271120. 41 g 96.4 [degF] 90 /min 20 /min 97 % 97 % 140/84 mm[Hg] Britney Reeves RN [place] - [facility] 3 08:40:35 Date Recorded Body mass index (BMI) Body height Oxygen saturation Oxygen saturation in Arterial blood by Pulse oximetry Heart rate Body temperature Body weight Systolic And Diastolic Provider Name and Address Organization Details Last Updated DateTime 2 38.5 kg/m2 167.64 cm 98 % 98 % 115 /min 98 [degF] 570722. 78 g 122/80 mm[Hg] Not Available [facility] 3 01:25:28 Date Recorded Body mass index (BMI) Body height Oxygen saturation Oxygen saturation in Arterial blood by Pulse oximetry Heart rate Respiratory rate Body temperature Body weight Systolic And Diastolic Provider Name and Address Organization Details Last Updated DateTime 2 36.8 kg/m2 167.64 cm 99 % 99 % 110 /min 16 /min 98.1 [degF] 890955. 06 g 108/80 mm[Hg] Not Available [facility] 3 01:25:28 Social History Question Answer Notes LastModified by Organizat ion Details LastModified Time Tobacco Smoking Status Current Every Day Smoker Not Available [facility] 09/21/2022 01:24:53 Do You Have An Advance Directive? No Information n ot available 11/29/2022 Is Blood Transfusion Acceptable In An Emergency? Yes Information not available 11/29/2022 What Is Your Level Of Caffeine Consumption? Moderate [id number] Information not available 09/21/2022 What Is Your Code Status? Full Code Information not available 11/29/2022 In The 14 Days Before Symptom Onset, Have You Had Close Contact With A Laboratory-confirm ed COVID-19 While That Case Was Ill? No [id number] Information not available 09/21/2022 In The 14 Days Before Symptom Onset, Have You Had Close Contact With A Person Who Is Under Investigation For COVID-19 While That Person Was Ill? No [id number] Information not available 09/21/2022 What Type Of Diet Are You Following? REGULAR [id number] Information not available 09/21/2022 What Is The Highest Grade Or Level Of School You Have Completed Or The Highest Degree You Have Received? [id number] Information not available 09/21/2022 Have There Been Any Changes To Your Family Or Social Situation? No [id number] Information not available 09/21/2022 Do You Use Insect Repellent Routinely? No Information not available 11/29/2022 Where Do You Live? [place] [id number] [id number] Information not available 09/21/2022 Do You Have A Medical Power Of File Keeper? No Information not available 11/29/2022 How Many Children Do You Have? 3 Information not available 11/29/2022 What Is Your Relationship Status? [id number] Information not available 09/21/2022 Do You Use Your Seat Belt Or Car Seat Routinely? Yes [id number] Information not available 09/21/2022 Do You Have Smoke And Carbon Monoxide Detectors In Your Home? Yes [id number] Information not available 09/21/2022 At What Age Did You Start Smoking Tobacco? 17 Information not available 11/29/2022 Are You Passively Exposed To Smoke? Yes [id number] Information not available 09/21/2022 Are There Any Smokers In Your House? No [id number] Information not available 09/21/2022 How Much Tobacco Do You Smoke? 0.5 PPD Information not available 05/11/2023 Do You Participate In Social Media? Yes [id number] Information not available 09/21/2022 Do You Use Sunscreen Routinely? Yes Information not available 11/29/2022 How Many Years Have You Smoked Tobacco? 15 [id number].[id number] 5849 Information not available 09/21/2022 Have You Recently Traveled Abroad? No [id number] Information not available 09/21/2022 Are You Currently In School? Yes [id number] Information not available 09/21/2022 Sex: Female Functional Status Question Answer Note LastModified by Organizat ion Details LastModified Time Do you use any illicit or recreational drugs? No [id number] Information not available 09/21/2022 What is your level of alcohol consumption? 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 None [id number].[id number] 2984 Information not available 09/21/2022 Mental Status Question Answer Note LastModified by Organization D etails LastModified Time Do you feel stressed (tense, restless, nervous, or anxious, or unable to sleep at night)? [id number] Information not available 11/29/2022 Family History Relationship Description Onset Age of this Age Resolved Age Notes LastModified by Organization Details LastModified Time Mother Hemochromato sis [id number] Not available 09/21/2022 01:25:09 Mother Hypertensive disorder [id number] [id number] Not available 09/21/2022 01:25:09 Mother Diabetes mellitus [id number] [id number] Not available 09/21/2022 01:25:09 Mother Fibromyalgia [id number].0 30 [id number] Not available 09/21/2022 01:25:09 Sister Diabetes mellitus [id number].057 [id number] Not available 09/21/2022 01:25:09 Sister Hyperlipidem ia [id number].846 [id number] Not available 09/21/2022 01:25:09 Medical History Condition [...] 50 mcg/0.25mL dose 09/20/2021 completed Not Available [facility] 3 01:27:34 COVID-19, mRNA, LNP-S, PF, 100 mcg/0.5mL dose or 50 mcg/0.25mL dose 08/23/2021 completed Not Available [facility] 3 01:27:34 Past Encounters Encounter ID Performer Location Encounter Start Date Encounter Closed Date Diagnosis/Indication Diagnosis SNOMED-CT Code Diagnosis ICD10 Code Diagnosis Note [id number] Britney Colorado NP [address] [address] 02/23/2022 00:00:00 02/23/2022 16:46:36 [id number] Britney Colorado NP [address] [address] 1 02/28/2022 00:00:00 02/28/2022 13:38:47 [id number] Britney Colorado NP [address] [address] 1 03/15/2022 00:00:00 03/15/2022 17:52:04 [id number] Regulo Tsai MD [address] [address] 1 05/16/2022 00:00:00 05/16/2022 16:39:08 [id number] Regulo Tsai MD [address] [address] 1 06/02/2022 00:00:00 06/02/2022 12:52:05 [id number] Britney Colorado NP [address] [address] 11/29/2022 15:31:19 11/29/2022 16:22:25 Obese [id number] E66.9 No injectable s covered. Not able to be on phentermin e due to heart palpitatio ns.Referra l to bariatric surgery requested- pt will call back with location to send referral. Work on low carb, no dairy, no condiment diet. Portion control. 6 smaller meals, vs 1 large meal daily. [id number] Britney Colorado NP [facility] [address] [place] [address] 05/11/2023 08:29:36 05/11/2023 11:55:09 History and physical examination, pre-employment [id number] Z02.1 Encouraged well balanced meals, active lifestyle, and routine vision and dental appts.Form completed for [facility] Health Concerns Section Related Observation LastModified by Organization Detai ls LastModified Time None Recorded Concern Status LastModified by Organization Details LastModified Time None Recorded Advance Directives Directive N: Payers Insurance Date Sequence Insurance Name Policy Number Policy Saenz Covered Member ID Saenz Member ID Guarantor Name 05/11/2023 1 [facility] ON OR AFTER 01/20/21 (MEDICAID REPLACEMENT - HMO) Gretchen Marcano [id number] Gretchen Marcano 05/11/2023 1 [facility] [id number] Gretchen Marcano [id number] Gretchen Marcano Notes Date Note Type Note [...] to heart palpitations. Britney Colorado NP [address] [facility], [place] [address], [place], [address], [facility] [employer] 11/29/2022 16:19:40 05/11/2023 text/html Here for employm ent physical, [facility]. No real concerns. 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 Fatigue and pain often. Vision utdDental utd Britney Colorado ALEX [address] [facility], [facility] [address], [place], [address], [place] [facility] 05/11/2023 09:03:05 OBGyn Episode No OBEpisode recorded.
--- OUTSIDE RECORDS SUMMARY | 2025-01-22 07:44 | XMS_ITS | Referral Summary ---
Author Organization [facility] Address [address] [place] [address] Care Team Providers Care Manager Brand Name Role Phone Le Claros MD Unavailable [phone] Camilla Coffman NP Primary Care Provider Encounters Date Type Department Care Team Description 01/14/2025 Results Follow-Up [facility] Primary Care at [address] [address] Camilla Coffman NP XR Ankle Right 3+ Vw, CBC with auto differential, CRP (acute phase), Additional followed-up results: 6 01/13/2025 9:42 AM CDT - 01/13/2025 11:59 PM CDT Hospital Encounter [address] [id number] Myalgia Discharge Disposition: Discharge to home or self care 01/13/2025 10:45 AM CDT Ancillary Procedure [facility] Imaging at [address] [address] Myalgia 01/13/2025 9:45 AM CDT Lab [facility] Outpatient Lab at [address] [address] 01/13/2025 9:00 AM CDT Office Visit [facility] Primary Care at [address] [address] Camilla Coffman NP Myalgia (Primary Dx) 01/12/2025 Nurse Triage [facility] Primary Care at [address] [phone] Camilla Coffman NP 10/31/2024 Results Follow-Up [facility] Cardiology [address] [facility] [address] [place] [address] [place] [address] Kate Ashley MD ECG 12 lead 10/31/2024 8:00 AM CDT Office Visit [facility] Cardiology [address] [facility] [address] [place] [address] [place] [address] Kate Ashley MD Postural dizziness with presyncope (Primary Dx); POTS (postural orthostatic tachycardia syndrome); Palpitations 10/30/2024 Orders Only [facility] Primary Care at [address] [address] ProviderShimon MD 10/27/2024 Telephone [facility] Primary Care at [address] [address] Camilla Coffman NP Additional Services Or Orders; Medical Records Request from Last 3 Months Allergies Active Allergy Reactions Criticality Noted Date Comments Adhesive Rash Medium 02/06/2020 Honey-Hydrocolloid Dressing Nausea & Vomiting Low 0 10/20/2022 Medications rizatriptan LIFT OPERATOR (MAXALT-LIFT OPERATOR) 10 mg disintegrating tabletIndications:M igraine Take 1 tablet (10 mg total) by mouth once as needed for migraine May repeat in 2 hours if unresolved. Do not exceed 30 mg in 24 hours. 9 tablet 5 4 01/30/20 25 Active vit 75-bcnz-eotjp-dha 27mg iron- 800 mcg-250 mg capsule Take by mouth Active predniSONE (DELTASONE) 20 mg tablet Take 2 tablets (40 mg) by mouth daily for 5 days, THEN 1 tablet (20 mg) daily for 5 days. 15 tablet 5 01/24/20 25 Active Active Problems Problem Noted Date Diagnosed Date Annual physical exam 01/19/2024 Assessment & Plan (10/26/2024 11:01 AM CDT): -Recommended: Healthy diet. Avoiding junk food/fast food. -30 minutes of exercise most days of the week. Increase to 45 minutes for weight loss. Health Maintenance reviewed - up to date - care follow up per CIVIL ENGINEERING PROFESSIONAL. 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 Will refer to [facility] cardiology. For now will keep her [...] no Assessment & Plan (07/28/2024 9:12 PM SAFETY CLOTHING AND EQUIPMENT DEVELOPER): Did a review of previous medications patient [...] Tobacco: Every Day Cigarettes Smokeless Tobacco: Never AUDIT-C Answer Date Recorded Q1: How often do you have a drink containing alcohol? Never 01/13/2025 Q2: How many drinks containi ng alcohol do you have on a typical day when you are drinking? Patient does not drink Q3: How often do you have si x or more drinks on one occasion? Never 01/13/2025 PHQ-2 Answer Date Recorded PHQ-2 Total Score (If total score is 3 or more points, staff should administer the PHQ-9) 0 01/13/2025 PHQ-9 Answer Date Recorded PHQ-9 Total Score 8 11/06/2023 Comments Yes Sex and Gender Information Value Date Recorded Sex Assigned at Not on file Legal Sex Female 10:32 PM CDT Gender Identity Not on file Sexual Orientation Not on file Last Filed Vital Signs Vital Sign Reading Time Taken Comments Blood Pressure 98/66 01/13/2025 9:16 AM CDT Pulse 91 01/13/2025 9:16 AM CDT Temperature 36.4 C (97.6 F) 01/13/2025 9:16 AM CDT Respiratory Rate 16 01/13/2025 9:16 AM CDT Oxygen Saturation 97% 01/13/2025 9:16 AM CDT Inhaled Oxygen Concentration - - Weight 100.7 kg (222 lb) 01/13/2025 9:16 AM CDT Height 170.2 cm (5' 7) 01/13/2025 9:16 AM CDT Body Mass Index 34.77 01/13/2025 9:16 AM CDT Plan of Treatment Not on file Procedures Procedure Name Priority Date/Time Associated Diagnosis Comments XR ANKLE RIGHT 3 OR MORE VIEWS Schedule Routine, Read Routine (OP Routine) 01/13/2025 10:04 AM CDT Myalgia EGFR Routine 01/13/2025 9:42 AM CDT Myalgia URIC ACID Routine 01/13/2025 9:42 AM CDT Myalgia DIFFERENTIAL AUTO Routine 01/13/2025 9:4 2 AM CDT Myalgia RHEUMATOID FACTOR Routine 01/13/2025 9:4 2 AM CDT Myalgia ERYTHROCYTE SEDIMENTATION RATE Routine 01/13/2025 9:42 AM CDT Myalgia COMPREHENSIVE METABOLIC PANEL Routine 01/13/2025 9:42 AM CDT Myalgia BRANDON SCREEN W/REFLEX NIKKI+DSDNA Routine 01/13/2025 9:42 AM CDT Myalgia CRP (ACUTE PHASE) Routine 01/13/2025 9:4 2 AM CDT Myalgia CBC WITH AUTO DIFFERENTIAL Routine 01/13/2025 9:42 AM CDT Myalgia ECG 12-LEAD Routine 10/31/2024 8:09 AM CDT POTS (postural orthostatic tachycardia syndrome) US OB HEART WITH US FOLLOW UP (C) Schedule Routine, Read Routine (OP Routine) 10/30/2024 2:58 PM CDT HEPATITIS C ANTIBODY Routine 10/19/2023 11:14 AM CDT Encounter for hepatitis C screening test for low risk patient from Last 3 Months or Most Recently Relevant to Health Maintenance Results * XR Ankle Right 3+ Vw (01/13/2025 10:04 AM CDT) Anatomical Region Laterality Modality Lower Extremities, Ankle Right Digital Radiography 01/13/2025 1:28 PM CDT Narrative 01/13/2025 1:31 PM CDT EXAM DESCRIPTION: XR ANKLE RIGHT 3 OR MORE VIEWS REASON FOR STUDY: right ankle pain Pt complains of medial ankle pain for a couple of months. No known injury or prior surgery TECHNIQUE: 2 radiographic view(s) of the right ankle . COMPARISON: No prior studies are available for comparison at time of this dictation. FINDINGS: BONES/JOINTS: There is no acute fracture, malalignment or osseous abnormality. The joint spaces are normal. SOFT TISSUES: Within normal limits. IMPRESSION: No acute osseous abnormality. THIS IS AN ELECTRONICALLY VERIFIED FINAL REPORT 01/13/2025 1:31 PM - Electronically signed by Gregorio Puente M.D. MM T: Report ID: [id number] Reading Location: [id number] Procedure Note Gregorio Puente MD - 01/13/2025 EXAM DESCRIPTION: XR ANKLE RIGHT 3 OR MORE VIEWS REASON FOR STUDY: right ankle pain Pt complains of medial ankle pain for a couple of months. No known injuryor prior surgery TECHNIQUE: 2 radiographic view(s) of the right ankle . COMPARISON: No prior studies are available for comparison at time of this dictation. FINDINGS: BONES/JOINTS: There is no acute fracture, malalignment orosseous abnormality. The joint spaces are normal. SOFT TISSUES: Within normal limits. IMPRESSION: No acute osseous abnormality. THIS IS AN ELECTRONICALLY VERIFIED FINAL REPORT 01/13/2025 1:31 PM - Electronically signed by Gregorio Puente M.D., MM T: Report ID: [id number] Reading Location: [place] [address] Camilla Coffman ADMINISTRATIVE ASSOCIATE IMG XR PROCEDURES Final Resul t * BRANDON screen w/rflx NIKKI+dsDNA (01/13/2025 9:42 AM CDT) BRANDON Negative Comment: Interpretive Data Normal range for BRANDON Qualitative Antibody = Negative. 1. BRANDON is performed using indirect immunofluorescence against HEp-2 cells 2. BRANDON titers are performed on all positive qualitative results. 3. A significantly positive BRANDON result is defined as a positive nuclear fluorescence at a titer of 1:80 or greater. 4. 15% of normal people above age 65 have significantly positive BRANDON results. 5% or less of normal people age 65 or under have significantly positive BRANDON results. Current interpretive data was last revised on 2020. Testing performed by: [facility], [address] [facility], [place]., [address] Blood 01/13/2025 9:42 AM CDT 01/14/2025 9:51 AM CDT us Camilla Coffman NP LAB BLOOD ORDERABLES Final Re sult Performing Organization Address [facility] Co de Phone Number CARLOS WOO [address] Department [place] [address] * eGFR (01/13/2025 9:42 AM CDT) eGFR >90 >=60 mL/min/1. 73 [...] interpretive data was last reviewed 2021. Blood 01/13/2025 9:42 AM CDT 01/13/2025 7:39 PM CDT Camilla Coffman NP LAB BLOOD ORDERABLES Final Re sult Performing Organization Address [facility] Co de Phone Number CARLOS WOO [address] Department [place] [address] * Differential, auto (01/13/2025 9:42 AM CDT) Neutrophil abs 4.26 1.50 - 6.50 K/cumm Imm gran abs 0.02 0.00 - 0.10 K/cumm [facility] Lymphocyte abs 2.25 0.80 - 3.30 K/cumm [facility] Monocyte abs 0.68 0.20 - 0.80 K/cumm [facility] Eosinophil abs 0.19 0.00 - 0.50 K/cumm [facility] Basophil abs 0.07 0.00 - 0.10 K/cumm [facility] Neutrophil pct 57.1 % [facility] Comment: Interpretive Data Percent cell count reference ranges are not reported, since discordance with absolute values may lead to misinterpretation of CBC data. Current Interpretive Data was last revised on 2017. Imm gran pct 0.3 % CARLOS Comment: Interpretive Data Percent cell count reference ranges are not reported, since discordance with absolute values may lead to misinterpretation of CBC data. Current Interpretive Data was last revised on 2017. Lymphocyte pct 30.1 % CARLOS Comment: Interpretive Data Percent cell count reference ranges are not reported, since discordance with absolute values may lead to misinterpretation of CBC data. Current Interpretive Data was last revised on 2017. Monocyte pct 9.1 % CARLOS Comment: Interpretive Data Percent cell count reference ranges are not reported, since discordance with absolute values may lead to misinterpretation of CBC data. Current Interpretive Data was last revised on 2017. Eosinophil pct 2.5 % CARLOS Comment: Interpretive Data Percent cell count reference ranges are not reported, since discordance with absolute values may lead to misinterpretation of CBC data. Current Interpretive Data was last revised on 2017. Basophil pct 0.9 % CARLOS Comment: Interpretive Data Percent cell count reference ranges are not reported, since discordance with absolute values may lead to misinterpretation of CBC data. Current Interpretive Data was last revised on 2017. Blood 01/13/2025 9:42 AM CDT 01/13/2025 6:27 PM CDT us Camilla Coffman NP LAB BLOOD ORDERABLES Final Re sult CARLOS [address] Department [place] [address] * (ABNORMAL) CBC with auto differential (01/13/2025 9:42 AM CDT) WBC 7.47 3.80 - 9.90 K/cumm Hgb 12.2 11.9 - 15.5 g/dL [facility] Hct 39.8 35.6 - 45.5 % [facility] Plt 294 150 - 400 K/cumm [facility] MPV 10.9 9.1 - 12.3 fL [facility] RBC 4.65 3.90 - 5.20 M/cumm [facility] MCV 85.6 81.3 - 96.4 fL [facility] MCH 26.2(L) 27.1 - 33.3 pg [facility] MCHC 30.7(L) 32.3 - 35.7 g/dL [facility] CH RDW CV 14.2 11.1 - 14.9 % [facility] RDW SD 44.6 35.7 - 48.1 fL [facility] NRBC abs 0.00 0.00 - 0.01 K/cumm [facility] Blood 01/13/2025 9:42 AM CDT 01/13/2025 6:27 PM CDT Camilla Coffman NP LAB BLOOD ORDERABLES Final Re sult Performing Organization Address [facility] de Phone Number CARLOS [address] [facility] [address] [place], [place] [id number] * (ABNORMAL) Erythrocyte sedimentation rate (01/13/2025 9:42 AM CDT) [facility] Erythrocyte sedimentation rate 23(H) 1 - 20 mm/hr Blood 01/13/2025 9:42 AM CDT 01/13/2025 6:27 PM CDT Camilla Coffman NP LAB BLOOD ORDERABLES Final Re sult Performing Organization Address [facility] de Phone Number [facility] [address] [address] [facility] [address] [place], [place] [id number] * Rheumatoid factor (01/13/2025 9:42 AM CDT) [facility] Rheumatoid factor, quant <10 <=15 IUnits/mL Blood 01/13/2025 9:42 AM CDT 01/13/2025 6:27 PM CDT Camilla Coffman ADMINISTRATIVE ASSOCIATE LAB BLOOD ORDERABLES Final Re sult Performing Organization Address [facility] Co de Phone Number CARLOS WOO [address] [address] [facility] [address] [address] * (ABNORMAL) CRP (acute phase) (01/13/2025 9:42 AM CDT) Pathologist [facility] CRP 10.3(H) <=10.0 mg/L Blood 01/13/2025 9:42 AM CDT 01/13/2025 6:27 PM CDT Camilla Coffman ADMINISTRATIVE ASSOCIATE LAB BLOOD ORDERABLES Final Re sult Performing Organization Address [facility] Co de Phone Number CARLOS WOO [address] [address] [facility] [facility] [address] [address] * Uric acid (01/13/2025 9:42 AM CDT) Pathologist [facility] Uric acid 5.0 2.5 - 7.0 mg/dL Blood 01/13/2025 9:42 AM CDT 01/13/2025 6:40 PM CDT Camilla Coffman ADMINISTRATIVE ASSOCIATE LAB BLOOD ORDERABLES Final Re sult Performing Organization Address [facility] Co de Phone Number CARLOS WOO [address] [address] [facility] [facility] [address] [address] * (ABNORMAL) Comprehensive metabolic panel (01/13/2025 9:42 AM CDT) Sodium 138 135 - 145 mmol/L Potassium, pl 4.1 3.3 - 4.9 mmol/L [facility] Chloride 105 97 - 110 mmol/L [facility] CH CO2 21(L) 22 - 32 mmol/L [facility] Anion gap 12 2 - 15 mmol/L [facility] BUN 7 6 - 25 mg/dL [facility] Creatinine 0.67 0.60 - 1.10 mg/dL [facility] Glucose 103 70 - 199 mg/dL [facility] Comment: Interpretive Data Fasting glucose >/= 126 [...] interpretive data was last revised 2022. Calcium 9.6 8.5 - 10.3 mg/dL [facility] Bilirubin, total 0.3 0.1 - 1.2 mg/dL [facility] Protein, pl 7.0 6.5 - 8.5 g/dL [facility] Albumin 3.9 3.5 - 5.0 g/dL [facility] Alk phos 83 40 - 130 Units/L [facility] ALT 13 7 - 45 Units/L [facility] AST 23 10 - 45 Units/L [facility] Blood 01/13/2025 9:42 AM CDT 01/13/2025 6:27 PM CDT Camilla Coffman NP LAB BLOOD ORDERABLES Final Re sult CARLOS WOO [address] [facility] Department [place] [address] * ECG 12 lead (10/31/2024 8:09 AM CDT) Kate Ashley MD ECG ORDERABLES Edited Result - Final * US OB Heart with US Follow up (C) (10/30/2024 2:58 PM CDT) Anatomical Region Laterality Modality Body N/A Ultrasound Historical Provider IMG OB US PROCEDURES Elena l Result * Hepatitis C antibody Blood (10/19/2023 11:14 [...] - GENERAL OR DERABLES Final Result CARLOS [address] Department [place] [address] from Last 3 Months or Most Recently Relevant to Health Maintenance Insurance [facility] Care Teams Manager Brand Relationship Specialty Start Date End Date Camilla Coffman NP [address] [place] [address] PCP - General Family Medicine 01/01/25 Le Claros MD [address] [place] [address] Referring Physician Gynecology 10/22/24
--- OUTSIDE RECORDS SUMMARY | 2025-01-22 07:44 | XMS_ITS | Clinical Summary ---
Author Organization [facility] Address [address] [place] [address] Care Team Providers Care Process Control Programmer Name Role Phone Sameer Aggarwal MD Unavailable Stephanie Villagomez DO Primary Care Provider [phone] Source Comments [facility],non-owned Affiliates and Associated Physician Practices is amultiple site organization consisting of ambulatory clinics and hospital sitesin [place], [place], [place] and [place]. This disclosure is being madepursuant to the Care Everywhere program and may not contain all information available regarding this patient. Last updated 18.[facility] Allergies Active Allergy Reactions Criticality Noted Date Comments Adhesive Sensitivity Rash Medium 02/06/2020 Saline Dizziness,Palpitatio ns,Shortness of Breath,Wheezing High 05/14/2011 Medications * Be aware that medications may not be up to date on this document. Alwaysverify current medications with the patient. vitamin D, ergocalciferol, (DRISDOL) 1.25 MG (38798 UT) capsule Take 1 capsule by mouth [...] Sex Assigned at Female 09/16/2020 2:24 PM WHEEL BORER Legal Sex Female 5:19 PM WHEEL BORER Gender Identity Female 09/16/2020 2:24 PM WHEEL BORER Sexual Orientation Straight 09/16/2020 2: 24 PM WHEEL BORER Last Filed Vital Signs Vital Sign Reading [...] 02/06/2020 (Done Outside Per Patient) COVID-19 VACCINE (1 - 2023-2 5 season) 2024 DEPRESSION SCREENING [...] P24 AG PANEL (02/06/2020 2:50 PM CDT) [facility] HIV Screen 4th Generation w Reflex NON-REACT [...] purpose. For additional information please refer to http://education.Physitrack.Ideapod/faq/GXF874 (This link is being provided for informational/ educational purposes only.) The performance of this assay has not been clinically validated in patients less than 2 years old. Test Performed at: [facility] [address] [place] [address] ASAD ZAPIEN DO,MPH 02/06/2020 2:50 PM CDT 02/06/2020 2:52 PM CDT us Stephanie Villagomez DO LAB - CHEMISTRY ORDERABLES Elena acevedo Result [facility] [address] [place] [address] from Last 3 Months or Most Recently Relevant to Health Maintenance Insurance MEDICAID - OUT OF STATE [facility] SELF PAY NO INSURANCE Member Subscriber Plan / Payer (Ef fective for All Dates) Name:Gretchen Carroll Member ID:Not on file Relation to Subscriber:Not on file Name:GRETCHEN CARROLL Subscriber ID:Not on file (Home) Address: [address] [place] [address] Payer ID:Not on file Group ID:Not on file Type:Self Pay Address: [place], [place] Care Teams Process Control Programmer Relationship Specialty Start Date End Date DahliaJorge coburnsilvia Castillo DO [address] [place] [address] PCP - General 05/06/21 Sameer Aggarwal MD [address] [place] [address] Resident - PCP Student Resident 05/06/21
--- OUTSIDE RECORDS SUMMARY | 2025-01-22 07:44 | XMS_ITS | Clinical Summary ---
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 Do not exceed 30 mg in 24 hours. 9 tablet 5 4 01/30/20 25 Active vit 91-eafi-kqgqk-dha 27mg iron- 800 mcg-250 mg capsule Take [...] to date - care follow up per ELECTRICAL MANAGER. 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 Will refer to [facility] cardiology. 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): Did a review of previous medications patient [...] Department Care Team Description 01/14/2025 Results Follow-Up [facility] Primary Care at [address] [phone] Camilla Coffman, DATA LEAD XR Ankle Right 3+ Vw, CBC with auto differential, CRP (acute phase), Additional followed-up results: 6 01/13/2025 10:45 AM CDT Ancillary Procedure [facility] Imaging at [address] [phone] Myalgia 01/13/2025 9:45 AM CDT Lab [facility] Outpatient Lab at [address] [phone] 01/13/2025 9:42 AM CDT - 01/13/2025 11:59 PM CDT Hospital Encounter [address] [address] Myalgia Discharge Disposition: Discharge to home or self care 01/13/2025 9:00 AM CDT Office Visit [facility] Primary Care at [address] [phone] Camilla Coffman NP Myalgia (Primary Dx) 01/12/2025 Nurse Triage [facility] Primary Care at [address] [phone] Camilla Coffman NP 10/31/2024 8:00 AM CDT Office Visit [facility] Cardiology [address] [place] [address] 8th [place] [address] [place] [phone] Kate Ashley MD Postural dizziness with presyncope (Primary Dx); POTS (postural orthostatic tachycardia syndrome); Palpitations 10/31/2024 Results Follow-Up [facility] Cardiology [address] [place] [address] 8th [place] [address] [place] [address] Kate Ashley MD ECG 12 lead 10/30/2024 Orders Only [facility] Primary Care at [address] [phone] Shimon Jacob MD 10/27/2024 Telephone [facility] Primary Care at [address] [phone] Camilla Coffman NP Additional Services Or Orders; Medical Records Request from Last 3 Months Immunizations Immunization Administration [...] History Relation Name Comments Asthma Daughter 1 Brshonda Marcano Asthma Daughter 2 Lilmaryamn Krys Alcohol abuse Father Reji Jang Asthma Half-Sister [...] Mother Genia Goodman Cancer Mother's Sister Idania Fuentesris Obesity Mother's Sister Idania Carty Cancer Paternal Grandmother Diane Suttongren Asthma Sister Cee Goodman Depression Sister Cee Goodman Obesity Sister Cee Goodman Relation Name Status Comments Daughter 1 Kyle Marcano Alive Daughter 2 yR Marcano Alive Father Reji Suttongren Half-Sister 1 [...] 01/13/2025 9:16 AM CDT Plan of Treatment Health Maintenance Due Date Last Done Comments DTaP/Tdap/Td Vaccine (1 - Tdap) 02/08/2000 Varicella Vaccines (1 of 2 - 13+ 2-dose series) 2002 Hepatitis B Screening 2007 Pneumococcal vaccine <65 (1 of 2 - PCV) 02/08/2008 Covid-19 Vaccine (2023- season) 2024 09/20/2021, 08/23/2021, 10/09/2020, Additional history exists Influenza Vaccine (#1) 2025 Cervical Cancer Screening 05/15/2025 Po stponed from 1989 (Patient declined, but will receive in the future) Regular Well Visit/Exam 18-64 10/22/2025 10/22/2024, 01/18/2024 Depression Screening 01/13/2026 01/13/2025, 10/22/2024, 04/23/2024, Additional history exists Hepatitis C Screening Completed [...] Gregorio Puente M.D. MM T: Report ID: [id number] Reading Location: [id number] Procedure Note Gregorio Puente MD - 01/13/2025 [...] Gregorio Puente M.D., MM T: Report ID: [id number] Reading Location: [id number] Camilla Coffman DATA LEAD IMG XR PROCEDURES Final Resul t * [...] last revised on 2020. Testing performed by: [facility], [address] [place]., [address] Blood 01/13/2025 9:42 AM CDT 01/14/2025 9:51 AM CDT Camilla Coffman NP LAB BLOOD ORDERABLES Final Re sult Performing Organization Address City/[facility]/ZIP Co de Phone Number CARLOS AMNA [address] [place] [address] * eGFR (01/13/2025 9:42 AM CDT) eGFR [...] BLOOD ORDERABLES Final Re sult CARLOS WOO [address] Department [place] [address] * Differential, auto (01/13/2025 9:42 AM CDT) Neutrophil abs 4.26 1.50 - 6.50 K/cumm Imm gran abs 0.02 0.00 - 0.10 K/cumm [facility] Lymphocyte abs 2.25 0.80 - 3.30 K/cumm [facility] Monocyte abs 0.68 0.20 - 0.80 K/cumm [facility] Eosinophil abs 0.19 0.00 - 0.50 K/cumm [facility] Basophil abs 0.07 0.00 - 0.10 K/cumm [facility] Neutrophil pct 57.1 % [facility] Comment: Interpretive Data Percent cell count reference ranges are not reported, since discordance with absolute values may lead to misinterpretation of CBC data. Current Interpretive Data was last revised on 2017. Imm gran pct 0.3 % [facility] Comment: Interpretive Data Percent cell count reference ranges are not reported, since discordance with absolute values may lead to misinterpretation of CBC data. Current Interpretive Data was last revised on 2017. Lymphocyte pct 30.1 % [facility] Comment: Interpretive Data Percent cell count reference ranges are not reported, since discordance with absolute values may lead to misinterpretation of CBC data. Current Interpretive Data was last revised on 2017. Monocyte pct 9.1 % [facility] Comment: Interpretive Data Percent cell count reference ranges are not reported, since discordance with absolute values may lead to misinterpretation of CBC data. Current Interpretive Data was last revised on 2017. Eosinophil pct 2.5 % [facility] Comment: Interpretive Data Percent cell count reference ranges are not reported, since discordance with absolute values may lead to misinterpretation of CBC data. Current Interpretive Data was last revised on 2017. Basophil pct 0.9 % [facility] Comment: Interpretive Data Percent cell count reference ranges are not reported, since discordance with absolute values may lead to misinterpretation of CBC data. Current Interpretive Data was last revised on 2017. Blood 01/13/2025 9:42 AM CDT 01/13/2025 6:27 PM CDT Camilla Coffman DATA LEAD LAB BLOOD ORDERABLES Final Re sult CARLOS WOO [address] [address] [facility] [place] [address] * (ABNORMAL) CBC with auto differential (01/13/2025 9:42 AM CDT) WBC 7.47 3.80 - 9.90 K/cumm Hgb 12.2 11.9 - 15.5 g/dL [facility] Hct 39.8 35.6 - 45.5 % [facility] Plt 294 150 - 400 K/cumm [facility] MPV 10.9 9.1 - 12.3 fL [facility] RBC 4.65 3.90 - 5.20 M/cumm [facility] CH MCV 85.6 81.3 - 96.4 fL [facility] MCH 26.2(L) 27.1 - 33.3 pg [facility] MCHC 30.7(L) 32.3 - 35.7 g/dL [facility] CH RDW CV 14.2 11.1 - 14.9 % [facility] CH RDW SD 44.6 35.7 - 48.1 fL [facility] NRBC abs 0.00 0.00 - 0.01 K/cumm [facility] Blood 01/13/2025 9:42 AM CDT 01/13/2025 6:27 PM CDT Camilla Coffman DATA LEAD LAB BLOOD ORDERABLES Final Re sult Performing Organization Address City/[facility]/ZIP Co de Phone Number CARLOS WOO [address] [address] [place] [address] * (ABNORMAL) Erythrocyte sedimentation rate (01/13/2025 9:42 AM CDT) Erythrocyte sedimentation rate 23(H) 1 - 20 mm/hr Blood 01/13/2025 9:42 AM CDT 01/13/2025 6:27 PM CDT Camilla Coffman DATA LEAD LAB BLOOD ORDERABLES Final Re sult Performing Organization Address [facility]/ZIP Co de Phone Number CARLOS WOO [address] [address] [facility] [place] [address] * Rheumatoid factor (01/13/2025 9:42 AM CDT) Rheumatoid factor, quant <10 <=15 IUnits/mL Blood 01/13/2025 9:42 AM CDT 01/13/2025 6:27 PM CDT Camilla Coffman DATA LEAD LAB BLOOD ORDERABLES Final Re sult Performing Organization Address [facility] Co de Phone Number CARLOS WOO [address] [address] [facility] [place] [address] * (ABNORMAL) CRP (acute phase) (01/13/2025 9:42 AM CDT) CRP 10.3(H) <=10.0 mg/L Blood 01/13/2025 9:42 AM CDT 01/13/2025 6:27 PM CDT Camilla Coffman DATA LEAD LAB BLOOD ORDERABLES Final Re sult Performing Organization Address [facility] Co de Phone Number ALINESHAMEKA WOO [address] [address] [facility] [place] [address] * Uric acid (01/13/2025 9:42 AM CDT) Uric acid 5.0 2.5 - 7.0 mg/dL Blood 01/13/2025 9:42 AM CDT 01/13/2025 6:40 PM CDT Camilla Coffman DATA LEAD LAB BLOOD ORDERABLES Final Re sult Performing Organization Address City/[facility]/ZIP Co de Phone Number CARLOS WOO [address] [address] [place] [address] * (ABNORMAL) Comprehensive metabolic panel (01/13/2025 9:42 AM CDT) Sodium 138 135 - 145 mmol/L Potassium, pl 4.1 3.3 - 4.9 mmol/L [facility] Chloride 105 97 - 110 mmol/L [facility] CO2 21(L) 22 - 32 mmol/L [facility] Anion gap 12 2 - 15 mmol/L [facility] BUN 7 6 - 25 mg/dL [facility] Creatinine 0.67 0.60 - 1.10 mg/dL [facility] Glucose 103 70 - 199 mg/dL [facility] Comment: [...] BLOOD ORDERABLES Final Re sult CARLOS WOO [address] [address] Department [place] [address] * ECG 12 lead (10/31/2024 8:09 AM CDT) us Kate Ashley MD ECG ORDERABLES Edited Result - Final * US OB Heart with US Follow up (C) (10/30/2024 2:58 PM CDT) Anatomical Region Laterality Modality Body N/A Ultrasound Historical Provider IMSamina OB US PROCEDURES Elena l Result * [...] OR DERABLES Final Result Performing Organization Address City/State/[facility] Co de Phone Number CARLOS [address] [address] Department [place] [address] from Last 3 Months or Most Recently Relevant to Health Maintenance Insurance [facility] Care Teams Lottery Manager Relationship Specialty Start Date End Date Camilla Coffman NP [address] [facility] [address] [place] [address] PCP - General Family Medicine 01/01/25 Le Claros MD [address] [place] [address] Referring Physician Gynecology 10/22/24
--- OUTSIDE RECORDS SUMMARY | 2025-01-22 07:45 | XMS_ITS | Encounter Summary ---
Author Organization [facility] Healthcare Address [address] [place] [address] Care Team Providers Care Store Team Leader Name Role Phone Le Claros MD Unavailable [phone] Camilla Coffman NP Primary Care Provider [phone] Encounter Details Date Type Department Care Team (Late st Contact Info) Description 01/14/2025 Results Follow-Up [facility] Primary Care at [address] [phone] Camilla Coffman, HELMET HAT BRIM CUTTER [address] [place] [address] [address] [place] [address] XR Ankle Right 3+ Vw, CBC with auto differential, CRP (acute phase), Additional followed-up results: 6 Social History Tobacco Use Types Packs/Day Years [...] as of this encounter Miscellaneous Notes * Result Encounter Note - Camilla Coffman NP - 01/14/2025 11:21 AM CDT Normal ankle x-ray documented in this encounter Plan of Treatment Not on file documented as of this encounter Visit Diagnoses Not on filedocumented in this encounter Care Teams Store Team Leader Relationship Specialty Start Date End Date Camilla Coffman NP [address] [place] [address] PCP - General Family Medicine 01/01/25 Le Claros MD [address] [place] [address] Referring Physician Gynecology 10/22/24 documented as of this encounter
== END 2024-11-05 10:33 ==
PROVIDERS: PCP Obstetrics & Gynecology Gynecology; Visit Provider Emergency Medicine
DX: O03.4 Incomplete spontaneous abortion without complication (principal); Z3A.00 Weeks of gestation of pregnancy not specified
CPT/HCPCS: 76830; 76856; J1836

== ENCOUNTER 2024-11-05 10:34 | Day surgery (SDC) | payer OTHER, SELFPAY ==
[2024-11-05 11:00] VITALS: BP 120/74; PULSE 97; RESP 16; TEMP 36.9; O2SAT 98
--- NOTE | 2024-11-05 11:12 | WPDANESEPPF ---
Anes - Initial Pre Proc Eval Procedure: Operation Date: 11/05/24 12:00 Proposed Procedures p Suction Dilatation and Curettage - Le Claros MD Date/Time: 11/05/24 11:12 Surgeon: Le Claros MD Pre Op Diagnosis: missed AB Patient Data Age: 34 Gender: F Height: Weight: Allergies Allergy/AdvReac Type Severity Reaction Status Date / Time No Known Allergies Allergy Verified 11/05/24 01:54 Home Medications ?Medication ?Instructions ?Recorded ?Confirmed ?Type cholecalciferol (vitamin D3) 1,250 See Rx Instructions .Route .COMPLEX 07/01/19 History mcg (50,000 unit) tablet (Dialyvite Vitamin D3 Max) cholecalciferol (vitamin D3) 50 2,000 unit PO DAILY 07/01/19 History mcg (2,000 unit) tablet escitalopram oxalate 20 mg tablet 20 mg PO DAILY 07/01/19 History vitamin no.49-iron See Rx Instructions PO .COMPLEX 07/01/19 History fum-folic acid 6.75 mg iron-200 mcg tablet (Mini ) selenium sulfide 2.5 % lotion See Rx Instructions .Route .COMPLEX 07/01/19 History trazodone 100 mg tablet 100 mg PO DAILY 07/02/19 History naproxen 500 mg tablet 500 mg PO BID #20 tabs 07/17/19 Rx meclizine 25 mg tablet 25 mg PO BID PRN dizziness #20 tabs 02/03/23 Rx Patient hx anesthesia problems: none Family hx anesthesia problems: none Results Review: All pre-operative results and documents have been reviewed as part of the pre-operative evaluation. [facility] Past Medical History Medical History POTS (postural orthostatic tachycardia syndrome) NATALIE (obstructive sleep apnea) Depression Surgical History Surgical History History of cholecystectomy Family History Family History Mother Family history of thyroid disease Family history of hypercholesterolemia Depression Family history of migraine headaches Hypertension Sibling Family history of hypercholesterolemia Hypertension Father Family history of cardiovascular disease Other Carcinoma of colon Diabetes mellitus Family history of elevated blood lipids Family history of malignant neoplasm Family history of malignant neoplasm of ovary Social History Social History Smoking status: Current every day smoker Alcohol intake: current Anes - Eval Final PreProcedure Day of Procedure 11/05/24 11:12 Patient weight: obese Heart: regular rate and rhythm Lungs: clear to auscultation Airway: Mallampati scale class II Neurological: alert and oriented Last oral intake: >/= 8 hours ASA classification: III Emergent: no Anesthetic plan: proceed Anesthesia type and monitoring: general GIVS and standard monitoring Results Review: All pre-operative results and documents have been reviewed as part of the pre-operative evaluation. Informed Consent: The patient's anesthetic plan and its attendant risks and benefits were discussed with the patient/family/POA. Questions were solicited and answers provided to the satisfaction of the patient/family/POA.
[2024-11-05 11:38] VITALS: BMI 35.7
--- NOTE | 2024-11-05 11:58 | WPDHPUPDATE1 ---
History and Physical Update Update Date/Time: 11/05/24 11:58 History and Physical has been reviewed, including an updated exam of the patient. There are NO changes in the patient's condition. Risks, benefits, and alternatives have been discussed and questions answered. Patient agrees to proceed with procedure.
--- NOTE | 2024-11-05 11:58 | PM.HPGS ---
History of Present Illness History of Present Illness Consent: Risks, benefits, and alternatives have been discussed and questions answered. Patient agrees to proceed with procedure. Chief complaint: missed AB Narrative: Gretchen Marcano is a 34 year old female with incomplete spontaneous . The patient began bleeding and had an initial hemoglobin of 13. She went to the ER 1 week ago and had a hemoglobin of 11. She went to the emergency room last evening and had hemoglobin of 9.9. I was not called with report. Ultrasound was ordered for 730 this morning. Showed retained gestational sac. It was recommended to undergo D&C for management of her incomplete miscarriage. Risks of infection, bleeding, and perforation are reviewed. Patient voices understanding and agrees to proceed. Review of Systems Review of Systems: not repeated day of surgery; patient states no changes in status PMFSH Past Medical History Medical History (Updated 11/05/24 @ 12:01 by Le Claros MD) (normal spontaneous vaginal delivery) X2 History of eating disorder Chronic history bulimia and anorexia POTS (postural orthostatic tachycardia syndrome) NATALIE (obstructive sleep apnea) Depression Surgical History Surgical History (Updated 11/05/24 @ 12:01 by Le Claros MD) History of History of foot surgery History of cholecystectomy Family History Family History Mother Family history of thyroid disease Family history of hypercholesterolemia Depression Family history of migraine headaches Hypertension Sibling Family history of hypercholesterolemia Hypertension Father Family history of cardiovascular disease Other Carcinoma of colon Diabetes mellitus Family history of elevated blood lipids Family history of malignant neoplasm Family history of malignant neoplasm of ovary Social History Social History Smoking status: Current every day smoker Alcohol intake: current Meds Home Medications and Allergies Home Medications ?Medication ?Instructions ?Recorded ?Confirmed ?Type cholecalciferol (vitamin D3) 1,250 See Rx Instructions .Route .COMPLEX 07/01/19 11/05/24 History mcg (50,000 unit) tablet (Dialyvite Vitamin D3 Max) cholecalciferol (vitamin D3) 50 2,000 unit PO DAILY 07/01/19 11/05/24 History mcg (2,000 unit) tablet escitalopram oxalate 20 mg tablet 20 mg PO DAILY 07/01/19 11/05/24 History vitamin no.49-iron See Rx Instructions PO .COMPLEX 07/01/19 11/05/24 History fum-folic acid 6.75 mg iron-200 mcg tablet (Mini ) selenium sulfide 2.5 % lotion See Rx Instructions .Route .COMPLEX 07/01/19 History trazodone 100 mg tablet 100 mg PO DAILY 07/02/19 11/05/24 History naproxen 500 mg tablet 500 mg PO BID #20 tabs 07/17/19 11/05/24 Rx meclizine 25 mg tablet 25 mg PO BID PRN dizziness #20 tabs 02/03/23 11/05/24 Rx Allergies Allergy/AdvReac Type Severity Reaction Status Date / Time No Known Allergies Allergy Verified 11/05/24 11:28 Vital Signs Vital Signs - 24 hr 11/05/24 11:00 Temperature 98.5 F Pulse Rate 97 Respiratory Rate 16 Blood Pressure 120/74 Pulse Oximetry 98 Oxygen Delivery Room Air Exam Const: General: no acute distress, alert and awake Orientation/consciousness: patient oriented x3 Resp: Effort & Inspection: normal respiratory effort : External Female Exam: other (Pelvic exam deferred to operating room secondary to heavy bleeding) Neuro: General: patient oriented x3 Assessment and Plan Assessment and plan (1) Incomplete miscarriage: Code(s): O03.4 - Incomplete spontaneous without complication Status: Acute Assessment and Plan: Plan to proceed with suction D&C
[2024-11-05] MEDS: LIDOCAINE 1% LOCAL INJ 10 ML VIAL INFILTRATE (12:24)
[2024-11-05] MEDS: metroNIDAZOLE 500 MG/ISO 100ML 500 MG/100 ML BAG 100 MG IVPB (12:33)
--- NOTE | 2024-11-05 12:43 | P.OP_ITS ---
Procedure Note - Detailed Date of Procedure 11/05/24 Pre-op Diagnosis Incomplete with hemorrhage Post-op Diagnosis Same Procedure Performed suction D&C Surgeon Le Claros MD Anesthesia MAC and Local Findings organized clot filling the vagina and cervix cervix was dilated externally to 4cm with the organized clot and the internal os is open uterus sounds to 7cm Description of Procedure The patient is taken to the operating room and placed under anesthesia in the dorsal lithotomy position. She was prepped and draped in the usual sterile fashion. [place] speculum was placed in the vagina and the vagina was noted to be completely full of organized clot. This was removed using ring forceps in pieces. Once the clot was removed the cervix was visible and grasped with a tenaculum on the anterior lip. The uterus is sounded to 7cm. The 8mm curved suction curette is used to suction the endometrium until no further products were noted in the tubing. Minimal material was obtained consistent with the products being in the cervix and lower uterine segment. The instruments are removed and minimal bleeding noted. The instrument, needle, and sponge count are correct per the OR staff. The patient was taken to recovery in stable condition. Estimated Blood Loss 5 ( 150cc organized clot) Drains No Packing No Pathology Yes ( vaginal clot with possible products of conception; Endometrial curettings) Complications No immediate complications Condition Stable Disposition PACU
[2024-11-05 12:46] VITALS: BP 97/56; PULSE 82; RESP 13; O2SAT 95
[2024-11-05 13:16] VITALS: BP 113/56; PULSE 82; RESP 16
[2024-11-05 13:46] VITALS: BP 137/79; PULSE 93; RESP 16
== END 2024-11-05 13:57 | disposition home or self-care (01) ==
PROVIDERS: PCP Obstetrics & Gynecology Gynecology; Visit Provider Obstetrics & Gynecology Gynecology
PROC: (CPT 59812; principal; 2024-11-05 12:00)
DX: O03.4 Incomplete spontaneous abortion without complication (principal)
CPT/HCPCS: 59812; 87070; 87075; 87205; 88305; 99285; A9270; J1836; J2003; J2210; J2250; J2704; J3010

== ENCOUNTER 2025-04-01 12:29 | Outpatient (CLI) | payer OTHER, SELFPAY ==
--- NOTE | ~2025-04-01 | DEXA_ITS ---
Bone Density Report Name: ELIOT DANGELO Age: 35 Sex: Female Ethnicity: White Date of : 1990 Indication: height loss; prior fracture; Referring Provider: KARYN, MINDA Duron Study: Bone densitometry was performed. Exam Date: April 01, 2025 Accession number: [id number] Bone Density: Region BMD T-score Z-score Classification AP Spine(L1-L4) 0.862 -1.6 Femoral Neck (Left) 0.708 -1.1 Total Hip (Left) 0.936 0.0 Femoral Neck (Right) 0.721 -1.0 Total Hip (Right) 0.966 0.3 Total Hip Mean 0.951 0.2 World Health Organization criteria for BMD impression classify patients as: Normal (T-score at or above -1.0), Osteopenia (T-score between -1.0 and -2.5), or Osteoporosis (T-score at or below -2.5). 10-year Fracture Risk: FRAX not reported because: Premenopausal woman Prior hip or vertebral fracture Previous Exams: Region Exam Age BMD T-score BMD Change BMD Change Date g/cm2 vs Baseline vs Previous AP Spine (L1-L4) 04/01/2025 35 0.862 -0.004 (-0.5%) -0.029 (-3.3%) 05/23/2022 32 0.891 0.025 (2.9%)* 0.005 (0.5%) 07/18/2019 29 0.887 0.021 (2.4%) 0.021 (2.4%) 06/09/2017 27 0.866 Total Hip(Left) 04/01/2025 35 0.936 0.067 (7.7%)* -0.014 (-1.4%) 05/23/2022 32 0.949 0.081 (9.3%)* 0.089 (10.3%)* 07/18/2019 29 0.861 -0.008 (-0.9%) -0.008 (-0.9%) 06/09/2017 27 0.868 Total Hip(Right) 04/01/2025 35 0.966 0.155 (19.0%)* 0.042 (4.6%)* 05/23/2022 32 0.924 0.112 (13.8%)* 0.116 (14.4%)* 07/18/2019 29 0.807 -0.004 (-0.5%) -0.004 (-0.5%) 06/09/2017 27 0.812 *Denotes significance at 95% confidence level, LSC for AP Spine = 0.022 g/cm2, LSC for Total Hip = 0.027 g/cm2 Clinical Information Provided by Patient: Have had a previous hip or vertebral fracture Has had a low trauma fracture Smokes Has used the following medications: Vitamin D Patient maximum height was 68 No regular weight bearing exercise Does not regularly consume dairy products Onset of menses at age 16 Premenopausal Number of children 3 Impression: The patient's bone mass is within expected range for age, gender and ethnicity. The patient has risk factors, including: smoking, previous fracture. The BMD for the AP Spine (L1-L4) decreased, changing by -3.3% since the last DXA exam. Discussion: BONE DENSITY IS WITHIN EXPECTED LIMITS FOR AGE, SEX AND RACE. HISTORY OF FRACTURE. Although there is a predictable association between low bone mass and the risk of osteoporotic fractures in untreated postmenopausal women, there are no data relating bone density and fracture risk in younger women. The ISCD position is that the diagnosis of ?low bone mass? or ?osteoporosis? should not be made on densitometric criteria alone. WHO criteria only apply to postmenopausal women. Further evaluation should be considered given the patient's history of fracture at a young age. The patient should follow a healthful lifestyle (good nutrition with adequate calcium and vitamin D, and appropriate weight-bearing exercise). Follow-Up: Consider a repeat BMD and Vertebral Fracture Assessment (VFA) exam in 2 years or sooner if medically necessary, to reassess this patient's status. Reported by: SHI on 04/01/2025 1:27:00 PM. Reviewed, dictated and finalized at location A.
== END 2025-04-01 12:30 | disposition home or self-care (01) ==
PROVIDERS: PCP Obstetrics & Gynecology Gynecology; Visit Provider Nurse Practitioner Family
DX: M85.80 Other specified disorders of bone density and structure, unspecified site (principal); Z86.59 Personal history of other mental and behavioral disorders
CPT/HCPCS: 77080

== ENCOUNTER 2025-05-19 07:38 | Outpatient (CLI) | payer OTHER, SELFPAY ==
--- NOTE | 2025-05-19 | ECHO_ITS ---
Patient Info Name: Gretchen Petty Age: 35 years : 1990 Gender: Female Ht: 66 in Wt: 215 lbs BSA: 2.17 m2 HR: 61 bpm BP: 104 / 83 mmHg Heart Rhythm: Sinus Rhythm Technical Quality: Fair Exam Date: 05/19/2025 8:10 AM Patient Status: O Admit Date: 05/19/2025 Exam Type: CA echo doppler color flow Complete two-dimensional, color flow and Doppler transthoracic echocardiogram is performed. Database Specialist: Kim Johnson Summary 1. Complete two-dimensional, color flow and Doppler transthoracic echocardiogram is performed. 2. Normal 2D/Doppler echocardiogram. Left Ventricular Outflow Tract Name Value Normal LVOT 2D LVOT Diameter 1.9 cm LVOT Doppler LVOT Peak Velocity 100 cm/s LVOT Peak Gradient 4 mmHg LVOT Mean Gradient 2 mmHg LVOT VTI 21 cm LVOT VTI/AV VTI Ratio 0.9 LVOT Stroke Volume 61 ml LVOT CO 4.1 l/min LVOT CI 1.9 l/min/m2 Pulmonic Valve Name Value Normal RVOT Doppler RVOT Peak Velocity 56 cm/s RVOT Peak Gradient 1 mmHg PV Doppler PV Peak Velocity 85 cm/s PV Peak Gradient 3 mmHg Mitral Valve Name Value Normal MV Diastolic Function MV E Peak Velocity 96 cm/s MV A Peak Velocity 46 cm/s MV E/A 2.1 MV Decel Time (PW) 230 ms Tricuspid Valve Name Value Normal Estimated PAP/RSVP RA Pressure 5 mmHg <=5 Aorta Name Value Normal Ascending Aorta Ao Root Diameter (MM) 2.7 cm Ao Root Diam Index (MM) 1.2 cm/m2 Aortic Valve Name Value Normal AV Doppler AV Peak Velocity 116 cm/s AV Peak Gradient 5 mmHg AV Mean Gradient 3 mmHg AV VTI 23 cm AV Area (Cont Eq VTI) 2.6 cm2 >=3.0 AV Area (Cont Eq Ray) 2.5 cm2 AV DI (Ray) 0.87 AV Regurgitation 2D LVOT Area 2.8 cm2 Ventricles Name Value Normal LV Dimensions 2D/MM IVS Diastolic Thickness (2D) 1.2 cm 0.6-1.0 IVS Diastole Thickness (MM) 1.0 cm 0.6-0.9 LVID Diastole (2D) 4.4 cm 3.8-5.2 LVID Diastole (MM) 5.3 cm 3.8-5.2 LVIW Diastolic Thickness (2D) 1.0 cm 0.6-0.9 LVIW Diastolic Thickness (MM) 0.8 cm 0.6-0.9 LVID Systole (2D) 3.0 cm 2.2-3.5 LVID Systole (MM) 2.9 cm 2.2-3.5 LVOT Diameter 1.9 cm LV Mass (2D Cubed) 166.78 g 67.00-162.00 LV Mass Index (2D Cubed) 77 g/m2 43-95 Relative Wall Thickness (2D) 0.47 <=0.42 LV Mass (MM Cubed) 177.63 g 67.00-162.00 LV Mass Index (MM Cubed) 82 g/m2 43-95 Relative Wall Thickness (MM) 0.30 LV Fractional Shortening/Ejection Fraction 2D/MM LV Fractional Shortening (2D) 33 % 27-45 LV Fractional Shortening (MM) 45 % 27-45 LV EF (MM Teichholz) 76 % LV EF (2D Teichholz) 61 % LV Diastolic Volume (4C MOD) 51 ml LV EF (4C MOD) 61 % LV Diastolic Volume (2C MOD) 45 ml LV EF (2C MOD) 55 % LV Diastolic Volume (BP MOD) 48 ml 46-106 LV Diastolic Volume Index (BP MOD) 22 ml/m2 29-61 LV Systolic Volume (BP MOD) 21 ml 14-42 LV Systolic Volume Index (BP MOD) 10 ml/m2 8-24 LV EF (BP MOD) 56 % 54-74 LV Diastolic Length (4C) 7.6 cm LV Systolic Length (4C) 6.0 cm LV Stroke Volume (4C MOD) 31 ml Atria Name Value Normal LA Dimensions LA Dimension (MM) 2.7 cm 2.7-3.8 LA Volume (4C A-L) 30 ml LA Volume (BP A-L) 28 ml RA Dimensions RA Systolic Major [place] [facility] Length (4C) 4.5 cm 2.2-2.8 RA Area (4C) 10.2 cm2 <=18.0 Report Signatures
== END 2025-05-19 07:39 | disposition home or self-care (01) ==
LOC: ANHCARD 07:40
PROVIDERS: PCP Nurse Practitioner Family
DX: R06.09 Other forms of dyspnea (principal)
CPT/HCPCS: 93306